=== PATIENT | male | born 1950 | race Caucasian/White ===

== ENCOUNTER → 2019-08-06 13:40 | Outpatient (BNVA) | payer MEDICARE, MEDICAID, SELFPAY | PROVIDERS: Family Provider Physician Assistant Medical; PCP Physician Assistant Medical; Visit Provider Psychiatry & Neurology Psychiatry | DX: F06.4 Anxiety disorder due to known physiological condition (principal); F06.31 Mood disorder due to known physiological condition with depressive features | CPT/HCPCS: 99204 ==

== ENCOUNTER 2020-01-31 09:46 | Emergency (ER) | payer MEDICARE, MEDICAID, SELFPAY ==
[2020-01-31] VITALS (16 sets, daily range): BP systolic 98–168; BP diastolic 54–105; PULSE 80–103; RESP 15–22; TEMP 36.6; O2SAT 92–98; BMI 24.3
--- NOTE | 2020-01-31 09:56 | ED_ITS ---
HPI - Psych General: Stated Complaint: THREATENING TO KILL HIMSELF Time Seen by Provider: 01/31/20 09:49 PFSH ED PFSH: Social History (Updated 08/06/19 @ 14:03 by Marshal Perez LPN) Smoking and tobacco status: current every day smoker cigarettes Packs smoked per day: 1 Years cigarettes smoked: 61 Quit status (tobacco): has tried quititng Number of times tried to quit tobacco: 1 Second hand smoke exposure: Yes Smoking risk assessment/counseling performed?: Yes Tobacco counseling given: counseling >3 minutes Discharge Plan Discharge Prescriptions: No Action omeprazole 20 mg capsule,delayed release(DR/EC) 20 mg PO DAILY RF: 0 venlafaxine 75 mg capsule,extended release 24hr See Rx Instructions PO DAILY RF: 0 quetiapine [Seroquel] 50 mg tablet See Rx Instructions PO .HS RF: 0 tizanidine 2 mg capsule 2 mg PO TID PRNRF: 0 hydrocodone-acetaminophen 10-325 mg tablet 1 tab PO Q8H PRNRF: 0 fluticasone propionate [Allergy Relief (fluticasone)] 50 mcg/actuation spray,suspension 1 spray INTRANASAL DAILY RF: 0 albuterol sulfate 90 mcg/actuation HFA aerosol inhaler 1 inh INHALATION Q4H PRN (Reason: shortness of breath or wheezing) RF: 0 olanzapine 2.5 mg tablet 2.5 mg PO BID PRN (Reason: anxiety) Qty: 60 RF: 2 Coding Level of Care Code ED [employer] 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
[2020-01-31] MEDS: LORazepam 2 mg/mL INJ 1 mL 1 MG IM ×2 (10:00→10:02)
[2020-01-31] MEDS: ziprasidone 20 mg/mL SDV 10 MG IM ×2 (10:01→13:11)
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
[2020-01-31 10:22] LABS: Basophils # 0.1 10^3/uL (0.0-0.1); Basophils % 0.6 %; Eosinophils # 0.3 10^3/uL (0.0-0.8); Eosinophils % 2.9 %; Hematocrit 38.8 % (42.0-52.0); Hemoglobin 13.1 g/dL (11.7-16.6); Lymphocytes # 3.5 10^3/uL (0.8-4.8); Mean Corpuscular HGB Conc 33.8 g/dL (30.0-36.0); Mean Corpuscular Hemoglobin 33.4 pg (28.0-34.0); Mean Platelet Volume 8.8 fL (7.4-10.4); Monocytes # 0.6 10^3/uL (0.2-0.9); Neutrophils # 5.04 10^3/uL (1.8-7.7); Nucleated Red Blood Cells % 0 %; Platelet Count 296 10^3/cmm (130-400); Red Blood Count 3.92 10^6/uL (4.1-5.3); Red Cell Distribution Width 13.9 % (12.1-15.1); White Blood Count 9.5 10^3/uL (4.0-10.0)
[2020-01-31 10:44] LABS: Alanine Aminotransferase 16 U/L (0-41); Albumin Level 4.3 g/dL (3.5-5.2); Alcohol Level 239 mg/dL (0-10); Alkaline Phosphatase 114 IU/L (40-130); Anion Gap 16.4 (5-19); Aspartate Amino Transferase 13 U/L (0-40); Blood Urea Nitrogen 10 mg/dL (8-23); Calcium 9.3 mg/dL (8.5-10.5); Carbon Dioxide 22 mmol/L (22-29); Chloride 107 mmol/L (98-107); Globulin 2.7 g/dL (1.3-4.6); Glomerular Filtration Rate 84.2 mL/min (90-130); Glucose 101 mg/dL (65-115); Osmolality Calculated 290 mOsm/kg (285-295); Potassium 3.4 mmol/L (3.5-5.1); Salicylate 0.5 mg/dL (3-10); Sodium 142 mmol/L (136-145); Total Bilirubin 0.2 mg/dL (0.15-1.2)
[2020-01-31 10:45] LABS: Acetaminophen < 5.0 ug/mL (10-30)
--- NOTE | 2020-01-31 10:48 | XRR_ITS ---
PROCEDURE INFORMATION: Exam: XR Chest, 1 View Exam date and time: 01/31/2020 11:04 AM Age: 69 years old Clinical indication: Cough and dyspnea; Patient HX: PT states no chest complaints, threatening to hill himself; Additional info: Dyspnea/cough TECHNIQUE: Imaging protocol: XR of the chest Views: 1 view. COMPARISON: CT chest con [id number] 03/06/2017 3:06 PM FINDINGS: Lungs: Emphysema Pleural space: Unremarkable. No pleural effusion. No pneumothorax. Heart/Mediastinum: Unremarkable. No cardiomegaly. Bones/joints: Unremarkable. Soft tissues: Subtle soft tissue fullness in the right infrahilar region suggested. Review of the CT scan dated 03-06-17 demonstrated a soft tissue density versus focal airspace disease within the right lower lobe posteriorly and medially. Consider two-view chest versus CT given this finding. XR/XR chest 1V portable [id number] IMPRESSION: Subtle soft tissue fullness in the right infrahilar region suggested. Review of the CT scan dated 03-06-17 demonstrated a soft tissue density versus focal airspace disease within the right lower lobe posteriorly and medially. Consider two-view chest versus CT given this finding.
--- NOTE | 2020-01-31 10:48 | ECG_ITS ---
[facility] Test Date: 2020-01-31 Pat Name: Mik Vargas Department: Room: Gender: Male Jaw Skinner: : 1950 Requested By: Rob Nathan Order Number: [id number] Haider MD: Edouard Tuttle M.D. Measurements Intervals [place] Rate: 90 P: 23 MA: 140 QRS: 32 QRSD: 81 T: 59 QT: 345 QTc: 423 Interpretive Statements SINUS RHYTHM WITH SINUS ARRHYTHMIA No previous ECG available for comparison Electronically Signed On 01-31-2020 18:08:34 CDT by Edouard Tuttle M.D. [id number]
--- NOTE | 2020-01-31 11:19 | PC.NURSE ---
Zoey sitting with patient stated patient awoke in a confused state asking where he was and how he got here. Also asked where his was, zoey informed patient that his was waiting out of the room, patient stated, oh good she's not trying to commit me or anything.
[2020-01-31 11:27] LABS: Thyroid Stimulating Hormone 0.55 uIU/mL (0.27-4.20)
[2020-01-31 11:35] LABS: Add Urine Microscopic? NO
[2020-01-31 11:39] LABS: Urine Appearance Clear (CLEAR); Urine Color Yellow (Yellow); pH Urine 6 (5-7)
[2020-01-31 11:40] LABS: Bilirubin Urine Neg (NEGATIVE); Blood Urine Neg (Negative); Glucose Urine UA Norm (Normal); Ketones Urine Negative (Negative); Leukocyte Esterase Urine Negative (Negative); Nitrate Urine Negative (Negative); Protein Urine Neg (Negative); Specific Gravity, Urine 1.005 (1.005-1.030); Urobilinogen Urine Neg (Negative)
[2020-01-31 11:48] LABS: Amphetamines Screen Urine Negative (Negative); Barbiturates Screen Urine Negative (Negative); Benzodiazepines Screen Urine Negative (Negative); Cocaine Screen Urine Negative (Negative); Opiate Screen Urine Positive (Negative); PCP Screen Urine Negative (Negative); THC Screen Urine Negative (Negative)
[2020-01-31 12:06] LABS: Vitamin B12 564 pg/mL (232-1245)
[2020-01-31] MEDS: LORazepam 1 mg Tablet PO (12:07)
[2020-01-31] MEDS: LORazepam 2 mg/mL INJ 1 mL (12:31)
[2020-01-31] MEDS: haloperidol inj 5 mg/mL INJ 1 mL (12:31)
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
--- NOTE | 2020-01-31 13:26 | PC.NURSE ---
Removed restraints at this time, patient is calm, cooperative, and is sleeping.
--- NOTE | 2020-01-31 14:51 | PC.NURSE ---
Patient rapid swabbed for COVID at this time per request from receiving facility.
[2020-01-31 15:15] LABS: SARS Covid-2 Antigen Negative (Negative)
[2020-01-31 21:19] LABS: Alcohol Level < 10 mg/dL (0-10)
== END 2020-01-31 22:30 ==
PROVIDERS: Family Medicine; Emergency Provider Emergency Medicine; PCP Physician Assistant Medical
DX: R45.851 Suicidal ideations (principal); F23 Brief psychotic disorder; F10.129 Alcohol abuse with intoxication, unspecified; J44.9 Chronic obstructive pulmonary disease, unspecified; F17.210 Nicotine dependence, cigarettes, uncomplicated
CPT/HCPCS: 12345; 36415; 71045; 80053; 80306; 80307; 81003; 82607; 84443; 85025; 87426; 93005; 93010; 96372; 99285; J1630; J2060; J3486

== ENCOUNTER → 2020-02-24 09:09 | Outpatient (BNVA) | payer MEDICARE, MEDICAID, SELFPAY | PROVIDERS: PCP Physician Assistant Medical; Visit Provider Psychiatry & Neurology Psychiatry | DX: F06.31 Mood disorder due to known physiological condition with depressive features (principal); F06.4 Anxiety disorder due to known physiological condition; S06.9X9S Unspecified intracranial injury with loss of consciousness of unspecified duration, sequela; F02.81 Dementia in other diseases classified elsewhere, unspecified severity, with behavioral disturbance | CPT/HCPCS: 99214 ==

== ENCOUNTER → 2020-03-19 08:22 | Outpatient (BNVA) | payer MEDICARE, MEDICAID, SELFPAY | PROVIDERS: PCP Physician Assistant Medical; Visit Provider Psychiatry & Neurology Psychiatry | DX: F06.31 Mood disorder due to known physiological condition with depressive features (principal); F06.4 Anxiety disorder due to known physiological condition; S06.9X9S Unspecified intracranial injury with loss of consciousness of unspecified duration, sequela; F02.81 Dementia in other diseases classified elsewhere, unspecified severity, with behavioral disturbance | CPT/HCPCS: 99213 ==

== ENCOUNTER 2020-04-11 12:09 | Emergency (ER) | payer MEDICARE, MEDICAID, SELFPAY ==
[2020-04-11 12:13] VITALS: BP 182/121; PULSE 107; RESP 18; TEMP 36.6; O2SAT 96; BMI 26.6
--- NOTE | 2020-04-11 12:20 | XRR_ITS ---
PROCEDURE INFORMATION: Exam: XR Chest, 1 View Exam date and time: 04/11/2020 12:22 PM Age: 69 years old Clinical indication: Other: AMS; Additional info: Altered mental status TECHNIQUE: Imaging protocol: XR of the chest Views: 1 view. COMPARISON: 1. CR XR chest 1V portable [id number] 01/31/2020 11:[address] chest con [id number] 03/06/2017 3:06:34 PM FINDINGS: Lungs: Lungs are hyperexpanded. There are fibrotic changes in lung bases. There is more focal opacity with peribronchial thickening in the right infrahilar region along the inferior heart border. This appears stable, but this is only to CT 01/31/2020. Review of chest CT from 2017 reveals a nodular density in right lung base the which appears smaller in size. Therefore, recommend follow-up to the chest x-ray or CT evaluation. Pleural space: No significant visible pleural effusion. No pneumothorax. Heart/Mediastinum: No significant cardiomegaly. Bones/joints: No acute finding. XR/XR chest 1V portable [id number] IMPRESSION: Chronic lung changes. Right medial lung base opacity appears stable to recent chest x-ray, however, this is only a few months of stability. Consider follow-up serial chest x-ray for stability or comparison to chest CT.
--- NOTE | 2020-04-11 12:20 | CTR_ITS ---
PROCEDURE INFORMATION: Exam: CT Head Without Contrast Exam date and time: 04/11/2020 12:38 PM Age: 69 years old Clinical indication: Altered mental status/memory loss; Prior surgery; Surgery type: Brain TECHNIQUE: Imaging protocol: Computed tomography of the head without contrast. Radiation optimization: All CT scans at this facility use at least one of these dose optimization techniques: automated exposure control; mA and/or kV adjustment per patient size (includes targeted exams where dose is matched to clinical indication); or iterative reconstruction. COMPARISON: CTA Head [id number] 11/06/2014 7:11 PM RADIATION DOSE METRICS: Total DLP (mGy-cm): 742.47 FINDINGS: Brain: There is no acute intracranial hemorrhage. There is lucency in the cerebral white matter, likely microvascular disease although non-specific. Rae white differentiation is intact. There are no extra-axial fluid collections. No evidence of mass. There is no mass effect or midline shift. There is right greater than left inferior frontal encephalomalacia. Cerebral ventricles: The ventricles and sulci are enlarged, consistent with volume loss / atrophy. No hydrocephalus. Bones/joints: There is left craniotomy. Paranasal sinuses: Visualized sinuses are unremarkable. No fluid levels. Mastoid air cells: No significant mastoid effusion. Vasculature: Aneurysm coil material in anterior suprasellar region likely at level of anterior communicating arteries. There is also an aneurysm clip present. There is vascular calcification. Soft tissues: Unremarkable as visualized. CT/CT head wo con* [id number] IMPRESSION: 1. No evidence of acute intracranial abnormality. No evidence of acute infarction, hemorrhage, or mass. 2. Atrophy and microvascular disease. Frontal encephalomalacia. 3. Status post anterior cervical Thurston aneurysm clipping. Radiation Dose CTDIVOL = (mGy): DLP = 742.47 (mGy-cm)
--- NOTE | 2020-04-11 12:21 | ECG_ITS ---
[facility] Test Date: 2020-04-11 Pat Name: Mik Vargas Department: Room: Gender: Male [employer]: : 1950 Requested By: Sangeeta Winkler Order Number: [id number] Haider MD: Ruddy Mirza M.D. Measurements Intervals [place] Rate: 91 P: ID: [id number] QRS: 58 QRSD: 78 T: 61 QT: 330 QTc: 407 Interpretive Statements Possible multifocal atrial rhythm ABNORMAL RHYTHM ECG Compared to ECG 01/31/2020 11:09:12 Sinus rhythm no longer present Sinus arrhythmia no longer present Electronically Signed On 04-11-2020 16:08:35 CDT by Ruddy Mirza M.D. [email or web address]
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
[2020-04-11] MEDS: folic acid 1 MG, multivitamin inj 10 ML, thiamine 100 MG in sodium chloride 0.9% 1,000 ML 252.8 MG IV (13:15)
[2020-04-11] MEDS: ondansetron 2 mg/ML SDV 2 mL 4 MG IVP (13:15)
[2020-04-11] MEDS: LORazepam 2 mg/mL INJ 1 mL 1 MG IVP ×2 (13:15→14:44)
[2020-04-11 13:18] VITALS: BP 198/99; PULSE 77; RESP 22; O2SAT 94
[2020-04-11 13:42] LABS: Basophils # 0.1 10^3/uL (0.0-0.1); Basophils % 0.5 %; Eosinophils # 0.1 10^3/uL (0.0-0.8); Eosinophils % 1.2 %; Hematocrit 41.9 % (42.0-52.0); Hemoglobin 13.7 g/dL (11.7-16.6); Lymphocytes # 1.9 10^3/uL (0.8-4.8); Lymphocytes % 16.8 %; Mean Corpuscular HGB Conc 32.7 g/dL (30.0-36.0); Mean Corpuscular Hemoglobin 32.4 pg (28.0-34.0); Mean Corpuscular Volume 99.1 fL (80-94); Mean Platelet Volume 9.5 fL (7.4-10.4); Monocytes # 0.5 10^3/uL (0.2-0.9); Monocytes % 4.7 %; Neutrophils # 8.52 10^3/uL (1.8-7.7); Neutrophils % 76.4 %; Nucleated Red Blood Cells % 0 %; Platelet Count 292 10^3/cmm (130-400); Red Blood Count 4.23 10^6/uL (4.1-5.3); Red Cell Distribution Width 14.7 % (12.1-15.1); White Blood Count 11.2 10^3/uL (4.0-10.0)
[2020-04-11 13:48] LABS: Ketone (Acetest) Serum Negative (Negative)
[2020-04-11 13:50] LABS: INR 0.95 (0.8-1.2)
[2020-04-11 14:03] LABS: Troponin(5th) Baseline 10 ng/L (0-15)
[2020-04-11 14:05] LABS: SARS Covid-2 Antigen Negative (Negative)
[2020-04-11 14:14] LABS: Alanine Aminotransferase 12 U/L (0-41); Albumin Level 4.6 g/dL (3.5-5.2); Alkaline Phosphatase 126 IU/L (40-130); Anion Gap 15.3 (5-19); Aspartate Amino Transferase 18 U/L (0-40); Blood Urea Nitrogen 19 mg/dL (8-23); Calcium 9.8 mg/dL (8.5-10.5); Carbon Dioxide 26 mmol/L (22-29); Chloride 99 mmol/L (98-107); Creatine Phosphokinase 129 U/L (39-308); Creatinine Clr Calc Pharmacy 82.0029; Free T4 Free Thyroxine 1.01 ng/dL (0.82-1.77); Globulin 2.5 g/dL (1.3-4.6); Glomerular Filtration Rate 84.2 mL/min (90-130); Glucose 147 mg/dL (65-115); Magnesium 1.6 mg/dL (1.7-2.3); Osmolality Calculated 287 mOsm/kg (285-295); Potassium 4.3 mmol/L (3.5-5.1); Sodium 136 mmol/L (136-145); Thyroid Stimulating Hormone 1.52 uIU/mL (0.27-4.20); Total Bilirubin 0.2 mg/dL (0.15-1.2); Total Protein 7.1 g/dL (6.6-8.7)
[2020-04-11 14:35] LABS: Alcohol Level < 10 mg/dL (0-10)
[2020-04-11 15:07] LABS: Amphetamines Screen Urine Negative (Negative); Barbiturates Screen Urine Negative (Negative); Benzodiazepines Screen Urine Negative (Negative); Cocaine Screen Urine Negative (Negative); Opiate Screen Urine Negative (Negative); PCP Screen Urine Negative (Negative); THC Screen Urine Negative (Negative)
[2020-04-11 15:09] LABS: Specific Gravity, Urine 1.025 (1.005-1.030); Urine Appearance Clear (CLEAR); Urine Color Dark Yellow (Yellow); pH Urine 5 (5-7)
[2020-04-11 15:10] LABS: Add Urine Microscopic? YES; Bilirubin Urine Neg (Negative); Blood Urine 2+ (Negative); Glucose Urine UA Norm (Normal); Ketones Urine Negative (Negative); Leukocyte Esterase Urine Negative (Negative); Nitrate Urine Negative (Negative); Protein Urine Trace (Negative); Urobilinogen Urine 4 mg/dL (Negative)
[2020-04-11 15:11] LABS: RBC Urine 15-25 /hpf (0-2); WBC Urine RARE /hpf (0-5)
[2020-04-11 15:12] LABS: Bacteria Urine TRACE /hpf
[2020-04-11 15:13] LABS: Add Urine Culture? Yes; Mucus Urine 1+ /hpf
[2020-04-11 16:05] LABS: Troponin 5 2HR 10.64 ng/L (0-15); Troponin 5 2HR Delta 0.64 ABS# (0-10)
[2020-04-11 17:18] VITALS: BP 158/100; PULSE 94; RESP 18; O2SAT 94
== END 2020-04-11 18:53 ==
PROVIDERS: Emergency Provider Emergency Medicine; PCP Physician Assistant Medical
DX: F03.91 Unspecified dementia, unspecified severity, with behavioral disturbance (principal); F10.10 Alcohol abuse, uncomplicated; F41.9 Anxiety disorder, unspecified; J44.9 Chronic obstructive pulmonary disease, unspecified; F17.210 Nicotine dependence, cigarettes, uncomplicated
CPT/HCPCS: 12345; 36415; 70450; 71045; 80053; 80306; 80307; 81001; 82009; 82550; 83735; 84439; 84443; 84484; 85025; 85610; 87086; 87426; 93005; 96361; 96374; 96375; 96376; 99285; J2060; J2405; J3411; J3490; J7030

== ENCOUNTER 2020-05-20 18:39 | Emergency (ER) | payer MEDICARE, MEDICAID, SELFPAY ==
[2020-05-20 18:42] VITALS: BMI 28.4
[2020-05-20 19:05] VITALS: BP 126/97; PULSE 75; O2SAT 94
[2020-05-20 20:00] VITALS: BP 93/71; PULSE 73; RESP 21; O2SAT 94
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
--- NOTE | 2020-05-20 22:23 | W.ED.COVID ---
HPI - COVID General: Chief Complaint: COVID symptoms Stated Complaint: COVID+ Time Seen by Provider: 05/20/20 19:20 Source: patient Mode of arrival: EMS Limitations: no limitations Triage information: No fever, cough or shortness of breath. Exposure to COVID + person last 14 days History of Present Illness: HPI Narrative: Patient is a 69-year-old male with a history of COPD, rheumatoid arthritis, anxiety who apparently was in the rehab facility but left AGAINST MEDICAL ADVICE today because he did not like how he was being treated. When I evaluated the patient, he denied any complaints, said he was not short of breath, and asked to be discharged home. He denied suicidal or homicidal ideation. He however had told the nurse that he was short of breath although he was not very cooperative with questioning. He denies any fever, any chest pain, difficulty breathing, dizziness, nausea or vomiting. MD complaint: known COVID positive Prior covid testing: yes, results known COVID 19 common symptoms: negative fever(s), chills, non-productive cough, productive cough, dyspnea, body aches, headache(s), throat pain, nausea or vomiting Pertinent comorbid conditions: COPD/respiratory disease COVID Results: SARS-CoV-2 Antigen (Rapid) Negative (Negative) 04/11/20 13:13 04/11/20 Review of Systems General: Reports: 10 or more systems reviewed and unremarkable except in HPI and below Const: Denies: fever(s), chills or body aches Eyes: Denies: change in vision or blurry vision ENMT: Denies: throat pain, enlarged tonsils, odynophagia, hoarseness, mouth pain or swelling of lips/tongue Card: Denies: palpitations, irregular heart rhythm, edema or swelling of feet/ankles Resp: Denies: dyspnea, productive cough or non-productive cough GI: Denies: abdominal pain, nausea or vomiting : Denies: flank pain, dysuria, urinary frequency, urinary urgency or urinary hesitancy Musc: Denies: neck pain, back pain or extremity swelling Skin/Breast: Denies: rash, pruritus or erythema Neuro: Denies: headache(s), numbness in extremities or weakness in extremities Endo: Denies: polyuria, polydipsia or tired all the time [facility] ED PFSH: Medical History Cerebral aneurysm Surgical intervention x2 COPD (chronic obstructive pulmonary disease) 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 Rheumatoid arthritis Social History Smoking and tobacco status: current every day smoker cigarettes Packs smoked per day: 1 Years cigarettes smoked: 61 Quit status (tobacco): has tried quititng Number of times tried to quit tobacco: 1 Second hand smoke exposure: Yes Smoking risk assessment/counseling performed?: Yes Tobacco counseling given: counseling >3 minutes Physical Exam Const: COMMON NORMALS: no acute distress, average body habitus, patient oriented x3, no limitations, healthy appearing, alert and well nourished HENMT: COMMON NORMALS: normocephalic, atraumatic and moist oral mucous membranes HEAD & SCALP: normocephalic and atraumatic Neck/C-Spine: COMMON NORMALS: no meningeal signs and no JVD Resp: COMMON NORMALS: normal respiratory effort, No retractions, No use of accessory muscles, clear to auscultation bilaterally and percussion normal AUSCULTATION: clear to auscultation bilaterally PERCUSSION: percussion normal Cardio: COMMON NORMALS: no JVD, regular rate, regular rhythm, S1 normal heart sound present, S2 normal heart sound present, No gallops present (Cardio), No clicks present (Cardio), No murmurs present (Cardio), No rub (Cardio) and Peripheral pulses 2+ throughout RATE: regular rate RHYTHM: regular rhythm HEART SOUNDS: S1 normal heart sound present and S2 normal heart sound present PERIPHERAL PULSES: Peripheral pulses 2+ throughout GI: COMMON NORMALS: Normal to inspection, nondistended, normoactive bowel sounds present, Soft to palpation, non-tender, No hepatosplenomegaly present, no masses and no bruits PALPATION: Yes Soft to palpation and Yes No hepatosplenomegaly present Extremity: COMMON NORMALS: normal to inspection, full ROM, capillary refill normal, no calf tenderness and no pedal edema Neuro: COMMON NORMALS: patient oriented x3 SENSORIUM/ORIENTATION: Yes alert MENINGEAL SIGNS: Yes no meningeal signs Course ED course: Patient who presents because he was apparently short of breath. However when I evaluated him he said he has no complaints, is not having any trouble breathing, and would like to be discharged home. Patient is not hypoxic and his oxygen saturation has been in the high 90s on room air. He is known Covid positive I will therefore discharge him home. Vital Signs: Vital signs: Vital Signs Pulse Rate 63 05/20/20 23:15 Respiratory Rate 17 05/20/20 23:15 Blood Pressure 97/70 05/20/20 23:15 Pulse Oximetry 94 05/20/20 23:15 MDM - COVID MDM Narrative: Medical decision making narrative: He does not meet the [facility] criteria for Bamlanivimab. He is greater than 65 years old, his greater than 40 kg, he has a positive Covid test, however his BMI is 28, he does not have chronic kidney disease, he is not diabetic, he is not on any immunosuppressants and does not have any immunosuppression disease, no history of cardiovascular disease, he is not hypertensive, but he has COPD. He is therefore discharged home with no new orders. Medical Records: Attestation: I reviewed the patient's medical records. COVID Results: SARS-CoV-2 Antigen (Rapid) Negative (Negative) 04/11/20 13:13 04/11/20 Discharge Plan Discharge Patient Disposition: Home Clinical Impression: COVID-19 Condition: Stable Prescriptions: Continued omeprazole 20 mg capsule,delayed release(DR/EC) 20 mg PO DAILY RF: 0 venlafaxine 75 mg capsule,extended release 24hr See Rx Instructions PO DAILY RF: 0 quetiapine [Seroquel] 50 mg tablet 100 mg PO BEDTIME RF: 0 tizanidine 2 mg capsule 2 mg PO TID PRN (Reason: Muscle Pain) RF: 0 fluticasone propionate [Allergy Relief (fluticasone)] 50 mcg/actuation spray,suspension 1 spray INTRANASAL DAILY RF: 0 albuterol sulfate 90 mcg/actuation HFA aerosol inhaler 1 inh INHALATION Q4H PRN (Reason: shortness of breath or wheezing) RF: 0 fluticasone propion-salmeterol [Advair Diskus] 250-50 mcg/dose blister with device 1 inh INHALATION BID RF: 0 buspirone 5 mg tablet 5 mg PO TID Qty: 90 RF: 2 Discharge Orders: Discharge Order (Routine); Ordered 05/20/20 Ordered By: Johnathon Fuller Referrals: Cristi Nascimento [Primary Care Provider] - 1-3 days Discharge Diet: Usual diet Discharge Activity: Increase activity as tolerated Patient Instructions: Viral Syndrome (ED) Activity Restrictions/Additional Instructions: Return for any new or worsening symptoms. You need to self isolate for at least 10 days from the day of diagnosis and you have been fever free without taking any medication for fever for at least 48 hours. Follow-up with your primary care provider within 3 days. Coding Level of Care Code ED Mold Closer for Mary Marinelli
[2020-05-20 23:15] VITALS: BP 97/70; PULSE 63; RESP 17; O2SAT 94
[2020-05-21 00:55] VITALS: BP 95/54; PULSE 61; RESP 17; O2SAT 93
[2020-05-21 01:59] VITALS: BP 123/76; PULSE 60; RESP 17; O2SAT 92
--- NOTE | 2020-05-21 03:28 | PC.SOCIAL ---
Montrell lora called, trip #[id number]
[2020-05-21 03:42] VITALS: BP 128/60; PULSE 66; RESP 16; TEMP 36.9; O2SAT 93
== END 2020-05-21 03:42 | disposition home or self-care (01) ==
PROVIDERS: Emergency Provider Family Medicine; PCP Physician Assistant Medical
DX: U07.1 COVID-19 (principal); J44.9 Chronic obstructive pulmonary disease, unspecified; F17.210 Nicotine dependence, cigarettes, uncomplicated
CPT/HCPCS: 12345; 99282

== ENCOUNTER 2020-07-03 18:50 | Inpatient (IN) | payer MEDICARE, MEDICAID, SELFPAY ==
--- NOTE | 2020-07-03 18:52 | ECG_ITS ---
[facility] Test Date: 2020-07-03 Pat Name: Mik Vargas Department: Room: Gender: Male Crumb Packer: : 1950 Requested By: Ryder Fuller Order Number: [id number] Haider MD: Edouard Tuttle M.D. 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 [id number]
[2020-07-03 19:01] VITALS: BP 184/120; PULSE 72; RESP 20; TEMP 36.7; O2SAT 93; BMI 26.6
[2020-07-03 20:08] LABS: Basophils # 0.1 10^3/uL (0.0-0.1); Basophils % 0.8 %; Eosinophils # 0.1 10^3/uL (0.0-0.8); Eosinophils % 0.9 %; Hematocrit 35.6 % (42.0-52.0); Hemoglobin 11.9 g/dL (11.7-16.6); Lymphocytes % 29.8 %; Mean Corpuscular HGB Conc 33.4 g/dL (30.0-36.0); Mean Corpuscular Hemoglobin 31.6 pg (28.0-34.0); Mean Corpuscular Volume 94.7 fL (80-94); Mean Platelet Volume 9.1 fL (7.4-10.4); Monocytes % 7.8 %; Neutrophils # 7.37 10^3/uL (1.8-7.7); Neutrophils % 55.6 %; Nucleated Red Blood Cells % 0 %; Platelet Count 412 10^3/cmm (130-400); Red Blood Count 3.76 10^6/uL (4.1-5.3); Red Cell Distribution Width 14.7 % (12.1-15.1); White Blood Count 13.3 10^3/uL (4.0-10.0)
[2020-07-03 20:30] LABS: Amphetamines Screen Urine Negative (Negative); Barbiturates Screen Urine Negative (Negative); Benzodiazepines Screen Urine Negative (Negative); Cocaine Screen Urine Negative (Negative); Opiate Screen Urine Negative (Negative); PCP Screen Urine Negative (Negative); THC Screen Urine Negative (Negative)
[2020-07-03 20:35] LABS: Alanine Aminotransferase 26 U/L (0-41); Albumin Level 3.5 g/dL (3.5-5.2); Alcohol Level 58 mg/dL (0-10); Alkaline Phosphatase 139 IU/L (40-130); Anion Gap 16.3 (5-19); Aspartate Amino Transferase 26 U/L (0-40); Blood Urea Nitrogen 21 mg/dL (8-23); Calcium 9.3 mg/dL (8.5-10.5); Carbon Dioxide 26 mmol/L (22-29); Chloride 101 mmol/L (98-107); Globulin 3.3 g/dL (1.3-4.6); Glomerular Filtration Rate 84.2 mL/min (90-130); Glucose 137 mg/dL (65-115); Osmolality Calculated 295 mOsm/kg (285-295); Potassium 3.3 mmol/L (3.5-5.1); Salicylate 1.5 mg/dL (3-10); Sodium 140 mmol/L (136-145); Thyroid Stimulating Hormone 0.98 uIU/mL (0.27-4.20); Total Bilirubin 0.2 mg/dL (0.15-1.2); Total Protein 6.8 g/dL (6.6-8.7)
[2020-07-03 20:54] LABS: Acetaminophen < 5.0 ug/mL (10-30)
[2020-07-03 20:55] LABS: Urine Appearance Clear (CLEAR); Urine Color Yellow (Yellow); pH Urine 5 (5-7)
[2020-07-03 20:56] LABS: Add Urine Microscopic? YES; Bilirubin Urine Neg (Negative); Blood Urine 2+ (Negative); Glucose Urine UA Norm (Normal); Ketones Urine Negative (Negative); Leukocyte Esterase Urine Negative (Negative); Nitrate Urine Negative (Negative); Protein Urine Neg (Negative); Specific Gravity, Urine 1.015 (1.005-1.030); Urobilinogen Urine Norm (Negative)
[2020-07-03 20:59] LABS: RBC Urine 0-4 /hpf (0-2); Squamous Epithelial Cell Urine 0-4 /hpf (0-5); WBC Urine 0-4 /hpf (0-5)
[2020-07-03 21:00] LABS: Add Urine Culture? No; Bacteria Urine TRACE /hpf; Mucus Urine 2+ /hpf
--- NOTE | 2020-07-03 21:01 | W.ED.PSYCH ---
HPI - Psych General: Chief Complaint: Psychiatric Symptoms Stated Complaint: 96 hr hold Time Seen by Provider: 07/03/20 18:52 History of Present Illness: HPI Narrative: 69-year-old gentleman here under court order 96-hour hold. There are multiple affidavit signed that he drinks daily, and threatens harm to his , even chokes her, if he does not get alcohol. He has a history of vascular dementia as well. He has been drinking today. He does state that he has had a bit of a cough, but no fever, vomiting or diarrhea. He had COVID-19 back in April, but no contact currently with any Covid patients. MD complaint: other Associated symptoms: Deny auditory hallucinations, visual hallucinations or delusions Review of Systems Const: Denies: fever(s) or chills Eyes: Denies: change in vision ENMT: Denies: odynophagia, swelling of lips/tongue or sinus pain Card: Denies: chest pain, palpitations or irregular heart rhythm Resp: Reports: non-productive cough; Denies: dyspnea, productive cough or wheezing GI: Denies: abdominal pain, nausea, vomiting, rectal pain, hematochezia or melena : Denies: difficulty urinating, dysuria, urinary frequency, urinary urgency or hematuria Musc: Denies: neck pain, back pain, joint redness or joint warmth Skin/Breast: Denies: rash, pruritus or erythema Neuro: Denies: headache(s), dizziness, vertigo, confusion or seizure-like activity Psych: Denies: anxiety, visual hallucinations or auditory hallucinations PFS ED PFSH: Medical History Cerebral aneurysm Surgical intervention x2 COPD (chronic obstructive pulmonary disease) 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 Rheumatoid arthritis Social History Smoking and tobacco status: current every day smoker cigarettes Packs smoked per day: 1 Years cigarettes smoked: 61 Quit status (tobacco): has tried quititng Number of times tried to quit tobacco: 1 Second hand smoke exposure: Yes Smoking risk assessment/counseling performed?: Yes Tobacco counseling given: counseling >3 minutes Physical Exam Const: GENERAL APPEARANCE: cooperative and comfortable ORIENTATION/CONSCIOUSNESS: Yes oriented to person and Yes oriented to place; not oriented to time HENMT: COMMON NORMALS: normocephalic, external ears normal and Normal external nose present HEAD & SCALP: normocephalic FACE & SINUS: normal facial exam NOSE: Normal external nose present and No nasal discharge present EXTERNAL EAR: Yes external ears normal Eye: COMMON NORMALS: Equal, round and reactive pupils present, EOMs intact bilaterally and conjunctivae normal EYELID: eyelids normal CONJUNCTIVA: Yes conjunctivae normal PUPIL: Yes Equal, round and reactive pupils present Neck/C-Spine: GENERAL: No tracheal deviation Chest: COMMONS NORMALS: normal inspection of the chest CHEST: No tenderness Resp: COMMON NORMALS: clear to auscultation bilaterally EFFORT & INSPECTION: No tachypneic, No respiratory distress, No retractions, No uses accessory muscles and No tracheal deviation AUSCULTATION: clear to auscultation bilaterally, no rhonchi, no wheezes and lung sounds not diminished Cardio: COMMON NORMALS: regular rate and regular rhythm RATE: regular rate RHYTHM: regular rhythm HEART SOUNDS: no murmurs PERIPHERAL PULSES: radial pulses present GI: INSPECTION: No abdominal distension AUSCULTATION: No Hyperactive bowel sounds present and No Hypoactive bowel sounds present PALPATION: No Guarding due to palpation present (GI) and No Rigid due to palpation PERCUSSION: no dullness to percussion and no tympanic to percussion Neuro: SENSORIUM/ORIENTATION: Yes oriented to person, Yes oriented to place and No oriented to time Psych: COMMON NORMALS: Normal thought process present, cooperative and speech normal ATTITUDE: Yes calm ACTIVITY/MOTOR BEHAVIOR: Yes appropriate eye contact SPEECH: Yes normal speech MOOD & AFFECT: Yes euthymic mood THOUGHT PROCESS: Normal thought process present THOUGHT CONTENT: No delusions and No Hallucination(s) present ATTENTION/CONCENTRATION: Yes attention grossly intact and Yes concentration grossly intact MEMORY/COGNITION: Yes memory grossly impaired and Yes cognition grossly impaired (mildly) INSIGHT: Limited insight present (Psych) JUDGEMENT: Limited judgement present (Psych) Skin: COMMON NORMALS: no rashes or lesions noted GENERAL SKIN EXAM: no rashes or lesions noted MDM - Psych MDM Narrative: Medical decision making narrative: 69-year-old mildly intoxicated male with a history of vascular dementia. He has been calm cooperative throughout his ER stay. He has a mild elevation in his white blood cell count but with no shift. Potassium is mildly low and is repleted. He is Covid negative by rapid testing. He is otherwise been medically stable. Our NPU age limit is 64, and the patient does have a history of vascular dementia. He would likely be better suited in a geriatric psychiatry facility. We are searching for such. 0426: We called multiple geriatric neuropsychiatry facilities in the state. None are willing to accept this patient, or rather are full or closed. The unwillingness to accept test to do with the history of daily drinking and the propensity for delirium tremens following admission which requires medical treatment. I have spoke with our hospitalist. We are trying to work out a sitter for this patient to possibly be admitted to the floor here observation and CIWA protocol until such time as he can become medically stable for geriatric psychiatry transfer. 0527 no sitters have been found on the floor will be available on today's hi. We are holding the patient in the ER for now until such time staff becomes available to care for this patient. The patient will be turned over to Dr. Thakur at shift change Lab Data: Labs: Lab Results 07/03/20 07/03/20 07/03/20 Range/Units 19:55 19:55 20:03 WBC 13.3 H (4.0-10.0) 10^3/ uL RBC 3.76 L (4.1-5.3) 10^6/u L Hgb 11.9 (11.7-16.6) g/dL Hct 35.6 L (42.0-52.0) % MCV 94.7 H (80-94) fL MCH 31.6 (28.0-34.0) pg MCHC 33.4 (30.0-36.0) g/dL RDW 14.7 (12.1-15.1) % Plt Count 412 H (130-400) 10^3/c mm MPV 9.1 (7.4-10.4) fL Neut % (Auto) 55.6 % Lymph % (Auto) 29.8 % [place] % (Auto) 7.8 % Eos % (Auto) 0.9 % Baso % (Auto) 0.8 % Neut # (Auto) 7.37 (1.8-7.7) 10^3/u L Lymph # (Auto) 4.0 (0.8-4.8) 10^3/u L [place] # (Auto) 1.0 H (0.2-0.9) 10^3/u L Eos # (Auto) 0.1 (0.0-0.8) 10^3/u L Baso # (Auto) 0.1 (0.0-0.1) 10^3/u L Nucleated RBC % (a uto) 0 % Nucleated RBCs # 0.0 /100WBC Sodium 140 (136-145) mmol/L Potassium 3.3 L (3.5-5.1) mmol/L Chloride 101 (98-107) mmol/L Carbon Dioxide 26 (22-29) mmol/L Anion Gap 16.3 (5-19) BUN 21 (8-23) mg/dL Creatinine 0.9 (0.7-1.2) mg/dL GFR Calculation 84.2 L (90-130) mL/min Glucose 137 H (65-115) mg/dL Calculated Osmolal ity 295 (285-295) mOsm/k g Calcium 9.3 (8.5-10.5) mg/dL Total Bilirubin 0.2 (0.15-1.2) mg/dL AST 26 (0-40) U/L ALT 26 (0-41) U/L Alkaline Phosphata se 139 H (40-130) IU/L Total Protein 6.8 (6.6-8.7) g/dL Albumin 3.5 (3.5-5.2) g/dL Globulin 3.3 (1.3-4.6) g/dL TSH 0.98 (0.27-4.20) uIU/ mL Urine Color Yellow (Yellow) Urine Appearance Clear (CLEAR) Urine pH 5 (5-7) Ur Specific Gravit y 1.015 (1.005-1.030) Urine Protein Neg (Negative) Urine Glucose (UA) Norm (Normal) Urine Ketones Negative (Negative) Urine Blood 2+ H (Negative) Urine Nitrate Negative (Negative) Urine Bilirubin Neg (Negative) Urine Urobilinogen Norm (Negative) mg/dL Ur Leukocyte Evie ase Negative (Negative) Urine RBC 0-4 H (0-2) /hpf Urine WBC 0-4 H (0-5) /hpf Ur Squamous Epith Cells 0-4 H (0-5) /hpf Amorphous Sediment Not Reportable Urine Bacteria Trace (NONE) /hpf Urine Mucus 2+ /hpf Salicylates 1.5 L (3-10) mg/dL Urine Opiates Scre en (Negative) ng/mL Acetaminophen < 5.0 L (10-30) ug/mL Ur Barbiturates Sc reen (Negative) ng/mL Ur Phencyclidine S crn (Negative) ng/mL Ur Amphetamines Sc reen (Negative) ng/mL U Benzodiazepines Scrn (Negative) ng/mL [place] (0.6-1.2) mmol/L Urine Cocaine Scre en (Negative) ng/mL U Marijuana (THC) Screen (Negative) ng/mL Ethyl Alcohol 58 H (0-10) mg/dL SARS-CoV-2 Ag (Rap id) (Negative) 07/03/20 07/03/20 07/03/20 Range/Units 20:03 20:10 21:54 WBC (4.0-10.0) 10^3/ uL RBC (4.1-5.3) 10^6/u L Hgb (11.7-16.6) g/dL Hct (42.0-52.0) % MCV (80-94) fL MCH (28.0-34.0) pg MCHC (30.0-36.0) g/dL RDW (12.1-15.1) % Plt Count (130-400) 10^3/c mm MPV (7.4-10.4) fL Neut % (Auto) % Lymph % (Auto) % [place] % (Auto) % Eos % (Auto) % Baso % (Auto) % Neut # (Auto) (1.8-7.7) 10^3/u L Lymph # (Auto) (0.8-4.8) 10^3/u L [place] # (Auto) (0.2-0.9) 10^3/u L Eos # (Auto) (0.0-0.8) 10^3/u L Baso # (Auto) (0.0-0.1) 10^3/u L Nucleated RBC % (a uto) % Nucleated RBCs # /100WBC Sodium (136-145) mmol/L Potassium (3.5-5.1) mmol/L Chloride (98-107) mmol/L Carbon Dioxide (22-29) mmol/L Anion Gap (5-19) BUN (8-23) mg/dL Creatinine (0.7-1.2) mg/dL GFR Calculation (90-130) mL/min Glucose (65-115) mg/dL Calculated Osmolal ity (285-295) mOsm/k g Calcium (8.5-10.5) mg/dL Total Bilirubin (0.15-1.2) mg/dL AST (0-40) U/L ALT (0-41) U/L Alkaline Phosphata se (40-130) IU/L Total Protein (6.6-8.7) g/dL Albumin (3.5-5.2) g/dL Globulin (1.3-4.6) g/dL TSH (0.27-4.20) uIU/ mL Urine Color (Yellow) Urine Appearance (CLEAR) Urine pH (5-7) Ur Specific Gravit y (1.005-1.030) Urine Protein (Negative) Urine Glucose (UA) (Normal) Urine Ketones (Negative) Urine Blood (Negative) Urine Nitrate (Negative) Urine Bilirubin (Negative) Urine Urobilinogen (Negative) mg/dL Ur Leukocyte Evie ase (Negative) Urine RBC (0-2) /hpf Urine WBC (0-5) /hpf Ur Squamous Epith Cells (0-5) /hpf Amorphous Sediment Urine Bacteria (NONE) /hpf Urine Mucus /hpf Salicylates (3-10) mg/dL Urine Opiates Scre en Negative (Negative) ng/mL Acetaminophen (10-30) ug/mL Ur Barbiturates Sc reen Negative (Negative) ng/mL Ur Phencyclidine S crn Negative (Negative) ng/mL Ur Amphetamines Sc reen Negative (Negative) ng/mL U Benzodiazepines Scrn Negative (Negative) ng/mL [place] 0.1 L (0.6-1.2) mmol/L Urine Cocaine Scre en Negative (Negative) ng/mL U Marijuana (THC) Screen Negative (Negative) ng/mL Ethyl Alcohol (0-10) mg/dL SARS-CoV-2 Ag (Rap id) Negative (Negative) Discharge Plan Discharge Prescriptions: No Action omeprazole 20 mg capsule,delayed release(DR/EC) 20 mg PO DAILY@0600 RF: 0 venlafaxine 75 mg capsule,extended release 24hr 75 mg PO DAILY@0600 RF: 0 quetiapine [Seroquel] 50 mg tablet 100 mg PO BEDTIME@2000 RF: 0 tizanidine 2 mg capsule 2 mg PO TID PRN (Reason: Muscle Pain) RF: 0 fluticasone propionate [Allergy Relief (fluticasone)] 50 mcg/actuation spray,suspension 1 spray INTRANASAL DAILY@0600 RF: 0 albuterol sulfate 90 mcg/actuation HFA aerosol inhaler 1 inh INHALATION Q4H PRN (Reason: shortness of breath or wheezing) RF: 0 fluticasone propion-salmeterol [Advair Diskus] 250-50 mcg/dose blister with device 1 inh INHALATION BID@0600,1800 RF: 0 prednisone 20 mg tablet See Rx Instructions .ROUTE .COMPLEX RF: 0 albuterol sulfate 90 mcg/actuation HFA aerosol inhaler 2 puff INHALATION Q4H PRN (Reason: shortness of breath.) RF: 0 doxycycline hyclate 100 mg tablet 100 mg PO BID@0600,1800 RF: 0 buspirone 5 mg tablet 5 mg PO TID@0600,1300,1800 RF: 0 venlafaxine 150 mg capsule,extended release 24hr 150 mg PO DAILY@0600 RF: 0 Coding Level of Care Code ED Engraving Plate Maker for Chg Fwd Exam Comprehensive
[2020-07-03 21:14] LABS: Slide Review Slide Review Perform
[2020-07-03 21:37] LABS: SARS Covid-2 Antigen Negative (Negative)
[2020-07-03 21:45] VITALS: BP 146/99; PULSE 88; RESP 18; O2SAT 91
--- NOTE | 2020-07-03 21:46 | PC.NURSE ---
Patient states that he delgado oxygen over night at bedtime.
--- NOTE | 2020-07-03 21:56 | PC.NURSE ---
Placed patient on 2L O2, charge nurse and presiding mold design engineer is aware.
[2020-07-03 22:00] VITALS: BP 150/111; PULSE 83; RESP 16; O2SAT 94
--- NOTE | 2020-07-03 22:03 | PC.NURSE ---
pt is normally on oxygen at night and 0xygen sats were 90-91%. Put on 2lpm nasal cannula
[2020-07-03 22:42] LABS: Lithium 0.1 mmol/L (0.6-1.2)
[2020-07-04] VITALS (9 sets, daily range): BP systolic 160–176; BP diastolic 76–102; PULSE 70–89; RESP 16–18; TEMP 36.5–36.8; O2SAT 93–98
[2020-07-04] MEDS: potassium chloride ER 20 mEq Tablet PO (00:36)
--- NOTE | 2020-07-04 01:14 | PC.NURSE ---
patient denied to daily alcohol use
--- NOTE | 2020-07-04 02:01 | PC.NURSE ---
called [facility] in [place], [place] for possible placement, bed available
--- NOTE | 2020-07-04 02:54 | PC.NURSE ---
[facility] denied due to alcohol. Patient needs to be ETOH free for 24 hours and then they will reconsider.
[2020-07-04] MEDS: ibuprofen 200 mg Tablet 400 MG PO (09:31)
--- NOTE | 2020-07-04 11:23 | PC.NURSE ---
optical engineering manager remains at bedside
--- NOTE | 2020-07-04 13:51 | XRR_ITS ---
PROCEDURE INFORMATION: Exam: XR Chest, 1 View Exam date and time: 07/04/2020 1:52 PM Age: 69 years old Clinical indication: Shortness of breath TECHNIQUE: Imaging protocol: XR of the chest Views: 1 view. Total images: 1 COMPARISON: CR (CHEST, ) 04/11/2020 12:26 PM FINDINGS: Lungs: COPD/chronic bronchitis. Stable senile fibrosis primarily in the lung bases. No visible consolidated alveolar airspace disease or findings of active interstitial lung disease. Pleural space: Unremarkable. No pleural effusion. No pneumothorax. Heart/Mediastinum: Cardiac structures and configuration with arteriosclerosis. Bones/joints: No visible acute osseous abnormality. XR/XR chest 1V portable [id number] IMPRESSION: Nonacute.
[2020-07-04] MEDS: nicotine 21 mg Patch 1 PATCH TRANSDERMA (13:52)
[2020-07-04] MEDS: multivitamin therapeutic Tablet 1 TAB PO (13:52)
[2020-07-04] MEDS: folic acid 1 mg Tablet PO (13:52)
--- NOTE | 2020-07-04 13:56 | P.HP_ITS ---
Providers/Chief Complaint Admitting Physician: Brad Herrmann MD Primary Care Provider: Cristi Nascimento Chief Complaint: 96 hr hold History of Present Illness Mik Raya is a 69 year old male with a past medical history of depression, anxiety, chronic alcoholism, COPD, current smoker, who presents to [facility] on a 96-hour hold due to suicidal ideation. 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 Currently he does report that he feels down and depressed, has loss of interest, has guilty feelings, no lack of energy, no LOC constipation, denies suicidal ideation, denies homicidal ideation. Patient has no complaints, no chest pain, no cardiovascular issues, no history of strokes, no strokelike symptoms, does complain of some wheezing, no fevers, no chills, known exposure to COVID-19. Patient states that his last drink was 48 hours a go. Review of Systems Const: Denies: fever(s), chills, fatigue or malaise Eyes: Denies: change in vision or blurry vision ENMT: Denies: nasal congestion Card: Denies: chest pain or palpitations Resp: Denies: dyspnea, productive cough, non-productive cough or wheezing GI: Denies: abdominal pain, nausea, vomiting, hematemesis, diarrhea, constipation, hematochezia or melena : Denies: flank pain, difficulty urinating, dysuria or urinary frequency Musc: Denies: neck pain or back pain Skin/Breast: Denies: rash Neuro: Denies: headache(s), dizziness or vertigo Psych: Denies: anxiety or depression Endo: Denies: polyuria or polydipsia Medications/Allergies Home Medications Medication Instructions Recorded Confirmed Last Taken Type albuterol sulfate 90 mcg/actuation 1 inh INHALATION Q4H PRN gm 08/06/19 07/03/20 07/03/20 History aerosol inhaler fluticasone propionate 50 1 spray INTRANASAL DAILY@0600 08/06/19 07/03/20 07/02/20 History mcg/actuation nasal spray,suspension omeprazole 20 mg capsule,delayed 20 mg PO DAILY@0600 08/06/19 07/03/20 07/03/20 History release quetiapine 50 mg tablet 100 mg PO BEDTIME@2000 tab 08/06/19 07/03/20 07/02/20 History tizanidine 2 mg capsule 2 mg PO TID PRN 08/06/19 07/03/20 05/20/20 History venlafaxine 75 mg capsule,extended 75 mg PO DAILY@0600 08/06/19 07/03/20 07/03/20 History release 24 hr fluticasone 250 mcg-salmeterol 50 1 inh INHALATION BID@0600,1800 03/18/20 07/03/20 07/03/20 History mcg/dose blistr powdr for inhalation albuterol sulfate 2 puff INHALATION Q4H PRN 07/03/20 07/03/20 07/02/20 History buspirone 5 mg PO TID@0600,1300,1800 07/03/20 07/03/20 07/03/20 History doxycycline hyclate 100 mg PO BID@0600,1800 07/03/20 07/03/20 Unknown History prednisone See Rx Instructions .ROUTE .COMPLEX 07/03/20 07/03/20 07/03/20 History venlafaxine 150 mg PO DAILY@0600 07/03/20 07/03/20 07/03/20 History Allergies Allergy/AdvReac Type Severity Reaction Status Date / Time Silk sutures AdvReac Intermediate Bad abd Uncoded 05/20/20 18:55 pains PFSH Acute PFSH: Medical History (Updated 07/04/20 @ 14:07 by Brad Herrmann MD) Cerebral aneurysm Surgical intervention x2 COPD (chronic obstructive pulmonary disease) 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 Rheumatoid arthritis Surgical History (Updated 07/04/20 @ 14:03 by Brad Herrmann MD) History of exploratory laparotomy Family History (Updated 07/04/20 @ 14:04 by Brad Herrmann MD) Mother Diabetes Social History Smoking and tobacco status: current every day smoker cigarettes Packs smoked per day: 1 Years cigarettes smoked: 61 Quit status (tobacco): has tried quititng Number of times tried to quit tobacco: 1 Second hand smoke exposure: Yes Smoking risk assessment/counseling performed?: Yes Tobacco counseling given: counseling >3 minutes Vitals/I&O/Wt Last Vital Signs Temp 98.1 F 07/03/20 19:01 Pulse 89 07/04/20 13:10 Resp 16 07/04/20 13:10 BP 161/84 07/04/20 13:10 Pulse Ox 98 07/04/20 13:10 Weight last 48 hrs Weight 81.647 kg Data : 07/03/20 19:55 07/03/20 19:55 A&P Assessment and plan (1) COPD (chronic obstructive pulmonary disease): -COPD exacerbation, give prednisone doxycycline, inhaler therapy, requiring 1 to 2 L nasal cannula Status: Acute (2) 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: Continue home medications We will discuss with psychiatrist Status: Acute (3) Alcohol intoxication: [facility] protocol Status: Acute (4) Suicidal ideation: -Currently denies any suicidal homicidal ideation -Denies threatening to hurt his -Currently on a 96-hour hold, for suicide ideation, threatening to hurt his -We will discuss with psychiatrist Status: Acute (5) Anxiety: Status: Acute Attestations Medical Necessity Statement*: Patient requires hospitalization, outpatient with observation, for COPD, suicidal ideation, 96-hour hold Coding Level of Care Code Acute Conche Operator for Mary Marinelli Diagnoses COPD (chronic obstructive pulmonary disease) J44.9 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
[2020-07-04] MEDS: enoxaparin 40 mg/0.4 mL Syringe SUBCUT (14:21)
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
[2020-07-04 15:27] LABS: Magnesium 1.7 mg/dL (1.7-2.3); Phosphorus 3.6 mg/dL (2.5-4.5)
[2020-07-04 15:37] LABS: Thyroid Stimulating Hormone 0.67 uIU/mL (0.27-4.20)
[2020-07-04 16:50] LABS: Estmated Average Glucose 128; Hemoglobin A1C 6.1 % (4.0-6.0)
[2020-07-04] MEDS: BuSPIRONE 5 mg Tablet PO (17:22)
[2020-07-04] MEDS: doxycycline 100 mg Tablet PO (17:22)
[2020-07-04] MEDS: famotidine 20 mg Tablet PO (17:22)
[2020-07-04] MEDS: quetiapine 100 mg Tablet PO (20:30)
[2020-07-05] VITALS (10 sets, daily range): BP systolic 111–157; BP diastolic 71–83; PULSE 75–99; RESP 17–18; TEMP 36.4–37.2; O2SAT 93–97
[2020-07-05 04:38] LABS: Basophils # 0.1 10^3/uL (0.0-0.1); Basophils % 0.7 %; Eosinophils # 0.3 10^3/uL (0.0-0.8); Eosinophils % 3.2 %; Hematocrit 38.3 % (42.0-52.0); Hemoglobin 12.6 g/dL (11.7-16.6); Lymphocytes # 2.6 10^3/uL (0.8-4.8); Lymphocytes % 24.5 %; Mean Corpuscular HGB Conc 32.9 g/dL (30.0-36.0); Mean Corpuscular Hemoglobin 31.9 pg (28.0-34.0); Mean Platelet Volume 9.3 fL (7.4-10.4); Monocytes # 0.7 10^3/uL (0.2-0.9); Monocytes % 6.2 %; Neutrophils # 6.63 10^3/uL (1.8-7.7); Neutrophils % 61.6 %; Nucleated Red Blood Cells % 0 %; Platelet Count 384 10^3/cmm (130-400); Red Blood Count 3.95 10^6/uL (4.1-5.3); Red Cell Distribution Width 14.6 % (12.1-15.1); White Blood Count 10.8 10^3/uL (4.0-10.0)
[2020-07-05 05:08] LABS: Alanine Aminotransferase 23 U/L (0-41); Albumin Level 3.2 g/dL (3.5-5.2); Alkaline Phosphatase 135 IU/L (40-130); Anion Gap 12.1 (5-19); Aspartate Amino Transferase 18 U/L (0-40); Blood Urea Nitrogen 20 mg/dL (8-23); Calcium 9.4 mg/dL (8.5-10.5); Carbon Dioxide 31 mmol/L (22-29); Chloride 101 mmol/L (98-107); Globulin 3.3 g/dL (1.3-4.6); Glomerular Filtration Rate 96.4 mL/min (90-130); Glucose 137 mg/dL (65-115); Magnesium 1.9 mg/dL (1.7-2.3); Osmolality Calculated 295 mOsm/kg (285-295); Phosphorus 2.9 mg/dL (2.5-4.5); Potassium 4.1 mmol/L (3.5-5.1); Sodium 140 mmol/L (136-145); Total Bilirubin 0.3 mg/dL (0.15-1.2); Total Protein 6.5 g/dL (6.6-8.7)
[2020-07-05] MEDS: doxycycline 100 mg Tablet PO ×2 (06:08→17:16)
[2020-07-05] MEDS: venlafaxine ER (24HR) 150 mg Capsule PO (06:08)
[2020-07-05] MEDS: pantoprazole DR 40 mg Tablet PO (06:08)
[2020-07-05] MEDS: venlafaxine ER (24HR) 75 mg Capsule PO (06:08)
[2020-07-05] MEDS: BuSPIRONE 5 mg Tablet PO ×3 (06:09→17:16)
[2020-07-05] MEDS: acetaminophen 325 mg Tablet 650 MG PO (07:31)
[2020-07-05 07:38] LABS: Glucose Point of Care 151 mg/dL (70-110)
[2020-07-05] MEDS: nicotine 21 mg Patch 1 PATCH TRANSDERMA (07:57)
[2020-07-05] MEDS: famotidine 20 mg Tablet PO ×2 (07:57→17:16)
[2020-07-05] MEDS: thiamine 100 mg Tablet PO (07:58)
[2020-07-05] MEDS: predniSONE 20 mg Tablet 40 MG PO (07:58)
[2020-07-05] MEDS: multivitamin therapeutic Tablet 1 TAB PO (07:58)
[2020-07-05] MEDS: folic acid 1 mg Tablet PO (07:58)
[2020-07-05] MEDS: LORazepam 2 mg Tablet PO ×3 (07:58→20:17)
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
[2020-07-05] MEDS: enoxaparin 40 mg/0.4 mL Syringe SUBCUT (13:28)
--- NOTE | 2020-07-05 16:50 | PM.NPN ---
Subjective NPU Subjective: Interval history: Mik presents today continuing to report that he is doing fine and denying any withdrawal issues. We continue to have discussion about the circumstances surrounding his admission, concerns about violence and safety for the community, himself and his and the treatment team's pursuit of a geriatric facility for him to get his care. He understood and agreed to proceed as is documented in this note. Mental Status Exam MSE Comments: This is an overweight white male in a hospital gown with adequate grooming and eye contact. No abnormal movements except for mild psychomotor retardation. Cooperative with exam in mild distress. Speech was normal rate and volume. Mood described as okay affect congruent. Thought process organized. Thought content: Patient denied suicidal or homicidal ideation, there were no delusions reported or noted, he denied any auditory or visual hallucinations. Attention and concentration appeared intact and memory was mostly reliable but none were formally tested. He is alert and oriented x3. Insight and judgment are impaired, impulse control is impaired. Vitals/I&O/Wt Last Vital Signs Temp 98.0 F 07/05/20 15:25 Pulse 88 07/05/20 15:25 Resp 17 07/05/20 15:25 BP 131/76 07/05/20 15:25 Pulse Ox 97 07/05/20 15:25 07/05/20 07/05/20 07/05/20 06:59 14:59 22:59 Intake Total 300 / 980 480 / 480 Output Total 200 / 200 Balance 300 / 580 280 / 280 Weight last 48 hrs Weight 81.647 kg Data NPU : 07/05/20 04:28 07/05/20 04:28 A&P Additional A&P Information (1) Anxiety: (2) Suicidal ideation: (3) Alcohol intoxication: (4) Major neurocognitive disorder as late effect of traumatic brain injury with behavioral disturbance: (5) Cerebral aneurysm: (6) Rheumatoid arthritis: (7) COPD (chronic obstructive pulmonary disease): (8) 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 He recently has introduced alcohol into the challenges and has been unable to manage his drinking and behaviors to obtain the alcohol and presents with diminished insight into the severity of his behavior. 1. Continue current medication. 2. Encourage placement in a [facility] psych facility as soon as his withdrawal is complete or at least he would be medically cleared for discharge to home from a withdrawal standpoint. 3. I would continue the 96-hour hold as he currently without question poses a risk/danger to himself/others/community with his current behaviors. 4. We will continue to follow. Attestations NPU Medical Necessity Statement*: N/A. Please see primary team note for details on medical necessity, however would recommend continued 96-hour hold and transfer to [facility] facility. Coding Level of Care Code Acute Roll Or Tape Edge Machine Operator for Mary Marinelli
[2020-07-05] MEDS: quetiapine 100 mg Tablet PO (20:17)
[2020-07-06 04:00] VITALS: BP 124/66; PULSE 74; RESP 17; TEMP 36.8; O2SAT 94
[2020-07-06 05:50] LABS: Magnesium 1.8 mg/dL (1.7-2.3); Phosphorus 2.6 mg/dL (2.5-4.5)
[2020-07-06] MEDS: BuSPIRONE 5 mg Tablet PO ×2 (06:09→12:52)
[2020-07-06] MEDS: pantoprazole DR 40 mg Tablet PO (06:09)
[2020-07-06] MEDS: doxycycline 100 mg Tablet PO (06:09)
[2020-07-06] MEDS: venlafaxine ER (24HR) 75 mg Capsule PO (06:10)
[2020-07-06] MEDS: venlafaxine ER (24HR) 150 mg Capsule PO (06:10)
[2020-07-06 08:00] VITALS: BP 154/83; PULSE 68; RESP 18; TEMP 36.4; O2SAT 90
[2020-07-06 08:38] VITALS: PULSE 88; RESP 18; O2SAT 94
[2020-07-06] MEDS: famotidine 20 mg Tablet PO (08:38)
[2020-07-06] MEDS: folic acid 1 mg Tablet PO (08:38)
[2020-07-06] MEDS: predniSONE 20 mg Tablet 40 MG PO (08:38)
[2020-07-06] MEDS: thiamine 100 mg Tablet PO (08:38)
[2020-07-06] MEDS: multivitamin therapeutic Tablet 1 TAB PO (08:38)
[2020-07-06 08:39] VITALS: PULSE 91
[2020-07-06] MEDS: nicotine 21 mg Patch 1 PATCH TRANSDERMA (08:39)
--- NOTE | 2020-07-06 09:35 | PC.CHAP ---
Pastoral Care Encounter/Spiritual Assessment Type of Contact [] Declined postal inspector visit [] Patient/Family/Request visit [] Outpatient visit [] Follow-up visit [] Physician referral [] Code/Alert [x] Routine visit [] Staff referral [] Actively dying [] Patient sleeping [] Family support [] [] Out of room [] Palliative care [] [] Receiving care in room [] Pre-surgical visit [] Trauma [] Long length of stay [] ICU visit [] Other: Relational/Emotional Strength [] Patient feels connected with others/family/visitors/staff [] Distress [] Loneliness/isolation [] Abandonment Spirituality of Patient [x] Person of Sharonda [] Attends Adventism of their Sharonda [] Believes in Prayer [] Reads Bible or Pentecostal materials [] There are Spiritual issues to be addressed Veneer Sawyer Interventions [x] Prayer [] Active listening [] Non-anxious presence [] Spiritual/emotional support [] Crisis/trauma care [] Spiritual counseling [] Bereavement support [] Provided bereavement packet [] Provided Bible/devotional materials [] Provided toy/stuffed animal, coloring book to patient or family member [] Provided Communion [] Anointing/Hayes [] Salvation [x] Completed spiritual assessment [] Other: Impact on Illness or Injury [] Angry [] Fearful [] Anxious [] Often cries [] Exhaustion [] Unable to work [] Unable to attend anabaptist [] Unable to walk/stand [] Unable to read [] Unable to drive [] Unable to eat/drink [] Unable to sleep [] Unable to be with family [] Patient intubated [] Other: Summary feeling much better Time spent with patient 15 min
[2020-07-06 11:59] VITALS: BP 157/80; PULSE 70; RESP 18; TEMP 36.6; O2SAT 91
--- NOTE | 2020-07-06 12:20 | PM.TDS ---
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: Status: Acute (3) Alcohol intoxication: Status: Acute (4) Suicidal ideation: Status: Acute (5) Anxiety: Status: Acute Reason for Visit Reason for Visit: 96 hr hold Hospital Course Hospital Course Mik Raya is a 69 year old male with a past medical history of depression, anxiety, chronic alcoholism, COPD, current smoker, who presents to [facility] on a 96-hour hold due to suicidal ideation, agitation, concerns for alcohol withdrawal, and choking his Patient was admitted to [facility] on a 96-hour hold: In terms of his alcohol withdrawal, patient clinically did well, received folic acid, thiamine, multivitamin, clinically monitor for CIWA protocol, minimal Ativan was required, he is out of 72-hour window for withdrawal. Currently doing well, alert oriented x3, no tremors, no tachycardia, denies seeing or hearing things that are not there, denies anxiety, denies palpitations, denies diarrhea, denies abdominal pain. Discharge to geriatric psych facility on multivitamin, folic acid, thiamine, b12. In terms of his COPD, had a minimal COPD exacerbation, required up to 1 to 2 L, weaned down to room air, receiving inhaler therapy, steroids, doxycycline. Moved to psych facility on prednisone taper 40 for 5 days, 30 for 5 days, 20 for 5 days, 10 for 5 days then stop. Doxycycline for 5 remaining days. Also receiving albuterol, and Spiriva and Symbicort. In terms of his suicidal ideation, agitation, history of dementia, threats against his , choking his . Admitted on a 96-hour hold as he was a danger to himself and others. Psychiatry was consulted, he was kept on Effexor and BuSpar, recommended transfer to geriatric psych. Patient was transferred to geriatric psych facility, , this is a septic physician, I spoke to him about the case, accepted transfer. Physical Exam Const: COMMON NORMALS: no acute distress and patient oriented x3 HENMT: COMMON NORMALS: normocephalic HEAD & SCALP: normocephalic Neck/C-Spine: COMMON NORMALS: no JVD Resp: COMMON NORMALS: normal respiratory effort, No retractions, No use of accessory muscles and clear to auscultation bilaterally AUSCULTATION: clear to auscultation bilaterally Cardio: COMMON NORMALS: no JVD, regular rate, regular rhythm, S1 normal heart sound present and S2 normal heart sound present RATE: regular rate RHYTHM: regular rhythm HEART SOUNDS: S1 normal heart sound present and S2 normal heart sound present GI: COMMON NORMALS: Normal to inspection, nondistended, normoactive bowel sounds present, Soft to palpation, non-tender, No hepatosplenomegaly present, no masses and no bruits PALPATION: Yes Soft to palpation and Yes No hepatosplenomegaly present Extremity: COMMON NORMALS: capillary refill normal, no clubbing, cyanosis or edema, no calf tenderness and no pedal edema Neuro: COMMON NORMALS: patient oriented x3 Psych: COMMON NORMALS: mental status grossly normal TS Data Data Completed and Pending: Completed Studies During Hospitalization Category Date Time Status XR chest 1V joan ble [id number] Routine Exams 07/04/20 13:51 Completed Pending at discharge Category Date Time Status Magnesium AM LABS Lab 07/07/20 04:00 Ordered Phosphorus AM LAB S Lab 07/07/20 04:00 Ordered Labs from last 24 hours 07/06/20 07/06/20 05:18 03:40 Phosphorus 2.6 Cancelled Magnesium 1.8 Cancelled Vitals: Last Vital Signs Temp 97.9 F 07/06/20 11:59 Pulse 70 07/06/20 11:59 Resp 18 07/06/20 11:59 BP 157/80 07/06/20 11:59 Pulse Ox 91 07/06/20 11:59 TS Medications Medications Home Medications albuterol sulfate 90 mcg/actuation aerosol inhaler 1 inh INHALATION Q4H PRN gm 08/06/19 [History Confirmed 07/03/20] fluticasone propionate 50 mcg/actuation nasal spray,suspension 1 spray INTRANASAL DAILY@0600 08/06/19 [History Confirmed 07/03/20] omeprazole 20 mg capsule,delayed release 20 mg PO DAILY@0600 08/06/19 [History Confirmed 07/03/20] quetiapine 50 mg tablet 100 mg PO BEDTIME@2000 tab 08/06/19 [History Confirmed 07/03/20] tizanidine 2 mg capsule 2 mg PO TID PRN 08/06/19 [History Confirmed 07/03/20] venlafaxine 75 mg capsule,extended release 24 hr 75 mg PO DAILY@0600 08/06/19 [History Confirmed 07/03/20] fluticasone 250 mcg-salmeterol 50 mcg/dose blistr powdr for inhalation 1 inh INHALATION BID@0600,1800 03/18/20 [History Confirmed 07/03/20] albuterol sulfate 2 puff INHALATION Q4H PRN 07/03/20 [History Confirmed 07/03/20] buspirone 5 mg PO TID@0600,1300,1800 07/03/20 [History Confirmed 07/03/20] doxycycline hyclate 100 mg PO BID@0600,1800 07/03/20 [History Confirmed 07/03/20] prednisone See Rx Instructions .ROUTE .COMPLEX 07/03/20 [History Confirmed 07/03/20] venlafaxine 150 mg PO DAILY@0600 07/03/20 [History Confirmed 07/03/20] Active Medications Acetaminophen (Acetaminophen 325 Mg Tablet) 650 mg PO Q6H PRN PRN Reason: MILD PAIN Last Admin: 07/05/20 07:31 Dose: 650 mg Documented by: Buspirone HCl (Buspirone 5 Mg Tablet) 5 mg PO TID@0600,1300,1800 [facility] Last Admin: 07/06/20 06:09 Dose: 5 mg Documented by: Doxycycline Monohydrate (Doxycycline 100 Mg Tablet) 100 mg PO Q12H [facility]; Protocol Last Admin: 07/06/20 06:09 Dose: 100 mg Documented by: Enoxaparin Sodium (Enoxaparin 40 Mg/0.4 Ml Syringe) 40 mg SUBCUT Q24H [facility] Last Admin: 07/05/20 13:28 Dose: 40 mg Documented by: Famotidine (Famotidine 20 Mg Tablet) 20 mg PO BID [facility] Last Admin: 07/06/20 08:38 Dose: 20 mg Documented by: Folic Acid (Folic Acid 1 Mg Tablet) 1 mg PO DAILY [facility] Last Admin: 07/06/20 08:38 Dose: 1 mg Documented by: Folic Acid (Folic Acid 1 Mg Tablet) 1 mg PO DAILY [facility] Last Admin: 07/06/20 08:38 Dose: Not Given Documented by: Lorazepam (Lorazepam 2 Mg/Ml Inj 1 Ml) 2 mg IM PROTOCOL PRN; Protocol PRN Reason: ALCOWD Lorazepam (Lorazepam 2 Mg Tablet) 2 mg PO PROTOCOL PRN; Protocol PRN Reason: WITHDRAWAL Last Admin: 07/05/20 20:17 Dose: 2 mg Documented by: Multivitamins Therapeutic (Multivitamin Therapeutic Tablet) 1 tab PO DAILY [facility] Last Admin: 07/06/20 08:38 Dose: 1 tab Documented by: Naloxone HCl (Naloxone 0.4 Mg/Ml Sdv) 0.1 mg IVP Q2M PRN PRN Reason: OPIATERV Nicotine (Nicotine 21 Mg Patch) 1 patch TRANSDERMA DAILY [facility] Last Admin: 07/06/20 08:39 Dose: 1 patch Documented by: Ondansetron HCl (Ondansetron 2 Mg/Ml Sdv 2 Ml) 4 mg IVP Q6H PRN PRN Reason: NAUSEA AND VOMITING Pantoprazole Sodium (Pantoprazole Dr 40 Mg Tablet) 40 mg PO DAILY@0600 [facility] Last Admin: 07/06/20 06:09 Dose: 40 mg Documented by: Prednisone (Prednisone 20 Mg Tablet) 40 mg PO DAILY [facility] Last Admin: 07/06/20 08:38 Dose: 40 mg Documented by: Quetiapine Fumarate (Quetiapine 100 Mg Tablet) 100 mg PO BEDTIME@2000 [facility] Last Admin: 07/05/20 20:17 Dose: 100 mg Documented by: Fluticasone/Salmeterol (Fluticasone-Salmeterol 250-50 Diskus) 1 puff INHALATION BID.RESPIRATORY [facility] Last Admin: 07/06/20 08:34 Dose: 1 puff Documented by: Thiamine Mononitrate (Thiamine 100 Mg Tablet) 100 mg PO DAILY [facility] Last Admin: 07/06/20 08:38 Dose: 100 mg Documented by: Thiamine Mononitrate (Thiamine 100 Mg Tablet) 100 mg PO DAILY [facility] Last Admin: 07/06/20 08:38 Dose: Not Given Documented by: Tiotropium [place] (Tiotropium 18 Mcg Mdi) 18 mcg INHALATION DAILY.RESPIRATORY [facility] Last Admin: 07/06/20 08:34 Dose: 1 puff Documented by: Venlafaxine HCl (Venlafaxine Er (24hr) 75 Mg Capsule) 75 mg PO DAILY@0600 [facility] Last Admin: 07/06/20 06:10 Dose: 75 mg Documented by: Venlafaxine HCl (Venlafaxine Er (24hr) 150 Mg Capsule) 150 mg PO DAILY@0600 [facility] Last Admin: 07/06/20 06:10 Dose: 150 mg Documented by: Discharge Plan Discharge Patient Disposition: Home Condition: Stable Prescriptions: No Action omeprazole 20 mg capsule,delayed release(DR/EC) 20 mg PO DAILY@0600 RF: 0 venlafaxine 75 mg capsule,extended release 24hr 75 mg PO DAILY@0600 RF: 0 quetiapine [Seroquel] 50 mg tablet 100 mg PO BEDTIME@1999 RF: 0 tizanidine 2 mg capsule 2 mg PO TID PRN (Reason: Muscle Pain) RF: 0 fluticasone propionate [Allergy Relief (fluticasone)] 50 mcg/actuation spray,suspension 1 spray INTRANASAL DAILY@0600 RF: 0 albuterol sulfate 90 mcg/actuation HFA aerosol inhaler 1 inh INHALATION Q4H PRN (Reason: shortness of breath or wheezing) RF: 0 fluticasone propion-salmeterol [Advair Diskus] 250-50 mcg/dose blister with device 1 inh INHALATION BID@0600,1800 RF: 0 prednisone 20 mg tablet See Rx Instructions .ROUTE .COMPLEX RF: 0 albuterol sulfate 90 mcg/actuation HFA aerosol inhaler 2 puff INHALATION Q4H PRN (Reason: shortness of breath.) RF: 0 doxycycline hyclate 100 mg tablet 100 mg PO BID@0600,1800 RF: 0 buspirone 5 mg tablet 5 mg PO TID@0600,1300,1800 RF: 0 venlafaxine 150 mg capsule,extended release 24hr 150 mg PO DAILY@0600 RF: 0 Transfer Attestations Time Spent in Transfer Care*: greater than 30 min Quality Metrics Clinical Quality Measures: During this hospital stay, did patient experience: None Coding Level of Care Code Acute Manager Emergency Department for Mary Fwramsey Diagnoses COPD (chronic obstructive pulmonary disease) J44.9 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
[2020-07-06] MEDS: enoxaparin 40 mg/0.4 mL Syringe SUBCUT (12:52)
[2020-07-06] MEDS: cyanocobalamin 1,000 mcg Tablet 1000 MCG PO (12:52)
--- NOTE | 2020-07-06 13:20 | PC.RESP ---
Smoking Cessation and Pulmonary Rehab packet sent to patient.
[2020-07-06 14:02] VITALS: BP 157/80; PULSE 70; RESP 18; TEMP 36.6; O2SAT 91
--- NOTE | 2020-07-06 14:05 | PC.NURSE ---
This RN called and spoke with Corky on behalf of [facility] and informed him that the [id number] report was complete at 1230. He verbalizes understanding. The PCR is completed and the COBRA form has been signed by night warehouse selector. [facility] was called for transport. They arrived to Med/Surg at 1400 and reviewed all documentation and received report. Patient left the floor at 1408.
== END 2020-07-06 14:02 | DRG 884 ==
LOC: ER 19:02 → MEDSURG 07-06 12:26 → CSU 07-13 15:55
PROVIDERS: Family Medicine; Admitting Provider Family Medicine; Emergency Provider Emergency Medicine; PCP Physician Assistant Medical; Visit Provider Family Medicine
DX: F06.31 Mood disorder due to known physiological condition with depressive features (principal); F02.81 Dementia in other diseases classified elsewhere, unspecified severity, with behavioral disturbance; J44.1 Chronic obstructive pulmonary disease with (acute) exacerbation; R45.851 Suicidal ideations; F06.4 Anxiety disorder due to known physiological condition; Z87.820 Personal history of traumatic brain injury; F10.229 Alcohol dependence with intoxication, unspecified; F10.239 Alcohol dependence with withdrawal, unspecified; F17.210 Nicotine dependence, cigarettes, uncomplicated; M06.9 Rheumatoid arthritis, unspecified; R45.850 Homicidal ideations
CPT/HCPCS: 12345; 36415; 36416; 71045; 80053; 80178; 80306; 80307; 81001; 82962; 83036; 83735; 84100; 84443; 85025; 87426; 93005; 94640; 96372; 99284; G0378; J1650; J3411; J7512

== ENCOUNTER 2020-07-16 14:09 | Emergency (ER) | payer MEDICARE, MEDICAID, SELFPAY ==
[2020-07-16 14:13] VITALS: BP 162/92; PULSE 93; RESP 20; TEMP 36.8; O2SAT 98; BMI 27.6
[2020-07-16 14:17] VITALS: BP 162/92; PULSE 93; RESP 18; O2SAT 97
--- NOTE | 2020-07-16 14:43 | PC.NURSE ---
ER physician in room. Pt states he does not have suicidal thoughts at this time.
--- NOTE | 2020-07-16 14:45 | ED_ITS ---
HPI - General Adult General: Chief complaint: General Medical Stated complaint: fall, r knee pain Time Seen by Provider: 07/16/20 14:36 Source: patient, family, RN notes reviewed and old records reviewed Mode of arrival: ambulatory Limitations: no limitations History of Present Illness: HPI narrative: This patient has a long history of chronic alcoholism. He states he takes 2 pints of peppermint schnapps daily. To get drunk. Patient has an ongoing issue with this and when he gets real drunk he takes it out on his spouse. Patient reportedly will state that he wishes he would just when he is drunk and intoxicated and fighting with . When patient is sober he did complete does not complain of suicidal ideation. Patient has had 2 recent visits to the emergency department for the same. Patient placed on medications and discharged from local facility. Patient has nonspecific complaints other than making comments about the patient having memory loss issues. And his alcoholism. These conditions appear to be chronic and nonemergent at this time however they are requesting a medical screening exam and next psych consult. Onset (ago): year(s) Severity: similar to prior episodes Associated symptoms: Deny chest pain, dyspnea, headache(s), malaise, nausea, palpitations or vomiting Review of Systems General: Reports: 10 or more systems reviewed and unremarkable except in HPI and below Const: Denies: fever(s), chills, body aches, change in appetite, change in weight, fatigue or malaise Eyes: Denies: change in vision, eye discharge or eye redness ENMT: Denies: throat pain, odynophagia or mouth pain Card: Denies: chest pain, palpitations, irregular heart rhythm, edema or lightheadedness Resp: Denies: dyspnea, productive cough or non-productive cough GI: Denies: abdominal pain, nausea, vomiting, hematemesis, coffee ground emesis, dysphagia or early satiety : Denies: flank pain, difficulty urinating or dysuria Musc: Denies: neck pain or back pain Neuro: Denies: headache(s) Psych: Reports: mood swings and memory loss; Denies: paranoia, visual hallucinations or auditory hallucinations PFS ED PFSH: Medical History Cerebral aneurysm Surgical intervention x2 COPD (chronic obstructive pulmonary disease) 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 Rheumatoid arthritis Surgical History History of exploratory laparotomy Family History Mother Diabetes Social History Smoking and tobacco status: current every day smoker cigarettes Packs smoked per day: 1 Years cigarettes smoked: 61 Quit status (tobacco): has tried quititng Number of times tried to quit tobacco: 1 Second hand smoke exposure: Yes Smoking risk assessment/counseling performed?: Yes Tobacco counseling given: counseling >3 minutes Physical Exam Const: COMMON NORMALS: no acute distress, average body habitus, patient oriented x3, no limitations, healthy appearing, alert and well nourished HENMT: COMMON NORMALS: normocephalic, atraumatic, hearing grossly normal bilaterally, external ears normal, EAC's normal, TM's normal bilaterally, Normal external nose present, Normal nasal mucous membranes and turbinates present, moist oral mucous membranes, oropharynx normal, dentition normal and gingiva normal HEAD & SCALP: normocephalic and atraumatic NOSE: Normal external nose present and Normal nasal mucous membranes and turbinates present EXTERNAL EAR: Yes external ears normal EXTERNAL AUDITORY CANAL: EAC's normal TYMPANIC MEMBRANE: TM's normal bilaterally Eye: COMMON NORMALS: Equal, round and reactive pupils present, EOMs intact bilaterally, conjunctivae normal, no scleral icterus, no papilledema, normal visual boothe by confrontation and fundi normal bilaterally CONJUNCTIVA: Yes conjunctivae normal PUPIL: Yes Equal, round and reactive pupils present DIRECT OPHTHALMOSCOPY: Yes no papilledema and Yes fundi normal bilaterally Neck/C-Spine: COMMON NORMALS: no JVD Chest: COMMONS NORMALS: normal inspection of the chest, normal palpation of entire chest wall, normal inspection of the breasts and normal palpation of the breasts Breast/axilla inspection: Yes normal inspection of the breasts BREAST/AXILLA PALPATION: Yes normal palpation of the breasts Resp: COMMON NORMALS: normal respiratory effort, No retractions, No use of accessory muscles, clear to auscultation bilaterally and percussion normal AUSCULTATION: clear to auscultation bilaterally PERCUSSION: percussion normal Cardio: COMMON NORMALS: no JVD, regular rate, regular rhythm, S1 normal heart sound present, S2 normal heart sound present, No gallops present (Cardio), No clicks present (Cardio), No murmurs present (Cardio), No rub (Cardio) and Peripheral pulses 2+ throughout RATE: regular rate RHYTHM: regular rhythm HEART SOUNDS: S1 normal heart sound present and S2 normal heart sound present PERIPHERAL PULSES: Peripheral pulses 2+ throughout GI: COMMON NORMALS: Normal to inspection, nondistended, normoactive bowel sounds present, Soft to palpation, non-tender, No hepatosplenomegaly present, no masses and no bruits PALPATION: Yes Soft to palpation and Yes No hepatosplenomegaly present : COMMON NORMALS: Yes no CVA tenderness BLADDER/KIDNEY EXAM: Yes no CVA tenderness Back/Pelvis: COMMON NORMALS: no CVA tenderness, thoracic and lumbar spine normal to inspection, no thoracic nor lumbar tenderness, thoraco-lumbar ROM normal and straight leg raise negative bilaterally Extremity: COMMON NORMALS: normal to inspection, full ROM, capillary refill normal, no joint enlargement, no clubbing, cyanosis or edema, no calf tenderness and no pedal edema Neuro: COMMON NORMALS: patient oriented x3 SENSORIUM/ORIENTATION: Yes alert Psych: COMMON NORMALS: mental status grossly normal, Normal thought process present, cooperative, normal affect, speech normal, activity/motor behavior normal, denies hallucinations and denies homicidal ideation SPEECH: Yes normal speech THOUGHT PROCESS: Normal thought process present THOUGHT CONTENT: Yes Suicidality present (Patient states sometimes he will state he wishes he was when he is chacorta) OTHER: Patient states sometimes that he wishes he was when he is intoxicated. But when he is sober he does has no thoughts of suicidal ideation. Patient has been seen and evaluated multiple times for the same. Family is again requesting psych consult. Course Reevaluation(s): Reevaluation #1: This patient presents with a long history of acute alcoholism and chronic. Advised Dr. Rivera requested a consult and he stated will be a couple hours before you come and see the patient I advised the patient and his spouse that it will be my baby to hours before for a child to be able to come and see him for an evaluation just informing them of the situation. becomes upset. After leaving the room I was requested to come back to the room because they wished to sign out AGAINST MEDICAL ADVICE. Again stated the patient was getting a medical screening exam and that psychiatry has been consulted again and they stated wish to leave AGAINST MEDICAL ADVICE had signed AMA forms and have left the emergency department Time: 15:16 Vital Signs: Vital signs: Vital Signs Temperature 98.2 F 07/16/20 14:13 Pulse Rate 93 07/16/20 14:17 Respiratory Rate 18 07/16/20 14:17 Blood Pressure 162/92 07/16/20 14:17 Pulse Oximetry 97 07/16/20 14:17 MDM - General Adult Differential Diagnosis: Differential Diagnosis: Chronic alcoholism. Situational depression. Medical Records: Attestation: I reviewed the patient's medical records. Lab Data: Attestation: I reviewed the patient's lab results. 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, Left against medical advice Condition: Stable Prescriptions: No Action omeprazole 20 mg capsule,delayed release(DR/EC) 20 mg PO DAILY@0600 RF: 0 venlafaxine 75 mg capsule,extended release 24hr 75 mg PO DAILY@0600 RF: 0 quetiapine [Seroquel] 50 mg tablet 100 mg PO BEDTIME@1999 RF: 0 tizanidine 2 mg capsule 2 mg PO TID PRN (Reason: Muscle Pain) RF: 0 fluticasone propionate [Allergy Relief (fluticasone)] 50 mcg/actuation spray,suspension 1 spray INTRANASAL DAILY@0600 RF: 0 albuterol sulfate 90 mcg/actuation HFA aerosol inhaler 1 inh INHALATION Q4H PRN (Reason: shortness of breath or wheezing) RF: 0 fluticasone propion-salmeterol [Advair Diskus] 250-50 mcg/dose blister with device 1 inh INHALATION BID@0600,1800 RF: 0 prednisone 20 mg tablet See Rx Instructions .ROUTE .COMPLEX RF: 0 albuterol sulfate 90 mcg/actuation HFA aerosol inhaler 2 puff INHALATION Q4H PRN (Reason: shortness of breath.) RF: 0 doxycycline hyclate 100 mg tablet 100 mg PO BID@0600,1800 RF: 0 buspirone 5 mg tablet 5 mg PO TID@0600,1300,1800 RF: 0 venlafaxine 150 mg capsule,extended release 24hr 150 mg PO DAILY@0600 RF: 0 Referrals: Cristi Nascimento [Primary Care Provider] - Discharge Diet: Advance as tolerated Discharge Activity: Resume usual activity Activity Restrictions/Additional Instructions: Stop drinking. Be aware that you are leaving AGAINST MEDICAL ADVICE with laboratory pending and will psych consult pending. Coding Level of Care Code ED Consumer Experience Consultant for Chg Fwd Exam Comprehensive
[2020-07-16 15:14] LABS: Basophils # 0.1 10^3/uL (0.0-0.1); Basophils % 0.7 %; Eosinophils # 0.3 10^3/uL (0.0-0.8); Eosinophils % 2.2 %; Hematocrit 38.6 % (42.0-52.0); Hemoglobin 12.7 g/dL (11.7-16.6); Lymphocytes # 3.1 10^3/uL (0.8-4.8); Lymphocytes % 25.8 %; Mean Corpuscular HGB Conc 32.9 g/dL (30.0-36.0); Mean Corpuscular Hemoglobin 32.3 pg (28.0-34.0); Mean Corpuscular Volume 98.2 fL (80-94); Monocytes # 0.8 10^3/uL (0.2-0.9); Monocytes % 6.6 %; Neutrophils # 7.64 10^3/uL (1.8-7.7); Neutrophils % 63.7 %; Nucleated Red Blood Cells % 0 %; Platelet Count 616 10^3/cmm (130-400); Red Blood Count 3.93 10^6/uL (4.1-5.3); Red Cell Distribution Width 14.9 % (12.1-15.1)
[2020-07-16 15:14] LABS: Add Urine Microscopic? NO
--- NOTE | 2020-07-16 15:16 | PC.NURSE ---
Pt's and Pt did not want to wait for Psych Doc consult in ER. Comments made that they want Pt to be 96'd. ER physician speaking to pt and his stating that ER physician does not see reason to seek 96 order. Comments made that they want to leave. AMA form signed .
[2020-07-16 15:20] LABS: Urine Appearance Clear (CLEAR); Urine Color Yellow (Yellow)
[2020-07-16 15:21] LABS: Bilirubin Urine Neg (Negative); Blood Urine Neg (Negative); Glucose Urine UA Norm (Normal); Ketones Urine Negative (Negative); Leukocyte Esterase Urine Negative (Negative); Nitrate Urine Negative (Negative); Protein Urine Neg (Negative); Specific Gravity, Urine 1.015 (1.005-1.030); Urobilinogen Urine Norm (Negative); pH Urine 6.5 (5-7)
[2020-07-16 15:25] LABS: Amphetamines Screen Urine Negative (Negative); Barbiturates Screen Urine Negative (Negative); Benzodiazepines Screen Urine Positive (Negative); Cocaine Screen Urine Negative (Negative); Opiate Screen Urine Negative (Negative); PCP Screen Urine Negative (Negative); THC Screen Urine Negative (Negative)
[2020-07-16 16:28] LABS: Alanine Aminotransferase 21 U/L (0-41); Albumin Level 3.8 g/dL (3.5-5.2); Alkaline Phosphatase 114 IU/L (40-130); Anion Gap 13.4 (5-19); Aspartate Amino Transferase 19 U/L (0-40); Blood Urea Nitrogen 17 mg/dL (8-23); Calcium 10.1 mg/dL (8.5-10.5); Carbon Dioxide 32 mmol/L (22-29); Chloride 98 mmol/L (98-107); Glomerular Filtration Rate 60.2 mL/min (90-130); Glucose 160 mg/dL (65-115); Osmolality Calculated 293 mOsm/kg (285-295); Potassium 4.4 mmol/L (3.5-5.1); Sodium 139 mmol/L (136-145); Thyroid Stimulating Hormone 0.97 uIU/mL (0.27-4.20); Total Bilirubin 0.2 mg/dL (0.15-1.2); Total Protein 6.8 g/dL (6.6-8.7)
[2020-07-16 16:32] LABS: Acetaminophen < 5.0 ug/mL (10-30); Alcohol Level < 10 mg/dL (0-10)
== END 2020-07-16 15:12 | disposition left against medical advice (07) ==
PROVIDERS: Emergency Provider Emergency Medicine; PCP Physician Assistant Medical
DX: F10.20 Alcohol dependence, uncomplicated (principal); F06.31 Mood disorder due to known physiological condition with depressive features; Z53.21 Procedure and treatment not carried out due to patient leaving prior to being seen by health care provider; J44.9 Chronic obstructive pulmonary disease, unspecified; F17.210 Nicotine dependence, cigarettes, uncomplicated; Z79.899 Other long term (current) drug therapy
CPT/HCPCS: 12345; 36415; 80053; 80306; 80307; 81003; 84443; 85025; 99282; 99283

== ENCOUNTER 2020-09-19 17:43 | Emergency (ER) | payer MEDICARE, MEDICAID, SELFPAY ==
[2020-09-19 17:50] VITALS: BP 110/76; PULSE 70; RESP 18; TEMP 36.3; O2SAT 94; BMI 24.8
--- NOTE | 2020-09-19 17:53 | CTR_ITS ---
PROCEDURE INFORMATION: Exam: CT Head Without Contrast Exam date and time: 09/19/2020 6:01 PM Age: 70 years old Clinical indication: Altered mental status/memory loss; Confusion or disorientation; Prior surgery; Surgery date: 6+ months; Surgery type: Aneurysm; Patient HX: AMS TECHNIQUE: Imaging protocol: Computed tomography of the head without contrast. Radiation optimization: All CT scans at this facility use at least one of these dose optimization techniques: automated exposure control; mA and/or kV adjustment per patient size (includes targeted exams where dose is matched to clinical indication); or iterative reconstruction. Other technique: STROKE PROTOCOL was implemented. COMPARISON: CT head wo con* [id number] 04/11/2020 12:34 PM RADIATION DOSE METRICS: Total DLP (mGy-cm): 860.28 FINDINGS: Brain: There is moderate cerebral atrophy. There is moderate diffuse heterogeneity of the white matter attenuation, consistent with chronic white matter ischemic changes. Negative for intracranial hemorrhage. No mass effect on the brain. No midline shift of structures. No cerebral sulcal effacement. No acute brain ischemia identified. Focal right anterior frontal lobe encephalomalacia stable from prior. Cerebral ventricles: No ventriculomegaly. Bones/joints: Left temporal craniotomy. No calvarial fracture. No lytic bone lesion. Paranasal sinuses: Visualized sinuses are unremarkable. No fluid levels. Mastoid air cells: Visualized mastoid air cells are well aerated. Vasculature: Prior coil embolization and clipping of aneurysm within the anterior [id number]. Soft tissues: Unremarkable. CT/CT head wo con* [id number] IMPRESSION: 1. Negative for acute intracranial abnormality. 2. No change from prior on 04/11/2020. ASSESSMENT: ASPECTS ([facility] Stroke Program Early CT Score) is 10. Radiation Dose CTDIVOL = (mGy): DLP = 860.28 (mGy-cm)
--- NOTE | 2020-09-19 17:57 | XRR_ITS ---
PROCEDURE INFORMATION: Exam: XR Chest Exam date and time: 09/19/2020 5:58 PM Age: 70 years old Clinical indication: Shortness of breath; Additional info: Dyspnea/cough TECHNIQUE: Imaging protocol: XR of the chest Views: 1 view. COMPARISON: CR XR chest 1V portable [id number] 07/04/2020 2:27 PM FINDINGS: Lungs: Severe emphysema. No focal consolidation. Diffuse reticular interstitial lung change. Pleural spaces: Unremarkable. No pleural effusion. No pneumothorax. Heart/Mediastinum: Unremarkable. No cardiomegaly. Bones/joints: Bones diffusely demineralized. No acute thoracic fractures. XR/XR chest 1V portable [id number] IMPRESSION: 1. No focal pneumonia. 2. Advanced emphysema. 3. No significant change from prior.
--- NOTE | 2020-09-19 18:03 | W.ED.NEUROSD ---
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 Nitrate (Negative) Urine Bilirubin (Negative) Urine Urobilinogen (Negative) mg/dL Ur Leukocyte Evie ase (Negative) Urine Opiates Scre en (Negative) ng/mL Ur Barbiturates Sc reen (Negative) ng/mL Ur Phencyclidine S crn (Negative) ng/mL Ur Amphetamines Sc reen (Negative) ng/mL U Benzodiazepines Scrn (Negative) ng/mL Urine Cocaine Scre en (Negative) ng/mL U Marijuana (THC) Screen (Negative) ng/mL Ethyl Alcohol (0-10) mg/dL Influenza Type A A g Negative (Negative) Influenza Type B A g Negative (Negative) SARS-CoV-2 Ag (Rap id) (Negative) Discharge Plan Discharge Patient Disposition: Xfer Psychiatric Hosp Clinical Impression: Homicidal ideations Dementia, vascular Qualifiers: Dementia behavioral disturbance: with behavioral disturbance Qualified Code(s): F01.51 - Vascular dementia with behavioral disturbance Alcohol intoxication Qualifiers: Complication of substance-induced condition: uncomplicated Qualified Code(s): F10.920 - Alcohol use, unspecified with intoxication, uncomplicated Condition: Stable Referrals: Cristi Nascimento [Primary Care Provider] - Coding Level of Care Code ED Repair Service Clerk for Chg Fwd Exam Detailed Documented by User: Geronimo Burns MD 09/20/20 14:17 HPI - Neuro Symptoms/Deficit General: Chief Complaint: Neuro Symptoms/Deficit Stated Complaint: AMS Time Seen by Provider: 09/19/20 17:46 PFSH ED PFSH: Medical History Cerebral aneurysm Surgical intervention x2 COPD (chronic obstructive pulmonary disease) 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 Rheumatoid arthritis Surgical History History of exploratory laparotomy Family History Mother Diabetes Social History Smoking and tobacco status: current every day smoker cigarettes Packs smoked per day: 1 Years cigarettes smoked: 61 Quit status (tobacco): has tried quititng Number of times tried to quit tobacco: 1 Second hand smoke exposure: Yes Smoking risk assessment/counseling performed?: Yes Tobacco counseling given: counseling >3 minutes Course Vital Signs: Vital signs: Vital Signs Temperature 97.4 F L 09/19/20 17:50 Pulse Rate 82 09/20/20 15:53 Respiratory Rate 16 09/20/20 15:53 Blood Pressure 158/102 03/28/21 15:53 Pulse Oximetry 98 09/20/20 15:53 MDM - Neuro Symptoms/Deficit MDM Narrative: Medical decision making narrative: Patient presents here with suicidal ideations. Patient excepted to [facility] and is medically cleared. He has been stable here. Will transfer there. Lab Data: Labs: Lab Results 09/19/20 09/19/20 09/19/20 Range/Units 18:03 18:06 18:38 WBC 6.4 (4.0-10.0) 10^3/ uL RBC 3.75 L (4.1-5.3) 10^6/u L Hgb 12.4 (11.7-16.6) g/dL Hct 36.8 L (42.0-52.0) % MCV 98.1 H (80-94) fL MCH 33.1 (28.0-34.0) pg MCHC 33.7 (30.0-36.0) g/dL RDW 14.0 (12.1-15.1) % Plt Count 338 (130-400) 10^3/c mm MPV 8.9 (7.4-10.4) fL Neut % (Auto) 36.8 % Lymph % (Auto) 49.2 % [place] % (Auto) 5.5 % Eos % (Auto) 6.9 % Baso % (Auto) 1.1 % Neut # (Auto) 2.36 (1.8-7.7) 10^3/u L Lymph # (Auto) 3.2 (0.8-4.8) 10^3/u L [place] # (Auto) 0.4 (0.2-0.9) 10^3/u L Eos # (Auto) 0.4 (0.0-0.8) 10^3/u L Baso # (Auto) 0.1 (0.0-0.1) 10^3/u L Nucleated RBC % (a uto) 0 % Nucleated RBCs # 0.0 /100WBC Specimen Type Arterial Sample Site Radial, left ABG pH 7.43 (7.35-7.45) ABG pCO2 39.9 (35-45) mmHg ABG pO2 70.7 L (80.0-100.0) mmH g ABG HCO3 26.2 H (22-26) mmol/L ABG O2 Saturation 93.8 ABG Base Excess 1.7 (-2.0-2.0) mmol/ L Rayray Test Pos A-a O2 Gradient 3.7 L (5-10) mmHg Hematocrit 39.6 L (42-52) % Hgb O2 Saturation 90.9 L (95-100) % Carboxyhemoglobin 2.2 (0.4-20.1) %THgb Methemoglobin 0.9 (0.4-1.5) % Total Hemoglobin 12.9 L (14-18) g/dL Sodium 143.0 (131-143) mmol/L Potassium 3.8 (3.5-5.0) mmol/L Glucose 105.0 (70-115) mg/dL Ionized Calcium 1.2 (1.1-1.4) mmol/L O2 Delivery Device Room air FiO2 21.0 % Transportation Job Titles ID [place] Chloride (98-107) mmol/L Carbon Dioxide (22-29) mmol/L Anion Gap (5-19) BUN (8-23) mg/dL Creatinine (0.7-1.2) mg/dL GFR Calculation (90-130) mL/min POC Glucose 107 (70-110) mg/dL Calculated Osmolal ity (285-295) mOsm/k g Calcium (8.5-10.5) mg/dL Magnesium (1.7-2.3) mg/dL Total Bilirubin (0.15-1.2) mg/dL AST (0-40) U/L ALT (0-41) U/L Alkaline Phosphata se (40-130) IU/L Creatine Kinase (39-308) U/L Total Protein (6.6-8.7) g/dL Albumin (3.5-5.2) g/dL Globulin (1.3-4.6) g/dL TSH (0.27-4.20) uIU/ mL Urine Color (Yellow) Urine Appearance (CLEAR) Urine pH (5-7) Ur Specific Gravit y (1.005-1.030) Urine Protein (Negative) Urine Glucose (UA) (Normal) Urine Ketones (Negative) Urine Blood (Negative) Urine Nitrate (Negative) Urine Bilirubin (Negative) Urine Urobilinogen (Negative) mg/dL Ur Leukocyte Evie ase (Negative) Urine Opiates Scre en (Negative) ng/mL Ur Barbiturates Sc reen (Negative) ng/mL Ur Phencyclidine S crn (Negative) ng/mL Ur Amphetamines Sc reen (Negative) ng/mL U Benzodiazepines Scrn (Negative) ng/mL Urine Cocaine Scre en (Negative) ng/mL U Marijuana (THC) Screen (Negative) ng/mL Ethyl Alcohol (0-10) mg/dL Influenza Type A A g (Negative) Influenza Type B A g (Negative) SARS-CoV-2 Ag (Rap id) (Negative) 09/19/20 09/19/20 09/19/20 Range/Units 18:38 18:38 19:23 WBC (4.0-10.0) 10^3/ uL RBC (4.1-5.3) 10^6/u L Hgb (11.7-16.6) g/dL Hct (42.0-52.0) % MCV (80-94) fL MCH (28.0-34.0) pg MCHC (30.0-36.0) g/dL RDW (12.1-15.1) % Plt Count (130-400) 10^3/c mm MPV (7.4-10.4) fL Neut % (Auto) % Lymph % (Auto) % [place] % (Auto) % Eos % (Auto) % Baso % (Auto) % Neut # (Auto) (1.8-7.7) 10^3/u L Lymph # (Auto) (0.8-4.8) 10^3/u L [place] # (Auto) (0.2-0.9) 10^3/u L Eos # (Auto) (0.0-0.8) 10^3/u L Baso # (Auto) (0.0-0.1) 10^3/u L Nucleated RBC % (a uto) % Nucleated RBCs # /100WBC Specimen Type Sample Site ABG pH (7.35-7.45) ABG pCO2 (35-45) mmHg ABG pO2 (80.0-100.0) mmH g ABG HCO3 (22-26) mmol/L ABG O2 Saturation ABG Base Excess (-2.0-2.0) mmol/ L Rayray Test A-a O2 Gradient (5-10) mmHg Hematocrit (42-52) % Hgb O2 Saturation (95-100) % Carboxyhemoglobin (0.4-20.1) %THgb Methemoglobin (0.4-1.5) % Total Hemoglobin (14-18) g/dL Sodium 141 (131-143) mmol/L Potassium 3.8 (3.5-5.0) mmol/L Glucose 107 (70-115) mg/dL Ionized Calcium (1.1-1.4) mmol/L O2 Delivery Device FiO2 % Transportation Job Titles ID Chloride 104 (98-107) mmol/L Carbon Dioxide 25 (22-29) mmol/L Anion Gap 15.8 (5-19) BUN 14 (8-23) mg/dL Creatinine 1.1 (0.7-1.2) mg/dL GFR Calculation 66.6 L (90-130) mL/min POC Glucose (70-110) mg/dL Calculated Osmolal ity 293 (285-295) mOsm/k g Calcium 8.6 (8.5-10.5) mg/dL Magnesium 2.1 (1.7-2.3) mg/dL Total Bilirubin 0.2 (0.15-1.2) mg/dL AST 72 H (0-40) U/L ALT 60 H (0-41) U/L Alkaline Phosphata se 106 (40-130) IU/L Creatine Kinase 183 (39-308) U/L Total Protein 6.9 (6.6-8.7) g/dL Albumin 4.1 (3.5-5.2) g/dL Globulin 2.8 (1.3-4.6) g/dL TSH 0.68 (0.27-4.20) uIU/ mL Urine Color Yellow (Yellow) Urine Appearance Clear (CLEAR) Urine pH 6.5 (5-7) Ur Specific Gravit y 1.005 (1.005-1.030) Urine Protein Neg (Negative) Urine Glucose (UA) Norm (Normal) Urine Ketones Negative (Negative) Urine Blood Neg (Negative) Urine Nitrate Negative (Negative) Urine Bilirubin Neg (Negative) Urine Urobilinogen Norm (Negative) mg/dL Ur Leukocyte Evie ase Negative (Negative) Urine Opiates Scre en (Negative) ng/mL Ur Barbiturates Sc reen (Negative) ng/mL Ur Phencyclidine S crn (Negative) ng/mL Ur Amphetamines Sc reen (Negative) ng/mL U Benzodiazepines Scrn (Negative) ng/mL Urine Cocaine Scre en (Negative) ng/mL U Marijuana (THC) Screen (Negative) ng/mL Ethyl Alcohol 321 H* (0-10) mg/dL Influenza Type A A g (Negative) Influenza Type B A g (Negative) SARS-CoV-2 Ag (Rap id) (Negative) 09/19/20 09/20/20 09/20/20 Range/Units 19:23 02:26 02:26 WBC (4.0-10.0) 10^3/ uL RBC (4.1-5.3) 10^6/u L Hgb (11.7-16.6) g/dL Hct (42.0-52.0) % MCV (80-94) fL MCH (28.0-34.0) pg MCHC (30.0-36.0) g/dL RDW (12.1-15.1) % Plt Count (130-400) 10^3/c mm MPV (7.4-10.4) fL Neut % (Auto) % Lymph % (Auto) % [place] % (Auto) % Eos % (Auto) % Baso % (Auto) % Neut # (Auto) (1.8-7.7) 10^3/u L Lymph # (Auto) (0.8-4.8) 10^3/u L [place] # (Auto) (0.2-0.9) 10^3/u L Eos # (Auto) (0.0-0.8) 10^3/u L Baso # (Auto) (0.0-0.1) 10^3/u L Nucleated RBC % (a uto) % Nucleated RBCs # /100WBC Specimen Type Sample Site ABG pH (7.35-7.45) ABG pCO2 (35-45) mmHg ABG pO2 (80.0-100.0) mmH g ABG HCO3 (22-26) mmol/L ABG O2 Saturation ABG Base Excess (-2.0-2.0) mmol/ L Rayray Test A-a O2 Gradient (5-10) mmHg Hematocrit (42-52) % Hgb O2 Saturation (95-100) % Carboxyhemoglobin (0.4-20.1) %THgb Methemoglobin (0.4-1.5) % Total Hemoglobin (14-18) g/dL Sodium (131-143) mmol/L Potassium (3.5-5.0) mmol/L Glucose (70-115) mg/dL Ionized Calcium (1.1-1.4) mmol/L O2 Delivery Device FiO2 % Transportation Job Titles ID Chloride (98-107) mmol/L Carbon Dioxide (22-29) mmol/L Anion Gap (5-19) BUN (8-23) mg/dL Creatinine (0.7-1.2) mg/dL GFR Calculation (90-130) mL/min POC Glucose (70-110) mg/dL Calculated Osmolal ity (285-295) mOsm/k g Calcium (8.5-10.5) mg/dL Magnesium (1.7-2.3) mg/dL Total Bilirubin (0.15-1.2) mg/dL AST (0-40) U/L ALT (0-41) U/L Alkaline Phosphata se (40-130) IU/L Creatine Kinase (39-308) U/L Total Protein (6.6-8.7) g/dL Albumin (3.5-5.2) g/dL Globulin (1.3-4.6) g/dL TSH (0.27-4.20) uIU/ mL Urine Color (Yellow) Urine Appearance (CLEAR) Urine pH (5-7) Ur Specific Gravit y (1.005-1.030) Urine Protein (Negative) Urine Glucose (UA) (Normal) Urine Ketones (Negative) Urine Blood (Negative) Urine Nitrate (Negative) Urine Bilirubin (Negative) Urine Urobilinogen (Negative) mg/dL Ur Leukocyte Evie ase (Negative) Urine Opiates Scre en Negative (Negative) ng/mL Ur Barbiturates Sc reen Negative (Negative) ng/mL Ur Phencyclidine S crn Negative (Negative) ng/mL Ur Amphetamines Sc reen Negative (Negative) ng/mL U Benzodiazepines Scrn Negative (Negative) ng/mL Urine Cocaine Scre en Negative (Negative) ng/mL U Marijuana (THC) Screen Negative (Negative) ng/mL Ethyl Alcohol 196 H (0-10) mg/dL Influenza Type A A g (Negative) Influenza Type B A g (Negative) SARS-CoV-2 Ag (Rap id) Negative (Negative) 09/20/20 Range/Units 04:11 WBC (4.0-10.0) 10^3/ uL RBC (4.1-5.3) 10^6/u L Hgb (11.7-16.6) g/dL Hct (42.0-52.0) % MCV (80-94) fL MCH (28.0-34.0) pg MCHC (30.0-36.0) g/dL RDW (12.1-15.1) % Plt Count (130-400) 10^3/c mm MPV (7.4-10.4) fL Neut % (Auto) % Lymph % (Auto) % [place] % (Auto) % Eos % (Auto) % Baso % (Auto) % Neut # (Auto) (1.8-7.7) 10^3/u L Lymph # (Auto) (0.8-4.8) 10^3/u L [place] # (Auto) (0.2-0.9) 10^3/u L Eos # (Auto) (0.0-0.8) 10^3/u L Baso # (Auto) (0.0-0.1) 10^3/u L Nucleated RBC % (a uto) % Nucleated RBCs # /100WBC Specimen Type Sample Site ABG pH (7.35-7.45) ABG pCO2 (35-45) mmHg ABG pO2 (80.0-100.0) mmH g ABG HCO3 (22-26) mmol/L ABG O2 Saturation ABG Base Excess (-2.0-2.0) mmol/ L Rayray Test A-a O2 Gradient (5-10) mmHg Hematocrit (42-52) % Hgb O2 Saturation (95-100) % Carboxyhemoglobin (0.4-20.1) %THgb Methemoglobin (0.4-1.5) % Total Hemoglobin (14-18) g/dL Sodium (131-143) mmol/L Potassium (3.5-5.0) mmol/L Glucose (70-115) mg/dL Ionized Calcium (1.1-1.4) mmol/L O2 Delivery Device FiO2 % Transportation Job Titles ID Chloride (98-107) mmol/L Carbon Dioxide (22-29) mmol/L Anion Gap (5-19) BUN (8-23) mg/dL Creatinine (0.7-1.2) mg/dL GFR Calculation (90-130) mL/min POC Glucose (70-110) mg/dL Calculated Osmolal ity (285-295) mOsm/k g Calcium (8.5-10.5) mg/dL Magnesium (1.7-2.3) mg/dL Total Bilirubin (0.15-1.2) mg/dL AST (0-40) U/L ALT (0-41) U/L Alkaline Phosphata se (40-130) IU/L Creatine Kinase (39-308) U/L Total Protein (6.6-8.7) g/dL Albumin (3.5-5.2) g/dL Globulin (1.3-4.6) g/dL TSH (0.27-4.20) uIU/ mL Urine Color (Yellow) Urine Appearance (CLEAR) Urine pH (5-7) Ur Specific Gravit y (1.005-1.030) Urine Protein (Negative) Urine Glucose (UA) (Normal) Urine Ketones (Negative) Urine Blood (Negative) Urine Nitrate (Negative) Urine Bilirubin (Negative) Urine Urobilinogen (Negative) mg/dL Ur Leukocyte Evie ase (Negative) Urine Opiates Scre en (Negative) ng/mL Ur Barbiturates Sc reen (Negative) ng/mL Ur Phencyclidine S crn (Negative) ng/mL Ur Amphetamines Sc reen (Negative) ng/mL U Benzodiazepines Scrn (Negative) ng/mL Urine Cocaine Scre en (Negative) ng/mL U Marijuana (THC) Screen (Negative) ng/mL Ethyl Alcohol (0-10) mg/dL Influenza Type A A g Negative (Negative) Influenza Type B A g Negative (Negative) SARS-CoV-2 Ag (Rap id) (Negative) Discharge Plan Discharge Patient Disposition: Xfer Psychiatric Hosp Clinical Impression: Homicidal ideations Dementia, vascular Qualifiers: Dementia behavioral disturbance: with behavioral disturbance Qualified Code(s): F01.51 - Vascular dementia with behavioral disturbance Alcohol intoxication Qualifiers: Complication of substance-induced condition: uncomplicated Qualified Code(s): F10.920 - Alcohol use, unspecified with intoxication, uncomplicated Condition: Stable Referrals: Cristi Nascimento [Primary Care Provider] - Coding Level of Care Code ED Repair Service Clerk for Chg Fwd Exam Detailed
--- NOTE | 2020-09-19 18:12 | PC.NURSE ---
Patient blood glucose is 107, ER physician notified.
[2020-09-19 18:13] LABS: Glucose Point of Care 107 mg/dL (70-110)
[2020-09-19 18:19] LABS: ABG PCO2 39.9 mmHg (35-45); ABG PH Result 7.43 (7.35-7.45); Alveolar-Arterial Oxygen Gradi 3.7 mmHg (5-10); Arterial Blood Gas Hematocrit 39.6 % (42-52); Base Excess ABG 1.7 mmol/L (-2.0-2.0); Blood Gas Allen Test Pos; Blood Gas Operator Identificat MONRO; Blood Gas Sample Site Radial, left; Blood Gas Sample Type Arterial; Carboxyhemoglobin 2.2 %THgb (0.4-20.1); HCO3 ABG 26.2 mmol/L (22-26); HGB O2 Sat 90.9 % (95-100); Ionized Calcium Level - ABG 1.2 mmol/L (1.1-1.4); Methemoglobin 0.9 % (0.4-1.5); Oxygen Device ROOM AIR; Oxygen Saturation ABG 93.8; PO2 ABG 70.7 mmHg (80.0-100.0); Potassium Level - ABG 3.8 mmol/L (3.5-5.0); Total Hemoglobin 12.9 g/dL (14-18)
--- NOTE | 2020-09-19 18:26 | PC.PHAR ---
PT UNABLE TO VERIFY MEDICATIONS-PTS SHIV VERIFIED MEDICATIONS-PTS STATES THE PT HASNT BEEN TAKING THE BUSPAR (EXT MED HISTORY SHOWS LAST FILLED ON 03/19/20 30D/S PTS STATE THE PT HAS THIS MEDICATION BUT NOT TAKING)OR [facility] FOR A WHILE-STATES THE PT ONLY GOT A 30D/S OF THE [facility] WITH NO REFILLS-EXT MED HISTORY SHOWS LAST FILLED ON 07/10/20 30D/S-
[2020-09-19 18:49] LABS: Basophils # 0.1 10^3/uL (0.0-0.1); Basophils % 1.1 %; Eosinophils # 0.4 10^3/uL (0.0-0.8); Eosinophils % 6.9 %; Hematocrit 36.8 % (42.0-52.0); Hemoglobin 12.4 g/dL (11.7-16.6); Lymphocytes # 3.2 10^3/uL (0.8-4.8); Lymphocytes % 49.2 %; Mean Corpuscular HGB Conc 33.7 g/dL (30.0-36.0); Mean Corpuscular Hemoglobin 33.1 pg (28.0-34.0); Mean Corpuscular Volume 98.1 fL (80-94); Mean Platelet Volume 8.9 fL (7.4-10.4); Monocytes # 0.4 10^3/uL (0.2-0.9); Monocytes % 5.5 %; Neutrophils # 2.36 10^3/uL (1.8-7.7); Neutrophils % 36.8 %; Nucleated Red Blood Cells % 0 %; Platelet Count 338 10^3/cmm (130-400); Red Blood Count 3.75 10^6/uL (4.1-5.3); White Blood Count 6.4 10^3/uL (4.0-10.0)
[2020-09-19 19:14] VITALS: PULSE 77; RESP 22; O2SAT 97
[2020-09-19 19:17] LABS: Alanine Aminotransferase 60 U/L (0-41); Albumin Level 4.1 g/dL (3.5-5.2); Alkaline Phosphatase 106 IU/L (40-130); Anion Gap 15.8 (5-19); Aspartate Amino Transferase 72 U/L (0-40); Blood Urea Nitrogen 14 mg/dL (8-23); Calcium 8.6 mg/dL (8.5-10.5); Carbon Dioxide 25 mmol/L (22-29); Chloride 104 mmol/L (98-107); Creatine Phosphokinase 183 U/L (39-308); Globulin 2.8 g/dL (1.3-4.6); Glomerular Filtration Rate 66.6 mL/min (90-130); Glucose 107 mg/dL (65-115); Magnesium 2.1 mg/dL (1.7-2.3); Osmolality Calculated 293 mOsm/kg (285-295); Potassium 3.8 mmol/L (3.5-5.1); Sodium 141 mmol/L (136-145); Total Bilirubin 0.2 mg/dL (0.15-1.2); Total Protein 6.9 g/dL (6.6-8.7)
--- NOTE | 2020-09-19 19:30 | PC.NURSE ---
Since my arrival patient has been yelling and cussing. Patient kept trying to get out of bed.
[2020-09-19 19:37] LABS: Alcohol Level 321 mg/dL (0-10)
[2020-09-19] MEDS: LORazepam 2 mg/mL INJ 1 mL IVP (19:59)
[2020-09-19] MEDS: diphenhydrAMINE 50 mg/mL SDV 1mL 25 MG IVP (19:59)
[2020-09-19 20:00] VITALS: BP 101/70; PULSE 72; RESP 17; O2SAT 94
[2020-09-19] MEDS: haloperidol inj 5 mg/mL INJ 1 mL IVP (20:00)
[2020-09-19 20:41] LABS: Add Urine Microscopic? NO
[2020-09-19 20:43] LABS: Bilirubin Urine Neg (Negative); Blood Urine Neg (Negative); Glucose Urine UA Norm (Normal); Ketones Urine Negative (Negative); Leukocyte Esterase Urine Negative (Negative); Nitrate Urine Negative (Negative); Protein Urine Neg (Negative); Specific Gravity, Urine 1.005 (1.005-1.030); Urine Appearance Clear (CLEAR); Urine Color Yellow (Yellow); Urobilinogen Urine Norm (Negative); pH Urine 6.5 (5-7)
[2020-09-19 22:15] VITALS: PULSE 77; RESP 16; O2SAT 95
[2020-09-19 23:00] VITALS: BP 92/68; PULSE 64; RESP 16; O2SAT 93
[2020-09-20] VITALS (14 sets, daily range): BP systolic 115–180; BP diastolic 61–108; PULSE 68–103; RESP 14–18; O2SAT 93–98
[2020-09-20 00:08] LABS: Thyroid Stimulating Hormone 0.68 uIU/mL (0.27-4.20)
[2020-09-20 02:54] LABS: SARS Covid-2 Antigen Negative (Negative)
[2020-09-20 03:03] LABS: Alcohol Level 196 mg/dL (0-10)
[2020-09-20 04:37] LABS: Influenza A by IFA Negative (Negative); Influenza B by IFA Negative (Negative)
[2020-09-20 04:37] LABS: Amphetamines Screen Urine Negative (Negative); Barbiturates Screen Urine Negative (Negative); Benzodiazepines Screen Urine Negative (Negative); Cocaine Screen Urine Negative (Negative); Opiate Screen Urine Negative (Negative); PCP Screen Urine Negative (Negative); THC Screen Urine Negative (Negative)
--- NOTE | 2020-09-20 05:47 | PC.NURSE ---
Patient calm and cooperative at this time.
--- NOTE | 2020-09-20 05:53 | PC.NURSE ---
[facility] cannot take patient due to alcohol level and they do not detox there.
--- NOTE | 2020-09-20 07:04 | PC.NURSE ---
patient denied any thoughts of harm self or others at this time. denied any pain, no acute distress noted.
--- NOTE | 2020-09-20 08:34 | PC.NURSE ---
Placed calls to [facility] , no answer. Then a call to [facility], left voice mail.
[2020-09-20] MEDS: LORazepam 2 mg/mL INJ 1 mL IVP (09:29)
--- NOTE | 2020-09-20 10:51 | PC.NURSE ---
[facility] returned called. Asked does pt want to be admitted for alcohol abuse? Informed her pt is a 89, he needs to be treated Response I'll let our physician know , its only for alcohol use
--- NOTE | 2020-09-20 12:11 | PC.NURSE ---
called [facility] to check on pt review file for admission. [facility] stated they are still trying to contant physican for review of pt file and will return our call when physicmichael has reviewed
[2020-09-20] MEDS: LORazepam 1 mg Tablet PO (13:33)
--- NOTE | 2020-09-20 13:41 | PC.NURSE ---
Spoke to Nurse from [facility] in [place]. Faxed pt information for review
[2020-09-20] MEDS: labetalol 5 mg/mL SDV 20mL 10 MG IVP ×2 (14:19→15:37)
== END 2020-09-20 15:56 ==
PROVIDERS: Emergency Medicine; Family Medicine; Emergency Provider Emergency Medicine; PCP Physician Assistant Medical
DX: F01.51 Vascular dementia, unspecified severity, with behavioral disturbance (principal); R45.850 Homicidal ideations; F10.920 Alcohol use, unspecified with intoxication, uncomplicated; Y90.6 Blood alcohol level of 120-199 mg/100 ml; J44.9 Chronic obstructive pulmonary disease, unspecified; F17.210 Nicotine dependence, cigarettes, uncomplicated
CPT/HCPCS: 36416; 36600; 70450; 71045; 80051; 80053; 80306; 80307; 81003; 82330; 82550; 82805; 82962; 83735; 84443; 85025; 87426; 87804; 96374; 96375; 96376; 99285; J1200; J1630; J2060; J3411; J3490

== ENCOUNTER 2021-05-01 12:29 | Inpatient (IN) | payer MEDICARE, MEDICAID, SELFPAY ==
[2021-05-01] VITALS (8 sets, daily range): BP systolic 125–168; BP diastolic 62–87; PULSE 68–103; RESP 15–20; TEMP 36.7; O2SAT 93–98
[2021-05-01 13:06] LABS: Basophils % 0.4 %; Eosinophils # 0.2 10^3/uL (0.0-0.8); Hematocrit 35.2 % (42.0-52.0); Hemoglobin 11.8 g/dL (11.7-16.6); Lymphocytes # 2.1 10^3/uL (0.8-4.8); Lymphocytes % 22.8 %; Mean Corpuscular HGB Conc 33.5 g/dL (30.0-36.0); Mean Corpuscular Hemoglobin 34.3 pg (28.0-34.0); Mean Corpuscular Volume 102.3 fl (80-94); Mean Platelet Volume 8.6 fL (7.4-10.4); Monocytes # 0.6 10^3/uL (0.2-0.9); Monocytes % 6.8 %; Neutrophils # 6.05 10^3/uL (1.8-7.7); Neutrophils % 67.4 %; Nucleated Red Blood Cells % 0 %; Platelet Count 261 10^3/cmm (130-400); Red Blood Count 3.44 10^6/uL (4.1-5.3); Red Cell Distribution Width 14.6 % (12.1-15.1)
--- NOTE | 2021-05-01 13:06 | ECG_ITS ---
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 Measurements Intervals [place] Rate: 94 P: CT: QRS: 37 QRSD: 83 T: 45 QT: 331 QTc: 414 Interpretive Statements ATRIAL FIBRILLATION Compared to ECG 07/03/2020 19:20:17 Sinus rhythm no longer present Electronically Signed On 05-02-2021 22:00:09 MEDICAL AND SCIENTIFIC ILLUSTRATOR by Edouard Tuttle M.D. [id number]
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
[2021-05-01] MEDS: chlordiazePOXIDE 25 mg Capsule 50 MG PO (13:22)
[2021-05-01 13:28] LABS: Blood Urea Nitrogen 9 mg/dL (8-23); Calcium 9.2 mg/dL (8.5-10.5); Carbon Dioxide 24 mmol/L (22-29); Chloride 87 mmol/L (98-107); Glomerular Filtration Rate 74.3 mL/min (90-130); Glucose 82 mg/dL (65-115); Osmolality Calculated 262 mOsm/kg (285-295); Salicylate 8.2 mg/dL (3-10); Sodium 127 mmol/L (136-145)
[2021-05-01 13:30] LABS: Acetaminophen < 5.0 ug/mL (10-30)
[2021-05-01 14:27] LABS: Amphetamines Screen Urine Negative (Negative); Barbiturates Screen Urine Negative (Negative); Benzodiazepines Screen Urine Negative (Negative); Cocaine Screen Urine Negative (Negative); Opiate Screen Urine Negative (Negative); PCP Screen Urine Negative (Negative); THC Screen Urine Negative (Negative)
[2021-05-01 14:33] LABS: SARS Covid-2 Antigen Negative (Negative)
[2021-05-01] MEDS: morphine 4 mg/mL SDV 1 mL IM (15:12)
[2021-05-01] MEDS: LORazepam 1 mg Tablet PO (15:12)
[2021-05-01] MEDS: nicotine 21 mg Patch 1 PATCH TRANSDERMA (15:20)
[2021-05-01 16:04] LABS: Alcohol Level 17 mg/dL (0-10)
--- NOTE | 2021-05-01 17:27 | PC.NURSE ---
pt information faxed to [facility] @ 0833 and [facility] @ 6328 both facilities had male beds available
--- NOTE | 2021-05-01 17:28 | ECG_ITS ---
[facility] Test Date: 2021-05-01 Pat Name: Mik Vargas Department: Room: Gender: Male Design Draftsman: : 1950 Requested By: Eleuterio Meek Order Number: [id number] Haider MD: Edouard Tuttle M.D. Measurements Intervals [place] Rate: 99 P: MD: QRS: 35 QRSD: 84 T: 62 QT: 324 QTc: 417 Interpretive Statements ATRIAL FIBRILLATION Compared to ECG 07/03/2020 19:20:17 Sinus rhythm no longer present Electronically Signed On 05-02-2021 21:56:25 CORN CUTTER by Edouard Tuttle M.D. [id number]
--- NOTE | 2021-05-01 20:50 | PC.NURSE ---
received call from [facility] stating they declined pt due to ETOH level
[2021-05-01] MEDS: haloperidol inj 5 mg/mL INJ 1 mL 2 MG IM (21:22)
[2021-05-01] MEDS: diphenhydrAMINE 50 mg/mL SDV 1mL IM (21:22)
[2021-05-01] MEDS: LORazepam 2 mg/mL INJ 1 mL IM (21:22)
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
[2021-05-01] MEDS: ipratropium-albuterol 3 mL Neb INHALATION ×3 (21:53→22:13)
[2021-05-02 00:02] VITALS: BP 124/69; PULSE 111; RESP 14; O2SAT 95
[2021-05-02 00:30] VITALS: BP 126/82; PULSE 104; RESP 16; O2SAT 94
[2021-05-02 00:31] LABS: Troponin(5th) Baseline 15 ng/L (0-15)
[2021-05-02 03:59] VITALS: BP 124/79; PULSE 98; RESP 16; TEMP 36.7; O2SAT 95
[2021-05-02] MEDS: ibuprofen 600 mg Tablet PO (05:02)
[2021-05-02] MEDS: nicotine 21 mg Patch 1 PATCH TRANSDERMA ×3 (05:52→18:57)
[2021-05-02 06:21] VITALS: BP 131/74; PULSE 98; RESP 16; TEMP 36.7; O2SAT 96
[2021-05-02] MEDS: ziprasidone 20 mg/mL SDV IM (06:47)
[2021-05-02] MEDS: LORazepam 2 mg/mL INJ 1 mL IVP (06:47)
--- NOTE | 2021-05-02 08:29 | PC.NURSE ---
Call to [facility] to request a room, this RN advised they do have a bed available. Initial intake questions answered and staff advised this RN they will be calling back after review.
--- NOTE | 2021-05-02 09:01 | PC.NURSE ---
Called to [facility] to see if they wanted records faxed, advised by staff they received the fax of pts medical records yesterday and denied pt at that time. Staff advised this RN they are unable to take the pt with his hx of alcohol use as well as his current blood alcohol level of 17. Staff checked with doctor and advised they will not be able to take him until his blood alcohol level is at 0 for a minimum of 72 hours.
[2021-05-02] MEDS: LORazepam 1 mg Tablet PO (09:43)
--- NOTE | 2021-05-02 09:45 | PC.NURSE ---
This RN spoke with Dr. Gu to update, pt is repeatedly coming out of his room looking for his car and his . Pt repeatedly told he does not have a car here, he came by ambulance and his is at home sleeping. Pt offered breakfast and refused, pt accepted coffee, applesauce and some juice. This RN requested something to help with pts agitation, new verbal orders given and entered.
--- NOTE | 2021-05-02 09:48 | PC.NURSE ---
call placd to [facility] to request admission for pt, records faxed and waiting for reaponse. This RN advised there is 1 male bed available.
[2021-05-02 10:07] LABS: Alcohol Level < 10 mg/dL (0-10)
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
[2021-05-02 14:10] VITALS: BP 154/123; PULSE 115; RESP 20; O2SAT 92
[2021-05-02] MEDS: haloperidol inj 5 mg/mL INJ 1 mL IM (15:49)
[2021-05-02] MEDS: diphenhydrAMINE 50 mg/mL SDV 1mL IM (15:49)
[2021-05-02] MEDS: LORazepam 2 mg/mL INJ 1 mL IM (15:50)
--- NOTE | 2021-05-02 17:25 | PC.NURSE ---
Pt appears to be wheezing more, Dr. Gu advised and new orders entered for a portable chest xray. Pt on continuous monitoring
--- NOTE | 2021-05-02 18:07 | PC.NURSE ---
Pt attempting to smoke his pulse ox probe on his index finger thinking it is a cigarette, Dr. Gu advised, new orders entered.
[2021-05-03] MEDS: LORazepam 2 mg Tablet PO (08:38)
--- NOTE | 2021-05-03 08:48 | PC.NURSE ---
AT 0830, the sitter informed me that the patient was getting aggitated. I went and spook with the patient to diffuse the situation. Pt was aggitated and wanting to leave. Informed the provider with a note and Claudia HERNANDEZ put in an order for 2 mg oral ativan per verbal provider order.
[2021-05-03] MEDS: ziprasidone 20 mg/mL SDV 10 MG IM (12:06)
[2021-05-03 12:17] LABS: Alanine Aminotransferase 22 U/L (0-41); Albumin Level 4.2 g/dL (3.5-5.2); Alkaline Phosphatase 95 IU/L (40-130); Anion Gap 19.2 (5-19); Aspartate Amino Transferase 60 U/L (0-40); Blood Urea Nitrogen 12 mg/dL (8-23); Calcium 10.3 mg/dL (8.5-10.5); Carbon Dioxide 25 mmol/L (22-29); Chloride 98 mmol/L (98-107); Glomerular Filtration Rate 96.1 mL/min (90-130); Glucose 159 mg/dL (65-115); Osmolality Calculated 289 mOsm/kg (285-295); Potassium 4.2 mmol/L (3.5-5.1); Sodium 138 mmol/L (136-145); Thyroid Stimulating Hormone 1.56 uIU/mL (0.27-4.20); Total Bilirubin 0.3 mg/dL (0.15-1.2); Total Protein 7.2 g/dL (6.6-8.7)
[2021-05-03] MEDS: LORazepam 2 mg/mL INJ 1 mL IM ×2 (13:23→20:10)
--- NOTE | 2021-05-03 14:09 | DCPLANNER ---
marketing account manager was asked to help find placement for patient. marketing account manager faxed patients information to [facility] for review.
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
[2021-05-03] MEDS: haloperidol inj 5 mg/mL INJ 1 mL IM (20:10)
[2021-05-04] VITALS (8 sets, daily range): BP systolic 126–170; BP diastolic 74–129; PULSE 92–114; RESP 18–26; TEMP 36.5–36.7; O2SAT 91–96
[2021-05-04] MEDS: LORazepam 2 mg/mL INJ 1 mL IM ×2 (01:10→11:28)
[2021-05-04] MEDS: sodium chloride 0.9% 1,000 ML 999 ML IV (05:25)
[2021-05-04 05:34] LABS: Basophils # 0.1 10^3/uL (0.0-0.1); Basophils % 0.6 %; Eosinophils # 0.4 10^3/uL (0.0-0.8); Eosinophils % 4.4 %; Hematocrit 36.5 % (42.0-52.0); Lymphocytes # 2.1 10^3/uL (0.8-4.8); Mean Corpuscular HGB Conc 32.9 g/dL (30.0-36.0); Mean Corpuscular Volume 103.4 fl (80-94); Mean Platelet Volume 8.8 fL (7.4-10.4); Monocytes # 0.8 10^3/uL (0.2-0.9); Monocytes % 9.5 %; Neutrophils # 4.68 10^3/uL (1.8-7.7); Nucleated Red Blood Cells % 0 %; Platelet Count 275 10^3/cmm (130-400); Red Blood Count 3.53 10^6/uL (4.1-5.3); White Blood Count 7.9 10^3/uL (4.0-10.0)
--- NOTE | 2021-05-04 05:42 | ECG_ITS ---
[facility] Test Date: 2021-05-04 Pat Name: Mik Vargas Department: Room: Gender: Male [place]: : 1950 Requested By: Geronimo Burns Order Number: [id number] Haider MD: Malorie Barajas M.D. Measurements Intervals [place] Rate: 114 P: [place]: QRS: 71 QRSD: 69 T: 73 QT: 286 QTc: 395 Interpretive Statements ATRIAL FIBRILLATION WITH RAPID VENTRICULAR RESPONSE LOW QRS VOLTAGE IN PRECORDIAL LEADS [QRS DEFLECTION < 1.0 mV IN CHEST LEADS] POSSIBLE RIGHT VENTRICULAR CONDUCTION DELAY [RSR (QR) IN V1/V2] SEPTAL MYOCARDIAL INFARCTION , OF INDETERMINATE AGE [40+ ms Q WAVE IN V1/V2] Compared to ECG 05/01/2021 13:49:03 Low QRS voltage now present Myocardial infarct finding now present Electronically Signed On 05-05-2021 7:35:04 PUBLIC POLICY COORDINATOR by Malorie Barajas M.D. [id number]
[2021-05-04 05:53] LABS: Alanine Aminotransferase 22 U/L (0-41); Albumin Level 4.1 g/dL (3.5-5.2); Alkaline Phosphatase 93 IU/L (40-130); Anion Gap 17.5 (5-19); Aspartate Amino Transferase 48 U/L (0-40); Blood Urea Nitrogen 13 mg/dL (8-23); Calcium 10.2 mg/dL (8.5-10.5); Carbon Dioxide 26 mmol/L (22-29); Chloride 100 mmol/L (98-107); Globulin 3.1 g/dL (1.3-4.6); Glomerular Filtration Rate 112.1 mL/min (90-130); Glucose 134 mg/dL (65-115); Osmolality Calculated 290 mOsm/kg (285-295); Potassium 4.5 mmol/L (3.5-5.1); Sodium 139 mmol/L (136-145); Total Bilirubin 0.3 mg/dL (0.15-1.2); Total Protein 7.2 g/dL (6.6-8.7)
--- NOTE | 2021-05-04 05:58 | PC.NURSE ---
during pt rounding, pt appearance changed from pink warm dry to pale, cool and diaphoretic. Vitals obtained, 12 JEREMY reading a fib with RVR rate of >120. Dr notified, orders obtained for IV with blood draw and cardizem push with NS bolus. 18g IV x3 attempts in R AC. Pt placed on cardiac exercise physiologist. IVP cardizem adm. Pt rate in 90's. Pt continues to be monitored with 1:1 sitter. Rate and BP remaining unchanged
[2021-05-04 06:07] LABS: Alcohol Level < 10 mg/dL (0-10)
--- NOTE | 2021-05-04 06:17 | USCV_ITS ---
Sam Mik Age: 70 Gender: M : 1950 Exam Date: 05/04/2021 08:45 Ordering Phys: Rob Thakur DO Technologist: Yenny Velez Exam Location: [facility] Indication: NEW ONSET OF A-FIB BP: 146 / 122 HR: 103 Rhythm: Sinus Technical Quality: Technically difficult study MEASUREMENTS (Male / Female) Normal Values 2D ECHO LV Diastolic Diameter PLAX 3.3 cm 4.2 - 5.9 / 3.9 - 5.3 cm LV Systolic Diameter PLAX 2.5 cm LV Chamber Size 3.5 cm IVS Diastolic Thickness 1.3 cm 0.6 - 1.0 / 0.6 - 0.9 cm IVS Systolic Thickness 1.7 cm LVPW Diastolic Thickness 1.2 cm 0.6 - 1.0 / 0.6 - 0.9 cm LVPW Systolic Thickness 1.7 cm RV Chamber Size 3.0 cm LVOT Diameter 2.0 cm LV Ejection Fraction 2D Teich 47.4 % LV Ejection Fraction MOD 2C 68.7 % LV Ejection Fraction 2C AL 68.5 % LA Diameter 3.9 cm LA Width 2.3 cm LA Height 3.9 cm RA Width 3.2 cm RA Height 3.1 cm Aorta at Sinotubular Diameter 2.9 cm M-MODE LV Diastolic Diameter MM 4.5 cm 4.2 - 5.9 / 3.9 - 5.3 cm LV Systolic Diameter MM 3.2 cm LV Ejection Fraction MM Teich 55.9 % IVS Diastolic Thickness MM 1.3 cm 0.6 - 1.0 / 0.6 - 0.9 cm IVS Systolic Thickness MM 1.5 cm LVPW Diastolic Thickness MM 1.4 cm 0.6 - 1.0 / 0.6 - 0.9 cm LVPW Systolic Thickness MM 1.7 cm Aortic Annulus Diameter 3.5 cm LA Ao Ratio MM 1.3 MV E Point Septal Separation 0.4 cm DOPPLER AV Peak Velocity 110.0 cm/s LVOT Peak Velocity 109.0 cm/s AV Area Cont Eq vti 2.9 cm squared AV Area Cont Eq pk 3.3 cm squared MV Area PHT 7.6 cm squared Mitral E to A Ratio 0.9 MV E' Velocity 39.0 cm/s Mitral E to MV E' Ratio 7.1 Mitral E to LV E' Lateral Ratio 6.0 Mitral E to LV E' Septal Ratio 8.6 TR Peak Velocity 117.3 cm/s TR Peak Gradient 5.5 mmHg TR Mean Velocity 73.4 cm/s TR Mean Gradient 2.7 mmHg TR Velocity Time Integral 25.4 cm TV Peak E Velocity 84.0 cm/s Right Atrial Pressure 3.0 mmHg Pulmonary Artery Systolic Pressu 8.5 mmHg PV Peak Velocity 74.0 cm/s RV Acceleration Time 0.2 s RV Ejection Time 0.3 s RV AcT/ET 0.5 FINDINGS Left Ventricle Normal left ventricular size and systolic function, EF 62 %. No regional wall motion abnormalities. Right Ventricle The right ventricle is normal in size and function. Right Atrium The right atrium is normal in size. Left Atrium The left atrium is normal in size. Mitral Valve No gross abnormalities noted Aortic Valve No gross abnormalities noted Tricuspid Valve No gross abnormalities noted Pulmonic Valve Pulmonic valve not well visualized. Pericardium Trivial pericardial effusion. Aorta Normal ascending aorta dimension. CONCLUSIONS Normal left ventricular size and systolic function, EF 62 %. No regional wall motion abnormalities. No significant stenotic or regurgitant lesions. Possibly normal chamber sizes. There is no pericardial effusion. Technically difficult study because of the poor ultrasonic window. (PT VERY UNCOOPERATIVE AND RESTLESS DURING EXAM. TDS) Dr Ruddy Mirza MD FACC (Electronically Signed) Final Date: 04 May 2021 15:04 S
[2021-05-04] MEDS: dilTIAZem ER (24HR) 180 mg Capsule PO (06:31)
--- NOTE | 2021-05-04 06:31 | W.ED.PSYCHS ---
HPI - Psych General: Chief Complaint: Psychiatric Symptoms Stated Complaint: MHE Time Seen by Provider: 05/01/21 12:45 History of Present Illness: HPI Narrative: Patient has been at facility for couple of days now. Previous note reviewed. We have been trying to get placement for him. However not been able to get any facility to accept him. He continues to intermittently be very anxious and agitated. Interacted with the patient several times on May 03. He was medicated for agitation. Psychiatry was consulted as well. Discussed the patient with Dr Stacy. In my interactions with the patient was unable to get any significant history he is very confused and disoriented. Noted had not made any dictation regarding that day when I returned on 05/04 note initiated this morning on 05/04. complaint: suicidal ideation Onset (ago): day(s) Duration: constant History of same: Yes Relieving factors: medication Exacerbating factors: alcohol Context: recent alcohol abuse Associated psychiatric symptoms: suicidal ideation, homicidal ideation and visual hallucinations Associated symptoms: Reports auditory hallucinations, visual hallucinations, homicidal ideation and suicidal ideation Treatments prior to arrival: placed on mental health hold and chemical restraints (Chemical restraints have been used during this hospitalization see previous notes) Review of Systems General: Reports: ROS unobtainable due to mental status Psych: Reports: visual hallucinations, auditory hallucinations, suicidal ideation and homicidal ideation [facility] ED PFSH: Medical History (Updated 05/04/21 @ 09:18 by Moisés Lopez MD) Cerebral aneurysm Surgical intervention x2 COPD (chronic obstructive pulmonary disease) Dementia 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 Rheumatoid arthritis Surgical History History of exploratory laparotomy Family History Mother Diabetes Social History Smoking and tobacco status: current every day smoker cigarettes Packs smoked per day: 1 Years cigarettes smoked: 61 Quit status (tobacco): has tried quititng Number of times tried to quit tobacco: 1 Second hand smoke exposure: Yes Smoking risk assessment/counseling performed?: Yes Tobacco counseling given: counseling >3 minutes Physical Exam Const: COMMON NORMALS: no acute distress GENERAL APPEARANCE: comfortable HENMT: COMMON NORMALS: normocephalic, atraumatic and hearing grossly normal bilaterally HEAD & SCALP: normocephalic and atraumatic Resp: COMMON NORMALS: normal respiratory effort, No retractions, No use of accessory muscles and clear to auscultation bilaterally AUSCULTATION: clear to auscultation bilaterally Cardio: RATE: tachycardic RHYTHM: abnormal rhythm irregularly irregular GI: COMMON NORMALS: Soft to palpation and No hepatosplenomegaly present AUSCULTATION: Yes normoactive bowel sounds PALPATION: Yes Soft to palpation, No Tenderness to palpation present (GI), No Guarding due to palpation present (GI) and Yes No hepatosplenomegaly present Extremity: COMMON NORMALS: normal to inspection, capillary refill normal, no clubbing, cyanosis or edema, no calf tenderness and no pedal edema Course Vital Signs: Vital signs: Vital Signs Temperature 98.7 F 05/05/21 04:00 Pulse Rate 72 05/05/21 04:00 Respiratory Rate 18 05/05/21 04:00 Blood Pressure 128/73 05/05/21 04:00 Pulse Oximetry 88 L 05/05/21 04:00 MDM - Psych MDM Narrative: Medical decision making narrative: Patient seen yesterday was very agitated was trying to leave he was given Ativan and later given Geodon and Haldol this did effectively relieve his agitation. I did consult Dr. Stacy who agrees that he needs to be placed for psych. We spent the last 2 days with staff attempting to find placement we have been refused by all facilities we have contacted several we have contacted twice with the hopes that they would have beds become available. In the interim patient has now developed A. fib with RVR. Dr. Burns was monitoring the patient overnight and gave him Cardizem 10 mg IV push. Reviewed the patient's morning a atrial fibrillation present on EKG with a rate of 114. Will start Cardizem p.o. At this point patient will need to be admitted for medical stabilization after which we can pursue further psychiatric care. He will also need monitoring for withdrawal. Lab Data: Labs: Lab Results 05/01/21 05/01/21 05/01/21 12:58 12:58 12:58 WBC 9.0 10^3/uL 10^3/ uL (4.0-10.0) RBC 3.44 10^6/uL L 10 ^6/uL (4.1-5.3) Hgb 11.8 g/dL g/dL (11.7-16.6) Hct 35.2 % L % (42.0-52.0) MCV 102.3 fl H fl (80-94) MCH 34.3 pg H pg (28.0-34.0) MCHC 33.5 g/dL g/dL (30.0-36.0) RDW 14.6 % % (12.1-15.1) Plt Count 261 10^3/cmm 10^3 /cmm (130-400) MPV 8.6 fL fL (7.4-10.4) Neut % (Auto) 67.4 % % Lymph % (Auto) 22.8 % % [place] % (Auto) 6.8 % % Eos % (Auto) 2.0 % % Baso % (Auto) 0.4 % % Neut # (Auto) 6.05 10^3/uL 10^3 /uL (1.8-7.7) Lymph # (Auto) 2.1 10^3/uL 10^3/ uL (0.8-4.8) [place] # (Auto) 0.6 10^3/uL 10^3/ uL (0.2-0.9) Eos # (Auto) 0.2 10^3/uL 10^3/ uL (0.0-0.8) Baso # (Auto) 0.0 10^3/uL 10^3/ uL (0.0-0.1) Nucleated RBC % (a uto) 0 % % Nucleated RBCs # 0.0 /100WBC /100W BC Sodium 127 mmol/L L mmol /L (136-145) Potassium 4.0 mmol/L mmol/L (3.5-5.1) Chloride 87 mmol/L L mmol/ L (98-107) Carbon Dioxide 24 mmol/L mmol/L (22-29) Anion Gap 20.0 H (5-19) BUN 9 mg/dL mg/dL (8-23) Creatinine 1.0 mg/dL mg/dL (0.7-1.2) GFR Calculation 74.3 mL/min L mL/ min (90-130) Glucose 82 mg/dL mg/dL (65-115) Calculated Osmolal ity 262 mOsm/kg L mOs m/kg (285-295) Calcium 9.2 mg/dL mg/dL (8.5-10.5) Magnesium Total Bilirubin AST ALT Alkaline Phosphata se Troponin T Baselin e Total Protein Albumin Globulin Vitamin B12 TSH Urine Color Urine Appearance Urine pH Ur Specific Gravit y Urine Protein Urine Glucose (UA) Urine Ketones Urine Blood Urine Nitrate Urine Bilirubin Urine Urobilinogen Ur Leukocyte Evie ase Urine RBC Urine WBC Ur Squamous Epith Cells Amorphous Sediment Urine Bacteria Urine Mucus Salicylates 8.2 mg/dL mg/dL (3-10) Urine Opiates Scre en Acetaminophen < 5.0 ug/mL L ug/ mL (10-30) Ur Barbiturates Sc reen Ur Phencyclidine S crn Ur Amphetamines Sc reen U Benzodiazepines Scrn Urine Cocaine Scre en U Marijuana (THC) Screen Ethyl Alcohol 17 mg/dL H mg/dL (0-10) SARS-CoV-2 Ag (Rap id) 05/01/21 05/01/21 05/01/21 13:45 14:10 21:56 WBC RBC Hgb Hct MCV MCH MCHC RDW Plt Count MPV Neut % (Auto) Lymph % (Auto) [place] % (Auto) Eos % (Auto) Baso % (Auto) Neut # (Auto) Lymph # (Auto) [place] # (Auto) Eos # (Auto) Baso # (Auto) Nucleated RBC % (a uto) Nucleated RBCs # Sodium Potassium Chloride Carbon Dioxide Anion Gap BUN Creatinine GFR Calculation Glucose Calculated Osmolal ity Calcium Magnesium Total Bilirubin AST ALT Alkaline Phosphata se Troponin T Baselin e 15 ng/L ng/L (0-15) Total Protein Albumin Globulin Vitamin B12 TSH Urine Color Urine Appearance Urine pH Ur Specific Gravit y Urine Protein Urine Glucose (UA) Urine Ketones Urine Blood Urine Nitrate Urine Bilirubin Urine Urobilinogen Ur Leukocyte Evie ase Urine RBC Urine WBC Ur Squamous Epith Cells Amorphous Sediment Urine Bacteria Urine Mucus Salicylates Urine Opiates Scre en Negative ng/mL ng /mL (Negative) Acetaminophen Ur Barbiturates Sc reen Negative ng/mL ng /mL (Negative) Ur Phencyclidine S crn Negative ng/mL ng /mL (Negative) Ur Amphetamines Sc reen Negative ng/mL ng /mL (Negative) U Benzodiazepines Scrn Negative ng/mL ng /mL (Negative) Urine Cocaine Scre en Negative ng/mL ng /mL (Negative) U Marijuana (THC) Screen Negative ng/mL ng /mL (Negative) Ethyl Alcohol SARS-CoV-2 Ag (Rap id) Negative (Negative) 05/02/21 05/03/21 05/04/21 09:21 11:32 05:25 WBC 7.9 10^3/uL 10^3/ uL (4.0-10.0) RBC 3.53 10^6/uL L 10 ^6/uL (4.1-5.3) Hgb 12.0 g/dL g/dL (11.7-16.6) Hct 36.5 % L % (42.0-52.0) MCV 103.4 fl H fl (80-94) MCH 34.0 pg pg (28.0-34.0) MCHC 32.9 g/dL g/dL (30.0-36.0) RDW 15.0 % % (12.1-15.1) Plt Count 275 10^3/cmm 10^3 /cmm (130-400) MPV 8.8 fL fL (7.4-10.4) Neut % (Auto) 59.0 % % Lymph % (Auto) 26.0 % % [place] % (Auto) 9.5 % % Eos % (Auto) 4.4 % % Baso % (Auto) 0.6 % % Neut # (Auto) 4.68 10^3/uL 10^3 /uL (1.8-7.7) Lymph # (Auto) 2.1 10^3/uL 10^3/ uL (0.8-4.8) [place] # (Auto) 0.8 10^3/uL 10^3/ uL (0.2-0.9) Eos # (Auto) 0.4 10^3/uL 10^3/ uL (0.0-0.8) Baso # (Auto) 0.1 10^3/uL 10^3/ uL (0.0-0.1) Nucleated RBC % (a uto) 0 % % Nucleated RBCs # 0.0 /100WBC /100W BC Sodium 138 mmol/L mmol/L (136-145) Potassium 4.2 mmol/L mmol/L (3.5-5.1) Chloride 98 mmol/L mmol/L (98-107) Carbon Dioxide 25 mmol/L mmol/L (22-29) Anion Gap 19.2 H (5-19) BUN 12 mg/dL mg/dL (8-23) Creatinine 0.8 mg/dL mg/dL (0.7-1.2) GFR Calculation 96.1 mL/min mL/mi n (90-130) Glucose 159 mg/dL H mg/dL (65-115) Calculated Osmolal ity 289 mOsm/kg mOsm/ kg (285-295) Calcium 10.3 mg/dL mg/dL (8.5-10.5) Magnesium Total Bilirubin 0.3 mg/dL mg/dL (0.15-1.2) AST 60 U/L H U/L (0-40) ALT 22 U/L U/L (0-41) Alkaline Phosphata se 95 IU/L IU/L (40-130) Troponin T Baselin e Total Protein 7.2 g/dL g/dL (6.6-8.7) Albumin 4.2 g/dL g/dL (3.5-5.2) Globulin 3.0 g/dL g/dL (1.3-4.6) Vitamin B12 TSH 1.56 uIU/mL uIU/m L (0.27-4.20) Urine Color Urine Appearance Urine pH Ur Specific Gravit y Urine Protein Urine Glucose (UA) Urine Ketones Urine Blood Urine Nitrate Urine Bilirubin Urine Urobilinogen Ur Leukocyte Evie ase Urine RBC Urine WBC Ur Squamous Epith Cells Amorphous Sediment Urine Bacteria Urine Mucus Salicylates Urine Opiates Scre en Acetaminophen Ur Barbiturates Sc reen Ur Phencyclidine S crn Ur Amphetamines Sc reen U Benzodiazepines Scrn Urine Cocaine Scre en U Marijuana (THC) Screen Ethyl Alcohol < 10 mg/dL mg/dL (0-10) SARS-CoV-2 Ag (Rap id) 05/04/21 05/04/21 05/04/21 05:25 05:25 09:30 WBC RBC Hgb Hct MCV MCH MCHC RDW Plt Count MPV Neut % (Auto) Lymph % (Auto) [place] % (Auto) Eos % (Auto) Baso % (Auto) Neut # (Auto) Lymph # (Auto) [place] # (Auto) Eos # (Auto) Baso # (Auto) Nucleated RBC % (a uto) Nucleated RBCs # Sodium 139 mmol/L mmol/L (136-145) Potassium 4.5 mmol/L mmol/L (3.5-5.1) Chloride 100 mmol/L mmol/L (98-107) Carbon Dioxide 26 mmol/L mmol/L (22-29) Anion Gap 17.5 (5-19) BUN 13 mg/dL mg/dL (8-23) Creatinine 0.7 mg/dL mg/dL (0.7-1.2) GFR Calculation 112.1 mL/min mL/m in (90-130) Glucose 134 mg/dL H mg/dL (65-115) Calculated Osmolal ity 290 mOsm/kg mOsm/ kg (285-295) Calcium 10.2 mg/dL mg/dL (8.5-10.5) Magnesium 1.9 mg/dL mg/dL (1.7-2.3) Total Bilirubin 0.3 mg/dL mg/dL (0.15-1.2) AST 48 U/L H U/L (0-40) ALT 22 U/L U/L (0-41) Alkaline Phosphata se 93 IU/L IU/L (40-130) Troponin T Baselin e Total Protein 7.2 g/dL g/dL (6.6-8.7) Albumin 4.1 g/dL g/dL (3.5-5.2) Globulin 3.1 g/dL g/dL (1.3-4.6) Vitamin B12 541 pg/mL pg/mL (232-1245) TSH Urine Color Yellow (Yellow) Urine Appearance Clear (CLEAR) Urine pH 6.5 (5-7) Ur Specific Gravit y 1.015 (1.005-1.030) Urine Protein Neg (Negative) Urine Glucose (UA) Trace H (Normal) Urine Ketones Negative (Negative) Urine Blood 2+ H (Negative) Urine Nitrate Negative (Negative) Urine Bilirubin Neg (Negative) Urine Urobilinogen Norm mg/dL mg/dL (Negative) Ur Leukocyte Evie ase Negative (Negative) Urine RBC 0-4 /hpf H /hpf (0-2) Urine WBC Rare /hpf /hpf (0-5) Ur Squamous Epith Cells 0-4 /hpf H /hpf (0-5) Amorphous Sediment Not Reportable Urine Bacteria Trace /hpf /hpf (NONE) Urine Mucus Trace /hpf /hpf Salicylates Urine Opiates Scre en Acetaminophen Ur Barbiturates Sc reen Ur Phencyclidine S crn Ur Amphetamines Sc reen U Benzodiazepines Scrn Urine Cocaine Scre en U Marijuana (THC) Screen Ethyl Alcohol < 10 mg/dL mg/dL (0-10) SARS-CoV-2 Ag (Rap id) Discharge Plan Discharge Patient Disposition: Transfer to ED Admit Provider: Moisés Lopez Clinical Impression: Alcohol dependence, Suicidal ideation Condition: Stable Discharge Diet: Advance as tolerated Discharge Activity: Resume usual activity Coding Level of Care Code ED 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
--- NOTE | 2021-05-04 08:59 | P.HP_ITS ---
Providers/Chief Complaint Primary Care Provider: Cristi Nascimento Chief Complaint: MHE History of Present Illness Mik Raya is a 70 year old male with history of dementia who presented to the emergency department on May 01. There was concern of homicidal ideation, and certainly he was threatening to medical staff upon arrival. He had also made suicidal statements according to records that I reviewed. He was being held in the emergency department, for hopeful transfer to a geriatric psychiatry facility. I was called by the emergency department physician, concerned that he was in atrial fibrillation with rapid ventricular rate. Patient himself had no complaints, obviously had some confusion but was fairly pleasant during my interview. He denied any chest pain or shortness of breath. Reviewing EKGs in the past it appears patient has history of multifocal rhythm, wandering pacemaker. Even on his EKG with concerns for atrial fibrillation P waves can be seen fairly frequently of different morphologies. It is likely he is undergoing some withdrawal, and has evidence of multifocal atrial tachycardia with a heart rate of around 110 currently. CIWA protocol had been started on the patient by the emergency department. Long-acting diltiazem was given this morning as well. Review of Systems General: Reports: ROS unobtainable due to mental status (Patient with underlying dementia. As a whole he denies any medical problems) Medications/Allergies Home Medications Medication Instructions Recorded Confirmed Last Taken Type omeprazole 20 mg capsule,delayed 20 mg PO QAM 08/06/19 05/01/21 05/01/21 History release tizanidine 2 mg capsule 2 mg PO Q8H PRN 08/06/19 05/01/21 05/20/20 History albuterol sulfate 2 puff INHALATION Q4H PRN 07/03/20 05/01/21 07/02/20 History acetaminophen [Tylenol Extra 1,000 mg PO DAILY PRN 09/19/20 05/01/21 Unknown History Strength] aspirin-caffeine [BC Pain Relief] 1 ea PO PRN 09/19/20 05/01/21 Unknown History fluticasone propionate 2 spray INTRANASAL DAILY PRN 09/19/20 05/01/21 05/01/21 History multivitamin 1 tab PO QAM 09/19/20 05/01/21 05/01/21 History quetiapine 200 mg PO BEDTIME 09/19/20 05/01/21 04/30/21 History dextromethorphan-quinidine 1 cap PO DAILY 05/01/21 05/01/21 05/01/21 History [Nuedexta] divalproex [Depakote] 250 mg PO BID@05/01/21 05/01/21 05/01/21 History divalproex [Depakote] 500 mg PO BEDTIME 05/01/21 05/01/21 04/30/21 History fluticasone furoate-vilanterol 1 ea INHALATION BID 05/01/21 05/01/21 05/01/21 History [Breo Ellipta] gabapentin 300 mg PO TID 05/01/21 05/01/21 05/01/21 History quetiapine [Seroquel] 50 mg PO BID@05/01/21 05/01/21 05/01/21 History Allergies Allergy/AdvReac Type Severity Reaction Status Date / Time Silk sutures AdvReac Intermediate Bad abd Uncoded 05/20/20 18:55 pains PFSH Acute PFSH: Medical History (Updated 05/04/21 @ 09:18 by Moisés Lopez MD) Cerebral aneurysm Surgical intervention x2 COPD (chronic obstructive pulmonary disease) Dementia 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 Rheumatoid arthritis Surgical History History of exploratory laparotomy Family History Mother Diabetes Social History Smoking and tobacco status: current every day smoker cigarettes Packs smoked per day: 1 Years cigarettes smoked: 61 Quit status (tobacco): has tried quititng Number of times tried to quit tob acco: 1 Second hand smoke exposure: Yes Smoking risk assessment/counseling performed?: Yes Tobacco counseling given: counseling >3 minutes Vitals/I&O/Wt Last Vital Signs Temp 98.0 F 05/02/21 06:21 Pulse 114 H 05/04/21 05:15 Resp 26 H 05/04/21 05:15 BP 148/74 05/04/21 05:15 Pulse Ox 96 05/04/21 05:15 05/03/21 05/04/21 05/04/21 22:59 06:59 14:59 Intake Total 1000 / 1000 Balance 1000 / 1000 Physical Exam Narrative: EXAM NARRATIVE: General exam is a conversant male with fine tremor in no distress HEENT: Pupils equally round. Oropharynx clear. Neck is supple no lymphadenopathy or thyromegaly Cardiovascular irregularly irregular with no murmur Lungs a few faint expiratory wheezes Abdomen is soft, positive bowel sounds, obese. No obvious organomegaly exam is deferred Extremities no cyanosis clubbing or edema, cap refill brisk. Neuro: No obvious focal deficits Skin no rash Data : 05/04/21 05:25 05/04/21 05:25 Other data: LFTs normal with exception of AST of 48 TSH done on admission normal Drug screen was negative for salicylates, and acetaminophen. Alcohol level was 17. Rapid Covid negative. Previous head CT in August 2020 no acute changes, with previous left craniotomy EKG demonstrates multifocal atrial tachycardia, normal axis, no acute ST or T wave changes. A&P Assessment and plan (1) Suicidal ideation: Original presentation was for suicidal and homicidal ideation he was placed on a 96-hour hold Psychiatry was consulted It appears he has not had many of his regular psychiatric medications for a few days. He has been getting intermittent doses of Geodon, Ativan, Haldol. Restart his Neurontin, Depakote, Seroquel. This can certainly be amended by psychiatry if needed. Status: Acute (2) Alcohol dependence: May have some minor withdrawal currently. Certainly tachycardia could suggest so as well as fine tremor Continue [facility] protocol Thiamine, folate Status: Acute (3) Dementia: Has history of underlying dementia Check B12 Check CT head secondary to new neurologic change and history of aneurysm Check urinalysis Status: Acute (4) COPD (chronic obstructive pulmonary disease): Resume patient's home pulmonary toilet No current evidence for significant exacerbation Check chest x-ray secondary to wheezing Add doxycycline secondary to equivocal chest x-ray concerning for early infiltrate right middle lobe Status: Acute (5) Multifocal atrial tachycardia: Condition multifocal pacemaker preceded prior to this hospitalization. Not good candidate for full anticoagulation Agree with initiating diltiazem. If heart rate remains high consider adding low-dose beta-sinai Check echocardiogram Status: Acute Additional A&P Information Multiple other medical problems as outlined in past medical history Full code Lovenox for DVT prophylaxis Attestations Medical Necessity Statement*: Will need greater than 2 midnight stay for evaluation and treatment of alcohol dependency, suicidal and homicidal ideation, possible alcohol withdrawal, multifocal atrial tachycardia Time Spent in Patient Care: Greater than 35 minutes Coding Level of Care Code Acute Rn Resource Nurse for g Fwd Diagnoses Suicidal ideation R45.851 Alcohol dependence F10.20 Dementia F03.90 COPD (chronic obstructive pulmonary disease) J44.9 Multifocal atrial tachycardia I47.1
--- NOTE | 2021-05-04 09:09 | CT_ITS ---
WS: [id number] CT HEAD NONCONTRAST HISTORY: confusion TECHNIQUE: Contiguous axial imaging performed through the brain in 2.5 mm imaging. Bone and soft tiss ue windows. Sagittal and coronal reformats reviewed. All CT scans at [facility] use at least one of these dose optimization techniques: automated exposure control; mA and/or kV adjustment per pa tient size (includes targeted exams where dose is matched to clinical indication); or iterative recon struction. DLP: 799.61 mGy.cm COMPARISON: 09/19/2020 Status post aneurysm clipping of the anterior circulation. There is significant artifact from the coi ls through the anterior brain. No acute blood products or midline shift. Low-attenuation within the m edial frontal lobes bilaterally may be from a prior infarct. There is extensive chronic white matter ischemic change. As compared to the prior study no significant change. Ventricles: Normal size with no hydrocephalus. Paranasal sinuses: As visualized are clear. Mastoid air cells: Well pneumatized. Calvarium and scalp: LEFT temporal craniotomy. CT/CT head wo con* [id number] IMPRESSION: 1. No acute intracranial hemorrhage or edema. 2. There is significant artifact from prior anterior circulation aneurysm coil s. No acute abnormality identified. 3. Stable since 09/19/2020.
--- NOTE | 2021-05-04 09:09 | XR_ITS ---
WS: [id number] PORTABLE CHEST HISTORY: wheezing COMPARISON: 09/19/2020 Mild pulmonary hyperinflation. New increasing opacification with partially obscuration of the pulmona ry artery in the medial RIGHT lower lung field. Suspect developing pneumonia. No pleural effusion or pneumothorax. Cardiac size: Normal. Mediastinum/Aorta: Normal mediastinum. Prior RIGHT rotator cuff repair. Resection distal RIGHT clavicle. XR/XR chest 1V portable [id number] IMPRESSION: Opacification consistent with developing pneumonia medial RIGHT lower lobe.
[2021-05-04] MEDS: multivitamin therapeutic Tablet 1 TAB PO (09:25)
[2021-05-04] MEDS: thiamine 100 mg Tablet PO (09:25)
[2021-05-04] MEDS: albuterol 8 gm MDI 2 PUFF INHALATION ×2 (09:30→14:13)
[2021-05-04 09:46] LABS: Add Urine Microscopic? YES; Bilirubin Urine Neg (Negative); Blood Urine 2+ (Negative); Glucose Urine UA Trace (Normal); Ketones Urine Negative (Negative); Leukocyte Esterase Urine Negative (Negative); Nitrate Urine Negative (Negative); Protein Urine Neg (Negative); Specific Gravity, Urine 1.015 (1.005-1.030); Urine Appearance Clear (CLEAR); Urine Color Yellow (Yellow); Urobilinogen Urine Norm (Negative); pH Urine 6.5 (5-7)
[2021-05-04 09:50] LABS: Add Urine Culture? No; Bacteria Urine TRACE /hpf; Mucus Urine TRACE /hpf; RBC Urine 0-4 /hpf (0-2); Squamous Epithelial Cell Urine 0-4 /hpf (0-5); WBC Urine RARE /hpf (0-5)
[2021-05-04 09:51] LABS: Magnesium 1.9 mg/dL (1.7-2.3)
[2021-05-04 10:07] LABS: Vitamin B12 541 pg/mL (232-1245)
--- NOTE | 2021-05-04 10:14 | XR_ITS ---
WS: [id number] PORTABLE CHEST HISTORY: SOB COMPARISON: 05/04/2021 Hyperexpanded lungs. Mildly thickened interstitium but no dense areas of consolidation. Improved aera tion at the medial RIGHT lung base since the prior study. Normal vasculature. No pleural effusion or pneumothorax. Cardiac size: Normal. Mediastinum/Aorta: Mild atherosclerosis aorta. Resection of the distal RIGHT clavicle. Prior RIGHT rotator cuff repair. XR/XR chest 1V portable [id number] IMPRESSION: Improved aeration at the medial RIGHT lung base since the prior examination. Chronic emphysema.
[2021-05-04] MEDS: enoxaparin 40 mg/0.4 mL Syringe SUBCUT (11:31)
[2021-05-04] MEDS: nicotine 21 mg Patch 1 PATCH TRANSDERMA (11:33)
[2021-05-04] MEDS: OLANZapine 5 mg TABLET PO (11:36)
[2021-05-04] MEDS: divalproex DR 250 mg Tablet PO (15:12)
[2021-05-04] MEDS: gabapentin 300 mg Capsule PO ×2 (15:12→21:26)
--- NOTE | 2021-05-04 16:08 | P.NPUPN_ITS ---
Subjective NPU Subjective: Interval history: Patient presents today continuing to have clear memory deficits and seeming to have resolution of alcohol withdrawal symptoms. 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 He answers a lot of questions today with either no. He reported that the year was 1999. He seemed shocked to know that he was 70 years old and he was able to identify that his children were found not young like he reported to me yesterday but could not tell how old they were and even with me giving him the year 2020 he could render guess as to how old he was. He denied any problems denied recollection of his presentation to the hospital but did acknowledge drinking. Mental Status Exam MSE Comments: This is an overweight white male with adequate grooming and eye contact. No abnormal movements except for mild psychomotor retardation. Cooperative with exam in no acute distress. Speech was normal rate and volume. Mood described as good affect congruent. Thought process organized. Thought content: Patient denied suicidal or homicidal ideation, there were no delusions reported, but he did have some odd thinking that exposed the lack of awareness of what time he was in which could represent his dementia but could also represent a Warnicke's syndrome with confabulation, he denied any auditory or visual hallucinations. Attention and concentration appeared intact and memory was mostly unreliable but none were formally tested. He is alert and oriented x3. Insight and judgment are impaired, impulse control is impaired. Vitals/I&O/Wt Last Vital Signs Temp 98.1 F 05/04/21 20:00 Pulse 110 H 05/04/21 20:00 Resp 18 05/04/21 20:00 BP 170/129 05/04/21 20:00 Pulse Ox 91 05/04/21 20:00 05/04/21 05/04/21 05/05/21 14:59 22:59 06:59 Intake Total 240 / 240 240 / 480 Output Total 900 / 900 Balance 240 / 240 -660 / -420 Data NPU : 05/04/21 05:25 05/04/21 05:25 A&P Additional A&P Information (1) Alcohol dependence: (2) Suicidal ideation: (3) Anxiety: (4) Suicidal ideation: (5) Major neurocognitive disorder as late effect of traumatic brain injury with behavioral disturbance: (6) Cerebral aneurysm: (7) Rheumatoid arthritis: (8) COPD (chronic obstructive pulmonary disease): (9) 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 He has also been using alcohol heavily and has been unable to manage his drinking and presented to the ED with a nonzero blood alcohol (17), dementia and possible cognitive sequela from the alcohol. 1. Continue current medication. 2. Agree with placement in a [facility] facility as soon as he meets their admission criteria/is medically cleared. 3. Continue a 96-hour hold as he currently poses a risk/danger to himself/others/community with his current behaviors and lacks capacity for informed consent. 4. We will continue to follow. Attestations NPU Medical Necessity Statement*: N/A. Please see primary team note for details on medical necessity, however would recommend continued 96-hour hold and transfer to [facility] facility. Coding Level of Care Code Acute Restorer Lace And Textiles for Mary Marinelli
[2021-05-04] MEDS: LORazepam 2 mg Tablet PO ×2 (18:25→23:22)
[2021-05-04] MEDS: doxycycline 100 mg Tablet PO (18:25)
[2021-05-04] MEDS: quetiapine 25 mg Tablet 50 MG PO (21:26)
[2021-05-04] MEDS: quetiapine 100 mg Tablet 200 MG PO (21:26)
[2021-05-04] MEDS: divalproex DR 500 mg Tablet PO (21:26)
[2021-05-04] MEDS: metoprolol tartrate 25 mg Tablet PO (21:26)
[2021-05-04] MEDS: acetaminophen 325 mg Tablet 650 MG PO (23:16)
[2021-05-05] VITALS (9 sets, daily range): BP systolic 106–141; BP diastolic 58–89; PULSE 72–89; RESP 18–92; TEMP 35.9–37.1; O2SAT 88–92
--- NOTE | 2021-05-05 01:41 | PC.NURSE ---
Patient refused midnight vitals. Resting with eyes closed when undisturbed
--- NOTE | 2021-05-05 05:54 | PC.NURSE ---
Patient intermittently confused throughout shift, 1:1 sitter present. CIWA scored, ativan given x1.
--- NOTE | 2021-05-05 10:03 | PM.PN ---
Subjective Subjective: Interval history: Mik is quite sleepy this morning, but arousable. His home medicine regimen was initiated yesterday. He also got a dose of Ativan last night. Medications: Reviewed: Yes Vitals/I&O/Wt Last Vital Signs Temp 97.8 F 05/05/21 08:00 Pulse 89 05/05/21 09:04 Resp 18 05/05/21 09:04 BP 137/89 05/05/21 08:00 Pulse Ox 92 05/05/21 09:04 05/04/21 05/05/21 05/05/21 22:59 06:59 14:59 Intake Total 240 / 480 Output Total 900 / 900 0 / 900 450 / 450 Balance -660 / -420 0 / -420 -450 / -450 Physical Exam Narrative: EXAM NARRATIVE: General exam no distress, sleepy, heart rate controlled Neck is supple no lymphadenopathy or thyromegaly Cardiovascular irregularly irregular with no murmur. Heart rate controlled Lungs a few faint expiratory wheezes Abdomen is soft, positive bowel sounds, obese. No obvious organomegaly exam is deferred Extremities no cyanosis clubbing or edema, cap refill brisk. Data : 05/04/21 05:25 05/04/21 05:25 A&P Assessment and plan (1) Suicidal ideation: Original presentation was for suicidal and homicidal ideation he was placed on a 96-hour hold Psychiatry was consulted It appears he has not had many of his regular psychiatric medications for a few days. He has been getting intermittent doses of Geodon, Ativan, Haldol. I restarted his Neurontin, Depakote, Seroquel on May 04 Appreciate psychiatric consultation He is fairly sleepy this morning. We will reduce his Depakote. Continue to follow clinically. Consider reduction of Seroquel. Status: Acute (2) Alcohol dependence: Concern of withdrawal yesterday. None apparent today. Heart rate under control. Continue CIWA protocol Thiamine, folate Status: Acute (3) Dementia: Has history of underlying dementia B12 is normal CT head checked, no acute changes Urinalysis no evidence of infection Status: Acute (4) COPD (chronic obstructive pulmonary disease): Resume patient's home pulmonary toilet No current evidence for significant exacerbation Chest x-ray very likely right atelectasis. I did place him on some doxycycline for possible bronchitis. Status: Acute (5) Multifocal atrial tachycardia: Condition multifocal pacemaker preceded prior to this hospitalization. Not good candidate for full anticoagulation Continue diltiazem and metoprolol. Heart rate is under good control Echocardiogram demonstrates EF of 62%, otherwise normal Status: Acute Additional A&P Information Multiple other medical problems as outlined in past medical history Full code Lovenox for DVT prophylaxis Attestations Medical Necessity Statement*: Needs continued hospitalization secondary to suicidal ideation, adjusting medicines and trying to arrange transfer to geriatric psychiatric facility. 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
[2021-05-05] MEDS: multivitamin therapeutic Tablet 1 TAB PO (10:28)
[2021-05-05] MEDS: thiamine 100 mg Tablet PO (10:28)
[2021-05-05] MEDS: metoprolol tartrate 25 mg Tablet PO ×2 (10:28→20:35)
[2021-05-05] MEDS: dilTIAZem ER (24HR) 180 mg Capsule PO (10:29)
[2021-05-05] MEDS: doxycycline 100 mg Tablet PO ×2 (10:29→17:49)
[2021-05-05] MEDS: pantoprazole DR 40 mg Tablet PO (10:29)
[2021-05-05] MEDS: albuterol 8 gm MDI 2 PUFF INHALATION (10:30)
[2021-05-05] MEDS: quetiapine 25 mg Tablet 50 MG PO (10:30)
[2021-05-05] MEDS: folic acid 1 mg Tablet PO (10:30)
[2021-05-05] MEDS: gabapentin 300 mg Capsule PO ×3 (10:30→20:35)
--- NOTE | 2021-05-05 10:30 | PC.CHAP ---
Pastoral Care Encounter/Spiritual Assessment Type of Contact [] Declined lawn caretaker visit [] Patient/Family/Request visit [] Outpatient visit [] Follow-up visit [] Physician referral [] Code/Alert [x] Routine visit [] Staff referral [] Actively dying [x] Patient sleeping [] Family support [] [] Out of room [] Palliative care [] [] Receiving care in room [] Pre-surgical visit [] Trauma [] Long length of stay [x] ICU visit [] Other: sitter Relational/Emotional Strength [] Patient feels connected with others/family/visitors/staff [] Distress [] Loneliness/isolation [] Abandonment Spirituality of Patient [] Person of Sharonda [] Attends Yazdanism of their Sharonda [] Believes in Prayer [] Reads Bible or Orthodox materials [] There are Spiritual issues to be addressed Window Glazier Interventions [x] Prayer [] Active listening [] Non-anxious presence [] Spiritual/emotional support [] Crisis/trauma care [] Spiritual counseling [] Bereavement support [] Provided bereavement packet [] Provided Bible/devotional materials [] Provided toy/stuffed animal, coloring book to patient or family member [] Provided Communion [] Anointing/[place] [] Salvation [x] Completed spiritual assessment [] Other: Impact on Illness or Injury [] Angry [] Fearful [] Anxious [] Often cries [] Exhaustion [] Unable to work [] Unable to attend religion [] Unable to walk/stand [] Unable to read [] Unable to drive [] Unable to eat/drink [] Unable to sleep [] Unable to be with family [] Patient intubated [] Other: Summary Time spent with patient
[2021-05-05] MEDS: divalproex DR 250 mg Tablet PO ×2 (10:31→20:50)
[2021-05-05] MEDS: enoxaparin 40 mg/0.4 mL Syringe SUBCUT (10:34)
[2021-05-05] MEDS: acetaminophen 325 mg Tablet 650 MG PO (13:32)
--- NOTE | 2021-05-05 15:41 | PC.NURSE ---
Report given to Bonnie HERNANDEZ
--- NOTE | 2021-05-05 17:05 | W.PM.NPUPNS ---
Subjective NPU Subjective: Interval history: Patient presents today reporting that things are improving. He was still not oriented stating that it was 2000. But today he was able to say that he was 70 after some serious thought. He was able to express that he wants to go home but we continue to talk about the fact that he was slated to go to a geriatric psychiatric unit for evaluation of his overall functioning. Mental Status Exam MSE Comments: This is an overweight white male with adequate grooming and eye contact. No abnormal movements except for mild psychomotor retardation. Cooperative with exam in no acute distress. Speech was normal rate and volume. Mood described as good affect congruent. Thought process organized. Thought content: Patient denied suicidal or homicidal ideation, there were no delusions reported, or noted, he denied any auditory or visual hallucinations. Attention and concentration appeared intact and memory was mostly unreliable but none were formally tested. He is alert and oriented x person and place. Insight and judgment are impaired, impulse control is impaired. Vitals/I&O/Wt Last Vital Signs Temp 97.7 F 05/05/21 10:59 Pulse 86 05/05/21 15:11 Resp 20 H 05/05/21 15:11 BP 106/58 05/05/21 15:11 Pulse Ox 90 05/05/21 15:11 05/05/21 14:59 Intake Total 360 / 360 Output Total 450 / 450 Balance -90 / -90 Data NPU : 05/04/21 05:25 05/04/21 05:25 A&P Additional A&P Information (1) Alcohol dependence: (2) Suicidal ideation: (3) Anxiety: (4) Suicidal ideation: (5) Major neurocognitive disorder as late effect of traumatic brain injury with behavioral disturbance: (6) Cerebral aneurysm: (7) Rheumatoid arthritis: (8) COPD (chronic obstructive pulmonary disease): (9) 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 He has also been using alcohol heavily and has been unable to manage his drinking and presented to the ED with a nonzero blood alcohol (17), dementia and possible cognitive sequela from the alcohol. 1. Continue current medication. 2. Agree with placement in a [facility] facility as soon as he meets their admission criteria/is medically cleared. 3. Continue a 96-hour hold as he currently poses a risk/danger to himself/others/community with his current behaviors and lacks capacity for informed consent. 4. We will continue to follow. Attestations NPU Medical Necessity Statement*: N/A. Please see primary team note for details on medical necessity, however would recommend continued 96-hour hold and transfer to [facility]. Coding Level of Care Code Acute Consulting Sales Executive for Mary Marinelli
--- NOTE | 2021-05-05 19:14 | PC.NURSE ---
Shift Note Frequent safety and comfort rounds continue. Orders and/or nursing care completed as indicated. Patient monitored for response to intervention and treatment(s). Patient oriented to self. Patient resting upon rounding.
[2021-05-05] MEDS: quetiapine 100 mg Tablet PO (20:35)
[2021-05-06] VITALS: BP 116/76; PULSE 72; RESP 18; TEMP 37.1; O2SAT 88
[2021-05-06 04:00] VITALS: BP 126/76; PULSE 72; RESP 20; TEMP 36.7; O2SAT 95
[2021-05-06 05:57] LABS: Basophils # 0.1 10^3/uL (0.0-0.1); Basophils % 0.7 %; Eosinophils # 0.5 10^3/uL (0.0-0.8); Hematocrit 38.3 % (42.0-52.0); Hemoglobin 12.6 g/dL (11.7-16.6); Lymphocytes # 2.1 10^3/uL (0.8-4.8); Lymphocytes % 31.4 %; Mean Corpuscular HGB Conc 32.9 g/dL (30.0-36.0); Mean Corpuscular Volume 106.4 fl (80-94); Mean Platelet Volume 9.3 fL (7.4-10.4); Monocytes # 0.6 10^3/uL (0.2-0.9); Monocytes % 9.4 %; Neutrophils # 3.44 10^3/uL (1.8-7.7); Neutrophils % 51.1 %; Nucleated Red Blood Cells % 0 %; Platelet Count 269 10^3/cmm (130-400); Red Cell Distribution Width 14.8 % (12.1-15.1); White Blood Count 6.7 10^3/uL (4.0-10.0)
[2021-05-06] MEDS: pantoprazole DR 40 mg Tablet PO (06:03)
[2021-05-06 06:09] LABS: Blood Urea Nitrogen 16 mg/dL (8-23); Carbon Dioxide 27 mmol/L (22-29); Chloride 104 mmol/L (98-107); Glomerular Filtration Rate 112.1 mL/min (90-130); Glucose 111 mg/dL (65-115); Osmolality Calculated 290 mOsm/kg (285-295); Sodium 139 mmol/L (136-145)
[2021-05-06 06:49] LABS: Anion Gap 12.4 (5-19); Potassium 4.4 mmol/L (3.5-5.1)
--- NOTE | 2021-05-06 07:29 | P.PN_ITS ---
Subjective Subjective: Interval history: Mik reports he is doing okay this morning. He is forgetful. He denies any pain. He has been up ambulating, and able to urinate on his own. Medications: Reviewed: Yes Vitals/I&O/Wt Last Vital Signs Temp 98.1 F 05/06/21 04:00 Pulse 72 05/06/21 04:00 Resp 20 H 05/06/21 04:00 BP 126/76 05/06/21 04:00 Pulse Ox 95 05/06/21 04:00 05/05/21 05/06/21 05/06/21 22:59 06:59 14:59 Intake Total 120 / 480 Output Total 175 / 625 350 / 975 Balance -55 / -145 -350 / -495 Physical Exam Narrative: EXAM NARRATIVE: General exam no distress, alert and conversive Neck is supple no lymphadenopathy or thyromegaly Cardiovascular irregularly irregular with no murmur. Heart rate controlled Lungs a few faint expiratory wheezes Abdomen is soft, positive bowel sounds, obese. No obvious organomegaly Extremities no cyanosis clubbing or edema, cap refill brisk. Data : 05/06/21 05:40 05/06/21 05:40 A&P Assessment and plan (1) Suicidal ideation: Original presentation was for suicidal and homicidal ideation he was placed on a 96-hour hold Psychiatry was consulted It appears he has not had many of his regular psychiatric medications for a few days. He has been getting intermittent doses of Geodon, Ativan, Haldol. I restarted his Neurontin, Depakote, Seroquel on May 04, and doses were adjusted yesterday. Appreciate psychiatric consultation He appears to be alert, medically stable, and appropriate to transfer for geriatric neuropsychiatric care Status: Acute (2) Alcohol dependence: No evidence of withdrawal today Discontinue CIWA protocol Thiamine, folate Status: Acute (3) Dementia: Has history of underlying dementia B12 is normal [address] head checked, no acute changes Urinalysis no evidence of infection Status: Acute (4) COPD (chronic obstructive pulmonary disease): Resume patient's home pulmonary toilet No current evidence for significant exacerbation Chest x-ray very likely right atelectasis. I did place him on some doxycycline for possible bronchitis. Status: Acute (5) Multifocal atrial tachycardia: Condition multifocal pacemaker preceded prior to this hospitalization. Not good candidate for full anticoagulation Continue diltiazem and metoprolol. Heart rate is under good control Echocardiogram demonstrates EF of 62%, otherwise normal Status: Acute Additional A&P Information Multiple other medical problems as outlined in past medical history Full code Lovenox for DVT prophylaxis Attestations Medical Necessity Statement*: Appropriate for transfer for geriatric psychiatry facility. 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
--- NOTE | 2021-05-06 07:45 | PC.NURSE ---
Morning Shift Note: Report from casino shift manager taken, physical assessment completed and vitals taken. Patient reports no pain this morning and appears to be resting comfortably.
[2021-05-06 08:39] VITALS: BP 131/70; PULSE 83; RESP 14; TEMP 37.1; O2SAT 94
[2021-05-06] MEDS: thiamine 100 mg Tablet PO (08:54)
[2021-05-06] MEDS: multivitamin therapeutic Tablet 1 TAB PO (08:54)
[2021-05-06] MEDS: folic acid 1 mg Tablet PO (08:54)
[2021-05-06] MEDS: doxycycline 100 mg Tablet PO ×2 (08:54→17:15)
[2021-05-06] MEDS: gabapentin 300 mg Capsule PO ×3 (08:54→19:46)
[2021-05-06] MEDS: dilTIAZem ER (24HR) 180 mg Capsule PO (08:54)
[2021-05-06] MEDS: quetiapine 25 mg Tablet 50 MG PO (08:55)
[2021-05-06] MEDS: metoprolol tartrate 25 mg Tablet PO ×2 (08:58→19:46)
[2021-05-06] MEDS: divalproex DR 250 mg Tablet PO ×2 (09:05→20:16)
[2021-05-06] MEDS: enoxaparin 40 mg/0.4 mL Syringe SUBCUT (09:42)
--- NOTE | 2021-05-06 10:09 | PC.CHAP ---
Pastoral Care Encounter/Spiritual Assessment Type of Contact [] Declined claims associate visit [] Patient/Family/Request visit [] Outpatient visit [] Follow-up visit [] Physician referral [] Code/Alert [x] Routine visit [] Staff referral [] Actively dying [] Patient sleeping [] Family support [] [] Out of room [] Palliative care [] [] Receiving care in room [] Pre-surgical visit [] Trauma [] Long length of stay [x] ICU visit [x] Other: sitter Relational/Emotional Strength [] Patient feels connected with others/family/visitors/staff [] Distress [] Loneliness/isolation [] Abandonment Spirituality of Patient [] Person of Sharonda [] Attends Judaism of their Sharonda [] Believes in Prayer [] Reads Bible or Sabianist materials [] There are Spiritual issues to be addressed Outreach Manager Interventions [x] Prayer [x] Active listening [x] Non-anxious presence [x] Spiritual/emotional support [] Crisis/trauma care [] Spiritual counseling [] Bereavement support [] Provided bereavement packet [] Provided Bible/devotional materials [] Provided toy/stuffed animal, coloring book to patient or family member [] Provided Communion [] Anointing/[place] [] Salvation [x] Completed spiritual assessment [] Other: Impact on Illness or Injury [] Angry [] Fearful [] Anxious [] Often cries [] Exhaustion [] Unable to work [] Unable to attend scientology [] Unable to walk/stand [] Unable to read [] Unable to drive [] Unable to eat/drink [] Unable to sleep [] Unable to be with family [] Patient intubated [] Other: Summary patient feeling better... Time spent with patient 10 min
[2021-05-06 12:54] VITALS: BP 113/50; PULSE 73; RESP 13; O2SAT 93
[2021-05-06 16:00] VITALS: BP 147/73; PULSE 71; RESP 14; TEMP 37.1; O2SAT 99
[2021-05-06] MEDS: nicotine 21 mg Patch 1 PATCH TRANSDERMA (17:15)
--- NOTE | 2021-05-06 17:18 | W.PM.NPUPNS ---
Subjective NPU Subjective: Interval history: Patient presents today continuing to be clear as he gets away from his alcohol intoxication. He continues to struggle with his memory but reports that he has not spoken to his and expressed no interest in going to any treatment for his alcohol use. We discussed the fact that he has been looking for a bed at a geriatric psychiatric facility and he seemed ambivalent to that fact. Mental Status Exam MSE Comments: This is an overweight white male with adequate grooming and eye contact. No abnormal movements except for mild psychomotor retardation. Cooperative with exam in no acute distress. Speech was normal rate and volume. Mood described as good affect congruent. Thought process organized. Thought content: Patient denied suicidal or homicidal ideation, there were no delusions reported, or noted, he denied any auditory or visual hallucinations. Attention and concentration appeared intact and memory was mostly unreliable but none were formally tested. He is alert and oriented x person and place. Insight and judgment are impaired, impulse control is impaired. 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 He has also been using alcohol heavily and has been unable to manage his drinking and presented to the ED with a nonzero blood alcohol (17), dementia and possible cognitive sequela from the alcohol. 1. Continue current medication. 2. Agree with placement in a [facility] facility as soon as he meets their admission criteria/is medically cleared. 3. Continue a 96-hour hold as he currently poses a risk/danger to himself/others/community with his current behaviors and lacks capacity for informed consent. 4. We will continue to follow. Attestations NPU Medical Necessity Statement*: N/A. Please see primary team note for details on medical necessity, however would recommend continued 96-hour hold and transfer to [facility]. Coding Level of Care Code Acute Behavioral Health Rn for Mary Marinelli
--- NOTE | 2021-05-06 18:05 | PC.NURSE ---
Shift Note Frequent safety and comfort rounds continue. Orders and/or nursing care completed as indicated. Patient monitored for response to intervention and treatment(s). Education provided includes medication education at the time of administration, plan of care, transfer plans. Patient verbalizes understanding, but frequently appears confused. has been updated. Patient frequently appears to be confused and disoriented, looking for his pack of cigarettes in the chair. Patient is easily redirected with conversation. Patient currently appears to be resting comfortably in bed watching TV.
[2021-05-06] MEDS: quetiapine 100 mg Tablet PO (19:47)
[2021-05-06 20:00] VITALS: BP 146/72; PULSE 72; RESP 20; TEMP 36.2; O2SAT 92
[2021-05-06] MEDS: acetaminophen 325 mg Tablet 650 MG PO (20:00)
[2021-05-07] VITALS: BP 146/72; PULSE 75; RESP 20; TEMP 36.5; O2SAT 95
[2021-05-07 04:00] VITALS: BP 145/110; PULSE 75; RESP 20; TEMP 36.8; O2SAT 95
[2021-05-07] MEDS: pantoprazole DR 40 mg Tablet PO (05:38)
--- NOTE | 2021-05-07 08:00 | PC.NURSE ---
Patient uncooperative, refusing vital signs.
[2021-05-07] MEDS: acetaminophen 325 mg Tablet 650 MG PO ×3 (08:12→20:35)
[2021-05-07 08:49] VITALS: PULSE 103; RESP 16; O2SAT 98
[2021-05-07] MEDS: nicotine 21 mg Patch 1 PATCH TRANSDERMA (09:22)
[2021-05-07] MEDS: quetiapine 25 mg Tablet 50 MG PO (09:23)
[2021-05-07] MEDS: divalproex DR 250 mg Tablet PO (09:23)
[2021-05-07] MEDS: enoxaparin 40 mg/0.4 mL Syringe SUBCUT (09:23)
[2021-05-07] MEDS: thiamine 100 mg Tablet PO (09:24)
[2021-05-07] MEDS: metoprolol tartrate 25 mg Tablet PO ×2 (09:24→20:35)
[2021-05-07] MEDS: doxycycline 100 mg Tablet PO ×2 (09:24→20:35)
[2021-05-07] MEDS: gabapentin 300 mg Capsule PO ×3 (09:24→20:35)
[2021-05-07] MEDS: dilTIAZem ER (24HR) 180 mg Capsule PO (09:24)
[2021-05-07] MEDS: folic acid 1 mg Tablet PO (09:24)
[2021-05-07] MEDS: multivitamin therapeutic Tablet 1 TAB PO (09:24)
[2021-05-07] MEDS: haloperidol inj 5 mg/mL INJ 1 mL IM (10:47)
--- NOTE | 2021-05-07 10:53 | PC.NURSE ---
pt agitated and restless wanting to go out and smoke ..out in [place] demanding to leave Dr Lopez called with orders
--- NOTE | 2021-05-07 14:10 | PC.SOCIAL ---
Pg 2 IMM. Explained to pt & to pt's via phone, Pg 2 IMM. No questions voiced. Provided pt a copy. Initialed, dated, & timed copy in chart.
[2021-05-07 14:55] LABS: SARS Covid-2 Antigen Negative (Negative)
--- NOTE | 2021-05-07 15:52 | PM.PN ---
Subjective Subjective: Interval history: No concerns from nursing overnight. He was agitated this afternoon that necessitated an IM Haldol dose. Medications: Reviewed: Yes Vitals/I&O/Wt Last Vital Signs Temp 98.3 F 05/07/21 04:00 Pulse 103 H 05/07/21 08:49 Resp 16 05/07/21 08:49 BP 145/110 05/07/21 04:00 Pulse Ox 98 05/07/21 08:49 05/07/21 05/07/21 05/07/21 06:59 14:59 22:59 Intake Total 1040 / 1040 Output Total 2049 / 3049 600 / 600 Balance -0 / -3050 440 / 440 Physical Exam Narrative: EXAM NARRATIVE: General exam no distress Neck is supple Cardiovascular irregular, no murmur, rate controlled Lungs clear Abdomen is soft Extremities no cyanosis clubbing or edema Data : 05/06/21 05:40 05/06/21 05:40 A&P Assessment and plan (1) Suicidal ideation: Original presentation was for suicidal and homicidal ideation he was placed on a 96-hour hold Psychiatry was consulted It appears he has not had many of his regular psychiatric medications for a few days. He has been getting intermittent doses of Geodon, Ativan, Haldol. I restarted his Neurontin, Depakote, Seroquel on May 04, and this is improved his behavior Appreciate psychiatric consultation He appears to be alert, medically stable, and appropriate to transfer for geriatric neuropsychiatric care Status: Acute (2) Alcohol dependence: No evidence of withdrawal currently CIWI protocol has been discontinued Thiamine, folate Status: Acute (3) Dementia: Has history of underlying dementia B12 is [address] head checked, no acute changes Urinalysis no evidence of infection Status: Acute (4) COPD (chronic obstructive pulmonary disease): Resume patient's home pulmonary toilet No current evidence for significant exacerbation Chest x-ray very likely right atelectasis. I did place him on some doxycycline for possible bronchitis. Status: Acute (5) Multifocal atrial tachycardia: Condition multifocal pacemaker preceded prior to this hospitalization. Not good candidate for full anticoagulation Continue diltiazem and metoprolol. Heart rate is under good control Echocardiogram demonstrates EF of 62%, otherwise normal Status: Acute Additional A&P Information Multiple other medical problems as outlined in past medical history Full code Lovenox for DVT prophylaxis Awaiting geriatric psychiatry placement Attestations Medical Necessity Statement*: Needs continued hospitalization until placement in geriatric psychiatry safe environment. Coding Level of Care Code Acute Medicare Insurance Specialist for g Fwd Diagnoses Suicidal ideation R45.851 Alcohol dependence F10.20 Dementia F03.90 COPD (chronic obstructive pulmonary disease) J44.9 Multifocal atrial tachycardia I47.1
--- NOTE | 2021-05-07 17:40 | W.PM.NPUPNS ---
Subjective NPU Subjective: Interval history: Patient presents today continuing to have significant memory issues and confusion about his circumstances overall has not made any attempts to contact family. Still confused about related to his children. Still unable to identify any plans in the future to prevent his frequent hospitalizations just endorsing a desire to go home. Mental Status Exam MSE Comments: This is an overweight white male with adequate grooming and eye contact. No abnormal movements except for mild psychomotor retardation. Cooperative with exam in no acute distress. Speech was normal rate and volume. Mood described as good affect slightly irritable. Thought process organized. Thought content: Patient denied suicidal or homicidal ideation, there were no delusions reported, or noted, he denied any auditory or visual hallucinations. Attention and concentration appeared intact and memory was mostly unreliable but none were formally tested. He is alert and oriented x person and place. Insight and judgment are impaired, impulse control is impaired. Vitals/I&O/Wt Last Vital Signs Temp 98.7 F 05/07/21 19:29 Pulse 77 05/07/21 19:29 Resp 20 H 05/07/21 19:29 BP 136/101 05/07/21 19:29 Pulse Ox 95 05/07/21 19:29 05/07/21 14:59 Intake Total 1040 / 1040 Output Total 600 / 600 Balance 440 / 440 Data NPU : 05/06/21 05:40 05/06/21 05:40 A&P Additional A&P Information (1) Alcohol dependence: (2) Suicidal ideation: (3) Anxiety: (4) Suicidal ideation: (5) Major neurocognitive disorder as late effect of traumatic brain injury with behavioral disturbance: (6) Cerebral aneurysm: (7) Rheumatoid arthritis: (8) COPD (chronic obstructive pulmonary disease): (9) 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 He has also been using alcohol heavily and has been unable to manage his drinking and presented to the ED with a nonzero blood alcohol (17), dementia and possible cognitive sequela from the alcohol. 1. Continue current medication. 2. Agree with placement in a [facility] facility as soon as he meets their admission criteria/is medically cleared. 3. Continue a 96-hour hold as he currently poses a risk/danger to himself/others/community with his current behaviors and lacks capacity for informed consent. 4. We will continue to follow. Attestations NPU Medical Necessity Statement*: N/A. Please see primary team note for details on medical necessity, however would recommend continued 96-hour hold and transfer to [facility] facility. Coding Level of Care Code Acute Head Of [employer] Merchandising for Mary Marinelli
[2021-05-07 19:29] VITALS: BP 136/101; PULSE 77; RESP 20; TEMP 37.1; O2SAT 95
[2021-05-07] MEDS: quetiapine 100 mg Tablet PO (20:35)
--- NOTE | 2021-05-08 00:23 | PC.NURSE ---
Report given to Lukasz HERNANDEZ, paramedics for transport. Patient educated upon transfer, all paperwork signed and transported. IV removed. VSS
[2021-05-08 06:55] VITALS: BP 136/101; PULSE 77; RESP 20; TEMP 37.1; O2SAT 95
--- NOTE | 2021-05-08 07:55 | PM.DCS ---
Discharge Providers Date of Admission: 05/04/21 11:02 Date of Discharge: May 08, 2021 Attending Provider at Admission: Moisés Lopez MD Attending Provider at Discharge: Moisés Lopez MD Primary Care Provider: Cristi Nascimento Diagnoses at Discharge Discharge Diagnosis (1) Suicidal ideation: Status: Acute (2) Alcohol dependence: Status: Acute (3) Dementia: Status: Acute (4) COPD (chronic obstructive pulmonary disease): Status: Acute (5) Multifocal atrial tachycardia: Status: Acute Reason for Visit Reason for Visit: [facility] Discharge Data Data Completed and Pending: Completed Studies During Hospitalization Category Date Time Status CT head wo con* 7 0450 Routine Cat Scan 05/04/21 09:09 Completed XR chest 1V joan ble [id number] Routine Exams 05/04/21 09:09 Completed XR chest 1V joan ble [id number] Stat Exams 05/04/21 10:14 Completed CV. echo complete * [id number] Routine Ultrasound 05/04/21 06:17 Completed Labs from last 24 hours 05/07/21 13:30 SARS-CoV-2 Ag (Rap id) Negative Vitals: Last Vital Signs Temp 98.7 F 05/08/21 06:55 Pulse 77 05/08/21 06:55 Resp 20 H 05/08/21 06:55 BP 136/101 05/08/21 06:55 Pulse Ox 95 05/08/21 06:55 Discharge Plan Discharge Patient Disposition: Xfer Psychiatric Hosp Condition: Stable Prescriptions: New pantoprazole 40 mg Tablet,Delayed Release (Dr/Ec) 40 mg PO QAM Qty: 1 RF: 0 gabapentin 300 mg Capsule 300 mg PO TID Qty: 1 RF: 0 acetaminophen 325 mg Tablet 650 mg PO Q6H PRN (Reason: Mild/Mod Pain Or Temp >/= 101) Qty: 1 RF: 0 metoprolol tartrate 25 mg Tablet 25 mg PO BID@0900,2100 Qty: 1 RF: 0 diltiazem HCl [DILT-XR] 180 mg Capsule,Ext.Rel 24h Degradable 180 mg PO DAILY Qty: 1 RF: 0 quetiapine 100 mg Tablet 100 mg PO BEDTIME Qty: 1 RF: 0 quetiapine 25 mg Tablet 50 mg PO DAILY Qty: 1 RF: 0 nicotine 21 mg/24 hr Patch 24 Hour 1 patch transdermal DAILY Qty: 1 RF: 0 folic acid 1 mg Tablet 1 mg PO DAILY Qty: 1 RF: 0 multivitamin with folic acid [Thera] 400 mcg Tablet 1 tab PO DAILY Qty: 1 RF: 0 thiamine mononitrate (vit B1) [Vitamin B-1 (mononitrate)] 100 mg Tablet 100 mg PO DAILY Qty: 1 RF: 0 albuterol sulfate [Ventolin HFA] 90 mcg/actuation Hfa Aerosol Inhaler 2 puff inhalation Q4H PRN (Reason: shortness of breath.) Qty: 6.7 RF: 0 Fluticasone Furoate-Vilanterol [Breo Ellipta] 1 ea inhalation BID Qty: 1 RF: 0 enoxaparin 40 mg/0.4 mL Syringe 40 mg SUBCUT Q24H Qty: 0.4 RF: 0 doxycycline monohydrate 100 mg Tablet 100 mg PO BID Qty: 1 RF: 0 divalproex 250 mg Tablet,Delayed Release (Dr/Ec) 250 mg PO BID@ Qty: 1 RF: 0 Continued omeprazole 20 mg capsule,delayed release(DR/EC) 20 mg PO QAM RF: 0 quetiapine 100 mg tablet 200 mg PO BEDTIME RF: 0 Depakote 250 mg Tablet,Delayed Release (Dr/Ec) 250 mg PO BID@ RF: 0 gabapentin 300 mg capsule 300 mg PO TID RF: 0 Seroquel 50 mg Tablet 50 mg PO BID@, RF: 0 Breo Ellipta 200-25 mcg/dose blister with device 1 ea INHALATION BID RF: 0 Held Nuedexta 20-10 mg Capsule 1 cap PO DAILY RF: 0 Hold Instructions: Resume on 05/08/21. Deferring to psychiatrist decision Discontinued tizanidine 2 mg capsule 2 mg PO Q8H PRN (Reason: Muscle Spasm) RF: 0 multivitamin Tablet 1 tab PO QAM RF: 0 acetaminophen [Tylenol Extra Strength] 500 mg Tablet 1,000 mg PO DAILY PRN (Reason: Pain) RF: 0 fluticasone propionate 50 mcg/actuation spray,suspension 2 spray INTRANASAL DAILY PRN (Reason: Allergy Symptoms) RF: 0 BC Pain Relief 845-65 mg Powder In Packet 1 ea PO PRN RF: 0 Depakote 500 mg Tablet,Delayed Release (Dr/Ec) 500 mg PO BEDTIME RF: 0 albuterol sulfate 90 mcg/actuation HFA aerosol inhaler 2 puff INHALATION Q4H PRN (Reason: shortness of breath.) RF: 0 Discharge Orders: Discharge Order (Routine); Ordered 05/07/21 Ordered By: Melchor Chinchilla Referrals: Cristi Nascimento [Primary Care Provider] - Discharge Diet: Advance as tolerated Discharge Activity: Resume usual activity Coding Level of Care Code Acute [facility] note Diagnoses Suicidal ideation R45.851 Alcohol dependence F10.20 Dementia F03.90 COPD (chronic obstructive pulmonary disease) J44.9 Multifocal atrial tachycardia I47.1
--- NOTE | 2021-05-09 18:09 | P.DS_ITS ---
Discharge Providers Date of Admission: 05/04/21 11:02 Date of Discharge: May 07, 2021 Attending Provider at Admission: Moisés Lopez MD Attending Provider at Discharge: Moisés Lopez MD Primary Care Provider: Cristi Nascimento Diagnoses at Discharge Discharge Diagnosis (1) Suicidal ideation: Status: Acute (2) Alcohol dependence: Status: Acute (3) Dementia: Status: Acute (4) COPD (chronic obstructive pulmonary disease): Status: Acute (5) Multifocal atrial tachycardia: Status: Acute Reason for Visit Reason for Visit: [facility] Hospital Course Hospital Course Mik presented to the hospital with suicidal ideation. He has a long history of alcohol use. He was placed on a 96 hour hold and transfer directly to geriatric psychiatry was attempted throught the ED. After several days it was noted that the patient's heart rate was elevated and irregular. He appeared to be in some withdrawal from alcohol. Heart rhythm appeared to be multifocal atrial tachycardia. He had a past history of wandering pacemaker on previous EKG's. He was admitted to the ICU secondary to aggressive behavior he had demonstrated in the ED and plcaed on Cardizem and Metoprolol to control his heart rate. His regular psychiatric medication was restarted and adjusted. After heart rate stabilized, withdrawal subsided, he was transferred for further psychiatric care at an appropriate facility for his age. Multiple other studies such as CT head and echo were also done and largely normal. Physical Exam Narrative: EXAM NARRATIVE: General exam no distress Neck supple CV RRR without murmur Lungs CTAB Abd soft , positive BS Ext no c/c/e Neuro no focal deficits. Discharge Data Data Completed and Pending: Completed Studies During Hospitalization Category Date Time Status CT head wo con* 7 0450 Routine Cat Scan 05/04/21 09:09 Completed XR chest 1V joan ble [id number] Routine Exams 05/04/21 09:09 Completed XR chest 1V joan ble [id number] Stat Exams 05/04/21 10:14 Completed CV. echo complete * [id number] Routine Ultrasound 05/04/21 06:17 Completed Vitals: Last Vital Signs Temp 98.7 F 05/08/21 06:55 Pulse 77 05/08/21 06:55 Resp 20 H 05/08/21 06:55 BP 136/101 05/08/21 06:55 Pulse Ox 95 05/08/21 06:55 Discharge Plan Discharge Patient Disposition: Xfer Psychiatric Hosp Condition: Stable Prescriptions: New pantoprazole 40 mg Tablet,Delayed Release (Dr/Ec) 40 mg PO QAM Qty: 1 RF: 0 gabapentin 300 mg Capsule 300 mg PO TID Qty: 1 RF: 0 acetaminophen 325 mg Tablet 650 mg PO Q6H PRN (Reason: Mild/Mod Pain Or Temp >/= 101) Qty: 1 RF: 0 metoprolol tartrate 25 mg Tablet 25 mg PO BID@899,2099 Qty: 1 RF: 0 diltiazem HCl [DILT-XR] 180 mg Capsule,Ext.Rel 24h Degradable 180 mg PO DAILY Qty: 1 RF: 0 quetiapine 100 mg Tablet 100 mg PO BEDTIME Qty: 1 RF: 0 quetiapine 25 mg Tablet 50 mg PO DAILY Qty: 1 RF: 0 nicotine 21 mg/24 hr Patch 24 Hour 1 patch transdermal DAILY Qty: 1 RF: 0 folic acid 1 mg Tablet 1 mg PO DAILY Qty: 1 RF: 0 multivitamin with folic acid [Thera] 400 mcg Tablet 1 tab PO DAILY Qty: 1 RF: 0 thiamine mononitrate (vit B1) [Vitamin B-1 (mononitrate)] 100 mg Tablet 100 mg PO DAILY Qty: 1 RF: 0 albuterol sulfate [Ventolin HFA] 90 mcg/actuation Hfa Aerosol Inhaler 2 puff inhalation Q4H PRN (Reason: shortness of breath.) Qty: 6.7 RF: 0 Fluticasone Furoate-Vilanterol [Breo Ellipta] 1 ea inhalation BID Qty: 1 RF: 0 enoxaparin 40 mg/0.4 mL Syringe 40 mg SUBCUT Q24H Qty: 0.4 RF: 0 doxycycline monohydrate 100 mg Tablet 100 mg PO BID Qty: 1 RF: 0 divalproex 250 mg Tablet,Delayed Release (Dr/Ec) 250 mg PO BID@ Qty: 1 RF: 0 Continued omeprazole 20 mg capsule,delayed release(DR/EC) 20 mg PO QAM RF: 0 quetiapine 100 mg tablet 200 mg PO BEDTIME RF: 0 Depakote 250 mg Tablet,Delayed Release (Dr/Ec) 250 mg PO BID@,15 RF: 0 gabapentin 300 mg capsule 300 mg PO TID RF: 0 Seroquel 50 mg Tablet 50 mg PO BID@09,21 RF: 0 Breo Ellipta 200-25 mcg/dose blister with device 1 ea INHALATION BID RF: 0 Held Nuedexta 20-10 mg Capsule 1 cap PO DAILY RF: 0 Hold Instructions: Resume on 05/08/21. Deferring to psychiatrist decision Discontinued tizanidine 2 mg capsule 2 mg PO Q8H PRN (Reason: Muscle Spasm) RF: 0 multivitamin Tablet 1 tab PO QAM RF: 0 acetaminophen [Tylenol Extra Strength] 500 mg Tablet 1,000 mg PO DAILY PRN (Reason: Pain) RF: 0 fluticasone propionate 50 mcg/actuation spray,suspension 2 spray INTRANASAL DAILY PRN (Reason: Allergy Symptoms) RF: 0 BC Pain Relief 845-65 mg Powder In Packet 1 ea PO PRN RF: 0 Depakote 500 mg Tablet,Delayed Release (Dr/Ec) 500 mg PO BEDTIME RF: 0 albuterol sulfate 90 mcg/actuation HFA aerosol inhaler 2 puff INHALATION Q4H PRN (Reason: shortness of breath.) RF: 0 Discharge Orders: Discharge Order (Routine); Ordered 05/07/21 Ordered By: Melchor Chinchilla Referrals: Cristi Nascimento [Primary Care Provider] - Discharge Diet: Advance as tolerated Discharge Activity: Resume usual activity Discharge Attestations Time Spent in Discharge Care*: greater than 30 min Quality Metrics Clinical Quality Measures During this hospital stay, did patient experience: None Coding Level of Care Code Acute g DC note Diagnoses Suicidal ideation R45.851 Alcohol dependence F10.20 Dementia F03.90 COPD (chronic obstructive pulmonary disease) J44.9 Multifocal atrial tachycardia I47.1
== END 2021-05-07 11:45 | DRG 897 ==
LOC: ER 05-04 06:16 → ICU 05-04 11:46
PROVIDERS: Emergency Medicine; Admitting Provider Internal Medicine; Emergency Provider Family Medicine; PCP Physician Assistant Medical; Visit Provider Internal Medicine
DX: F10.239 Alcohol dependence with withdrawal, unspecified (principal); R45.851 Suicidal ideations; I47.1 Supraventricular tachycardia; I48.91 Unspecified atrial fibrillation; F10.280 Alcohol dependence with alcohol-induced anxiety disorder; J44.9 Chronic obstructive pulmonary disease, unspecified; M06.9 Rheumatoid arthritis, unspecified; F17.210 Nicotine dependence, cigarettes, uncomplicated; F03.90 Unspecified dementia, unspecified severity, without behavioral disturbance, psychotic disturbance, mood disturbance, and anxiety; Z87.820 Personal history of traumatic brain injury; R45.850 Homicidal ideations
CPT/HCPCS: 36415; 70450; 71045; 80048; 80053; 80306; 80307; 81001; 82607; 83735; 84443; 84484; 85025; 87426; 93005; 93306; 94640; 96372; 99285; J1200; J1630; J1650; J2060; J2270; J3411; J3486; J3490; J3535; J7030

== ENCOUNTER 2021-07-09 22:22 | Inpatient (IN) | payer MEDICARE, MEDICAID, SELFPAY ==
[2021-07-09 22:26] VITALS: BP 107/63; PULSE 76; RESP 18; TEMP 37.1; O2SAT 96; BMI 34.8
--- NOTE | 2021-07-09 22:30 | XRR_ITS ---
PROCEDURE INFORMATION: Exam: XR Pelvis Exam date and time: 07/09/2021 10:30 PM Age: 70 years old Clinical indication: Injury or trauma; Fall; Blunt trauma (contusions or hematomas); Bilateral; Pelvic region TECHNIQUE: Imaging protocol: XR pelvis. Views: 1 or 2 view. COMPARISON: No relevant prior studies available. FINDINGS: Bones/joints: Mild left hip osteoarthritis. Soft tissues: Unremarkable. XR/XR pelvis 1-2V* [id number] IMPRESSION: 1. Negative for fracture or dislocation. 2. Mild left hip osteoarthritis.
--- NOTE | 2021-07-09 22:30 | CTR_ITS ---
PROCEDURE INFORMATION: Exam: CT Head Without Contrast Exam date and time: 07/09/2021 10:30 PM Age: 70 years old Clinical indication: Injury or trauma; Fall; Blunt trauma (contusions or hematomas); Prior surgery; Surgery type: Aneurysm coil; Patient HX: PT fell out of bed this evening. ETOH on board. History of dementia. Unable to obtain history. TECHNIQUE: Imaging protocol: Computed tomography of the head without contrast. Radiation optimization: All CT scans at this facility use at least one of these dose optimization techniques: automated exposure control; mA and/or kV adjustment per patient size (includes targeted exams where dose is matched to clinical indication); or iterative reconstruction. COMPARISON: CT head wo con* [id number] 05/04/2021 12:44 PM RADIATION DOSE METRICS: Total DLP (mGy-cm): 997.19 FINDINGS: Brain: Moderate diffuse white matter disease likely reflecting chronic microvascular ischemic changes. Cerebral ventricles: No ventriculomegaly. Paranasal sinuses: Visualized sinuses are unremarkable. No fluid levels. Mastoid air cells: Visualized mastoid air cells are well aerated. Vasculature: Suprasellar apparent aneurysm coil again seen. Bones/joints: Unremarkable. No acute fracture. Soft tissues: Unremarkable. CT/CT head wo con* [id number] IMPRESSION: Negative for intracranial hemorrhage or mass effect
--- NOTE | 2021-07-09 22:44 | CTR_ITS ---
PROCEDURE INFORMATION: Exam: CT Cervical Spine Without Contrast Exam date and time: 07/09/2021 10:44 PM Age: 70 years old Clinical indication: Injury or trauma; Fall; Blunt trauma; Patient HX: PT fell out of bed this evening. ETOH on board. History of dementia. Unable to obtain history. TECHNIQUE: Imaging protocol: Computed tomography images of the cervical spine without contrast. Radiation optimization: All CT scans at this facility use at least one of these dose optimization techniques: automated exposure control; mA and/or kV adjustment per patient size (includes targeted exams where dose is matched to clinical indication); or iterative reconstruction. COMPARISON: CT Cervical Spine wo* [id number] 11/06/2014 7:07 PM RADIATION DOSE METRICS: Total DLP (mGy-cm): 913.13 FINDINGS: Vertebrae: No acute fracture. Normal alignment. C2-C3: No significant disc protrusion. No severe spinal canal stenosis. No significant neural foraminal narrowing. C3-C4: No significant disc protrusion. No severe spinal canal stenosis. No significant neural foraminal narrowing. C4-C5: No significant disc protrusion. No severe spinal canal stenosis. No significant neural foraminal narrowing. C5-C6: No significant disc protrusion. No severe spinal canal stenosis. No significant neural foraminal narrowing. C6-C7: No significant disc protrusion. No severe spinal canal stenosis. No significant neural foraminal narrowing. C7-T1: No significant disc protrusion. No severe spinal canal stenosis. No significant neural foraminal narrowing. Soft tissues: Unremarkable. Lungs: Emphysematous changes. CT/CT cervical spin wo con* [id number] IMPRESSION: 1. Negative for fracture or dislocation 2. Emphysematous changes.
--- NOTE | 2021-07-09 22:44 | XRR_ITS ---
PROCEDURE INFORMATION: Exam: XR Chest Exam date and time: 07/09/2021 10:44 PM Age: 70 years old Clinical indication: Injury or trauma; Fall; Blunt trauma (contusions or hematomas) TECHNIQUE: Imaging protocol: XR of the chest. Views: 1 view. COMPARISON: CR (CHEST, ) 09/19/2020 6:03 PM FINDINGS: Lungs: Bibasilar largely, right lower lobe pneumonic infiltrates. Emphysematous changes. Pleural spaces: Unremarkable. No pleural effusion. No pneumothorax. Heart/Mediastinum: Unremarkable. No cardiomegaly. Bones/joints: Unremarkable. XR/XR chest 1V portable [id number] IMPRESSION: 1. Bibasilar largely, right lower lobe pneumonic infiltrates. 2. Emphysematous changes.
--- NOTE | 2021-07-09 22:52 | W.ED.FALL ---
HPI - Fall General: Chief Complaint: Fall Stated Complaint: ETOH FEVER COMBATIVE Time Seen by Provider: 07/09/21 22:24 Source: patient Mode of arrival: ambulatory Limitations: no limitations History of Present Illness: HPI Narrative: 70-year-old male is here with EMS after falls tonight at home. He has a history of alcoholism along with dementia per EMS states that he has had increasing confusion tonight and found him on the floor outside the bed. States that he is also had a cough and congestion has been much worse over the last 2 days. Patient is requiring oxygen at this time he is confused he is able to tell me his name but does not know the date and is not able to give much history at this time. Associated symptoms-after fall: Reports confusion; Denies abdominal pain, chest pain, headache(s) or neck pain Review of Systems Const: Denies: fever(s), chills, body aches or change in appetite Eyes: Denies: blurry vision or eye discomfort ENMT: Denies: throat pain or dental pain Card: Denies: chest pain Resp: Denies: dyspnea GI: Denies: abdominal pain, nausea, vomiting or diarrhea : Denies: dysuria Musc: Denies: neck pain or back pain Skin/Breast: Denies: rash Neuro: Reports: frequent falls and confusion; Denies: headache(s) Psych: Denies: depression Boris/Lymph: Denies: easy bruising All/Imm: Denies: urticaria PFS ED PFSH: Medical History Cerebral aneurysm Surgical intervention x2 COPD (chronic obstructive pulmonary disease) Dementia 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 Rheumatoid arthritis Surgical History History of exploratory laparotomy Family History Mother Diabetes Social History Smoking and tobacco status: current every day smoker cigarettes Packs smoked per day: 1 Years cigarettes smoked: 61 Quit status (tobacco): has tried quititng Number of times tried to quit tobacco: 1 Second hand smoke exposure: Yes Smoking risk assessment/counseling performed?: Yes Tobacco counseling given: counseling >3 minutes Physical Exam Const: COMMON NORMALS: alert; negative for patient oriented x3 GENERAL APPEARANCE: in distress, disheveled and ill appearing ORIENTATION/CONSCIOUSNESS: Yes oriented to person; not oriented to place and not oriented to time HENMT: COMMON NORMALS: normocephalic and atraumatic HEAD & SCALP: normocephalic and atraumatic Eye: COMMON NORMALS: Equal, round and reactive pupils present and EOMs intact bilaterally PUPIL: Yes Equal, round and reactive pupils present Neck/C-Spine: COMMON NORMALS: full ROM and supple Chest: COMMONS NORMALS: normal inspection of the chest and normal palpation of entire chest wall Resp: COMMON NORMALS: normal respiratory effort, No retractions and No use of accessory muscles AUSCULTATION: rales Cardio: COMMON NORMALS: regular rate, regular rhythm and No murmurs present (Cardio) RATE: regular rate RHYTHM: regular rhythm GI: COMMON NORMALS: Normal to inspection, nondistended, normoactive bowel sounds present, Soft to palpation, non-tender and no masses PALPATION: Yes Soft to palpation Extremity: COMMON NORMALS: normal to inspection and full ROM Neuro: COMMON NORMALS: moves all extremities and no focal motor deficits; negative for patient oriented x3 SENSORIUM/ORIENTATION: Yes alert, Yes oriented to person, No oriented to place and No oriented to time Psych: COMMON NORMALS: Normal thought process present and cooperative; negative for mental status grossly normal THOUGHT PROCESS: Normal thought process present Skin: COMMON NORMALS: no rashes or lesions noted and no wounds GENERAL SKIN EXAM: no rashes or lesions noted Course Vital Signs: Vital signs: Vital Signs Temperature 98.7 F 07/09/21 22:26 Pulse Rate 76 07/09/21 22:26 Respiratory Rate 18 07/09/21 22:26 Blood Pressure 107/63 07/09/21 22:26 Pulse Oximetry 96 07/09/21 22:26 MDM - Fall MDM Narrative: Medical decision making narrative: Patient presents here with cough fever along with a fall. He does have dementia along with chronic alcoholism he is not intoxicated here but he is quite confused could be due to his dementia or from his pneumonia. Patient is requiring 2 L here and has right lower lobe pneumonia on his x-ray his COVID here was negative spoke to hospitalist will admit for IV antibiotics head CT and CT spine CT are normal from his fall. Lab Data: Labs: Lab Results 07/09/21 07/09/21 07/10/21 23:25 23:25 00:05 WBC 10.7 10^3/uL H 10 ^3/uL (4.0-10.0) RBC 3.11 10^6/uL L 10 ^6/uL (4.1-5.3) Hgb 10.4 g/dL L g/dL (11.7-16.6) Hct 31.6 % L % (42.0-52.0) MCV 101.6 fl H fl (80-94) MCH 33.4 pg pg (28.0-34.0) MCHC 32.9 g/dL g/dL (30.0-36.0) RDW 14.1 % % (12.1-15.1) Plt Count 194 10^3/cmm 10^3 /cmm (130-400) MPV 9.8 fL fL (7.4-10.4) Neut % (Auto) 82.6 % % Lymph % (Auto) 7.5 % % [place] % (Auto) 8.5 % % Eos % (Auto) 0.3 % % Baso % (Auto) 0.3 % % Neut # (Auto) 8.85 10^3/uL H 10 ^3/uL (1.8-7.7) Lymph # (Auto) 0.8 10^3/uL 10^3/ uL (0.8-4.8) [place] # (Auto) 0.9 10^3/uL 10^3/ uL (0.2-0.9) Eos # (Auto) 0.0 10^3/uL 10^3/ uL (0.0-0.8) Baso # (Auto) 0.0 10^3/uL 10^3/ uL (0.0-0.1) Nucleated RBC % (a uto) 0 % % Nucleated RBCs # 0.0 /100WBC /100W BC Sodium 129 mmol/L L mmol /L (136-145) Potassium 4.3 mmol/L mmol/L (3.5-5.1) Chloride 90 mmol/L L mmol/ L (98-107) Carbon Dioxide 26 mmol/L mmol/L (22-29) Anion Gap 17.3 (5-19) BUN 16 mg/dL mg/dL (8-23) Creatinine 1.2 mg/dL mg/dL (0.7-1.2) GFR Calculation 60.2 mL/min L mL/ min (90-130) Glucose 123 mg/dL H mg/dL (65-115) Calculated Osmolal ity 271 mOsm/kg L mOs m/kg (285-295) Calcium 9.3 mg/dL mg/dL (8.5-10.5) Total Bilirubin 0.3 mg/dL mg/dL (0.15-1.2) AST 19 U/L U/L (0-40) ALT 10 U/L U/L (0-41) Alkaline Phosphata se 90 IU/L IU/L (40-130) Total Protein 6.5 g/dL L g/dL (6.6-8.7) Albumin 3.8 g/dL g/dL (3.5-5.2) Globulin 2.7 g/dL g/dL (1.3-4.6) Ethyl Alcohol < 10 mg/dL mg/dL (0-10) SARS-CoV-2 Ag (Rap id) Negative (Negative) Critical Care Time Critical Care Time: Critical Care Time: Yes Total Critical Care Time: 35 Attestation: The high probability of a clinically significant, sudden or life threatening deterioration of the patient's [pulmonary] system(s) required my full and direct attention, intervention and personal management. The critical care time is as shown. This time is in addition to time spent performing any reported procedures but includes the following: [x] Data and vital sign review and interpretation [x] Patient assessment, examination and intervention [x] Documentation [x] Medication orders and management Discharge Plan Discharge Patient Disposition: Admitted As Inpatient Clinical Impression: Acute confusion, Fall Pneumonia Qualifiers: Pneumonia type: due to unspecified organism Laterality: right Lung location: lower lobe of lung Qualified Code(s): J18.9 - Pneumonia, unspecified organism Condition: Stable Coding Level of Care Code ED Protective Services Case Worker for Mary Fwd Exam Comprehensive
[2021-07-09 23:30] LABS: Basophils % 0.3 %; Eosinophils % 0.3 %; Hematocrit 31.6 % (42.0-52.0); Hemoglobin 10.4 g/dL (11.7-16.6); Lymphocytes # 0.8 10^3/uL (0.8-4.8); Lymphocytes % 7.5 %; Mean Corpuscular HGB Conc 32.9 g/dL (30.0-36.0); Mean Corpuscular Hemoglobin 33.4 pg (28.0-34.0); Mean Corpuscular Volume 101.6 fl (80-94); Mean Platelet Volume 9.8 fL (7.4-10.4); Monocytes # 0.9 10^3/uL (0.2-0.9); Monocytes % 8.5 %; Neutrophils # 8.85 10^3/uL (1.8-7.7); Neutrophils % 82.6 %; Nucleated Red Blood Cells % 0 %; Platelet Count 194 10^3/cmm (130-400); Red Blood Count 3.11 10^6/uL (4.1-5.3); Red Cell Distribution Width 14.1 % (12.1-15.1); White Blood Count 10.7 10^3/uL (4.0-10.0)
[2021-07-09 23:53] LABS: Alanine Aminotransferase 10 U/L (0-41); Albumin Level 3.8 g/dL (3.5-5.2); Alkaline Phosphatase 90 IU/L (40-130); Anion Gap 17.3 (5-19); Aspartate Amino Transferase 19 U/L (0-40); Blood Urea Nitrogen 16 mg/dL (8-23); Calcium 9.3 mg/dL (8.5-10.5); Carbon Dioxide 26 mmol/L (22-29); Chloride 90 mmol/L (98-107); Globulin 2.7 g/dL (1.3-4.6); Glomerular Filtration Rate 60.2 mL/min (90-130); Glucose 123 mg/dL (65-115); Osmolality Calculated 271 mOsm/kg (285-295); Potassium 4.3 mmol/L (3.5-5.1); Sodium 129 mmol/L (136-145); Total Bilirubin 0.3 mg/dL (0.15-1.2); Total Protein 6.5 g/dL (6.6-8.7)
[2021-07-09 23:57] LABS: Alcohol Level < 10 mg/dL (0-10)
[2021-07-10] VITALS (10 sets, daily range): BP systolic 107–142; BP diastolic 58–89; PULSE 61–100; RESP 13–21; TEMP 36.6–37.6; O2SAT 92–95; BMI 30.2
[2021-07-10 00:37] LABS: SARS Covid-2 Antigen Negative (Negative)
[2021-07-10] MEDS: cefTRIAXone 1,000 MG in sodium chloride 0.9% (plus) 50 ML 100 MG IV (01:05)
[2021-07-10] MEDS: azithromycin 500 MG in sodium chloride 0.9% 250 ML 250 MG IV (01:15)
--- NOTE | 2021-07-10 01:16 | P.HP_ITS ---
Providers/Chief Complaint Admitting Physician: Sophia Patel Chief Complaint: ETOH FEVER COMBATIVE History of Present Illness 70-year-old male with past medical history of chronic obstructive pulmonary disease, hypertension, multifocal atrial tachycardia, reported dementia and alcoholism who was brought to ER with altered mental status. Patient had received sedative prior to my eval ad was not able to provide history as he was drowsy. Baseline mental status unknown. Per ER note patient was noted to have a fall prior to arrival, increasing mental status change with behavior issues and reported fever. No family at the bedside.Laboratory workup arrival showed a WBC of 10.7, hemoglobin of 10.4, hematocrit 31.6, platelet count of 194. Sodium 129, potassium 4.3, chloride 90, bicarb 26, BUN 16 and creatinine 1.2. ETOH level was negative. COVID-19 PCR was negative Imaging studies included head/cervical spinal CT, and pelvic xray which did not show any evidence of acute abnormality.Chest x-ray showed right lower lobe pneumonic infiltrates. ER meds: Rocpehin 1g IV x1 Azithromycin 500 mg IV x1 Review of Systems General: Reports: ROS unobtainable due to mental status Medications/Allergies Home Medications Medication Instructions Recorded Confirmed Last Taken Type omeprazole 20 mg capsule,delayed 20 mg PO QAM 08/06/19 05/01/21 05/01/21 History release tizanidine 2 mg capsule 2 mg PO Q8H PRN 08/06/19 05/01/21 05/20/20 History albuterol sulfate 2 puff INHALATION Q4H PRN 07/03/20 05/01/21 07/02/20 History acetaminophen [Tylenol Extra 1,000 mg PO DAILY PRN 09/19/20 05/01/21 Unknown History Strength] aspirin-caffeine [BC Pain Relief] 1 ea PO PRN 09/19/20 05/01/21 Unknown History fluticasone propionate 2 spray INTRANASAL DAILY PRN 09/19/20 05/01/21 05/01/21 History multivitamin 1 tab PO QAM 09/19/20 05/01/21 05/01/21 History quetiapine 200 mg PO BEDTIME 09/19/20 05/01/21 04/30/21 History dextromethorphan-quinidine 1 cap PO DAILY 05/01/21 05/01/21 05/01/21 History [Nuedexta] divalproex [Depakote] 250 mg PO BID@05/01/21 05/01/21 05/01/21 History divalproex [Depakote] 500 mg PO BEDTIME 05/01/21 05/01/21 04/30/21 History fluticasone furoate-vilanterol 1 ea INHALATION BID 05/01/21 05/01/21 05/01/21 History [Breo Ellipta] gabapentin 300 mg PO TID 05/01/21 05/01/21 05/01/21 History quetiapine [Seroquel] 50 mg PO BID@05/01/21 05/01/21 05/01/21 History Allergies Allergy/AdvReac Type Severity Reaction Status Date / Time Silk sutures AdvReac Intermediate Bad abd Uncoded 07/09/21 22:44 pains PFSH Acute PFSH: Medical History Cerebral aneurysm Surgical intervention x2 COPD (chronic obstructive pulmonary disease) Dementia 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 Rheumatoid arthritis Surgical History History of exploratory laparotomy Family History Mother Diabetes Social History Smoking and tobacco status: current every day smoker cigarettes Packs smoked per day: 1 Years cigarettes smoked: 61 Quit status (tobacco): has tried quititng Number of times tried to quit tobacco: 1 Second hand smoke exposure: Yes Smoking risk assessment/counseling performed?: Yes Tobacco counseling given: counseling >3 minutes Vitals/I&O/Wt Last Vital Signs Temp 97.9 F 07/10/21 04:22 Pulse 68 07/10/21 04:41 Resp 17 07/10/21 04:23 BP 118/71 07/10/21 04:23 Pulse Ox 94 07/10/21 04:23 07/09/21 07/09/21 07/10/21 14:59 22:59 06:59 Intake Total 300 / 300 Output Total 0 / 0 Balance 300 / 300 Weight last 48 hrs Weight 90.083 kg Weight 113.398 kg Physical Exam Narrative: EXAM NARRATIVE: General: Drowsy HEENT ; Grossly Unremarkable CVS; NSR Chest ; Non-labored respiration Abd : Soft NT,ND Ext; No edema Data : 07/09/21 23:25 07/09/21 23:25 Micro: Microbiology 07/10/21 00:05 Blood Culture - Preliminary Blood SPECIMEN COLLECTED 07/10/21 00:05 Blood Culture - Preliminary Blood SPECIMEN COLLECTED A&P Assessment and plan (1) Pneumonia: Status: Acute Qualifiers: Laterality: right Lung location: lower lobe of lung Pneumonia type: due to unspecified organism Qualified Code(s): J18.9 - Pneumonia, unspecified organism (2) Fall: Status: Acute (3) Dementia: Status: Acute (4) Alcohol dependence: Status: Acute Additional A&P Information Right LLL Pneumonia Possible component of aspiration vs CAP Will change abx to Zosyn 3.375g IV q8hr Follow upon culture Supplemental o2 as needed Duoneb Hyponatremia Repeat BMP in am Check UA na/osm Cautious Fluids Alcoholism with possible withdrawal CIWA with Ativan PRN Thiamine 100 mg IM x1 - > 100 mg PO daily Folic acid 1 mg PO daily MV 1 tab po daily Chronic Obstructive Pulmonary disease Supplemental o2 as needed Duoneb q6hr PRN Wean 02 as tolerated. DVT ppx Heparin 5000 units q12hr Attestations Medical Necessity Statement*: Anticipate over2 midnights stay in hospital for evaluation and treatment Time Spent in Patient Care: Greater than 35 minutes (>than 50% of time spent in counselling and/or direct pt care on unit) . 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
[2021-07-10 04:48] LABS: Adenovirus Not Detected (NOT DETECT); Chlamydia Pneumoniae Not Detected (NOT DETECT); Coronavirus 229E,HKU1,NL63,OC4 Not Detected (NOT DETECT); Human Metapneumovirus Not Detected (NOT DETECT); Human Rhinovirus/Enterovirus Not Detected (NOT DETECT); Influenza A Not Detected (NOT DETECT); Influenza A H1 Not Detected (NOT DETECT); Influenza A H1-2009 Not Detected (NOT DETECT); Influenza A H3 Not Detected (NOT DETECT); Influenza B Not Detected (NOT DETECT); Mycoplasma Pneumoniae Not Detected (NOT DETECT); Parainfluenza Virus Type 1 Not Detected (NOT DETECT); Parainfluenza Virus Type 2 Not Detected (NOT DETECT); Parainfluenza Virus Type 3 Not Detected (NOT DETECT); Parainfluenza Virus Type 4 Not Detected (NOT DETECT); Respiratory Syncytial Virus A Not Detected (NOT DETECT); Respiratory Syncytial Virus B Not Detected (NOT DETECT); SARS-COV-2 Not Detected (NOT DETECT)
[2021-07-10] MEDS: sodium chloride 0.9% 1,000 ML 75 ML IV (06:17)
[2021-07-10] MEDS: pantoprazole DR 40 mg Tablet PO (08:26)
[2021-07-10] MEDS: folic acid 1 mg Tablet PO (08:26)
[2021-07-10] MEDS: thiamine 100 mg Tablet PO (08:27)
[2021-07-10] MEDS: multivitamin therapeutic Tablet 1 TAB PO (08:27)
[2021-07-10] MEDS: LORazepam 2 mg Tablet PO (08:40)
--- NOTE | 2021-07-10 09:34 | PM.PN ---
Subjective Subjective: Interval history: he states he has had little bit of an increased cough for the past few days. Normally is on 2 L of oxygen at home. Overall he thinks he is feeling little better today. He does continue to drink alcohol fairly heavily. Does not feel like he is going through withdrawals right now. Vitals/I&O/Wt Last Vital Signs Temp 97.9 F 07/10/21 04:22 Pulse 75 07/10/21 08:00 Resp 20 H 07/10/21 08:00 BP 113/61 07/10/21 08:00 Pulse Ox 94 07/10/21 08:00 07/09/21 07/10/21 07/10/21 22:59 06:59 14:59 Intake Total 300 / 300 360 / 360 Output Total 0 / 0 Balance 300 / 300 360 / 360 Weight last 48 hrs Weight 198 lb 9.6 oz Weight 250 lb Physical Exam Narrative: EXAM NARRATIVE: General: No acute distress, Alert. Well nourished. Heart: Regular rate and rhythm. No murmurs, rubs or gallops. Normal capillary refill. Lungs: Distant and decreased breath sounds throughout. Some occasional rhonchi and wheezes.. Abdomen: Positive bowel sounds. Non-tender, non-distended. No hepatosplenomegaly. No gaurding. Extremities: No clubbing, cyanosis, or edema. Negative Emily's Data : 07/09/21 23:25 07/09/21 23:25 Micro: Microbiology 07/10/21 00:05 Blood Culture - Preliminary Blood SPECIMEN COLLECTED 07/10/21 00:05 Blood Culture - Preliminary Blood SPECIMEN COLLECTED A&P Assessment and plan (1) Pneumonia: 70-year-old gentleman with acute pneumonia and a history of COPD. His oxygen level is fairly stable at this time. Is a little unclear at which direction he is going to go at this point. We will continue with the IV antibiotics and oxygen therapy. Add incentive spirometry. He is a bit hyponatremic most likely secondary to this pneumonia and COPD. We will monitor this as well. If all goes well possible discharge tomorrow. Status: Acute Qualifiers: Laterality: right Lung location: lower lobe of lung Pneumonia type: due to unspecified organism Qualified Code(s): J18.9 - Pneumonia, unspecified organism (2) Alcohol dependence: Still continues to have problems with alcohol use. Does not appear that he is withdrawing at this time. We will continue the CIWA protocol and monitor closely. Status: Acute (3) COPD (chronic obstructive pulmonary disease): Status: Acute Attestations Medical Necessity Statement*: Patient is a 70-year-old gentleman with COPD and acute pneumonia requiring inpatient IV treatments in the hospital setting. 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
[2021-07-10] MEDS: piperacillin-tazobactam 3.375 GM in sodium chloride 0.9% (plus) 50 ML IV ×2 (11:57→20:17)
--- NOTE | 2021-07-10 11:57 | PC.CHAP ---
Pastoral Care Encounter/Spiritual Assessment Type of Contact [] Declined household personal assistant visit [] Patient/Family/Request visit [] Outpatient visit [] Follow-up visit [] Physician referral [] Code/Alert [XX] Routine visit [] Staff referral [] Actively dying [] Patient sleeping [] Family support [] [] Out of room [] Palliative care [] [] Receiving care in room [] Pre-surgical visit [] Trauma [] Long length of stay [] ICU visit [] Other: Relational/Emotional Strength [XX] Patient feels connected with others/family/visitors/staff [] Distress [] Loneliness/isolation [] Abandonment Spirituality of Patient [XX] Person of Shar[place] [] Attends [employer] of their [place] [] Believes in Prayer [] Reads Bible or Hinduism materials [XX] There are Spiritual issues to be addressed Accounting Software Specialist Interventions [] Prayer [XX] Active listening [XX] Non-anxious presence [] Spiritual/emotional support [] Crisis/trauma care [] Spiritual counseling [] Bereavement support [] Provided bereavement packet [] Provided Bible/devotional materials [] Provided toy/stuffed animal, coloring book to patient or family member [] Provided Communion [] Anointing/[place] [] Salvation [XX] Completed spiritual assessment [] Other: Impact on Illness or Injury [] Angry [] Fearful [] Anxious [] Often cries [] Exhaustion [] Unable to work [] Unable to attend hinduism [] Unable to walk/stand [] Unable to read [] Unable to drive [] Unable to eat/drink [] Unable to sleep [] Unable to be with family [] Patient intubated [] Other: Summary: Pt was difficult to understand, at times, as conversation seemed to veer in a different direction; plus, articulation was poor without dentures. Inasmuch as household personal assistant could obtain, pt feels that God has a purpose for him otherwise he would be already. Prayer was offered; pt declined. Time spent with patient: 10 mins
[2021-07-10] MEDS: LORazepam 2 mg/mL INJ 1 mL IVP ×3 (13:21→20:17)
--- NOTE | 2021-07-10 14:41 | PC.NURSE ---
pt had been fairly calm and cooperative until 1300.in the morning,pt sat in chair,laid in bed watching tv..asked for a cigarette a few times,but was easily redirected.at noon,he began getting out of bed and entering hallway without pants on..determined that he was going to outside and smoke,or go home.i called spouse to ask if she was coming to visit and if she could bring some clean pants for pt...and she said that she probably couldnt come and then proceeded to tell me about the problems with her at home... that he drinks alcohol excessively,is mean and violent at times...and wants him placed,as she can no longer take care of him.wants to become his dpoa..but cant because its the weekend and then there's the holiday on monday.case management notified and they are aware of issues and have became involved for past several admissions.dr boogie notified of increased agitation and 's concerns.order for 1:1 staffing received at 1300.ativan 2 mg given at 1320 after pt pulled all ekg leads and iv's out.at 1440 dr boogie notified that ativan has had no effect.pt continues to be restless and beginning to become combative.security was called to room by staff.received order for 5 mg haldol iv q4 hrs.
[2021-07-10] MEDS: haloperidol inj 5 mg/mL INJ 1 mL IVP ×2 (14:57→20:17)
[2021-07-10] MEDS: heparin 5,000 unit/mL INJ 1 mL 5000 UNIT SUBCUT (17:11)
[2021-07-11] VITALS (14 sets, daily range): BP systolic 145–170; BP diastolic 84–103; PULSE 71–115; RESP 16–24; TEMP 36.6–37.3; O2SAT 90–95
[2021-07-11] MEDS: haloperidol inj 5 mg/mL INJ 1 mL IVP ×2 (00:26→08:55)
[2021-07-11] MEDS: LORazepam 2 mg/mL INJ 1 mL IVP ×3 (00:27→11:47)
--- NOTE | 2021-07-11 01:09 | PC.NURSE ---
report given to med/surg nurse at this time. opportunity given for questions and answers. Pt to transfer to room 276-2.
[2021-07-11] MEDS: sodium chloride 0.9% 1,000 ML 75 ML IV (03:40)
[2021-07-11] MEDS: piperacillin-tazobactam 3.375 GM in sodium chloride 0.9% (plus) 50 ML IV ×3 (03:41→20:56)
[2021-07-11 05:44] LABS: Basophils % 0.2 %; Eosinophils # 0.1 10^3/uL (0.0-0.8); Eosinophils % 1.4 %; Hematocrit 31.7 % (42.0-52.0); Hemoglobin 10.2 g/dL (11.7-16.6); Lymphocytes % 12.1 %; Mean Corpuscular HGB Conc 32.2 g/dL (30.0-36.0); Mean Corpuscular Hemoglobin 32.9 pg (28.0-34.0); Mean Corpuscular Volume 102.3 fl (80-94); Mean Platelet Volume 10.5 fL (7.4-10.4); Monocytes % 11.4 %; Neutrophils # 6.33 10^3/uL (1.8-7.7); Neutrophils % 74.1 %; Nucleated Red Blood Cells % 0 %; Platelet Count 195 10^3/cmm (130-400); White Blood Count 8.6 10^3/uL (4.0-10.0)
--- NOTE | 2021-07-11 06:00 | XRR_ITS ---
PROCEDURE INFORMATION: Exam: XR Chest Exam date and time: 07/11/2021 6:00 AM Age: 70 years old Clinical indication: Shortness of breath; Additional info: Pneumonia TECHNIQUE: Imaging protocol: XR of the chest. Views: 1 view. COMPARISON: CR (CHEST, ) 07/09/2021 10:57 PM FINDINGS: Lungs: Bibasilar pulmonary infiltrates are present. They are increasing in the left base when compared to previous study. Pleural spaces: Unremarkable. No pleural effusion. No pneumothorax. Heart/Mediastinum: Unremarkable. No cardiomegaly. Bones/joints: Unremarkable. XR/XR chest 1V portable [id number] IMPRESSION: Bibasilar pulmonary infiltrates. The left basilar infiltrates are increasing.
[2021-07-11] MEDS: heparin 5,000 unit/mL INJ 1 mL 5000 UNIT SUBCUT ×2 (06:04→16:49)
[2021-07-11 06:08] LABS: Alanine Aminotransferase 28 U/L (0-41); Albumin Level 3.5 g/dL (3.5-5.2); Alkaline Phosphatase 90 IU/L (40-130); Anion Gap 17.1 (5-19); Aspartate Amino Transferase 76 U/L (0-40); Blood Urea Nitrogen 13 mg/dL (8-23); Calcium 9.1 mg/dL (8.5-10.5); Carbon Dioxide 25 mmol/L (22-29); Chloride 96 mmol/L (98-107); Glomerular Filtration Rate 83.9 mL/min (90-130); Glucose 84 mg/dL (65-115); Osmolality Calculated 277 mOsm/kg (285-295); Potassium 4.1 mmol/L (3.5-5.1); Sodium 134 mmol/L (136-145); Total Bilirubin 0.3 mg/dL (0.15-1.2); Total Protein 6.5 g/dL (6.6-8.7)
[2021-07-11 06:13] LABS: Procalcitonin 0.33 ng/mL (0-0.5)
--- NOTE | 2021-07-11 07:22 | P.PN_ITS ---
Subjective Subjective: Interval history: He is definitely gotten worse through the day yesterday and overnight. He is much more agitated and confused. This seems to be his normal routine though. He does appear to be more short of breath today. He is not answering questions appropriately. He is wheezing more as well. Seems to be a lot more tachycardic. He is requiring a one-on-one sitter because of his behavior. Medications: Reviewed: Yes Vitals/I&O/Wt Last Vital Signs Temp 98.3 F 07/11/21 03:55 Pulse 104 H 07/11/21 03:55 Resp 24 H 07/11/21 03:55 BP 147/84 07/11/21 03:55 Pulse Ox 91 07/11/21 03:55 07/10/21 07/11/21 07/11/21 22:59 06:59 14:59 Intake Total 410 / 2073.75 1063.75 / 2073.75 Output Total 350 / 750 Balance 60 / 1323.75 1063.75 / 1323.75 Weight last 48 hrs Weight 198 lb 9.6 oz Weight 250 lb Physical Exam 2 Narrative: EXAM NARRATIVE: General: No acute distress, Alert but very confused. Well nourished. Heart: Regular rate and rhythm. No murmurs, rubs or gallops. Normal capillary refill. Lungs: Distant and decreased breath sounds throughout. Much more expiratory. Abdomen: Positive bowel sounds. Non-tender, non-distended. No hepatosplenomegaly. No gaurding. Extremities: No clubbing, cyanosis, or edema. Negative Emily's Data : 07/11/21 04:32 07/11/21 04:32 Micro: Microbiology 07/10/21 00:05 Blood Culture - Preliminary Blood NEGATIVE TO DATE 07/10/21 00:05 Blood Culture - Preliminary Blood NEGATIVE TO DATE A&P Assessment and plan (1) Pneumonia: 70-year-old gentleman with acute pneumonia and a history of COPD. His oxygen level is fairly stable at this time but decreased some from yesterday.. We will continue with the IV antibiotics and oxygen therapy. Chest x-ray this morning is pending. We will also add IV Solu-Medrol to his course. -His white blood cell count has improved. His sodium is also improved some.. Status: Acute Qualifiers: Laterality: right Lung location: lower lobe of lung Pneumonia type: due to unspecified organism Qualified Code(s): J18.9 - Pneumonia, unspecified organism (2) Alcohol dependence: Still continues to have problems with alcohol use. Continue with CIWA protocol. We will restart several of his psych medications and hope that helps him today as well. Status: Acute (3) COPD (chronic obstructive pulmonary disease): Status: Acute Attestations Medical Necessity Statement*: Patient is a 70-year-old gentleman with acute pneumonia on top of his COPD and also with acute encephalopathy requiring a one-on-one sitter and inpatient IV treatments and monitoring. 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
[2021-07-11] MEDS: multivitamin therapeutic Tablet 1 TAB PO (08:03)
[2021-07-11] MEDS: folic acid 1 mg Tablet PO (08:03)
[2021-07-11] MEDS: divalproex DR 250 mg Tablet PO ×2 (08:03→14:42)
[2021-07-11] MEDS: gabapentin 300 mg Capsule PO ×3 (08:03→20:56)
[2021-07-11] MEDS: quetiapine 25 mg Tablet 50 MG PO ×2 (08:04→20:52)
[2021-07-11] MEDS: pantoprazole DR 40 mg Tablet PO (08:04)
[2021-07-11] MEDS: thiamine 100 mg Tablet PO (08:06)
[2021-07-11] MEDS: ipratropium-albuterol 3 mL Neb INHALATION ×3 (08:14→20:06)
[2021-07-11] MEDS: metoprolol succinate ER (24 HR) 25 mg Tablet PO (08:40)
--- NOTE | 2021-07-11 11:00 | PC.PT ---
Received orders for PT eval and treat. Attempted to evaluate patient who is requiring one on one sitter at this time due to severe confusion. Pt not able to participate in evaluation at this time. Will attempt PT eval again tomorrow.
[2021-07-11] MEDS: quetiapine 100 mg Tablet 200 MG PO (20:57)
[2021-07-11] MEDS: divalproex DR 500 mg Tablet PO (20:57)
[2021-07-12] VITALS (17 sets, daily range): BP systolic 107–132; BP diastolic 70–84; PULSE 73–113; RESP 15–20; TEMP 36.4–37; O2SAT 87–96
--- NOTE | 2021-07-12 02:23 | PC.NURSE ---
Patient cleared large mucas plug and was incontinent of urine total bed change completed resting now
[2021-07-12] MEDS: ipratropium-albuterol 3 mL Neb INHALATION ×5 (02:36→23:31)
[2021-07-12] MEDS: piperacillin-tazobactam 3.375 GM in sodium chloride 0.9% (plus) 50 ML IV ×3 (03:03→17:39)
[2021-07-12] MEDS: heparin 5,000 unit/mL INJ 1 mL 5000 UNIT SUBCUT ×2 (05:14→17:38)
[2021-07-12 06:14] LABS: Basophils % 0.2 %; Hematocrit 32.8 % (42.0-52.0); Hemoglobin 10.8 g/dL (11.7-16.6); Lymphocytes # 0.7 10^3/uL (0.8-4.8); Lymphocytes % 11.8 %; Mean Corpuscular HGB Conc 32.9 g/dL (30.0-36.0); Mean Corpuscular Hemoglobin 33.8 pg (28.0-34.0); Mean Corpuscular Volume 102.5 fl (80-94); Mean Platelet Volume 10.1 fL (7.4-10.4); Monocytes # 0.2 10^3/uL (0.2-0.9); Monocytes % 3.6 %; Neutrophils # 5.06 10^3/uL (1.8-7.7); Neutrophils % 83.7 %; Nucleated Red Blood Cells % 0 %; Platelet Count 168 10^3/cmm (130-400); Red Cell Distribution Width 14.1 % (12.1-15.1)
[2021-07-12 06:27] LABS: Alanine Aminotransferase 23 U/L (0-41); Albumin Level 3.5 g/dL (3.5-5.2); Alkaline Phosphatase 83 IU/L (40-130); Aspartate Amino Transferase 29 U/L (0-40); Blood Urea Nitrogen 17 mg/dL (8-23); Calcium 9.4 mg/dL (8.5-10.5); Carbon Dioxide 26 mmol/L (22-29); Chloride 98 mmol/L (98-107); Globulin 2.9 g/dL (1.3-4.6); Glomerular Filtration Rate 96.1 mL/min (90-130); Glucose 178 mg/dL (65-115); Osmolality Calculated 292 mOsm/kg (285-295); Sodium 138 mmol/L (136-145); Total Bilirubin 0.2 mg/dL (0.15-1.2); Total Protein 6.4 g/dL (6.6-8.7)
[2021-07-12 06:29] LABS: Anion Gap 18.6 (5-19); Potassium 4.6 mmol/L (3.5-5.1)
[2021-07-12] MEDS: folic acid 1 mg Tablet PO (08:59)
[2021-07-12] MEDS: thiamine 100 mg Tablet PO (08:59)
[2021-07-12] MEDS: multivitamin therapeutic Tablet 1 TAB PO (08:59)
[2021-07-12] MEDS: metoprolol succinate ER (24 HR) 25 mg Tablet PO (08:59)
[2021-07-12] MEDS: gabapentin 300 mg Capsule PO ×3 (08:59→21:33)
[2021-07-12] MEDS: divalproex DR 250 mg Tablet PO ×2 (08:59→15:22)
[2021-07-12] MEDS: pantoprazole DR 40 mg Tablet PO (08:59)
[2021-07-12] MEDS: quetiapine 25 mg Tablet 50 MG PO ×2 (08:59→21:33)
--- NOTE | 2021-07-12 09:29 | ECG_ITS ---
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: : 1950 Requested By: Moisés Neville Order Number: [id number] Reading MD: RICK GAMBINO Measurements Intervals [place] Rate: 109 P: GA: QRS: 28 QRSD: 82 T: 47 QT: 324 QTc: 436 Interpretive Statements ATRIAL FIBRILLATION WITH RAPID VENTRICULAR RESPONSE ABNORMAL RHYTHM ECG Compared to ECG 05/04/2021 05:05:54 Myocardial infarct finding no longer present Electronically Signed On 07-12-2021 20:56:57 FACILITIES OPERATIONS TECHNICIAN by RICK GAMBINO [email or web address] by [id number]
--- NOTE | 2021-07-12 10:53 | P.PN_ITS ---
Subjective Subjective: Interval history: History and physical was reviewed. Mik has no complaints today. He just got back from physical therapy and is obviously winded. Medications: Reviewed: Yes Vitals/I&O/Wt Last Vital Signs Temp 98.0 F 07/12/21 08:00 Pulse 101 H 07/12/21 08:00 Resp 15 07/12/21 08:00 BP 122/70 07/12/21 08:00 Pulse Ox 90 07/12/21 08:00 07/11/21 07/12/21 07/12/21 22:59 06:59 14:59 Intake Total 1075 / 1285 290 / 1575 170 / 170 Balance 1075 / 1285 290 / 1575 170 / 170 Physical Exam Narrative: EXAM NARRATIVE: General exam with some mild respiratory stress distress currently. He is on 4.5 L of oxygen. HEENT: Pupils equally round. Oropharynx clear. Neck is supple Cardiovascular tachycardic, regular Lungs bilateral expiratory wheezes. No crackles Abdomen is soft, positive bowel sounds Extremities no cyanosis clubbing or edema Data : 07/12/21 05:49 07/12/21 05:49 A&P Assessment and plan (1) Pneumonia: Currently on Zosyn. Continue. Await sputum culture Blood cultures are negative to date Wean oxygen as tolerated. Status: Acute Qualifiers: Laterality: right Lung location: lower lobe of lung Pneumonia type: due to unspecified organism Qualified Code(s): J18.9 - Pneumonia, unspecified organism (2) Fall: No evidence of fractures, on multiple x-rays Status: Acute (3) Dementia: Underlying significant dementia for which he was sent to geriatric psychiatry last hospital stay Status: Acute (4) Alcohol dependence: Monitoring for significant withdrawal Status: Acute Additional A&P Information COPD exacerbation. Reduce steroids to 60 mg IV every 12 hours. Continue pulmonary toilet with albuterol and Atrovent. This will be every 4 hours. Budesonide nebulized every 12 hours. Hyponatremia, resolved History of multifocal atrial tachycardia. Restart higher dose metoprolol, check EKG. Note that he was on diltiazem previously. Echo 05/16 showed preserved EF. Alcoholism with possible withdrawal. Continue folic acid and thiamine. [facility] protocol Heparin for DVT prophylaxis Attestations Medical Necessity Statement*: Continue hospital stay for IV antibiotics related to pneumonia. 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
[2021-07-12] MEDS: budesonide 0.5 mg/2 mL Neb INHALATION (20:40)
[2021-07-12] MEDS: divalproex DR 500 mg Tablet PO (21:31)
[2021-07-12] MEDS: metoprolol tartrate 25 mg Tablet PO (21:31)
[2021-07-12] MEDS: quetiapine 100 mg Tablet 200 MG PO (21:33)
[2021-07-12] MEDS: haloperidol inj 5 mg/mL INJ 1 mL IVP (23:55)
[2021-07-13] VITALS (14 sets, daily range): BP systolic 107–154; BP diastolic 68–86; PULSE 69–95; RESP 16–18; TEMP 36.7–36.9; O2SAT 90–97
[2021-07-13] MEDS: piperacillin-tazobactam 3.375 GM in sodium chloride 0.9% (plus) 50 ML IV ×3 (03:30→18:33)
[2021-07-13] MEDS: heparin 5,000 unit/mL INJ 1 mL 5000 UNIT SUBCUT ×2 (04:15→16:53)
[2021-07-13 06:02] LABS: Basophils % 0.2 %; Hematocrit 32.7 % (42.0-52.0); Hemoglobin 10.5 g/dL (11.7-16.6); Lymphocytes # 1.3 10^3/uL (0.8-4.8); Lymphocytes % 9.4 %; Mean Corpuscular HGB Conc 32.1 g/dL (30.0-36.0); Mean Corpuscular Hemoglobin 32.8 pg (28.0-34.0); Mean Corpuscular Volume 102.2 fl (80-94); Mean Platelet Volume 10.1 fL (7.4-10.4); Monocytes # 0.8 10^3/uL (0.2-0.9); Monocytes % 6.1 %; Neutrophils # 11.15 10^3/uL (1.8-7.7); Neutrophils % 83.6 %; Nucleated Red Blood Cells % 0 %; Platelet Count 263 10^3/cmm (130-400); Red Cell Distribution Width 14.2 % (12.1-15.1); White Blood Count 13.3 10^3/uL (4.0-10.0)
[2021-07-13 06:15] LABS: Anion Gap 15.4 (5-19); Blood Urea Nitrogen 22 mg/dL (8-23); Calcium 9.3 mg/dL (8.5-10.5); Carbon Dioxide 28 mmol/L (22-29); Chloride 101 mmol/L (98-107); Glomerular Filtration Rate 112.1 mL/min (90-130); Glucose 157 mg/dL (65-115); Osmolality Calculated 297 mOsm/kg (285-295); Potassium 4.4 mmol/L (3.5-5.1); Sodium 140 mmol/L (136-145)
[2021-07-13] MEDS: FUROsemide 10 mg/mL SDV 4mL 40 MG IVP (08:46)
[2021-07-13] MEDS: divalproex DR 250 mg Tablet PO ×2 (08:58→16:06)
[2021-07-13] MEDS: gabapentin 300 mg Capsule PO ×3 (08:58→21:32)
[2021-07-13] MEDS: folic acid 1 mg Tablet PO (08:58)
[2021-07-13] MEDS: multivitamin therapeutic Tablet 1 TAB PO (08:58)
[2021-07-13] MEDS: quetiapine 25 mg Tablet 50 MG PO (08:58)
[2021-07-13] MEDS: metoprolol tartrate 25 mg Tablet PO ×2 (08:58→21:32)
[2021-07-13] MEDS: pantoprazole DR 40 mg Tablet PO (08:59)
[2021-07-13] MEDS: thiamine 100 mg Tablet PO (08:59)
[2021-07-13] MEDS: ipratropium-albuterol 3 mL Neb INHALATION ×4 (10:35→20:50)
[2021-07-13] MEDS: budesonide 0.5 mg/2 mL Neb INHALATION ×2 (10:35→20:50)
--- NOTE | 2021-07-13 11:06 | P.PN_ITS ---
Subjective Subjective: Interval history: Mik denies any concerns today. He seems pleasant. He did receive some Haldol last night for agitation. Medications: Reviewed: Yes Vitals/I&O/Wt Last Vital Signs Temp 98.1 F 07/13/21 08:35 Pulse 81 07/13/21 08:35 Resp 18 07/13/21 08:35 BP 154/86 07/13/21 08:35 Pulse Ox 97 07/13/21 08:35 07/12/21 07/13/21 07/13/21 22:59 06:59 14:59 Intake Total 460 / 870 120 / 990 290 / 290 Output Total 100 / 100 425 / 525 Balance 360 / 770 -305 / 465 290 / 290 Physical Exam Narrative: EXAM NARRATIVE: General exam no distress Neck is supple Cardiovascular regular rate and rhythm Lungs improved aeration. A faint wheeze Abdomen is soft Extremities no cyanosis clubbing or edema Data : 07/13/21 05:48 07/13/21 05:48 A&P Assessment and plan (1) Pneumonia: Currently on Zosyn. Continue. Await sputum culture Blood cultures are negative to date Wean oxygen as tolerated. Down to 3 L today. Status: Acute Qualifiers: Laterality: right Lung location: lower lobe of lung Pneumonia type: due to unspecified organism Qualified Code(s): J18.9 - Pneumonia, unspecified organism (2) Fall: No evidence of fractures, on multiple x-rays Status: Acute (3) Dementia: Underlying significant dementia for which he was sent to geriatric psychiatry last hospital stay He has significant dementia with behaviors and agitation here. We will have psychiatry evaluate him to see if he is appropriate for geriatric psychiatric transfer. He has been significantly threatening to his in the past He has been placed back on his chronic Depakote, Seroquel. He is receiving some Haldol as needed Status: Acute (4) Alcohol dependence: Withdrawal symptoms have passed. Discontinue IV Ativan as needed Status: Acute Additional A&P Information COPD exacerbation. Discontinue Solu-Medrol and start prednisone 40 mg daily. Continue pulmonary toilet with albuterol and Atrovent. This will be every 4 hours. Budesonide nebulized every 12 hours. Hyponatremia, resolved History of multifocal atrial tachycardia. Metoprolol reinitiated, and heart rate is controlled echo 05/16 showed preserved EF. Alcoholism. Withdrawal has waned. Continue folic acid and thiamine. 

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
[2021-07-13] MEDS: ziprasidone hcl 20 mg Capsule PO (16:53)
[2021-07-13] MEDS: divalproex DR 500 mg Tablet PO (21:32)
[2021-07-13] MEDS: quetiapine 100 mg Tablet 200 MG PO (21:32)
[2021-07-14] VITALS (18 sets, daily range): BP systolic 130–180; BP diastolic 74–104; PULSE 69–92; RESP 16–20; TEMP 36.3–36.8; O2SAT 86–96
[2021-07-14] MEDS: ipratropium-albuterol 3 mL Neb INHALATION ×7 (00:02→23:25)
[2021-07-14] MEDS: haloperidol inj 5 mg/mL INJ 1 mL IVP (01:26)
[2021-07-14] MEDS: piperacillin-tazobactam 3.375 GM in sodium chloride 0.9% (plus) 50 ML IV ×2 (03:56→11:23)
[2021-07-14] MEDS: heparin 5,000 unit/mL INJ 1 mL 5000 UNIT SUBCUT ×2 (04:15→17:41)
[2021-07-14] MEDS: ziprasidone hcl 20 mg Capsule PO ×2 (06:31→17:41)
[2021-07-14] MEDS: budesonide 0.5 mg/2 mL Neb INHALATION ×2 (08:35→19:46)
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
[2021-07-14] MEDS: divalproex DR 250 mg Tablet PO ×2 (08:47→15:44)
[2021-07-14] MEDS: gabapentin 300 mg Capsule PO ×3 (08:47→20:48)
[2021-07-14] MEDS: multivitamin therapeutic Tablet 1 TAB PO (08:47)
[2021-07-14] MEDS: pantoprazole DR 40 mg Tablet PO (08:47)
[2021-07-14] MEDS: folic acid 1 mg Tablet PO (08:47)
[2021-07-14] MEDS: thiamine 100 mg Tablet PO (08:47)
[2021-07-14] MEDS: metoprolol tartrate 25 mg Tablet PO ×2 (08:47→20:54)
[2021-07-14] MEDS: predniSONE 20 mg Tablet 40 MG PO (08:47)
[2021-07-14] MEDS: FUROsemide 20 mg Tablet PO (15:44)
[2021-07-14] MEDS: divalproex DR 500 mg Tablet PO (20:49)
[2021-07-14] MEDS: quetiapine 100 mg Tablet 200 MG PO (20:49)
[2021-07-15] VITALS (13 sets, daily range): BP systolic 125–178; BP diastolic 64–96; PULSE 50–89; RESP 16–18; TEMP 36.4–36.6; O2SAT 90–95
[2021-07-15] MEDS: ipratropium-albuterol 3 mL Neb INHALATION ×4 (03:27→15:57)
[2021-07-15] MEDS: heparin 5,000 unit/mL INJ 1 mL 5000 UNIT SUBCUT ×2 (05:28→16:36)
[2021-07-15] MEDS: ziprasidone hcl 20 mg Capsule PO ×2 (06:03→16:36)
[2021-07-15] MEDS: acetaminophen 325 mg Tablet 650 MG PO (07:12)
[2021-07-15] MEDS: multivitamin therapeutic Tablet 1 TAB PO (07:46)
[2021-07-15] MEDS: budesonide 0.5 mg/2 mL Neb INHALATION (07:46)
[2021-07-15] MEDS: predniSONE 20 mg Tablet 40 MG PO (07:46)
[2021-07-15] MEDS: divalproex DR 250 mg Tablet PO ×2 (07:46→16:36)
[2021-07-15] MEDS: thiamine 100 mg Tablet PO (07:46)
[2021-07-15] MEDS: gabapentin 300 mg Capsule PO ×2 (07:47→16:36)
[2021-07-15] MEDS: folic acid 1 mg Tablet PO (07:47)
[2021-07-15] MEDS: FUROsemide 20 mg Tablet PO (07:47)
[2021-07-15] MEDS: pantoprazole DR 40 mg Tablet PO (07:47)
[2021-07-15] MEDS: metoprolol tartrate 25 mg Tablet PO (07:47)
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
[2021-07-15] MEDS: amoxicillin-clav 875-125 mg Tablet 1 TAB PO (11:56)
--- NOTE | 2021-07-15 15:57 | PC.SOCIAL ---
IMM updated Updated pt & on IMM. No questions voiced. Provided pt a copy. Initialed, dated, & timed copy in chart.
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
--- NOTE | 2021-07-15 18:20 | PC.NURSE ---
Report called to MARY Roblero, at [facility] [place].
[2021-07-16 04:38] VITALS: BP 133/74; PULSE 78; RESP 17; TEMP 36.6; O2SAT 94
== END 2021-07-15 19:00 | DRG 194 ==
LOC: ER 07-10 01:18 → CSU 07-10 02:15 → MEDSURG 07-11 01:17
PROVIDERS: Family Medicine; Admitting Provider Hospitalist; Emergency Provider Emergency Medicine; Visit Provider Internal Medicine
DX: J18.9 Pneumonia, unspecified organism (principal); J44.0 Chronic obstructive pulmonary disease with (acute) lower respiratory infection; F03.91 Unspecified dementia, unspecified severity, with behavioral disturbance; F10.239 Alcohol dependence with withdrawal, unspecified; G93.40 Encephalopathy, unspecified; I47.1 Supraventricular tachycardia; E87.1 Hypo-osmolality and hyponatremia; F05 Delirium due to known physiological condition; W19.XXXA Unspecified fall, initial encounter; Z86.79 Personal history of other diseases of the circulatory system; M06.9 Rheumatoid arthritis, unspecified; F17.210 Nicotine dependence, cigarettes, uncomplicated; I10 Essential (primary) hypertension
CPT/HCPCS: 12345; 36415; 70450; 71045; 72125; 72170; 80048; 80053; 80307; 84145; 85025; 87040; 87426; 87635; 93005; 94640; 94664; 96365; 96367; 96372; 97116; 97161; 97530; 99285; J0456; J0696; J1630; J1644; J1940; J2060; J2543; J2930; J3411; J7030; J7050; J7512; J7626

== ENCOUNTER 2022-01-31 00:27 | Inpatient (IN) | payer MEDICARE, MEDICAID, SELFPAY ==
[2022-01-31] VITALS (184 sets, daily range): BP systolic 67–154; BP diastolic 27–111; PULSE 57–116; RESP 13–30; TEMP 36.6–37.2; O2SAT 77–100; BMI 30.4
--- NOTE | 2022-01-31 00:53 | CTR_ITS ---
PROCEDURE INFORMATION: Exam: CT Head Without Contrast Exam date and time: 01/31/2022 2:15 AM Age: 71 years old Clinical indication: Altered mental status/memory loss; Prior surgery; Surgery date: 6+ months; Surgery type: 2 aneurysm repairs; Additional info: AMS TECHNIQUE: Imaging protocol: Computed tomography of the head without contrast. Radiation optimization: All CT scans at this facility use at least one of these dose optimization techniques: automated exposure control; mA and/or kV adjustment per patient size (includes targeted exams where dose is matched to clinical indication); or iterative reconstruction. COMPARISON: CT head wo con* [id number] 07/09/2021 11:41 PM RADIATION DOSE METRICS: Total DLP (mGy-cm): 1913.64 FINDINGS: Brain: There is mild diffuse cerebral atrophy. Patchy areas of hypoattenuation are seen in the deep white matter of the cerebral hemispheres bilaterally compatible with mild deep white matter microvascular disease. Cerebral ventricles: No ventriculomegaly. Paranasal sinuses: Mucosal thickening fluid is seen in the ethmoidal and left sphenoidal sinuses. Mastoid air cells: Visualized mastoid air cells are well aerated. Bones/joints: Status post left temporal craniotomy. Soft tissues: Unremarkable. Vasculature: Endovascular coils are seen within the anterior circulation. CT/CT head wo con* [id number] IMPRESSION: There are no acute intracranial findings. Stable head CT compared with 07/09/2021.
--- NOTE | 2022-01-31 00:53 | XRR_ITS ---
PROCEDURE INFORMATION: Exam: XR Chest Exam date and time: 01/31/2022 2:05 AM Age: 71 years old Clinical indication: Cough and wheezing; Smoker's cough TECHNIQUE: Imaging protocol: Radiologic exam of the chest. Views: 1 view. COMPARISON: CR XR chest 1V portable [id number] 07/11/2021 10:30 AM FINDINGS: Lungs: There is a background of emphysema, bronchiectasis and pulmonary fibrosis. Some strandy opacities are present the lung bases likely representing atelectasis. A superimposed interstitial pneumonitis cannot be entirely excluded. Pleural spaces: Unremarkable. No pleural effusion. No pneumothorax. Heart/Mediastinum: Unremarkable. No cardiomegaly. Bones/joints: Unremarkable. XR/XR chest 1V portable [id number] IMPRESSION: 1. Background of emphysema, bronchiectasis and pulmonary fibrosis. Superimposed interstitial pneumonitis cannot be entirely excluded. 2. Strandy opacities in the lower hemithoraces likely represents atelectasis.
--- NOTE | 2022-01-31 01:07 | ED_ITS ---
HPI - Altered Mental Status General: Chief Complaint: Altered Mental Status Stated Complaint: pain all over Time Seen by Provider: 01/31/22 00:38 History of Present Illness: Associated symptoms: Deny depression Review of Systems 2 Const: Denies: fever(s), chills, body aches or change in appetite Eyes: Denies: blurry vision or eye discomfort ENMT: Denies: throat pain or dental pain Card: Denies: chest pain Resp: Denies: dyspnea GI: Denies: abdominal pain, nausea, vomiting or diarrhea : Denies: dysuria Musc: Denies: neck pain or back pain Skin/Breast: Denies: rash Neuro: Reports: weakness in extremities and confusion; Denies: headache(s) Psych: Denies: depression Boris/Lymph: Denies: easy bruising All/Imm: Denies: urticaria PFSH ED PFSH: Medical History Cerebral aneurysm Surgical intervention x2 COPD (chronic obstructive pulmonary disease) Dementia 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 Rheumatoid arthritis Surgical History History of exploratory laparotomy Family History Mother Diabetes Social History Smoking and tobacco status: current every day smoker cigarettes Packs smoked per day: 1 Years cigarettes smoked: 61 Quit status (tobacco): has tried quititng Number of times tried to quit tobacco: 1 Second hand smoke exposure: Yes Smoking risk assessment/counseling performed?: Yes Tobacco counseling given: counseling >3 minutes Course Vital Signs: Vital signs: Vital Signs Temperature 98.0 F 01/31/22 00:38 Pulse Rate 69 01/31/22 00:38 Respiratory Rate 22 H 01/31/22 00:38 Blood Pressure 83/45 01/31/22 00:38 Pulse Oximetry 92 01/31/22 00:38 Oxygen Delivery Me thod 01/31/22 00:38 Discharge Plan Discharge Condition: Stable Prescriptions: No Action omeprazole 20 mg capsule,delayed release(DR/EC) 20 mg PO QAM tizanidine 2 mg capsule 2 mg PO Q8H PRN (Reason: Muscle Spasm) multivitamin Tablet 1 tab PO QAM quetiapine 100 mg tablet 200 mg PO BEDTIME Rx Instructions: TAKE WITH 50MG QUETIAPINE AT BEDTIME TO EQUAL 250 MG acetaminophen [Tylenol Extra Strength] 500 mg Tablet 1,000 mg PO DAILY PRN (Reason: Pain) fluticasone propionate 50 mcg/actuation spray,suspension 2 spray INTRANASAL DAILY PRN (Reason: Allergy Symptoms) BC Pain Relief 845-65 mg Powder In Packet 1 ea PO PRN divalproex [Depakote] 250 mg Tablet,Delayed Release (Dr/Ec) 250 mg PO BID@ divalproex [Depakote] 500 mg Tablet,Delayed Release (Dr/Ec) 500 mg PO BEDTIME gabapentin 300 mg capsule 300 mg PO TID quetiapine [Seroquel] 50 mg Tablet 50 mg PO BID@ Rx Instructions: TAKE 50 mg ORALLY IN THE MORNING AND 50MG SECOND DOSE WITH 200 MG QUETIAPINE TO EQUAL 250MG AT BEDTIME Nuedexta 20-10 mg Capsule 1 cap PO DAILY Breo Ellipta 200-25 mcg/dose blister with device 1 ea INHALATION BID albuterol sulfate 90 mcg/actuation HFA aerosol inhaler 2 puff INHALATION Q4H PRN (Reason: shortness of breath.) Protonix 40 mg Tablet,Delayed Release (Dr/Ec) 40 mg PO DAILY diclofenac sodium 75 mg Tablet,Delayed Release (Dr/Ec) 75 mg PO BID metoprolol succinate 25 mg Tablet Extended Release 24 Hr 25 mg PO DAILY Coding Level of Care Code ED Placement Assistant for Mary Marinelli
[2022-01-31 01:12] LABS: Basophils % 0.3 %; Eosinophils % 0.3 %; Hematocrit 24.1 % (42.0-52.0); Lymphocytes # 1.3 10^3/uL (0.8-4.8); Lymphocytes % 9.5 %; Mean Corpuscular HGB Conc 33.2 g/dL (30.0-36.0); Mean Corpuscular Volume 102.6 fl (80-94); Mean Platelet Volume 9.7 fL (7.4-10.4); Monocytes # 1.2 10^3/uL (0.2-0.9); Monocytes % 8.8 %; Neutrophils # 11.03 10^3/uL (1.8-7.7); Neutrophils % 79.4 %; Nucleated Red Blood Cells % 0 %; Platelet Count 298 10^3/cmm (130-400); Red Blood Count 2.35 10^6/uL (4.1-5.3); Red Cell Distribution Width 14.6 % (12.1-15.1); White Blood Count 13.9 10^3/uL (4.0-10.0)
[2022-01-31 01:17] LABS: INR 1.11 (0.8-1.2)
--- NOTE | 2022-01-31 01:19 | ED_ITS ---
HPI - General Adult General: Chief complaint: Altered Mental Status Stated complaint: pain all over Time Seen by Provider: 01/31/22 00:38 Source: patient Mode of arrival: ambulatory Limitations: no limitations History of Present Illness: 71-year-old male who is here with complaint of some altered male status along with generalized weakness. Patient is also had decreased oral intake he is hypotensive here. Patient is able answer all my questions correctly here he does know the year and where he lives and his name he has had no vomiting or diarrhea denies any pain anywhere. Associated symptoms: Reports confusion; Deny chest pain, dyspnea, headache(s), nausea, rash or vomiting Review of Systems Const: Denies: fever(s), chills, body aches or change in appetite Eyes: Denies: blurry vision or eye discomfort ENMT: Denies: throat pain or dental pain Card: Denies: chest pain Resp: Denies: dyspnea GI: Denies: abdominal pain, nausea, vomiting or diarrhea : Denies: dysuria Musc: Denies: neck pain or back pain Skin/Breast: Denies: rash Neuro: Reports: weakness in extremities and confusion; Denies: headache(s) Psych: Denies: depression Boris/Lymph: Denies: easy bruising All/Imm: Denies: urticaria PFSH ED PFSH: Medical History Cerebral aneurysm Surgical intervention x2 COPD (chronic obstructive pulmonary disease) Dementia 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 Rheumatoid arthritis Surgical History History of exploratory laparotomy Family History Mother Diabetes Social History Smoking and tobacco status: current every day smoker cigarettes Packs smoked per day: 1 Years cigarettes smoked: 61 Quit status (tobacco): has tried quititng Number of times tried to quit tobacco: 1 Second hand smoke exposure: Yes Smoking risk assessment/counseling performed?: Yes Tobacco counseling given: counseling >3 minutes Physical Exam Const: COMMON NORMALS: patient oriented x3 GENERAL APPEARANCE: ill appearing and frail appearing HENMT: COMMON NORMALS: normocephalic and atraumatic HEAD & SCALP: normocephalic and atraumatic Eye: COMMON NORMALS: Equal, round and reactive pupils present and EOMs intact bilaterally PUPIL: Yes Equal, round and reactive pupils present Neck/C-Spine: COMMON NORMALS: full ROM and supple Chest: COMMONS NORMALS: normal inspection of the chest and normal palpation of entire chest wall Resp: COMMON NORMALS: normal respiratory effort, No retractions, No use of accessory muscles and clear to auscultation bilaterally AUSCULTATION: clear t o auscultation bilaterally Cardio: COMMON NORMALS: regular rate, regular rhythm and No murmurs present (Cardio) RATE: regular rate RHYTHM: regular rhythm GI: COMMON NORMALS: Normal to inspection, nondistended, normoactive bowel sounds present, Soft to palpation, non-tender and no masses PALPATION: Yes Soft to palpation Extremity: COMMON NORMALS: normal to inspection and full ROM Neuro: COMMON NORMALS: patient oriented x3, moves all extremities and no focal motor deficits Psych: COMMON NORMALS: mental status grossly normal, Normal thought process present and cooperative THOUGHT PROCESS: Normal thought process present Skin: NARRATIVE SKIN EXAM: pale Course Vital Signs: Vital signs: Vital Signs Temperature 98.0 F 01/31/22 00:38 Pulse Rate 68 01/31/22 00:56 Respiratory Rate 16 01/31/22 00:56 Blood Pressure 78/58 01/31/22 00:56 Pulse Oximetry 91 01/31/22 00:56 Oxygen Delivery Me thod 01/31/22 00:56 MDM - General Adult Medical Decision Making Patient presents with hypotension he appears dehydrated with acute kidney injury also possible pneumonia patient started on IV antibiotics we will follow blood cultures patient's blood pressure here is improved after IV fluids spoke to hospitalist will admit to ICU. Lab Data : 01/31/22 00:50 01/31/22 00:50 Radiology Impressions Chest X-Ray 01/31/22 00:53 IMPRESSION: 1. Background of emphysema, bronchiectasis and pulmonary fibrosis. Superimposed interstitial pneumonitis cannot be entirely excluded. 2. Strandy opacities in the lower hemithoraces likely represents atelectasis. Head CT 01/31/22 00:53 IMPRESSION: There are no acute intracranial findings. Stable head CT compared with 07/09/2021. Laboratory Results WBC 13.9 10^3/uL (4.0-10.0) H 01/31/22 00:50 RBC 2.35 10^6/uL (4.1-5.3) L 01/31/22 00:50 Hgb 8.0 g/dL (11.7-16.6) L 01/31/22 00:50 Hct 24.1 % (42.0-52.0) L 01/31/22 00:50 MCV 102.6 fl (80-94) H 01/31/22 00:50 MCH 34.0 pg (28.0-34.0) 01/31/22 00:50 MCHC 33.2 g/dL (30.0-36.0) 01/31/22 00:50 RDW 14.6 % (12.1-15.1) 01/31/22 00:50 Plt Count 298 10^3/cmm (130-400) 01/31/22 00:50 MPV 9.7 fL (7.4-10.4) 01/31/22 00:50 Neut % (Auto) 79.4 % 01/31/22 00:50 Lymph % (Auto) 9.5 % 01/31/22 00:50 [place] % (Auto) 8.8 % 01/31/22 00:50 Eos % (Auto) 0.3 % 01/31/22 00:50 Baso % (Auto) 0.3 % 01/31/22 00:50 Neut # (Auto) 11.03 10^3/uL (1.8-7.7) H 01/31/22 00:50 Lymph # (Auto) 1.3 10^3/uL (0.8-4.8) 01/31/22 00:50 [place] # (Auto) 1.2 10^3/uL (0.2-0.9) H 01/31/22 00:50 Eos # (Auto) 0.0 10^3/uL (0.0-0.8) 01/31/22 00:50 Baso # (Auto) 0.0 10^3/uL (0.0-0.1) 01/31/22 00:50 Nucleated RBC % (auto) 0 % 01/31/22 00:50 Nucleated RBCs # 0.0 /100WBC 01/31/22 00:50 PT 14.70 SECONDS (12.1-14.9) 01/31/22 00:50 INR 1.11 (0.8-1.2) 01/31/22 00:50 Sodium 127 mmol/L (136-145) L 01/31/22 00:50 Potassium 4.4 mmol/L (3.5-5.1) 01/31/22 00:50 Chloride 85 mmol/L (98-107) L 01/31/22 00:50 Carbon Dioxide 25 mmol/L (22-29) 01/31/22 00:50 Anion Gap 21.4 (5-19) H 01/31/22 00:50 BUN 21 mg/dL (8-23) 01/31/22 00:50 Creatinine 2.3 mg/dL (0.7-1.2) H 01/31/22 00:50 GFR Calculation 28.3 mL/min (90-130) L 01/31/22 00:50 Glucose 135 mg/dL (65-115) H 01/31/22 00:50 Calculated Osmolality 269 mOsm/kg (285-295) L 01/31/22 00:50 Lactate 4.5 mmol/L (0.5-2.2) H* 01/31/22 00:50 Calcium 9.9 mg/dL (8.5-10.5) 01/31/22 00:50 Magnesium 1.6 mg/dL (1.7-2.3) L 01/31/22 00:50 Total Bilirubin 0.2 mg/dL (0.15-1.2) 01/31/22 00:50 AST 17 U/L (0-40) 01/31/22 00:50 ALT 8 U/L (0-41) 01/31/22 00:50 Alkaline Phosphatase 89 IU/L (40-130) 01/31/22 00:50 Ammonia 20 umol/L (16-60) 01/31/22 01:10 Troponin T Baseline 13 ng/L (0-15) 01/31/22 00:50 NT-Pro-B Natriuret Pep 4663 pg/mL (0-125) H 01/31/22 00:50 Total Protein 6.4 g/dL (6.6-8.7) L 01/31/22 00:50 Albumin 3.1 g/dL (3.5-5.2) L 01/31/22 00:50 Globulin 3.3 g/dL (1.3-4.6) 01/31/22 00:50 Lipase 9 U/L (13-60) L 01/31/22 00:50 Urine Color Yellow (Yellow) 01/31/22 03:23 Urine Appearance Sl hazy (CLEAR) 01/31/22 03:23 Urine pH 5 (5-7) 01/31/22 03:23 Ur Specific [place] 1.020 (1.005-1.030) 01/31/22 03:23 Urine Protein Neg (Negative) 01/31/22 03:23 Urine Glucose (UA) Norm (Normal) 01/31/22 03:23 Urine Ketones Negative (Negative) 01/31/22 03:23 Urine Blood 3+ (Negative) H 01/31/22 03:23 Urine Nitrate Negative (Negative) 01/31/22 03:23 Urine Bilirubin Neg (Negative) 01/31/22 03:23 Urine Urobilinogen Neg mg/dL (Negative) 01/31/22 03:23 Ur Leukocyte Esterase Negative (Negative) 01/31/22 03:23 Urine RBC 5-10 /hpf (0-2) H 01/31/22 03:23 Urine WBC 5-10 /hpf (0-5) H 01/31/22 03:23 Ur Squamous Epith Cells 5-10 /hpf (0-5) H 01/31/22 03:23 Amorphous Sediment 1+ /hpf 01/31/22 03:23 Urine Bacteria Trace /hpf (NONE) 01/31/22 03:23 Urine Mucus 1+ /hpf 01/31/22 03:23 Blood Type O Positive 01/31/22 01:40 Rho(D) Type Positive 01/31/22 01:40 Antibody Screen Negative 01/31/22 01:40 EKG Data EKG 1: I personally reviewed and interpreted this EKG as follows: EKG interpretation date: 01/31/22 EKG interpretation time: 01:30 Interpretation: nsr hr [address] or t wave abnormalites qrs 96 qtc 429 Computer generated interpretation: Chest X-Ray 01/31/22 00:53 IMPRESSION: 1. Background of emphysema, bronchiectasis and pulmonary fibrosis. Superimposed interstitial pneumonitis cannot be entirely excluded. 2. Strandy opacities in the lower hemithoraces likely represents atelectasis. Head CT 01/31/22 00:53 IMPRESSION: There are no acute intracranial findings. Stable head CT compared with 07/09/2021. Critical Care Time Critical Care Time: Critical Care Time: Yes Total Critical Care Time: 40 Attestation: The high probability of a clinically significant, sudden or life threatening deterioration of the patient's cv system(s) required my full and direct attention, intervention and personal management. The critical care time is as shown. This time is in addition to time spent performing any reported procedures but includes the following: [x] Data and vital sign review and interpretation [x] Patient assessment, examination and intervention [x] Documentation [x] Medication orders and management Discharge Plan Discharge Patient Disposition: Admitted As Inpatient Clinical Impression: Acute hypotension, Dehydration, Elevated lactic acid level Condition: Stable Coding Level of Care Code ED Personal Service Workers for Mary Marinelli Exam Comprehensive
--- NOTE | 2022-01-31 01:23 | PC.NURSE ---
Hemacult was performed and it was negative. PT tolerated well.
[2022-01-31 01:30] LABS: Troponin(5th) Baseline 13 ng/L (0-15)
--- NOTE | 2022-01-31 01:30 | ECG_ITS ---
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 Measurements Intervals [place] Rate: 71 P: 60 VA: 116 QRS: 56 QRSD: 96 T: 51 QT: 407 QTc: 443 Interpretive Statements SINUS RHYTHM WITH MARKED SINUS ARRHYTHMIA WITH SHORT VA INTERVAL NONSPECIFIC ST & T-WAVE ABNORMALITY Compared to ECG 07/12/2021 10:59:44 Short VA interval now present T-wave abnormality now present Atrial fibrillation no longer present Electronically Signed On 02-01-2022 0:39:34 CDT by Ruddy Mirza M.D. [id number]
[2022-01-31 01:33] LABS: Ammonia 20 umol/L (16-60)
[2022-01-31 01:35] LABS: Alanine Aminotransferase 8 U/L (0-41); Albumin Level 3.1 g/dL (3.5-5.2); Alkaline Phosphatase 89 IU/L (40-130); Anion Gap 21.4 (5-19); Aspartate Amino Transferase 17 U/L (0-40); Blood Urea Nitrogen 21 mg/dL (8-23); Calcium 9.9 mg/dL (8.5-10.5); Carbon Dioxide 25 mmol/L (22-29); Chloride 85 mmol/L (98-107); Globulin 3.3 g/dL (1.3-4.6); Glomerular Filtration Rate 28.3 mL/min (90-130); Glucose 135 mg/dL (65-115); Lipase 9 U/L (13-60); Magnesium 1.6 mg/dL (1.7-2.3); NT Pro B Type Natriuretic Pept 4663 pg/mL (0-125); Osmolality Calculated 269 mOsm/kg (285-295); Potassium 4.4 mmol/L (3.5-5.1); Sodium 127 mmol/L (136-145); Total Bilirubin 0.2 mg/dL (0.15-1.2); Total Protein 6.4 g/dL (6.6-8.7)
[2022-01-31 01:41] LABS: Lactate (Lactic Acid level) 4.5 mmol/L (0.5-2.2)
[2022-01-31] MEDS: sodium chloride 0.9% 1,000 ML 999 ML IV ×2 (01:50→01:57)
[2022-01-31] MEDS: sodium chloride 0.9% 500 ML 999 ML IV (03:20)
[2022-01-31] MEDS: piperacillin-tazobactam 3.375 GM in sodium chloride 0.9% (plus) 50 ML IV ×3 (03:25→20:16)
[2022-01-31 03:46] LABS: Add Urine Microscopic? YES; Bilirubin Urine Neg (Negative); Blood Urine 3+ (Negative); Glucose Urine UA Norm (Normal); Ketones Urine Negative (Negative); Leukocyte Esterase Urine Negative (Negative); Nitrate Urine Negative (Negative); Protein Urine Neg (Negative); Urine Appearance SL Hazy (CLEAR); Urine Color Yellow (Yellow); Urobilinogen Urine Neg (Negative); pH Urine 5 (5-7)
[2022-01-31 03:47] LABS: Amorphous Sediment Urine 1+ /hpf; Bacteria Urine TRACE /hpf; Mucus Urine 1+ /hpf
[2022-01-31] MEDS: vancomycin 1,000 MG in sodium chloride 0.9% 250 ML 250 MG IV (03:47)
[2022-01-31 03:48] LABS: Add Urine Culture? No
--- NOTE | 2022-01-31 04:28 | P.HP_ITS ---
Providers/Chief Complaint Admitting Physician: Isabelle Cr MD Chief Complaint: pain all over History of Present Illness Mik Raya is a 71 year old male with past medical history of chronic obstructive pulmonary disease, hypertension, multifocal atrial tachycardia, reported dementia and alcoholism, cerebral aneurysm who was brought to ER with altered mental status. Patient took his night time home meds prior to arrival to hospital and was not able to provide history as he was drowsy. Baseline mental status is confusion/dementia at baseline, not oriented to time but able to make needs known. at bedside provided history. has guardianship over him. She reports diarrhea x1 month duration and worsening cough and congestion. Otherwise she states he is at his baseline. Wears 2L NC at night time and is an everyday smoker. She denies a fever at home. She says last time he was sent to [facility] and was on a 96-hour hold due to his alcohol use. Since then he has quit drinking alcohol. ED course: On arrival blood pressure 78/58, respiratory 16, pulse 68, temperature 98. Saturating 91% on room air. EKG did not show any ST or T wave abnormalities. Heart rate 130s. Labs showed white count 13.9, hemoglobin 8.0, MCV 102.6, sodium 127, chloride 85, anion gap 21.4, creatinine 2.3, lactic acid 4.5, BNP 4663, urinalysis pending. head CT shows no acute intracranial abnormality. Vancomycin and Zosyn given in ER, 3 L normal saline bolus given. Troponins pending blood cultures obtained urinalysis ordered. Chest xray shows Background of emphysema, bronchiectasis and pulmonary fibrosis.Superimposed interstitial pneumonitis cannot be entirely excluded. Strandy opacities in the lower hemithoraces likely represents atelectasis. Medications/Allergies Home Medications Medication Instructions Recorded Confirmed Last Taken Type omeprazole 20 mg capsule,delayed 20 mg PO QAM 08/06/19 07/10/21 05/01/21 History release tizanidine 2 mg capsule 2 mg PO Q8H PRN Muscle Spasm 08/06/19 07/10/21 05/20/20 History albuterol sulfate 90 mcg/actuation 2 puff inhalation Q4H PRN 07/03/20 07/10/21 07/02/20 History aerosol inhaler shortness of breath. acetaminophen 500 mg tablet 1,000 mg PO DAILY PRN Pain 09/19/20 07/10/21 Unknown History (Tylenol Extra Strength) aspirin-caffeine 845 mg-65 mg oral 1 ea PO PRN 09/19/20 07/10/21 Unknown History powder packet (BC Pain Relief) fluticasone propionate 50 2 spray intranasal DAILY PRN 09/19/20 07/10/21 05/01/21 History mcg/actuation nasal Allergy Symptoms spray,suspension multivitamin 1 tab PO QAM 09/19/20 07/10/21 05/01/21 History quetiapine 100 mg tablet 200 mg PO BEDTIME 09/19/20 07/10/21 04/30/21 History dextromethorphan 20 mg-quinidine 1 cap PO DAILY 05/01/21 07/10/21 05/01/21 History 10 mg capsule (Nuedexta) divalproex 250 mg tablet,delayed 250 mg PO BID@,05/01/21 07/10/21 05/01/21 History release (Depakote) divalproex 500 mg tablet,delayed 500 mg PO BEDTIME 05/01/21 07/10/21 04/30/21 History release (Depakote) fluticasone furoate 200 1 ea inhalation BID 05/01/21 07/10/21 05/01/21 History mcg-vilanterol 25 mcg/dose inhalation powder (Breo Ellipta) gabapentin 300 mg capsule 300 mg PO TID 05/01/21 07/10/21 05/01/21 History quetiapine 50 mg tablet (Seroquel) 50 mg PO BID@05/01/21 07/10/21 05/01/21 History diclofenac sodium 75 mg 75 mg PO BID 07/10/21 07/10/21 Unknown History tablet,delayed release metoprolol succinate 25 mg 25 mg PO DAILY 07/10/21 07/10/21 Unknown History tablet,extended release 24 hr pantoprazole 40 mg tablet,delayed 40 mg PO DAILY 07/10/21 07/10/21 Unknown History release (Protonix) Allergies Allergy/AdvReac Type Severity Reaction Status Date / Time Silk sutures AdvReac Intermediate Bad abd Uncoded 07/09/21 22:44 pains PFSH Acute PFSH: Medical History Cerebral aneurysm Surgical intervention x2 COPD (chronic obstructive pulmonary disease) Dementia 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 Rheumatoid arthritis Surgical History History of exploratory laparotomy Family History Mother Diabetes Social History Smoking and tobacco status: current every day smoker cigarettes Packs smoked per day: 1 Years cigarettes smoked: 61 Quit status (tobacco): has tried quititng Number of times tried to quit tobacco: 1 Second hand smoke exposure: Yes Smoking risk assessment/counseling performed?: Yes Tobacco counseling given: counseling >3 minutes Vitals/I&O/Wt Last Vital Signs Temp 98.0 F 01/31/22 00:38 Pulse 65 01/31/22 04:34 Resp 16 01/31/22 04:34 BP 107/69 01/31/22 04:34 Pulse Ox 94 01/31/22 04:34 O2 Del Method 01/31/22 00:56 01/30/22 01/30/22 01/31/22 14:59 22:59 06:59 Intake Total 2550 / 2550 Balance 2550 / 2550 Weight last 48 hrs Weight 90.718 kg Physical Exam Narrative: General: Quite drowsy but does wake up to answer some questions briefly HEENT: Normocephalic, atraumatic, EOMI, breathing normally on 2L NC Cardio: RRR normal S1-S2 Respiratory: Diffuse ronchi throughout lung boothe GI: Abdomen soft, nontender, nondistended, bowel sounds + Extremities: Bilateral lower extremity edema 1+ Data : 01/31/22 00:50 01/31/22 00:50 Micro: Microbiology 01/31/22 01:35 Blood Culture - Preliminary Blood SPECIMEN COLLECTED 01/31/22 01:40 Blood Culture - Preliminary Blood SPECIMEN COLLECTED A&P Assessment and plan (1) Acute hypotension: Status: Acute (2) Dehydration: Status: Acute (3) Elevated lactic acid level: Status: Acute (4) Dementia: Status: Acute (5) Acute confusion: Status: Acute (6) Multifocal atrial tachycardia: Status: Acute (7) Anxiety: Status: Acute (8) Major neurocognitive disorder as late effect of traumatic brain injury with behavioral disturbance: Status: Acute (9) Cerebral aneurysm: Status: Acute (10) COPD (chronic obstructive pulmonary disease): Status: Acute (11) 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 WBC 13,000, BP 78/58, on 2L NC - Check blood culture, sputum gram stain, procalcitonin, urine culture, stool ova parasite, bacterial culture, c diff - Continue on vanc and zosyn - Pt took all meds today SKIN CARE THERAPIST. does not have list of current medications. She states the list in our system is not accurate and a lot of the meds have been changed. Day team to call [facility] to obtain accurate med list. - pt is s/p 3L NS bolus. Continue to monitor BP, start levophed if needed - Check FOBT, iron studies - Type and screen and hold 1 unit - Check labs in AM. - Check urine sodium, urine osm, serum osm, urine protein, urine creatinine - Continue on NS 125 cc/hr - Regular diet. DVT prophylaxis: SCDs Code status: DNR/DNI has guardianship. 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
[2022-01-31 04:32] LABS: Lactate (Lactic Acid level) 0.9 mmol/L (0.5-2.2)
--- NOTE | 2022-01-31 04:52 | PC.PHAR ---
Vancomycin is dosed at 1000mg IVPB every 24 hours to produce a predicted trough level of 15.86 (population based pharmacokinetic analysis). A trough level has been ordered from the lab to be obtained before the fourth dose to confirm and adjust if needed. The Zosyn is continued at 3.375gm IVPB every 8 hours on the basis of the creatinine clearance of 33.15.
--- NOTE | 2022-01-31 05:51 | PC.NURSE ---
Lab informed charge nurse of missed 2 hour troponin in ER. Lab will draw 6 hour troponin now that is due at 0654.
[2022-01-31] MEDS: sodium chloride 0.9% 1,000 ML 125 ML IV (05:58)
--- NOTE | 2022-01-31 06:54 | ECG_ITS ---
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 Measurements Intervals Thayne Rate: 64 P: DE: QRS: 45 QRSD: 94 T: 49 QT: 440 QTc: 457 Interpretive Statements ATRIAL FIBRILLATION ABNORMAL RHYTHM ECG Compared to ECG 01/31/2022 01:30:20 Sinus rhythm no longer present Sinus arrhythmia no longer present Short DE interval no longer present T-wave abnormality no longer present Electronically Signed On 02-01-2022 0:53:10 CDT by Ruddy Mirza M.D. [id number]
[2022-01-31 07:24] LABS: Troponin 5 6HR 10.63 ng/L (0-15)
[2022-01-31 07:33] LABS: Procalcitonin 0.53 ng/mL (0-0.5)
[2022-01-31 07:48] LABS: Urine Creatinine 140 mg/dL (39-259); Urine Random Sodium 29 mmol/L
[2022-01-31 07:49] LABS: Urine Protein Random 50 mg/dL
[2022-01-31] MEDS: ipratropium-albuterol 3 mL Neb INHALATION ×2 (07:49→11:53)
[2022-01-31 07:52] LABS: Iron 13 ug/dL (59-158); Percent Saturation 8.9 % (20-50); Total Iron Binding Capacity 145 mcg/dl; Unsaturated Iron Binding 132 ug/dL (112-347)
--- NOTE | 2022-01-31 07:58 | PC.PHAR ---
pts shaniqua [phone] verified pts medications
[2022-01-31] MEDS: pantoprazole 40 mg SDV IVP (08:22)
[2022-01-31] MEDS: acetaminophen 325 mg Tablet 650 MG PO (09:45)
--- NOTE | 2022-01-31 09:46 | CT_ITS ---
WS: [id number] CT ABDOMEN AND PELVIS NONCONTRAST HISTORY: ARPIT, urinary retention, evaluate for obstruction TECHNIQUE: Imaging performed through the abdomen and pelvis. Coronal and sagittal reformats are submi tted. All CT scans at [facility] use at least one of these dose optimization techniques: auto mated exposure control; mA and/or kV adjustment per patient size (includes targeted exams where dose is matched to clinical indication); or iterative reconstruction. DLP: 757.93 mGy.cm COMPARISON: Chest CT 03/06/2017 Lower thorax: Chronic emphysematous changes at the lung bases. Cavitary soft tissue mass in the media l RIGHT lower lobe with adjacent inflammatory changes and pleural thickening and a very small amount of pleural fluid. Mass measures at least 5.0 x 10.1 cm and extends to abut the paraesophageal fat. Th ere is mild bronchovascular thickening extending from the periphery of this mass. Pleural-based 6 mm nodule RIGHT middle lobe. Liver: Normal size liver. No mass or bile duct dilatation. Gallbladder: Normal gallbladder. Pancreas: Normal size and attenuation. Normal pancreatic duct. No pancreatitis or mass. Spleen: Normal. Adrenal glands: No adrenal mass. Right kidney: Mild diffuse perinephric stranding. No hydronephrosis. No ureteral dilatation. Left kidney: Moderate perinephric stranding with no hydronephrosis. No mass or ureteral obstruction. Aorta: Mild atherosclerosis abdominal aorta with no aneurysm. Mild atherosclerotic plaque within the mesenteric arteries and proximal renal arteries. No free fluid, intraperitoneal air or significant lymphadenopathy. GI tract: Well-distended stomach. No small bowel obstruction. Appendix is not definitely identified. No evidence for appendicitis. No colon obstruction. Abdominal wall: Postsurgical changes noted along the anterior abdominal wall from a prior exploratory laparotomy. Pelvis: Oconnell catheter in a nondistended bladder. There are a few scattered prostate gland calcificat ions. Inguinal canals containing fat only. Osseous structures: LEFT scoliosis due to degenerative disc disease. Asymmetric disc space narrowing of the lumbar spine. No destructive bone lesions. Mild narrowing of the hip joints. CT/CT kidney stone [id number] IMPRESSION: 1. Bilateral perinephric stranding with no hydronephrosis or obstruction ident ified. These changes can be seen with chronic or acute polynephritis. 2. Solid cavitary mass at the RIGHT lung base extending into the paraesophagea l fat. Mass measures 5.0 x 10.1 cm. Differential includes neoplasm with central cavitation, developing lung abscess which may be related to aspiration pneumon ia. Recommend bronchoscopy for further evaluation. Adjacent peribronchial thick ening may be lymphangitic spread of tumor.
[2022-01-31 11:17] LABS: Troponin 5 6HR Delta -2.37 ng/L (0-12)
--- NOTE | 2022-01-31 11:28 | PC.NURSE ---
Patient has become increasingly restless during the morning. He pulled his left IV fluid line apart without causing catheter problems. He has been reoriented several times to the situation. He has also pulled on his Oconnell catheter to the point of pulling the Y site through the statlock. Nicotine patch has been requested as he has asked to smoke more than 4 times this morning. Spouse has not been to visit yet today as she is dealing with a in the family. Leads have been disconnected several times to this point. Patient is close to the nurses station and increase monitoring as needed.
[2022-01-31] MEDS: tizanidine 4 mg Tablet PO (11:54)
[2022-01-31] MEDS: nicotine 21 mg Patch 1 PATCH TRANSDERMA (11:54)
--- NOTE | 2022-01-31 12:42 | PC.NURSE ---
Patient pulled left wrist IV, catheter was intact. Patient is progressively getting more restless and trying to get out of bed. States he needs to go pee . Patient is reminded of whiteside catheter along with iv lines. Call light is in reach. Notifying provider of increased confusion and attempts to get up.
[2022-01-31 13:56] LABS: Adenovirus Not Detected (NOT DETECT); Chlamydia Pneumoniae Not Detected (NOT DETECT); Coronavirus 229E,HKU1,NL63,OC4 Not Detected (NOT DETECT); Human Metapneumovirus Not Detected (NOT DETECT); Human Rhinovirus/Enterovirus Not Detected (NOT DETECT); Influenza A Not Detected (NOT DETECT); Influenza A H1 Not Detected (NOT DETECT); Influenza A H1-2009 Not Detected (NOT DETECT); Influenza A H3 Not Detected (NOT DETECT); Influenza B Not Detected (NOT DETECT); Mycoplasma Pneumoniae Not Detected (NOT DETECT); Parainfluenza Virus Type 1 Not Detected (NOT DETECT); Parainfluenza Virus Type 2 Not Detected (NOT DETECT); Parainfluenza Virus Type 3 Not Detected (NOT DETECT); Parainfluenza Virus Type 4 Not Detected (NOT DETECT); Respiratory Syncytial Virus A Not Detected (NOT DETECT); Respiratory Syncytial Virus B Not Detected (NOT DETECT); SARS-COV-2 Not Detected (NOT DETECT)
[2022-01-31] MEDS: quetiapine 25 mg Tablet 50 MG PO (14:32)
[2022-01-31] MEDS: gabapentin 300 mg Capsule PO (14:35)
[2022-01-31] MEDS: haloperidol inj 5 mg/mL INJ 1 mL 2 MG IM (15:17)
--- NOTE | 2022-01-31 15:20 | PC.NURSE ---
HCP notified of increasing combativeness and attempts to leave. Patient is on 1 on 1, lights dimmed, bed adjusted, drinks offered, and curtains have been pulled to help reduce stimuli. An order for 2mg Haldol IM stat was given and administrated. Patient is currently being reoriented approximately every min regards to why they cannot go outside to smoke. Nicotine patch was applied earlier in the shift.
[2022-01-31] MEDS: dexmedeTOMIDine 0.9 % NaCL 400 MCG/100 ML PREMIX IV (15:57)
[2022-01-31] MEDS: FUROsemide 10 mg/mL SDV 2mL 20 MG IVP (16:04)
--- NOTE | 2022-01-31 17:21 | PC.NURSE ---
Patient has been started on precedex. Currently titrating up dose and at 0.7mch/kg/hr as of 1720. Patient is still attempting to get up and yelling. Vitals remain stable. Lasix were started at 1600 with 450ml first hour output. Crackles had been noted and Fluids had been stopped prior to lasix order. SItter still with patient.
[2022-01-31] MEDS: dexmedeTOMIDine 0.9 % NaCL 400 MCG/100 ML PREMIX 18.02 MCG IV (21:42)
[2022-02-01] VITALS (74 sets, daily range): BP systolic 99–175; BP diastolic 51–111; PULSE 61–110; RESP 13–27; TEMP 36.6–37.1; O2SAT 88–100
[2022-02-01] MEDS: piperacillin-tazobactam 3.375 GM in sodium chloride 0.9% (plus) 50 ML IV ×3 (03:35→18:38)
[2022-02-01] MEDS: dexmedeTOMIDine 0.9 % NaCL 400 MCG/100 ML PREMIX 15.77 MCG IV (03:47)
[2022-02-01] MEDS: FUROsemide 10 mg/mL SDV 2mL 20 MG IVP ×2 (04:48→15:07)
[2022-02-01] MEDS: vancomycin 1,000 MG in sodium chloride 0.9% 250 ML 250 MG IV (04:49)
[2022-02-01] MEDS: pantoprazole DR 40 mg Tablet PO (06:17)
[2022-02-01] MEDS: naltrexone hcl 50 mg Tablet PO (08:10)
[2022-02-01] MEDS: gabapentin 300 mg Capsule PO ×3 (08:10→20:34)
[2022-02-01] MEDS: quetiapine 100 mg Tablet 50 MG PO ×2 (08:10→20:34)
[2022-02-01] MEDS: nicotine 21 mg Patch 1 PATCH TRANSDERMA (08:11)
[2022-02-01] MEDS: ipratropium-albuterol 3 mL Neb INHALATION ×4 (08:23→20:29)
[2022-02-01 09:07] LABS: Basophils % 0.3 %; Eosinophils # 0.1 10^3/uL (0.0-0.8); Eosinophils % 0.7 %; Hematocrit 26.4 % (42.0-52.0); Hemoglobin 8.8 g/dL (11.7-16.6); Lymphocytes # 0.9 10^3/uL (0.8-4.8); Lymphocytes % 8.1 %; Mean Corpuscular HGB Conc 33.3 g/dL (30.0-36.0); Mean Corpuscular Hemoglobin 33.5 pg (28.0-34.0); Mean Corpuscular Volume 100.4 fl (80-94); Mean Platelet Volume 10.3 fL (7.4-10.4); Monocytes # 0.8 10^3/uL (0.2-0.9); Neutrophils % 82.3 %; Nucleated Red Blood Cells % 0 %; Platelet Count 275 10^3/cmm (130-400); Red Blood Count 2.63 10^6/uL (4.1-5.3); Red Cell Distribution Width 14.1 % (12.1-15.1); White Blood Count 10.6 10^3/uL (4.0-10.0)
[2022-02-01 09:26] LABS: Alanine Aminotransferase 13 U/L (0-41); Albumin Level 3.2 g/dL (3.5-5.2); Alkaline Phosphatase 121 IU/L (40-130); Anion Gap 13.6 (5-19); Aspartate Amino Transferase 30 U/L (0-40); Blood Urea Nitrogen 16 mg/dL (8-23); Calcium 9.5 mg/dL (8.5-10.5); Carbon Dioxide 33 mmol/L (22-29); Chloride 91 mmol/L (98-107); Creatinine Clr Calc Pharmacy 84.6267; Globulin 3.3 g/dL (1.3-4.6); Glomerular Filtration Rate 83.7 mL/min (90-130); Glucose 130 mg/dL (65-115); Magnesium 1.3 mg/dL (1.7-2.3); Osmolality Calculated 281 mOsm/kg (285-295); Potassium 3.6 mmol/L (3.5-5.1); Sodium 134 mmol/L (136-145); Total Bilirubin 0.2 mg/dL (0.15-1.2); Total Protein 6.5 g/dL (6.6-8.7)
--- NOTE | 2022-02-01 09:36 | PC.CHAP ---
Pastoral Care Encounter/Spiritual Assessment Type of Contact [] Declined dielectric testing machine operator visit [] Patient/Family/Request visit [] Outpatient visit [] Follow-up visit [] Physician referral [] Code/Alert [x] Routine visit [] Staff referral [] Actively dying [] Patient sleeping [] Family support [] [] Out of room [] Palliative care [] [x] Receiving care in room [] Pre-surgical visit [] Trauma [] Long length of stay [x] ICU visit [] Other: Relational/Emotional Strength [] Patient feels connected with others/family/visitors/staff [] Distress [] Loneliness/isolation [] Abandonment Spirituality of Patient [] Person of Sharonda [] Attends Zoroastrianism of their Sharonda [] Believes in Prayer [] Reads Bible or Yarsani materials [] There are Spiritual issues to be addressed Sensitizer Interventions [x] Prayer [x] Active listening [x] Non-anxious presence [x] Spiritual/emotional support [] Crisis/trauma care [] Spiritual counseling [] Bereavement support [] Provided bereavement packet [] Provided Bible/devotional materials [] Provided toy/stuffed animal, coloring book to patient or family member [] Provided Communion [] Anointing/Pollock [] Salvation [x] Completed spiritual assessment [] Other: Impact on Illness or Injury [] Angry [] Fearful [] Anxious [] Often cries [] Exhaustion [] Unable to work [] Unable to attend moravian [] Unable to walk/stand [] Unable to read [] Unable to drive [] Unable to eat/drink [] Unable to sleep [] Unable to be with family [] Patient intubated [] Other: Summary Time spent with patient
--- NOTE | 2022-02-01 09:55 | PC.NURSE ---
Magnesium 1.3 Dr. Sharma notified. No new orders at this time.
[2022-02-01] MEDS: acetaminophen 325 mg Tablet 650 MG PO ×2 (10:01→19:19)
--- NOTE | 2022-02-01 13:00 | PM.PN ---
Subjective Subjective: Last evening patient became agitated, confused, attempted to get out of bed which necessiatted starting Precedex infusion. this has been weaned off this morning. He is much more calm. Additionally had also develped signs of fluid overload with bibasilar crepts and LE edema- iv fluids were discontinued and started on lasix 20mg iv q12h. He is diuresing well. Renal function improving. Ct abd/pelvis performed yesterday had shown RLL cavitary lesion Vitals/I&O/Wt Last Vital Signs Temp 98.1 F 02/01/22 15:16 Pulse 89 02/01/22 20:29 Resp 15 02/01/22 20:29 BP 115/70 02/01/22 20:00 Pulse Ox 97 02/01/22 20:29 O2 Del Method 02/01/22 20:29 O2 Flow Rate 3 02/01/22 20:29 02/01/22 02/01/22 02/01/22 06:59 14:59 22:59 Intake Total 399.792 / 2466.700 147.044 / 147.044 350 / 497.044 Output Total 5850 / 6800 1500 / 1500 2300 / 3800 Balance -5450.208 / -4333.300 -1352.956 / -1352.956 -1950 / -3302.956 Weight last 48 hrs Weight 90.492 kg Weight 90.083 kg Weight 90.083 kg Weight 90.718 kg Physical Exam Narrative: General: No acute distress, AO x2, sitting comfortably in chair HEENT: PERRLA, pupils bilaterally equal and reactive, pallors not present Chest: Normal vesicular breath sounds, no added sounds, equal good air entry bilaterally CVS: S1-S2 regular, no murmurs, no tachycardia, no gallops, no rubs Abdomen: Soft, nontender, no organomegaly, bowel sounds present Neuro: No focal deficits, no facial deformity, AO x2, power 5/5 in all limbs Extremities: b/l LE pitting edema Urinary Catheter Management: Oconnell Latex: Cath Placed During This Visit: yes Reason for Continuing Indwelling Catheter: Accurate Measurement of Urinary Output in Critically Ill Patients Urinary Catheter Date of Insertion: 01/31/22 Urinary Catheter Time of Insertion: 06:25 Data : 02/01/22 08:36 02/01/22 08:36 Other Labs: Radiology Impressions Chest X-Ray 01/31/22 00:53 IMPRESSION: 1. Background of emphysema, bronchiectasis and pulmonary fibrosis. Superimposed interstitial pneumonitis cannot be entirely excluded. 2. Strandy opacities in the lower hemithoraces likely represents atelectasis. Head CT 01/31/22 00:53 IMPRESSION: There are no acute intracranial findings. Stable head CT compared with 07/09/2021. Abdomen/Pelvis CT 01/31/22 09:46 IMPRESSION: 1. Bilateral perinephric stranding with no hydronephrosis or obstruction identified. These changes can be seen with chronic or acute polynephritis. 2. Solid cavitary mass at the RIGHT lung base extending into the paraesophageal fat. Mass measures 5.0 x 10.1 cm. Differential includes neoplasm with central cavitation, developing lung abscess which may be related to aspiration pneumonia. Recommend bronchoscopy for further evaluation. Adjacent peribronchial thickening may be lymphangitic spread of tumor. Laboratory Results WBC 10.6 10^3/uL (4.0-10.0) H 02/01/22 08:36 RBC 2.63 10^6/uL (4.1-5.3) L 02/01/22 08:36 Hgb 8.8 g/dL (11.7-16.6) L 02/01/22 08:36 Hct 26.4 % (42.0-52.0) L 02/01/22 08:36 MCV 100.4 fl (80-94) H 02/01/22 08:36 MCH 33.5 pg (28.0-34.0) 02/01/22 08:36 MCHC 33.3 g/dL (30.0-36.0) 02/01/22 08:36 RDW 14.1 % (12.1-15.1) 02/01/22 08:36 Plt Count 275 10^3/cmm (130-400) 02/01/22 08:36 MPV 10.3 fL (7.4-10.4) 02/01/22 08:36 Neut % (Auto) 82.3 % 02/01/22 08:36 Lymph % (Auto) 8.1 % 02/01/22 08:36 [place] % (Auto) 8.0 % 02/01/22 08:36 Eos % (Auto) 0.7 % 02/01/22 08:36 Baso % (Auto) 0.3 % 02/01/22 08:36 Neut # (Auto) 8.70 10^3/uL (1.8-7.7) H 02/01/22 08:36 Lymph # (Auto) 0.9 10^3/uL (0.8-4.8) 02/01/22 08:36 [place] # (Auto) 0.8 10^3/uL (0.2-0.9) 02/01/22 08:36 Eos # (Auto) 0.1 10^3/uL (0.0-0.8) 02/01/22 08:36 Baso # (Auto) 0.0 10^3/uL (0.0-0.1) 02/01/22 08:36 Nucleated RBC % (auto) 0 % 02/01/22 08:36 Nucleated RBCs # 0.0 /100WBC 02/01/22 08:36 PT 14.70 SECONDS (12.1-14.9) 01/31/22 00:50 INR 1.11 (0.8-1.2) 01/31/22 00:50 Sodium 134 mmol/L (136-145) L 02/01/22 08:36 Potassium 3.6 mmol/L (3.5-5.1) 02/01/22 08:36 Chloride 91 mmol/L (98-107) L 02/01/22 08:36 Carbon Dioxide 33 mmol/L (22-29) H 02/01/22 08:36 Anion Gap 13.6 (5-19) 02/01/22 08:36 BUN 16 mg/dL (8-23) 02/01/22 08:36 Creatinine 0.9 mg/dL (0.7-1.2) 02/01/22 08:36 GFR Calculation 83.7 mL/min (90-130) L 02/01/22 08:36 Glucose 130 mg/dL (65-115) H 02/01/22 08:36 Calculated Osmolality 281 mOsm/kg (285-295) L 02/01/22 08:36 Lactate 0.9 mmol/L (0.5-2.2) 01/31/22 04:09 Calcium 9.5 mg/dL (8.5-10.5) 02/01/22 08:36 Magnesium 1.3 mg/dL (1.7-2.3) L 02/01/22 08:36 Iron 13 ug/dL (59-158) L 01/31/22 05:55 TIBC 145 mcg/dl 01/31/22 05:55 % Saturation 8.9 % (20-50) L 01/31/22 05:55 Unsat Iron Binding 132 ug/dL (112-347) 01/31/22 05:55 Total Bilirubin 0.2 mg/dL (0.15-1.2) 02/01/22 08:36 AST 30 U/L (0-40) 02/01/22 08:36 ALT 13 U/L (0-41) 02/01/22 08:36 Alkaline Phosphatase 121 IU/L (40-130) 02/01/22 08:36 Ammonia 20 umol/L (16-60) 01/31/22 01:10 Troponin T Baseline 13 ng/L (0-15) 01/31/22 00:50 Troponin T Hi Sens 6Hr 10.63 ng/L (0-15) 01/31/22 05:55 Troponin T Hi Sens 6Hr Delta -2.37 ng/L (0-12) L 01/31/22 05:55 NT-Pro-B Natriuret Pep 4663 pg/mL (0-125) H 01/31/22 00:50 Total Protein 6.5 g/dL (6.6-8.7) L 02/01/22 08:36 Albumin 3.2 g/dL (3.5-5.2) L 02/01/22 08:36 Globulin 3.3 g/dL (1.3-4.6) 02/01/22 08:36 Lipase 9 U/L (13-60) L 01/31/22 00:50 Procalcitonin 0.53 ng/mL (0-0.5) H 01/31/22 05:55 Urine Color Yellow (Yellow) 01/31/22 03:23 Urine Appearance Sl hazy (CLEAR) 01/31/22 03:23 Urine pH 5 (5-7) 01/31/22 03:23 Ur Specific [place] 1.020 (1.005-1.030) 01/31/22 03:23 Urine Protein Neg (Negative) 01/31/22 03:23 Urine Glucose (UA) Norm (Normal) 01/31/22 03:23 Urine Ketones Negative (Negative) 01/31/22 03:23 Urine Blood 3+ (Negative) H 01/31/22 03:23 Urine Nitrate Negative (Negative) 01/31/22 03:23 Urine Bilirubin Neg (Negative) 01/31/22 03:23 Urine Urobilinogen Neg mg/dL (Negative) 01/31/22 03:23 Ur Leukocyte Esterase Negative (Negative) 01/31/22 03:23 Urine RBC 5-10 /hpf (0-2) H 01/31/22 03:23 Urine WBC 5-10 /hpf (0-5) H 01/31/22 03:23 Ur Squamous Epith Cells 5-10 /hpf (0-5) H 01/31/22 03:23 Amorphous Sediment 1+ /hpf 01/31/22 03:23 Urine Bacteria Trace /hpf (NONE) 01/31/22 03:23 Urine Mucus 1+ /hpf 01/31/22 03:23 U Random Total Protein 50 mg/dL 01/31/22 06:35 Ur Random Sodium 29 mmol/L 01/31/22 06:35 Urine Creatinine 140 mg/dL (39-259) 01/31/22 06:35 Coronavirus 229E (PCR) Not detected (NOT DETECT) 01/31/22 09:50 SARS-CoV-2 (PCR) Not detected (NOT DETECT) 01/31/22 09:50 Blood Type O Positive 01/31/22 01:40 Rho(D) Type Positive 01/31/22 01:40 Antibody Screen Negative 01/31/22 01:40 Micro: Microbiology 01/31/22 14:00 Gram Stain - Final Sputum - Endotracheal Tube Aspirate Sputum Culture - Preliminary 01/31/22 01:35 Blood Culture - Preliminary Blood NEGATIVE TO DATE 01/31/22 01:40 Blood Culture - Preliminary Blood NEGATIVE TO DATE A&P Assessment and plan (1) Acute confusion: improving Status: Acute (2) Multifocal atrial tachycardia: Status: Acute (3) Anxiety: Status: Acute (4) Major neurocognitive disorder as late effect of traumatic brain injury with behavioral disturbance: Status: Acute (5) COPD (chronic obstructive pulmonary disease): Status: Acute (6) Pneumonia: Status: Acute Qualifiers: Laterality: right Lung location: lower lobe of lung Pneumonia type: due to unspecified organism Qualified Code(s): J18.9 - Pneumonia, unspecified organism Plan #Altered mental status on underlying dementia #Septic shock, shock now improving , likely from lung abscess vs post obstrcutive pneumonia #Acute kidney injury, improving #COPD, not currently exacerbated #Hyponatremia, improving #Hx of Alcohol abuse but quit since last hospital stay #Anemia - CT abd/pelvis perfromed yesterday revealed RLL cavitary lesion which may represent abscess vs malignancy. Obtain dedicated chest imaging. - Continue on vanc and zosyn emprically - check sputum cx and gram stain, MRSA nasal screen - home medication list obtained and reconciled. - He is more calm today, titrated off precedex. continue seroquel - hyponatremia likely SIADH - Taken off fluids as had developed signs of fluid overload incl rales on exam and LE edema. Currently on lasix 20mg iv q12h, diuresing well, monitor closely, will attempt to titrate off lasix. DVT prophylaxis: SCDs Code status: DNR/DNI has guardianship. Attestations Medical Necessity Statement*: ongoing need for iv abx, lung abscess vs mass, may be moved out of ICU to med/surg if remains off precedex Coding Level of Care Code Acute Monomer Recovery Operator for [facility]g Fwd Diagnoses Acute confusion R41.0 Multifocal atrial tachycardia I47.1 Anxiety F41.9 Major neurocognitive disorder as late effect of traumatic brain injury with behavioral disturbance S06.9X9S; F02.81 COPD (chronic obstructive pulmonary disease) J44.9 Pneumonia J18.9 Laterality: right Lung location: lower lobe of lung Pneumonia type: due to unspecified organism
[2022-02-01] MEDS: tizanidine 4 mg Tablet PO (13:31)
[2022-02-01] MEDS: vancomycin 1,500 MG/300 ML PIGGYBACK 200 MG IV (13:53)
--- NOTE | 2022-02-01 15:29 | CTR_ITS ---
PROCEDURE INFORMATION: Exam: CT Chest Without Contrast; Diagnostic Exam date and time: 02/01/2022 4:24 PM Age: 71 years old Clinical indication: Abnormal findings; Abnormal radiologic exam of lung or chest; Additional info: Lung abscess noted on abdomen imaging TECHNIQUE: Imaging protocol: Diagnostic computed tomography of the chest without contrast. Radiation optimization: All CT scans at this facility use at least one of these dose optimization techniques: automated exposure control; mA and/or kV adjustment per patient size (includes targeted exams where dose is matched to clinical indication); or iterative reconstruction. COMPARISON: CT chest con [id number] 03/06/2017 3:06 PM RADIATION DOSE METRICS: Total DLP (mGy-cm): 610.17 FINDINGS: Lungs: Severe centrilobular emphysema with scattered interstitial scarring. 6.0 x 10.0 x 11.4 cm irregular thick-walled cavitary mass in the central and posteromedial right lower lobe with extension to the posterior hilum. There is encasement and narrowing of left lower lobe bronchi by the mass. Ground-glass halo in the right lower lobe surrounding the mass. Pleural spaces: Small right and trace left pleural effusions. Heart: Coronary artery calcifications. The heart size is normal. Lymph nodes: Prominent mediastinal and hilar lymph nodes are most likely reactive. Vasculature: Unremarkable. No aortic aneurysm. Bones/joints: Unremarkable. No acute fracture. Soft tissues: Unremarkable. CT/CT chest wo con [id number] IMPRESSION: 1. 11.4 cm irregular thick-walled cavitary lesion in the right lower lobe. This is highly suspicious for malignant neoplasm. Pneumonia with abscess formation is considered less likely. Highly suspicious nodule(s). Consider non-emergent PET/CT, or tissue sampling.(Reference: Carlos) 2. Ground-glass halo in the right lower lobe surrounding the mass. This could represent postobstructive pneumonitis. 3. Severe emphysema with scattered scarring. 4. Small right and trace left pleural effusions. References: Carlos Villaseñor et al. Guidelines for Management of Incidental Pulmonary Nodules Detected on CT Images: From the Fleischner Society 2017. Radiology. 2017;284(1):228-243.
--- NOTE | 2022-02-01 18:25 | PC.NURSE ---
Shift Summary Titrated precadex down and turned off this morning. Pt oriented to self and location, unable to correctly answer other orientation questions. Has 1:1 sitter at bedside. Pt tried to get up and did not follow safety instructions throughout shift but was easy to reorientate. Up to chair for meals. Pts strength is improving. Pt was worried about a metal intake rn that was his brothers. The intake rn is in his belongings bag with his pants and shirt.
[2022-02-01] MEDS: metoprolol succinate ER (24 HR) 25 mg Tablet PO (20:34)
[2022-02-01] MEDS: divalproex DR 500 mg Tablet PO (20:34)
[2022-02-01] MEDS: quetiapine 100 mg Tablet 200 MG PO (20:34)
[2022-02-02] VITALS (27 sets, daily range): BP systolic 105–157; BP diastolic 59–106; PULSE 78–126; RESP 13–27; TEMP 36.4–37.2; O2SAT 93–99
[2022-02-02] MEDS: piperacillin-tazobactam 3.375 GM in sodium chloride 0.9% (plus) 50 ML IV ×3 (03:54→20:23)
[2022-02-02] MEDS: FUROsemide 10 mg/mL SDV 2mL 20 MG IVP (03:54)
[2022-02-02] MEDS: vancomycin 1,500 MG/300 ML PIGGYBACK 200 MG IV (03:55)
[2022-02-02] MEDS: pantoprazole DR 40 mg Tablet PO (05:59)
[2022-02-02 07:07] LABS: Basophils % 0.4 %; Eosinophils # 0.1 10^3/uL (0.0-0.8); Eosinophils % 1.2 %; Hematocrit 26.2 % (42.0-52.0); Hemoglobin 8.7 g/dL (11.7-16.6); Lymphocytes # 0.7 10^3/uL (0.8-4.8); Lymphocytes % 6.9 %; Mean Corpuscular HGB Conc 33.2 g/dL (30.0-36.0); Mean Corpuscular Hemoglobin 33.5 pg (28.0-34.0); Mean Corpuscular Volume 100.8 fl (80-94); Mean Platelet Volume 9.2 fL (7.4-10.4); Monocytes # 1.1 10^3/uL (0.2-0.9); Monocytes % 10.4 %; Neutrophils # 8.25 10^3/uL (1.8-7.7); Neutrophils % 80.2 %; Nucleated Red Blood Cells % 0 %; Platelet Count 265 10^3/cmm (130-400); Red Cell Distribution Width 14.2 % (12.1-15.1); White Blood Count 10.3 10^3/uL (4.0-10.0)
[2022-02-02 07:32] LABS: Alanine Aminotransferase 15 U/L (0-41); Albumin Level 3.2 g/dL (3.5-5.2); Alkaline Phosphatase 106 IU/L (40-130); Aspartate Amino Transferase 22 U/L (0-40); Blood Urea Nitrogen 10 mg/dL (8-23); Calcium 9.6 mg/dL (8.5-10.5); Carbon Dioxide 38 mmol/L (22-29); Chloride 88 mmol/L (98-107); Globulin 3.3 g/dL (1.3-4.6); Glomerular Filtration Rate 95.8 mL/min (90-130); Glucose 107 mg/dL (65-115); Osmolality Calculated 278 mOsm/kg (285-295); Sodium 134 mmol/L (136-145); Total Bilirubin 0.2 mg/dL (0.15-1.2); Total Protein 6.5 g/dL (6.6-8.7)
[2022-02-02] MEDS: ipratropium-albuterol 3 mL Neb INHALATION ×4 (07:39→19:58)
[2022-02-02] MEDS: gabapentin 300 mg Capsule PO ×3 (08:57→20:23)
[2022-02-02] MEDS: quetiapine 100 mg Tablet 50 MG PO ×2 (08:58→20:23)
[2022-02-02] MEDS: naltrexone hcl 50 mg Tablet PO (08:58)
[2022-02-02] MEDS: nicotine 21 mg Patch 1 PATCH TRANSDERMA (08:59)
[2022-02-02] MEDS: acetaminophen 325 mg Tablet 650 MG PO ×3 (09:03→23:35)
--- NOTE | 2022-02-02 09:27 | P.PN_ITS ---
Subjective Subjective: Afebrile. Reports some back and neck pain but otherwise feels improved. Blood pressure ranging between 1 40-1 50 systolic. Tachycardia up to 140/min, multifocal atrial tachycardia on telemetry review. Patient has not had any bowel movement since arrival at the hospital. He remains off the Precedex since 12 PM yesterday. Currently he is alert awake and oriented, able to have a conversation. He is calm. ARPIT remains resolved, creatinine is at 0.8. Urine output at 8 L. Net -8.5 L since admission. Vitals/I&O/Wt Last Vital Signs Temp 97.6 F 02/02/22 04:00 Pulse 106 H 02/02/22 07:41 Resp 16 02/02/22 07:41 BP 157/82 02/02/22 07:00 Pulse Ox 98 02/02/22 07:41 O2 Del Method 02/02/22 07:41 O2 Flow Rate 3 02/02/22 07:41 02/01/22 02/02/22 02/02/22 22:59 06:59 14:59 Intake Total 400 / 547.044 300 / 847.044 Output Total 2600 / 4100 3800 / 7900 Balance -2200 / -3552.956 -3500 / -7052.956 Weight last 48 hrs Weight 93.485 kg Weight 90.492 kg Physical Exam Narrative: General: No acute distress, AO x3 HEENT: PERRLA, pupils bilaterally equal and reactive, pallors not present Chest: Normal vesicular breath sounds, no added sounds, equal good air entry bilaterally CVS: S1-S2 regular, no murmurs, no tachycardia, no gallops, no rubs Abdomen: Soft, nontender, no organomegaly, bowel sounds present Neuro: No focal deficits, no facial deformity, AO x3, power 5/5 in all limbs Urinary Catheter Management: Oconnell Latex: Cath Placed During This Visit: yes Reason for Continuing Indwelling Catheter: Accurate Measurement of Urinary Output in Critically Ill Patients Urinary Catheter Date of Insertion: 01/31/22 Urinary Catheter Time of Insertion: 06:25 Data : 02/02/22 06:56 02/02/22 06:56 Micro: Microbiology 01/31/22 14:00 Gram Stain - Final Sputum - Endotracheal Tube Aspirate Sputum Culture - Preliminary A&P Assessment and plan (1) Cavitary lesion of lung: Status: Acute (2) Anemia: Status: Acute (3) Dementia: Status: Acute (4) Pneumonia: Status: Acute Qualifiers: Laterality: right Lung location: lower lobe of lung Pneumonia type: due to unspecified organism Qualified Code(s): J18.9 - Pneumonia, unspecified organism (5) Multifocal atrial tachycardia: Status: Acute (6) Major neurocognitive disorder as late effect of traumatic brain injury with behavioral disturbance: Status: Acute (7) COPD (chronic obstructive pulmonary disease): Status: Acute Plan Patient admitted overnight on January 31, 2022 with chief complaints of hypotension, dehydration, lactic acidosis, found on further evaluation to have a cavitary lung lesion which may be inventory representative of a lung abscess versus malignancy. No prior imaging in the system to compare. Additional component of postobstructive pneumonia. Oxygen requirements are currently stable at 3 L/min. Patient is on empiric treatment with piperacillin tazobactam and vancomycin. Pending sputum gram stain and culture, initial gram stain shows many white blood cells, no organisms. MRSA screen negative, will discontinue vancomycin today noted tachycardia, change metorpolol succinate to tartarate at 25mg po BID Speech gifty to assess for potential aspiration Hypokalemia, replete with po KCL D/c lasix as euvolemic, ner negative 8L today, lungs clear on auscultation Transfer out of ICU, has been off precedex since yesterday Attestations Medical Necessity Statement*: ongoing need for iv abx for pneumonia, possible lung abscess Coding Level of Care Code Acute Maintenance Of Way Foreman for [facility] Fwd Diagnoses Cavitary lesion of lung J98.4 Anemia D64.9 Dementia F03.90 Pneumonia J18.9 Laterality: right Lung location: lower lobe of lung Pneumonia type: due to unspecified organism Multifocal atrial tachycardia I47.1 Major neurocognitive disorder as late effect of traumatic brain injury with behavioral disturbance S06.9X9S; F02.81 COPD (chronic obstructive pulmonary disease) J44.9
[2022-02-02] MEDS: metoprolol tartrate 25 mg Tablet PO ×2 (09:46→20:23)
[2022-02-02] MEDS: potassium chloride ER 20 mEq Tablet 40 MEQ PO (09:46)
--- NOTE | 2022-02-02 15:30 | PC.NURSE ---
Patient complexion is noticeable more pale than this morning, and patient reports feeling tired and weak. BG is 156. temperature is 97.8. NUrse alerted Dr malave and received orders to check HGB
[2022-02-02 15:36] LABS: Glucose Point of Care 156 mg/dL (70-110)
[2022-02-02 16:34] LABS: Hemoglobin 8.9 g/dL (11.7-16.6)
--- NOTE | 2022-02-02 19:32 | PC.NURSE ---
SHift SUmmary: uneventful shift. little change throughout the day. Patient is on 2-3 L NC (baseline at home is 2L), Heart rate has been variable and occaisoanlly tachy, but better controlled now that metoprolol was started. Patient does have expiratory wheezes and crackles, but sounds are cleared after coughing. Patient has a strong cough which sounds productive, but hasn't coughed anything out. Up to a chair for all 3 meals. Patient has been alert and oriented to person, place, time, and situation and has been cooperative all day, has a history of dementia, previous shift commander nurse reported agitation at night.
[2022-02-02] MEDS: divalproex DR 500 mg Tablet PO (20:23)
[2022-02-02] MEDS: quetiapine 100 mg Tablet 200 MG PO (20:23)
[2022-02-02] MEDS: tizanidine 4 mg Tablet PO (23:35)
[2022-02-03] VITALS (16 sets, daily range): BP systolic 86–152; BP diastolic 42–89; PULSE 70–121; RESP 16–24; TEMP 36.7–37.7; O2SAT 92–97
--- NOTE | 2022-02-03 03:55 | PC.NURSE ---
Called med surg and gave report to Rebeca HERNANDEZ to assume care.
--- NOTE | 2022-02-03 04:10 | PC.NURSE ---
Pt. transferred to room 259 bed 2 via wheel chair with belongings. Tolerated well. Rebeca HERNANDEZ at bedside.
[2022-02-03 04:26] LABS: Basophils # 0.1 10^3/uL (0.0-0.1); Basophils % 0.5 %; Eosinophils # 0.3 10^3/uL (0.0-0.8); Eosinophils % 3.1 %; Hemoglobin 8.2 g/dL (11.7-16.6); Lymphocytes # 1.3 10^3/uL (0.8-4.8); Lymphocytes % 13.6 %; Mean Corpuscular HGB Conc 32.8 g/dL (30.0-36.0); Mean Corpuscular Hemoglobin 32.8 pg (28.0-34.0); Mean Platelet Volume 10.2 fL (7.4-10.4); Monocytes # 1.2 10^3/uL (0.2-0.9); Monocytes % 12.7 %; Neutrophils # 6.56 10^3/uL (1.8-7.7); Neutrophils % 68.2 %; Nucleated Red Blood Cells % 0 %; Platelet Count 252 10^3/cmm (130-400); Red Cell Distribution Width 14.1 % (12.1-15.1); White Blood Count 9.6 10^3/uL (4.0-10.0)
[2022-02-03] MEDS: piperacillin-tazobactam 3.375 GM in sodium chloride 0.9% (plus) 50 ML IV (04:48)
[2022-02-03 04:56] LABS: Vancomycin Trough 7.8 ug/mL (10-15)
[2022-02-03 05:16] LABS: Alanine Aminotransferase 20 U/L (0-41); Albumin Level 2.6 g/dL (3.5-5.2); Alkaline Phosphatase 112 IU/L (40-130); Blood Urea Nitrogen 11 mg/dL (8-23); Calcium 9.4 mg/dL (8.5-10.5); Carbon Dioxide 33 mmol/L (22-29); Chloride 90 mmol/L (98-107); Globulin 3.3 g/dL (1.3-4.6); Glomerular Filtration Rate 95.8 mL/min (90-130); Glucose 104 mg/dL (65-115); Osmolality Calculated 276 mOsm/kg (285-295); Sodium 133 mmol/L (136-145); Total Bilirubin 0.2 mg/dL (0.15-1.2); Total Protein 5.9 g/dL (6.6-8.7)
[2022-02-03 05:19] LABS: Anion Gap 13.4 (5-19); Aspartate Amino Transferase 25 U/L (0-40); Potassium 3.4 mmol/L (3.5-5.1)
--- NOTE | 2022-02-03 06:11 | NUR.SHIFT ---
Pt in bed resting, sitter at bedside, no needs were met at transfer, bed is locked and low, call light in reach
[2022-02-03] MEDS: haloperidol inj 5 mg/mL INJ 1 mL 1 MG IM (06:54)
[2022-02-03] MEDS: haloperidol inj 5 mg/mL INJ 1 mL 2 MG IM (07:03)
--- NOTE | 2022-02-03 07:06 | NUR.SHIFT ---
Pt was aggravated when he woke up, wanted to go get ciggs, got up and ams, tried to leave, doctor said to give him Haldol and that was administered, code 10 was called, pt is in bed resting now with sitter, before the Haldol pt did hit and kick the sitter
[2022-02-03] MEDS: ipratropium-albuterol 3 mL Neb INHALATION ×4 (07:45→20:45)
[2022-02-03] MEDS: metoprolol tartrate 25 mg Tablet PO ×2 (09:09→21:33)
[2022-02-03] MEDS: pantoprazole DR 40 mg Tablet PO (09:10)
[2022-02-03] MEDS: quetiapine 100 mg Tablet 50 MG PO ×2 (09:10→21:40)
[2022-02-03] MEDS: gabapentin 300 mg Capsule PO ×3 (09:10→21:33)
[2022-02-03] MEDS: nicotine 21 mg Patch 1 PATCH TRANSDERMA (09:10)
[2022-02-03] MEDS: naltrexone hcl 50 mg Tablet PO (11:27)
--- NOTE | 2022-02-03 14:16 | PC.SOCIAL ---
Pg 2 IMM Explained to pt Pg 2 IMM. No questions voiced. Provided pt a copy. Initialed, dated, & timed a copy & placed in chart.
[2022-02-03] MEDS: amoxicillin-clav 875-125 mg Tablet 1 TAB PO (17:12)
--- NOTE | 2022-02-03 17:28 | PM.PN ---
Subjective Subjective: T-max 100 Fahrenheit last night at 2 AM. Patient had an episode of acute agitation this morning for which code 10 was called. Patient is mostly lucid throughout the day alert and awake. However he tends to sundown with worsening agitation towards the evening and waking hours. states that this is his pattern even at home and agitation is most pronounced when he wakes up from sleep. He pulled out his IV line this morning, this was unable to be replaced in spite of multiple attempts. Antibiotics have now been transitioned from IV to oral. Stable hemodynamics. Sputum culture shows growth of haemophilus influenza. Medications: Reviewed: Yes Vitals/I&O/Wt Last Vital Signs Temp 98.5 F 02/03/22 16:00 Pulse 95 02/03/22 16:28 Resp 18 02/03/22 16:28 BP 152/80 02/03/22 16:00 Pulse Ox 94 02/03/22 16:28 O2 Del Method 02/03/22 16:28 O2 Flow Rate 3 02/03/22 16:28 02/03/22 02/03/22 02/03/22 06:59 14:59 22:59 Intake Total 50 / 1550 770 / 770 Output Total 5 / 5 1300 / 1300 Balance -1975 / -1825 -530 / -530 Weight last 48 hrs Weight 85.275 kg Weight 93.485 kg Physical Exam Narrative: General: No acute distress, AO x2, calm at the time of my assessment HEENT: PERRLA, pupils bilaterally equal and reactive, pallors not present Chest: Normal vesicular breath sounds, no added sounds, equal good air entry bilaterally CVS: S1-S2 regular, no murmurs, no tachycardia, no gallops, no rubs Abdomen: Soft, nontender, no organomegaly, bowel sounds present Neuro: No focal deficits, no facial deformity, AO x2, moves all extremities, ambulating in the room Urinary Catheter Management: Oconnell Latex: Cath Placed During This Visit: yes, but has since been removed by the nurse Reason for Continuing Indwelling Catheter: Decision to DC Catheter Urinary Catheter Date of Insertion: 01/31/22 Urinary Catheter Time of Insertion: 06:25 Date Urinary Catheter Removed: 02/03/22 Time Urinary Catheter Discontinued: 13:02 Data : 02/03/22 03:38 02/03/22 03:38 Micro: Microbiology 01/31/22 14:00 Gram Stain - Final Sputum - Endotracheal Tube Aspirate Sputum Culture - Final Haemophilus Influenzae 02/01/22 16:00 MRSA Culture - Final Nose A&P Assessment and plan (1) Cavitary lesion of lung: Status: Acute (2) Anemia: Status: Acute (3) Dementia: Status: Acute (4) Pneumonia: Status: Acute Qualifiers: Laterality: right Lung location: lower lobe of lung Pneumonia type: due to unspecified organism Qualified Code(s): J18.9 - Pneumonia, unspecified organism (5) Multifocal atrial tachycardia: Status: Acute (6) Major neurocognitive disorder as late effect of traumatic brain injury with behavioral disturbance: Status: Acute (7) COPD (chronic obstructive pulmonary disease): Status: Acute Plan Patient admitted overnight on January 31, 2022 with chief complaints of hypotension, dehydration, lactic acidosis, found on further evaluation to have a cavitary lung lesion which may be pharmacy sales representative of a lung abscess versus malignancy. Additional component of postobstructive pneumonia. I was able to get in touch with patient's today. She states that patient has been known to have a cavitary lesion dating back several years for which she gets annual CAT scans with his business relationship manager Dr. Palma. However he has not followed with her since the last 3 to 4 years. does not know the size of the cavitary lesion. It was thought to be related to lupus. As far as she is aware the mass has not been biopsied in the past. However patient also has a component of postobstructive pneumonia, sputum culture now also showing Haemophilus influenzae compatible with community-acquired pneumonia. He was on treatment with IV antibiotics, however has now lost IV access. We will treat him with transition to oral antibiotics Augmentin and levofloxacin. T-max of 100 Fahrenheit overnight. We will monitor him additional 24 hours for any further febrile episodes after transition to p.o. If stable anticipate discharge over the next 24 hours. Oxygen requirements are currently stable at 3 L/min. Continue metoprolol tartarate at 25mg po BID Added Haldol prn Hypokalemia, replete with po KCL Attestations Medical Necessity Statement*: Community-acquired pneumonia, febrile episode last night for which he needs ongoing monitoring. Coding Level of Care Code Acute High Value Associate for Mary Marinelli Diagnoses Cavitary lesion of lung J98.4 Anemia D64.9 Dementia F03.90 Pneumonia J18.9 Laterality: right Lung location: lower lobe of lung Pneumonia type: due to unspecified organism Multifocal atrial tachycardia I47.1 Major neurocognitive disorder as late effect of traumatic brain injury with behavioral disturbance S06.9X9S; F02.81 COPD (chronic obstructive pulmonary disease) J44.9
[2022-02-03] MEDS: divalproex DR 500 mg Tablet PO (21:33)
[2022-02-03] MEDS: quetiapine 100 mg Tablet 200 MG PO (21:34)
[2022-02-03] MEDS: acetaminophen 325 mg Tablet 650 MG PO (21:39)
[2022-02-03] MEDS: tizanidine 4 mg Tablet PO (21:40)
--- NOTE | 2022-02-03 23:57 | XRR_ITS ---
PROCEDURE INFORMATION: Exam: XR Chest Exam date and time: 02/04/2022 12:08 AM Age: 71 years old Clinical indication: Shortness of breath; Patient HX: SOB TECHNIQUE: Imaging protocol: Radiologic exam of the chest. Views: 1 view. COMPARISON: CT chest [facility] [id number] 02/01/2022 4:24 PM FINDINGS: Lungs: Severe emphysematous lung disease changes. Medial right lower lobe airspace opacification is redemonstrated. Pleural spaces: Unremarkable. No pleural effusion. No pneumothorax. Heart/Mediastinum: Unremarkable. No cardiomegaly. Bones/joints: Right shoulder surgical changes. Truncated distal right clavicle with widening of acromioclavicular joint. Right proximal humerus surgical anchors. XR/XR chest 1V portable [id number] IMPRESSION: No significant changes from comparison imaging with medial right lower lobe airspace lesion redemonstrated.
[2022-02-04] VITALS (10 sets, daily range): BP systolic 101–136; BP diastolic 63–90; PULSE 54–130; RESP 16–20; TEMP 36.3–37.2; O2SAT 92–96
[2022-02-04] MEDS: sodium chloride 0.9% 250 ML IV (00:27)
[2022-02-04] MEDS: midodrine 5 mg TABLET 10 MG PO (00:27)
--- NOTE | 2022-02-04 06:39 | NUR.SHIFT ---
Pt in bed resting, BP was low, Doctor ordered bag of 500 ML Normal Saline, BP stablized Inserted IV into Right hand for fluids, bed low and locked, call light in reach, sitter at bedside
[2022-02-04] MEDS: ipratropium-albuterol 3 mL Neb INHALATION ×3 (08:09→15:36)
[2022-02-04] MEDS: gabapentin 300 mg Capsule PO (09:39)
[2022-02-04] MEDS: naltrexone hcl 50 mg Tablet PO (09:39)
[2022-02-04] MEDS: amoxicillin-clav 875-125 mg Tablet 1 TAB PO (09:39)
[2022-02-04] MEDS: nicotine 21 mg Patch 1 PATCH TRANSDERMA (09:41)
[2022-02-04] MEDS: levoFLOXacin 500 mg Tablet PO (11:25)
[2022-02-04] MEDS: metoprolol tartrate 25 mg Tablet PO (11:26)
[2022-02-04] MEDS: quetiapine 100 mg Tablet 50 MG PO (11:26)
[2022-02-04] MEDS: acetaminophen 325 mg Tablet 650 MG PO (14:33)
[2022-02-04] MEDS: tizanidine 4 mg Tablet PO (14:33)
--- NOTE | 2022-02-04 15:01 | PM.DCS ---
Discharge Providers Date of Admission: 01/31/22 04:07 Date of Discharge: February 04, 2022 Attending Provider at Admission: Isabelle Cr MD Attending Provider at Discharge: Yanet Sharma MD Diagnoses at Discharge Discharge Diagnosis (1) Cavitary lesion of lung: Status: Acute (2) Anemia: Status: Acute (3) Dementia: Status: Acute (4) Pneumonia: Status: Acute Qualifiers: Laterality: right Lung location: lower lobe of lung Pneumonia type: due to unspecified organism Qualified Code(s): J18.9 - Pneumonia, unspecified organism (5) Multifocal atrial tachycardia: Status: Acute (6) Major neurocognitive disorder as late effect of traumatic brain injury with behavioral disturbance: Status: Acute (7) COPD (chronic obstructive pulmonary disease): Status: Acute Reason for Visit Reason for Visit: pain all over Hospital Course Hospital Course Mik Raya is a 71 year old male with past medical history of chronic obstructive pulmonary disease, hypertension, multifocal atrial tachycardia, reported dementia and alcoholism, cerebral aneurysm who was brought to ER with altered mental status. At baseline patient has dementia and no neurocognitive disorder as result of past meningitis. However brought him when he was noted to be more confused than at baseline. He was hypotensive upon arrival with blood pressure of 78/58 along with noted tachycardia. He was eventually found to have a cavitary lesion in the lung which per discussion with the is been known to be persistent for at least the past 4 to 5 years. It was previously followed with his registered dietetic technician Dr. Palma, however has not been followed up in the last 3 years. We do not have prior imaging in the system to compare if this lesion is getting bigger or smaller. He did have a component of postobstructive pneumonia as well. In the hospital he was treated with Zosyn and vancomycin, transitioned to oral Augmentin and levofloxacin for 5 days at the time of discharge. His sputum culture revealed haemophilus influenza. His hospital course was notable for agitation for which he required Precedex infusion in the ICU for about 24 hours. Thereafter he was maintained on his home dose of Seroquel and divalproex. At the time of discharge patient is awake, oriented x2-3, indicates he is at his baseline mental status. He is afebrile, leukocytosis is improved. He was seen to be ambulating within the room without difficulty. His oxygen requirement is stable at 2 L/min. Physical Exam Narrative: General: No acute distress, AO x3 HEENT: PERRLA, pupils bilaterally equal and reactive, pallors not present Chest: Normal vesicular breath sounds, no added sounds, equal good air entry bilaterally CVS: S1-S2 regular, no murmurs, no tachycardia, no gallops, no rubs Abdomen: Soft, nontender, no organomegaly, bowel sounds present Neuro: No focal deficits, no facial deformity, AO x3, power 5/5 in all limbs Extremities: no edema, clubbing or cyanosis Urinary Catheter Management: Oconnell Latex: Cath Placed During This Visit: yes, but has since been removed by the nurse Reason for Continuing Indwelling Catheter: Decision to DC Catheter Urinary Catheter Date of Insertion: 01/31/22 Urinary Catheter Time of Insertion: 06:25 Date Urinary Catheter Removed: 02/03/22 Time Urinary Catheter Discontinued: 13:02 Discharge Data Studies Completed and Pending Completed Studies During Hospitalization Category Date Time Status CT abdomen renal stone [CT kidney stone [id number]] Routine Cat Scan 01/31/22 09:[address] chest wo con [id number] Routine Cat Scan 02/01/22 15:[address] head wo con* [id number] Urgent Cat Scan 01/31/22 00:53 Completed XR chest 1V portable [id number] Routine Exams 02/03/22 23:57 Completed XR chest 1V portable [id number] Urgent Exams 01/31/22 00:53 Completed Pending at discharge Category Date Time Status Blood Culture Stat Lab 01/31/22 01:35 Results Occult Blood Stool [Immunochemical Fecal OCB] Routine Lab 01/31/22 04:30 Uncollected Radiology Impressions Head CT 01/31/22 00:53 IMPRESSION: There are no acute intracranial findings. Stable head CT compared with 07/09/2021. Abdomen/Pelvis CT 01/31/22 09:46 IMPRESSION: 1. Bilateral perinephric stranding with no hydronephrosis or obstruction identified. These changes can be seen with chronic or acute polynephritis. 2. Solid cavitary mass at the RIGHT lung base extending into the paraesophageal fat. Mass measures 5.0 x 10.1 cm. Differential includes neoplasm with central cavitation, developing lung abscess which may be related to aspiration pneumonia. Recommend bronchoscopy for further evaluation. Adjacent peribronchial thickening may be lymphangitic spread of tumor. Chest CT 02/01/22 15:29 IMPRESSION: 1. 11.4 cm irregular thick-walled cavitary lesion in the right lower lobe. This is highly suspicious for malignant neoplasm. Pneumonia with abscess formation is considered less likely. Highly suspicious nodule(s). Consider non-emergent PET/CT, or tissue sampling.(Reference: Carlos) 2. Ground-glass halo in the right lower lobe surrounding the mass. This could represent postobstructive pneumonitis. 3. Severe emphysema with scattered scarring. 4. Small right and trace left pleural effusions. References: Carlos Villaseñor et al. Guidelines for Management of Incidental Pulmonary Nodules Detected on CT Images: From the Fleischner Society 2017. Radiology. 2017;284(1):228-243. Chest X-Ray 02/03/22 23:57 IMPRESSION: No significant changes from comparison imaging with medial right lower lobe airspace lesion redemonstrated. Laboratory Results WBC 9.6 10^3/uL (4.0-10.0) 02/03/22 03:38 RBC 2.50 10^6/uL (4.1-5.3) L 02/03/22 03:38 Hgb 8.2 g/dL (11.7-16.6) L 02/03/22 03:38 Hct 25.0 % (42.0-52.0) L 02/03/22 03:38 MCV 100.0 fl (80-94) H 02/03/22 03:38 MCH 32.8 pg (28.0-34.0) 02/03/22 03:38 MCHC 32.8 g/dL (30.0-36.0) 02/03/22 03:38 RDW 14.1 % (12.1-15.1) 02/03/22 03:38 Plt Count 252 10^3/cmm (130-400) 02/03/22 03:38 MPV 10.2 fL (7.4-10.4) 02/03/22 03:38 Neut % (Auto) 68.2 % 02/03/22 03:38 Lymph % (Auto) 13.6 % 02/03/22 03:38 [place] % (Auto) 12.7 % 02/03/22 03:38 Eos % (Auto) 3.1 % 02/03/22 03:38 Baso % (Auto) 0.5 % 02/03/22 03:38 Neut # (Auto) 6.56 10^3/uL (1.8-7.7) 02/03/22 03:38 Lymph # (Auto) 1.3 10^3/uL (0.8-4.8) 02/03/22 03:38 [place] # (Auto) 1.2 10^3/uL (0.2-0.9) H 02/03/22 03:38 Eos # (Auto) 0.3 10^3/uL (0.0-0.8) 02/03/22 03:38 Baso # (Auto) 0.1 10^3/uL (0.0-0.1) 02/03/22 03:38 Nucleated RBC % (auto) 0 % 02/03/22 03:38 Nucleated RBCs # 0.0 /100WBC 02/03/22 03:38 PT 14.70 SECONDS (12.1-14.9) 01/31/22 00:50 INR 1.11 (0.8-1.2) 01/31/22 00:50 Sodium 133 mmol/L (136-145) L 02/03/22 03:38 Potassium 3.4 mmol/L (3.5-5.1) L 02/03/22 03:38 Chloride 90 mmol/L (98-107) L 02/03/22 03:38 Carbon Dioxide 33 mmol/L (22-29) H 02/03/22 03:38 Anion Gap 13.4 (5-19) 02/03/22 03:38 BUN 11 mg/dL (8-23) 02/03/22 03:38 Creatinine 0.8 mg/dL (0.7-1.2) 02/03/22 03:38 GFR Calculation 95.8 mL/min (90-130) 02/03/22 03:38 Glucose 104 mg/dL (65-115) 02/03/22 03:38 POC Glucose 156 mg/dL (70-110) H 02/02/22 15:27 Calculated Osmolality 276 mOsm/kg (285-295) L 02/03/22 03:38 Lactate 0.9 mmol/L (0.5-2.2) 01/31/22 04:09 Calcium 9.4 mg/dL (8.5-10.5) 02/03/22 03:38 Magnesium 1.3 mg/dL (1.7-2.3) L 02/01/22 08:36 Iron 13 ug/dL (59-158) L 01/31/22 05:55 TIBC 145 mcg/dl 01/31/22 05:55 % Saturation 8.9 % (20-50) L 01/31/22 05:55 Unsat Iron Binding 132 ug/dL (112-347) 01/31/22 05:55 Total Bilirubin 0.2 mg/dL (0.15-1.2) 02/03/22 03:38 AST 25 U/L (0-40) 02/03/22 03:38 ALT 20 U/L (0-41) 02/03/22 03:38 Alkaline Phosphatase 112 IU/L (40-130) 02/03/22 03:38 Ammonia 20 umol/L (16-60) 01/31/22 01:10 Troponin T Baseline 13 ng/L (0-15) 01/31/22 00:50 Troponin T Hi Sens 6Hr 10.63 ng/L (0-15) 01/31/22 05:55 Troponin T Hi Sens 6Hr Delta -2.37 ng/L (0-12) L 01/31/22 05:55 NT-Pro-B Natriuret Pep 4663 pg/mL (0-125) H 01/31/22 00:50 Total Protein 5.9 g/dL (6.6-8.7) L 02/03/22 03:38 Albumin 2.6 g/dL (3.5-5.2) L 02/03/22 03:38 Globulin 3.3 g/dL (1.3-4.6) 02/03/22 03:38 Lipase 9 U/L (13-60) L 01/31/22 00:50 Procalcitonin 0.53 ng/mL (0-0.5) H 01/31/22 05:55 Urine Color Yellow (Yellow) 01/31/22 03:23 Urine Appearance Sl hazy (CLEAR) 01/31/22 03:23 Urine pH 5 (5-7) 01/31/22 03:23 Ur Specific [place] 1.020 (1.005-1.030) 01/31/22 03:23 Urine Protein Neg (Negative) 01/31/22 03:23 Urine Glucose (UA) Norm (Normal) 01/31/22 03:23 Urine Ketones Negative (Negative) 01/31/22 03:23 Urine Blood 3+ (Negative) H 01/31/22 03:23 Urine Nitrate Negative (Negative) 01/31/22 03:23 Urine Bilirubin Neg (Negative) 01/31/22 03:23 Urine Urobilinogen Neg mg/dL (Negative) 01/31/22 03:23 Ur Leukocyte Esterase Negative (Negative) 01/31/22 03:23 Urine RBC 5-10 /hpf (0-2) H 01/31/22 03:23 Urine WBC 5-10 /hpf (0-5) H 01/31/22 03:23 Ur Squamous Epith Cells 5-10 /hpf (0-5) H 01/31/22 03:23 Amorphous Sediment 1+ /hpf 01/31/22 03:23 Urine Bacteria Trace /hpf (NONE) 01/31/22 03:23 Urine Mucus 1+ /hpf 01/31/22 03:23 U Random Total Protein 50 mg/dL 01/31/22 06:35 Ur Random Sodium 29 mmol/L 01/31/22 06:35 Urine Creatinine 140 mg/dL (39-259) 01/31/22 06:35 Vancomycin Trough 7.8 ug/mL (10-15) L 02/03/22 03:38 Coronavirus 229E (PCR) Not detected (NOT DETECT) 01/31/22 09:50 SARS-CoV-2 (PCR) Not detected (NOT DETECT) 01/31/22 09:50 Blood Type O Positive 01/31/22 01:40 Rho(D) Type Positive 01/31/22 01:40 Antibody Screen Negative 01/31/22 01:40 Vitals Last Vital Signs Temp 98.9 F 02/04/22 12:00 Pulse 130 H 02/04/22 12:00 Resp 16 02/04/22 12:00 BP 136/90 02/04/22 12:00 Pulse Ox 94 02/04/22 12:00 O2 Del Method 02/04/22 12:00 O2 Flow Rate 3 02/04/22 11:30 Discharge Plan Discharge Patient Disposition: Home Condition: Stable Prescriptions: New levofloxacin 500 mg Tablet 500 mg PO DAILY@0600 5 Days Qty: 5 0RF amoxicillin-pot clavulanate 875-125 mg Tablet 1 tab PO BID 5 Days Qty: 10 0RF Continued quetiapine 100 mg tablet 200 mg PO BEDTIME Rx Instructions: TAKE WITH 50MG QUETIAPINE AT BEDTIME TO EQUAL 250 MG fluticasone propionate 50 mcg/actuation spray,suspension 2 spray INTRANASAL DAILY PRN (Reason: Allergy Symptoms) gabapentin 300 mg capsule 300 mg PO TID quetiapine [Seroquel] 50 mg Tablet 50 mg PO BID@,21 Rx Instructions: TAKE 50 mg ORALLY IN THE MORNING AND 50MG SECOND DOSE WITH 200 MG QUETIAPINE TO EQUAL 250MG AT BEDTIME fluticasone furoate-vilanterol [Breo Ellipta] 200-25 mcg/dose blister with device 1 inh INHALATION QAM albuterol sulfate 90 mcg/actuation HFA aerosol inhaler 2 puff INHALATION Q4H PRN (Reason: Shortness Of Breath) pantoprazole [Protonix] 40 mg Tablet,Delayed Release (Dr/Ec) 40 mg PO QAM naltrexone 50 mg tablet 50 mg PO DAILY@09 divalproex 500 mg tablet,delayed release (DR/EC) 500 mg PO BEDTIME divalproex 250 mg tablet extended release 24 hr 250 mg PO BID@,15 tizanidine 4 mg tablet 4 mg PO Q8H PRN (Reason: Muscle Spasm) Changed metoprolol succinate 25 mg Tablet Extended Release 24 Hr 50 mg PO BEDTIME 30 Days Qty: 30 0RF Discontinued multivitamin Tablet 1 tab PO QAM acetaminophen [Tylenol Extra Strength] 500 mg Tablet 1,000 mg PO Q6H PRN (Reason: Pain) Nuedexta 20-10 mg Capsule 1 cap PO DAILY@09 diclofenac sodium 75 mg Tablet,Delayed Release (Dr/Ec) 75 mg PO BID promethazine 12.5 mg tablet 12.5 mg PO Q6H PRN (Reason: Nausea) ibuprofen 200 mg Tablet 600 mg PO Q6H PRN (Reason: Pain) Discharge Orders: Discharge Order (Routine); Ordered 02/04/22 Ordered By: Yanet Sharma Referrals: primary care,provider [Other] - 7-10 days [facility], [Staff Physician] - 2 weeks (anxiety disorder, PTSD) Santo Victor MD [Physician] - 2 weeks (cavitary lung lesion ) Discharge Diet: Usual diet Discharge Activity: Resume usual activity Patient Instructions: Opioid Safety Discharge Attestations Time Spent in Discharge Care*: less than 30 min Quality Metrics Clinical Quality Measures [ No reported AMI, CVA or VTE this stay] Coding Level of Care Code Acute Chg FW DC note Diagnoses Cavitary lesion of lung J98.4 Anemia D64.9 Dementia F03.90 Pneumonia J18.9 Laterality: right Lung location: lower lobe of lung Pneumonia type: due to unspecified organism Multifocal atrial tachycardia I47.1 Major neurocognitive disorder as late effect of traumatic brain injury with behavioral disturbance S06.9X9S; F02.81 COPD (chronic obstructive pulmonary disease) J44.9
== END 2022-02-04 17:25 | disposition home or self-care (01) | DRG 871 ==
LOC: ER 04:07 → ICU 04:39 → MEDSURG 02-03 04:09
PROVIDERS: Admitting Provider Internal Medicine; Emergency Provider Emergency Medicine; Visit Provider Student in an Organized Health Care Education/Training Program
DX: A41.3 Sepsis due to Hemophilus influenzae (principal); J14 Pneumonia due to Hemophilus influenzae; R65.21 Severe sepsis with septic shock; N17.0 Acute kidney failure with tubular necrosis; F03.91 Unspecified dementia, unspecified severity, with behavioral disturbance; E87.1 Hypo-osmolality and hyponatremia; I95.9 Hypotension, unspecified; J43.9 Emphysema, unspecified; I10 Essential (primary) hypertension; F10.21 Alcohol dependence, in remission; J84.10 Pulmonary fibrosis, unspecified; M06.9 Rheumatoid arthritis, unspecified; F17.210 Nicotine dependence, cigarettes, uncomplicated; E86.0 Dehydration; Z87.820 Personal history of traumatic brain injury; F41.9 Anxiety disorder, unspecified; R19.7 Diarrhea, unspecified; Z79.51 Long term (current) use of inhaled steroids; J98.4 Other disorders of lung; D63.8 Anemia in other chronic diseases classified elsewhere
CPT/HCPCS: 36415; 36416; 51702; 70450; 71045; 71250; 74176; 80053; 80202; 81001; 82140; 82570; 82962; 83540; 83550; 83605; 83690; 83735; 83880; 84145; 84156; 84300; 84484; 85018; 85025; 85610; 86850; 86900; 87040; 87070; 87205; 87635; 87641; 92523; 92610; 93005; 94640; 94664; 96365; 96367; 96372; 99285; C9113; J1630; J1940; J2543; J3370; J7030; J7040; J7050

== ENCOUNTER 2022-02-07 09:35 | Inpatient (IN) | payer MEDICARE, MEDICAID, SELFPAY ==
[2022-02-07] VITALS (7 sets, daily range): BP systolic 107–133; BP diastolic 60–82; PULSE 98–105; RESP 14–25; TEMP 36.6–36.8; O2SAT 91–95; BMI 28.8
--- NOTE | 2022-02-07 11:10 | XRR_ITS ---
PROCEDURE INFORMATION: Exam: XR Chest Exam date and time: 02/07/2022 11:25 AM Age: 71 years old Clinical indication: Cough and dyspnea; Patient HX: PT states he just not feeling well. Was in er last week as well for the same thing. Not feeling well x 2wks. HX of copd SOB; Additional info: Dyspnea/cough TECHNIQUE: Imaging protocol: Radiologic exam of the chest. Views: 1 view. COMPARISON: CR (CHEST, ) 02/04/2022 12:08 AM FINDINGS: Right middle lobe parenchymal consolidation is seen consistent with pneumonia these findings were present on prior examination and shows decreased conspicuity. Pleural spaces: Unremarkable. No pleural effusion. No pneumothorax. Heart/Mediastinum: Unremarkable. No cardiomegaly. Bones/joints: Metallic orthopedic pin is seen in the right humerus. XR/XR chest 1V portable [id number] IMPRESSION: 1. Right middle lobe pneumonia 2. Metallic pins proximal right humeral head
--- NOTE | 2022-02-07 11:13 | W.ED.GENADLT ---
HPI - General Adult General: Chief complaint: General Medical Stated complaint: cough, SOB Time Seen by Provider: 02/07/22 11:09 Source: patient Mode of arrival: ambulatory Limitations: no limitations History of Present Illness: 71 yo male with a history of COPD who presents emergency complaining cough and shortness of breath he was discharged from the hospital 3 days ago where he was admitted for COPD exacerbation and pneumonia. He also has some mild dementia. He did not sleep well last night due to some increased confusion generalized body aches and shortness of breath. He is not currently on any oxygen but he does use it at night at 2 L/min. He was discharged home on amoxicillin clavulanic acid. He is also been using albuterol at home. They report no fever at home. He did report some chest discomfort last night. 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 Multifocal atrial tachycardia Rheumatoid arthritis Suicidal ideation (~04/2021) Surgical History (Updated 02/07/22 @ 14:29 by Remedios Sanchez MD) History of cerebral aneurysm repair x2 History of exploratory laparotomy Family History Mother Diabetes Social History Smoking and tobacco status: current every day smoker cigarettes Packs smoked per day: 1 Years cigarettes smoked: 61 Quit status (tobacco): has tried quititng Number of times tried to quit tobacco: 1 Second hand smoke exposure: Yes Smoking risk assessment/counseling performed?: Yes Tobacco counseling given: counseling >3 minutes Course Vital Signs: Vital signs: Vital Signs Temperature 97.9 F 02/07/22 09:57 Pulse Rate 102 H 02/07/22 15:34 Respiratory Rate 19 H 02/07/22 15:34 Blood Pressure 133/65 02/07/22 15:34 Pulse Oximetry 95 02/07/22 15:34 Oxygen Delivery Me thod 02/07/22 15:34 MDM - General Adult Medical Decision Making Patient has new right middle lobe pneumonia as well exacerbation of COPD he is also mildly anemic and has a cystitis. Discussed with hospitalist orders written will start on Zosyn. Medical Records I reviewed the patient's medical records. Lab Data I reviewed the patient's lab results. : 02/07/22 11:44 02/07/22 11:44 Radiology Impressions Chest X-Ray 02/07/22 11:10 IMPRESSION: 1. Right middle lobe pneumonia 2. Metallic pins proximal right humeral head Laboratory Results WBC 14.4 10^3/uL (4.0-10.0) H 02/07/22 11:44 RBC 2.34 10^6/uL (4.1-5.3) L 02/07/22 11:44 Hgb 7.6 g/dL (11.7-16.6) L 02/07/22 11:44 Hct 24.5 % (42.0-52.0) L 02/07/22 11:44 MCV 104.7 fl (80-94) H 02/07/22 11:44 MCH 32.5 pg (28.0-34.0) 02/07/22 11:44 MCHC 31.0 g/dL (30.0-36.0) 02/07/22 11:44 RDW 14.3 % (12.1-15.1) 02/07/22 11:44 Plt Count 361 10^3/cmm (130-400) 02/07/22 11:44 MPV 9.8 fL (7.4-10.4) 02/07/22 11:44 Neut % (Auto) 77.4 % 02/07/22 11:44 Lymph % (Auto) 12.0 % 02/07/22 11:44 Placer % (Auto) 6.6 % 02/07/22 11:44 Eos % (Auto) 1.3 % 02/07/22 11:44 Baso % (Auto) 0.3 % 02/07/22 11:44 Neut # (Auto) 11.14 10^3/uL (1.8-7.7) H 02/07/22 11:44 Lymph # (Auto) 1.7 10^3/uL (0.8-4.8) 02/07/22 11:44 Placer # (Auto) 1.0 10^3/uL (0.2-0.9) H 02/07/22 11:44 Eos # (Auto) 0.2 10^3/uL (0.0-0.8) 02/07/22 11:44 Baso # (Auto) 0.1 10^3/uL (0.0-0.1) 02/07/22 11:44 Nucleated RBC % (auto) 0 % 02/07/22 11:44 Nucleated RBCs # 0.0 /100WBC 02/07/22 11:44 Specimen Type Arterial 02/07/22 11:15 Sample Site Radial, left 02/07/22 11:15 ABG pH 7.46 (7.35-7.45) H 02/07/22 11:15 ABG pCO2 39.3 mmHg (35-45) 02/07/22 11:15 ABG pO2 65.3 mmHg (80.0-100.0) L 02/07/22 11:15 ABG HCO3 27.9 mmol/L (22-26) H 02/07/22 11:15 ABG O2 Saturation 94.2 02/07/22 11:15 ABG Base Excess 3.7 mmol/L (-2.0-2.0) H 02/07/22 11:15 Rayray Test Pos 02/07/22 11:15 A-a O2 Gradient 4.6 mmHg (5-10) L 02/07/22 11:15 Hematocrit 24.2 % (42-52) L 02/07/22 11:15 Hgb O2 Saturation 91.0 % (95-100) L 02/07/22 11:15 Carboxyhemoglobin 2.9 %THgb (0.4-20.1) 02/07/22 11:15 Methemoglobin 0.4 % (0.4-1.5) 02/07/22 11:15 Total Hemoglobin 7.9 g/dL (14-18) L 02/07/22 11:15 Sodium 135.0 mmol/L (131-143) 02/07/22 11:15 Potassium 3.6 mmol/L (3.5-5.0) 02/07/22 11:15 Glucose 102.0 mg/dL (70-115) 02/07/22 11:15 Ionized Calcium 1.3 mmol/L (1.1-1.4) 02/07/22 11:15 O2 Delivery Device Room air 02/07/22 11:15 FiO2 21.0 % 02/07/22 11:15 Medical Social Worker ID Ed 02/07/22 11:15 Sodium 134 mmol/L (136-145) L 02/07/22 11:44 Potassium 3.8 mmol/L (3.5-5.1) 02/07/22 11:44 Chloride 93 mmol/L (98-107) L 02/07/22 11:44 Carbon Dioxide 25 mmol/L (22-29) 02/07/22 11:44 Anion Gap 19.8 (5-19) H 02/07/22 11:44 BUN 15 mg/dL (8-23) 02/07/22 11:44 Creatinine 0.9 mg/dL (0.7-1.2) 02/07/22 11:44 GFR Calculation 83.7 mL/min (90-130) L 02/07/22 11:44 Glucose 92 mg/dL (65-115) 02/07/22 11:44 Calculated Osmolality 278 mOsm/kg (285-295) L 02/07/22 11:44 Calcium 9.8 mg/dL (8.5-10.5) 02/07/22 11:44 Total Bilirubin 0.2 mg/dL (0.15-1.2) 02/07/22 11:44 AST 15 U/L (0-40) 02/07/22 11:44 ALT 24 U/L (0-41) 02/07/22 11:44 Alkaline Phosphatase 159 U/L (40-130) H 02/07/22 11:44 Creatine Kinase 69 U/L (39-308) 02/07/22 11:44 Troponin T Baseline 7 ng/L (0-15) 02/07/22 11:44 NT-Pro-B Natriuret Pep 1185 pg/mL (0-125) H 02/07/22 11:44 Total Protein 7.0 g/dL (6.6-8.7) 02/07/22 11:44 Albumin 3.0 g/dL (3.5-5.2) L 02/07/22 11:44 Globulin 4.0 g/dL (1.3-4.6) 02/07/22 11:44 Procalcitonin 0.18 ng/mL (0-0.5) 02/07/22 11:44 Urine Color Dark yellow (Yellow) 02/07/22 12:09 Urine Appearance Clear (CLEAR) 02/07/22 12:09 Urine pH 5 (5-7) 02/07/22 12:09 Ur Specific Bivins 1.010 (1.005-1.030) 02/07/22 12:09 Urine Protein Neg (Negative) 02/07/22 12:09 Urine Glucose (UA) Norm (Normal) 02/07/22 12:09 Urine Ketones Negative (Negative) 02/07/22 12:09 Urine Blood 2+ (Negative) H 02/07/22 12:09 Urine Nitrate Negative (Negative) 02/07/22 12:09 Urine Bilirubin Neg (Negative) 02/07/22 12:09 Urine Urobilinogen Norm mg/dL (Negative) 02/07/22 12:09 Ur Leukocyte Esterase Trace (Negative) H 02/07/22 12:09 Urine RBC 0-4 /hpf (0-2) H 02/07/22 12:09 Urine WBC 5-10 /hpf (0-5) H 02/07/22 12:09 Ur Squamous Epith Cells None /hpf (0-5) 02/07/22 12:09 Amorphous Sediment Not Reportable 02/07/22 12:09 Urine Bacteria 1+ /hpf (NONE) H 02/07/22 12:09 Discharge Plan Discharge Patient Disposition: Admitted As Inpatient Admit Provider: Remedios Sanchez Clinical Impression: Pneumonia, Dementia, COPD (chronic obstructive pulmonary disease), Anemia, Cystitis Condition: Stable Coding Level of Care Code ED Parking Lot Attendant for Mary Marinelli
--- NOTE | 2022-02-07 11:24 | ECG_ITS ---
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 Measurements Intervals [place] Rate: 101 P: 49 MS: 130 QRS: 34 QRSD: 88 T: 36 QT: 331 QTc: 429 Interpretive Statements SINUS TACHYCARDIA WITH FREQUENT SUPRAVENTRICULAR PREMATURE COMPLEXES ABNORMAL RHYTHM ECG Compared to ECG 01/31/2022 06:14:17 Atrial fibrillation no longer present Electronically Signed On 02-07-2022 13:11:15 CDT by Edouard Tuttle M.D. [email or web address]
[2022-02-07 11:25] LABS: ABG PCO2 39.3 mmHg (35-45); ABG PH Result 7.46 (7.35-7.45); Alveolar-Arterial Oxygen Gradi 4.6 mmHg (5-10); Arterial Blood Gas Hematocrit 24.2 % (42-52); Base Excess ABG 3.7 mmol/L (-2.0-2.0); Blood Gas Allen Test Pos; Blood Gas Operator Identificat ED; Blood Gas Sample Site Radial, left; Blood Gas Sample Type Arterial; Carboxyhemoglobin 2.9 %THgb (0.4-20.1); HCO3 ABG 27.9 mmol/L (22-26); Ionized Calcium Level - ABG 1.3 mmol/L (1.1-1.4); Methemoglobin 0.4 % (0.4-1.5); Oxygen Device ROOM AIR; Oxygen Saturation ABG 94.2; PO2 ABG 65.3 mmHg (80.0-100.0); Potassium Level - ABG 3.6 mmol/L (3.5-5.0); Total Hemoglobin 7.9 g/dL (14-18)
--- NOTE | 2022-02-07 11:46 | PC.NURSE ---
pt is placed on continuous spo2, NIBP, and CM
[2022-02-07 11:54] LABS: Basophils # 0.1 10^3/uL (0.0-0.1); Basophils % 0.3 %; Eosinophils # 0.2 10^3/uL (0.0-0.8); Eosinophils % 1.3 %; Hematocrit 24.5 % (42.0-52.0); Hemoglobin 7.6 g/dL (11.7-16.6); Lymphocytes # 1.7 10^3/uL (0.8-4.8); Mean Corpuscular Hemoglobin 32.5 pg (28.0-34.0); Mean Corpuscular Volume 104.7 fl (80-94); Mean Platelet Volume 9.8 fL (7.4-10.4); Monocytes % 6.6 %; Neutrophils # 11.14 10^3/uL (1.8-7.7); Neutrophils % 77.4 %; Nucleated Red Blood Cells % 0 %; Platelet Count 361 10^3/cmm (130-400); Red Blood Count 2.34 10^6/uL (4.1-5.3); Red Cell Distribution Width 14.3 % (12.1-15.1); White Blood Count 14.4 10^3/uL (4.0-10.0)
[2022-02-07] MEDS: piperacillin-tazobactam 3.375 GM in sodium chloride 0.9% (plus) 50 ML IV ×2 (12:18→17:50)
[2022-02-07 12:21] LABS: Troponin(5th) Baseline 7 ng/L (0-15)
[2022-02-07 12:23] LABS: Alanine Aminotransferase 24 U/L (0-41); Alkaline Phosphatase 159 U/L (40-130); Anion Gap 19.8 (5-19); Aspartate Amino Transferase 15 U/L (0-40); Blood Urea Nitrogen 15 mg/dL (8-23); Calcium 9.8 mg/dL (8.5-10.5); Carbon Dioxide 25 mmol/L (22-29); Chloride 93 mmol/L (98-107); Glomerular Filtration Rate 83.7 mL/min (90-130); Glucose 92 mg/dL (65-115); Osmolality Calculated 278 mOsm/kg (285-295); Potassium 3.8 mmol/L (3.5-5.1); Sodium 134 mmol/L (136-145); Total Bilirubin 0.2 mg/dL (0.15-1.2)
--- NOTE | 2022-02-07 12:43 | PC.PHAR ---
pts verified pts medications-pts states she was unaware that the diclofenac dr 75mg bid filled 12/31/21 90d/s and the nuedexta 20-10mg daily filled 12/31/21 90d/s was dced when pt was discharged on 02/04/22-notes are made in the pharmacy comments
[2022-02-07 12:46] LABS: Add Urine Microscopic? YES; Bacteria Urine 1+ /hpf; Bilirubin Urine Neg (Negative); Blood Urine 2+ (Negative); Glucose Urine UA Norm (Normal); Ketones Urine Negative (Negative); Leukocyte Esterase Urine Trace (Negative); Nitrate Urine Negative (Negative); Protein Urine Neg (Negative); RBC Urine 0-4 /hpf (0-2); Urine Appearance Clear (CLEAR); Urine Color Dark Yellow (Yellow); Urobilinogen Urine Norm (Negative); pH Urine 5 (5-7)
[2022-02-07 12:47] LABS: Add Urine Culture? No
--- NOTE | 2022-02-07 13:14 | P.HP_ITS ---
Providers/Chief Complaint Admitting Physician: Remedios Sanchez MD Primary Care Provider: Yrn Hagen Chief Complaint: cough, SOB History of Present Illness Mik Raya is a 71 year old male who presented to the emergency room with chief complaint of increasing confusion and difficulty breathing again. He was just hospitalized here last week with similar presentation. During that hospital stay he was found to have a cavitary lung mass and evidence of postobstructive pneumonia. He was treated with vancomycin and Zosyn and transitioned to Augmentin and Levaquin orally at discharge. Sputum culture revealed haemophilus influenza. indicated to providers at the time that patient has had a lung mass identified for some time that had previously been followed at rheumatology clinic but it has been some years since there has been any follow-up imaging. He carries a diagnosis of rheumatoid arthritis but is not on any chronic specific treatment for it. According to Mr. Vargas he initially felt okay when he went home. He admits to smoking at least a pack of cigarettes a day. He does not use oxygen when he is smoking but with the constant smoking his breathing has gotten worse again. He has not felt as well for the last 24 to 48 hours. According to ER provider patient's indicated that Mr. Vargas was again more confused than his baseline. Mr. Vargas did not sleep last night and appeared to have increased work of breathing and at least one reported some chest discomfort. He continues to produce sputum, yellowish in color, no blood has been noted per him. Patient's was not at the bedside during my evaluation. Attempts to call her several times throughout the day have been unsuccessful. Mr. Vargas denies any fevers, vomiting or di arrhea. No difficulty with urination. He is alert, oriented to person, place and for the most part to situation although was not able to fill in details. He is cooperative with me. ABG in the emergency room showed PO2 of 65 on room air. White count is up to 14,000. He is being admitted for continued treatment and further evaluation as indicated. Again I am unable to contact to get gabino tional details. Review of Systems Const: Reports: chills, fatigue and malaise; Denies: fever(s) Eyes: Denies: change in vision ENMT: Reports: nasal congestion; Denies: throat pain Card: Reports: chest pain (Not currently) and dyspnea on exertion; Denies: palpitations, edema or orthopnea Resp: Reports: dyspnea, productive cough, non-productive cough, wheezing, change in phlegm color (yellow) and chest congestion; Denies: pain on inspiration or hemoptysis GI: Denies: abdominal pain, nausea, vomiting, diarrhea, constipation or hematochezia : Denies: flank pain, difficulty urinating, dysuria, change in urine stream or hematuria Musc: Reports: back pain and muscle weakness; Denies: neck pain or extremity swelling Skin/Breast: Denies: rash or pruritus Neuro: Reports: weakness in extremities (Generalized), difficulty walking (Some difficulty) and confusion (According to Per ED provider); Denies: headache(s), numbness in extremities or frequent falls Psych: Denies: visual hallucinations, auditory hallucinations, tactile hallucinations, suicidal ideation or homicidal ideation Boris/Lymph: Denies: easy bruising or easy bleeding Medications/Allergies Home Medications Medication Instructions Recorded Confirmed Last Taken Type albuterol sulfate 90 mcg/actuation 2 puff inhalation Q4H PRN 07/03/20 02/07/22 07/02/20 History aerosol inhaler Shortness Of Breath fluticasone propionate 50 2 spray intranasal DAILY PRN 09/19/20 02/07/22 05/01/21 History mcg/actuation nasal Allergy Symptoms spray,suspension quetiapine 100 mg tablet 200 mg PO BEDTIME 09/19/20 02/07/22 02/06/22 History fluticasone furoate 200 1 inh inhalation QAM 05/01/21 02/07/22 02/06/22 History mcg-vilanterol 25 mcg/dose inhalation powder (Breo Ellipta) gabapentin 300 mg capsule 300 mg PO TID 05/01/21 02/07/22 02/07/22 07:00 History quetiapine 50 mg tablet (Seroquel) 50 mg PO BID@05/01/21 02/07/22 02/07/22 History pantoprazole 40 mg tablet,delayed 40 mg PO QAM 07/10/21 02/07/22 02/07/22 History release (Protonix) divalproex 250 mg tablet,extended 250 mg PO BID@01/31/22 02/07/22 02/07/22 History release 24 hr divalproex 500 mg tablet,delayed 500 mg PO BEDTIME 01/31/22 02/07/22 02/06/22 History release naltrexone 50 mg tablet 50 mg PO DAILY@09 01/31/22 02/07/22 02/07/22 History tizanidine 4 mg tablet 4 mg PO Q8H PRN Muscle Spasm 01/31/22 02/07/22 Unknown History amoxicillin 875 mg-potassium 1 tab PO BID 5 days #10 tabs 02/04/22 02/07/22 02/07/22 Rx clavulanate 125 mg tablet levofloxacin 500 mg tablet 500 mg PO DAILY@0600 5 days #5 tabs 02/04/22 02/07/22 02/06/22 Rx metoprolol succinate 25 mg 50 mg PO BEDTIME 30 days #30 tabs 02/04/22 02/07/22 02/06/22 Rx tablet,extended release 24 hr dextromethorphan 20 mg-quinidine 1 cap PO DAILY 02/07/22 02/07/22 02/06/22 History 10 mg capsule (Nuedexta) see pharmacy comment diclofenac sodium 75 mg 75 mg PO BID 02/07/22 02/07/22 02/07/22 History tablet,delayed release Allergies Allergy/AdvReac Type Severity Reaction Status Date / Time Silk sutures AdvReac Intermediate Bad abd Uncoded 07/09/21 22:44 pains PFSH Acute PFSH: Medical History (Updated 02/07/22 @ 19:00 by Remedios Sanchez MD) 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 Previously treated with methotrexate, arava, sulfasalazine, plaquenil. 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 Multifocal atrial tachycardia Nicotine dependence, cigarettes, with other nicotine-induced disorders Suicidal ideation (~04/2021) Surgical History (Updated 02/07/22 @ 18:41 by Remedios Sanchez MD) History of cerebral aneurysm repair x2 History of exploratory laparotomy Hx of repair of rotator cuff right 2011 Family History Mother Diabetes Social History (Updated 02/07/22 @ 18:32 by Remedios Sanchez MD) Smoking and tobacco status: current every day smoker cigarettes Packs smoked per day: 1 Years cigarettes smoked: 61 Quit status (tobacco): not considering quitting Second hand smoke exposure: Yes Alcohol intake: former Former alcohol use details: Has not consumed alcohol since hospitalization in June 2021 Substance/Drug Use: never Lives independently: No Household members: spouse Marital status: Vitals/I&O/Wt Last Vital Signs Temp 97.9 F 02/07/22 09:57 Pulse 101 H 02/07/22 11:17 Resp 20 H 02/07/22 12:47 BP 132/80 02/07/22 12:47 Pulse Ox 94 02/07/22 12:47 O2 Del Method 02/07/22 12:47 Weight last 48 hrs Weight 86.183 kg Physical Exam Narrative: Constitutional: Awake and alert, both chronically and acutely ill-appearing, answers questions appropriately at the time of my evaluation but not able to provide detailed history HEENT: Normocephalic, extraocular movements are intact, mucous membranes moist Neck: Supple Respiratory: Scattered wheezes throughout both lungs, left is actually currently worse than right, crackles both bases, mild supraclavicular retractions with movement around the bed Cardiovascular: Regular rhythm, no murmurs or rubs noted Abdomen: Soft, mild tenderness right lower quadrant on initial palpation not re producible on subsequent palpation, positive bowel sounds Extremities: No pitting edema Skin: Dry, evidence of recent hospitalization with some scattered minor bruises at sites of blood draws/IVs and chronic skin changes, no acute rashes Neuro: Speech clear, oriented to person, place and for the most part to situation, face symmetric, no tremor noted, strength equal x4, gait not assessed Psych: Currently normal affect, pleasant and cooperative Data : 02/07/22 11:44 02/07/22 11:44 Other Labs: Radiology Impressions Chest X-Ray 02/07/22 11:10 IMPRESSION: 1. Right middle lobe pneumonia 2. Metallic pins proximal right humeral head Laboratory Results WBC 14.4 10^3/uL (4.0-10.0) H 02/07/22 11:44 RBC 2.34 10^6/uL (4.1-5.3) L 02/07/22 11:44 Hgb 7.6 g/dL (11.7-16.6) L 02/07/22 11:44 Hct 24.5 % (42.0-52.0) L 02/07/22 11:44 MCV 104.7 fl (80-94) H 02/07/22 11:44 MCH 32.5 pg (28.0-34.0) 02/07/22 11:44 MCHC 31.0 g/dL (30.0-36.0) 02/07/22 11:44 RDW 14.3 % (12.1-15.1) 02/07/22 11:44 Plt Count 361 10^3/cmm (130-400) 02/07/22 11:44 MPV 9.8 fL (7.4-10.4) 02/07/22 11:44 Neut % (Auto) 77.4 % 02/07/22 11:44 Lymph % (Auto) 12.0 % 02/07/22 11:44 Preston % (Auto) 6.6 % 02/07/22 11:44 Eos % (Auto) 1.3 % 02/07/22 11:44 Baso % (Auto) 0.3 % 02/07/22 11:44 Neut # (Auto) 11.14 10^3/uL (1.8-7.7) H 02/07/22 11:44 Lymph # (Auto) 1.7 10^3/uL (0.8-4.8) 02/07/22 11:44 Preston # (Auto) 1.0 10^3/uL (0.2-0.9) H 02/07/22 11:44 Eos # (Auto) 0.2 10^3/uL (0.0-0.8) 02/07/22 11:44 Baso # (Auto) 0.1 10^3/uL (0.0-0.1) 02/07/22 11:44 Nucleated RBC % (auto) 0 % 02/07/22 11:44 Nucleated RBCs # 0.0 /100WBC 02/07/22 11:44 Specimen Type Arterial 02/07/22 11:15 Sample Site Radial, left 02/07/22 11:15 ABG pH 7.46 (7.35-7.45) H 02/07/22 11:15 ABG pCO2 39.3 mmHg (35-45) 02/07/22 11:15 ABG pO2 65.3 mmHg (80.0-100.0) L 02/07/22 11:15 ABG HCO3 27.9 mmol/L (22-26) H 02/07/22 11:15 ABG O2 Saturation 94.2 02/07/22 11:15 ABG Base Excess 3.7 mmol/L (-2.0-2.0) H 02/07/22 11:15 Rayray Test Pos 02/07/22 11:15 A-a O2 Gradient 4.6 mmHg (5-10) L 02/07/22 11:15 Hematocrit 24.2 % (42-52) L 02/07/22 11:15 Hgb O2 Saturation 91.0 % (95-100) L 02/07/22 11:15 Carboxyhemoglobin 2.9 %THgb (0.4-20.1) 02/07/22 11:15 Methemoglobin 0.4 % (0.4-1.5) 02/07/22 11:15 Total Hemoglobin 7.9 g/dL (14-18) L 02/07/22 11:15 Sodium 135.0 mmol/L (131-143) 02/07/22 11:15 Potassium 3.6 mmol/L (3.5-5.0) 02/07/22 11:15 Glucose 102.0 mg/dL (70-115) 02/07/22 11:15 Ionized Calcium 1.3 mmol/L (1.1-1.4) 02/07/22 11:15 O2 Delivery Device Room air 02/07/22 11:15 FiO2 21.0 % 02/07/22 11:15 Efficiency Engineer ID Ed 02/07/22 11:15 Sodium 134 mmol/L (136-145) L 02/07/22 11:44 Potassium 3.8 mmol/L (3.5-5.1) 02/07/22 11:44 Chloride 93 mmol/L (98-107) L 02/07/22 11:44 Carbon Dioxide 25 mmol/L (22-29) 02/07/22 11:44 Anion Gap 19.8 (5-19) H 02/07/22 11:44 BUN 15 mg/dL (8-23) 02/07/22 11:44 Creatinine 0.9 mg/dL (0.7-1.2) 02/07/22 11:44 GFR Calculation 83.7 mL/min (90-130) L 02/07/22 11:44 Glucose 92 mg/dL (65-115) 02/07/22 11:44 Calculated Osmolality 278 mOsm/kg (285-295) L 02/07/22 11:44 Calcium 9.8 mg/dL (8.5-10.5) 02/07/22 11:44 Total Bilirubin 0.2 mg/dL (0.15-1.2) 02/07/22 11:44 AST 15 U/L (0-40) 02/07/22 11:44 ALT 24 U/L (0-41) 02/07/22 11:44 Alkaline Phosphatase 159 U/L (40-130) H 02/07/22 11:44 Troponin T Baseline 7 ng/L (0-15) 02/07/22 11:44 Total Protein 7.0 g/dL (6.6-8.7) 02/07/22 11:44 Albumin 3.0 g/dL (3.5-5.2) L 02/07/22 11:44 Globulin 4.0 g/dL (1.3-4.6) 02/07/22 11:44 Urine Color Dark yellow (Yellow) 02/07/22 12:09 Urine Appearance Clear (CLEAR) 02/07/22 12:09 Urine pH 5 (5-7) 02/07/22 12:09 Ur Specific Matthews 1.010 (1.005-1.030) 02/07/22 12:09 Urine Protein Neg (Negative) 02/07/22 12:09 Urine Glucose (UA) Norm (Normal) 02/07/22 12:09 Urine Ketones Negative (Negative) 02/07/22 12:09 Urine Blood 2+ (Negative) H 02/07/22 12:09 Urine Nitrate Negative (Negative) 02/07/22 12:09 Urine Bilirubin Neg (Negative) 02/07/22 12:09 Urine Urobilinogen Norm mg/dL (Negative) 02/07/22 12:09 Ur Leukocyte Esterase Trace (Negative) H 02/07/22 12:09 Urine RBC 0-4 /hpf (0-2) H 02/07/22 12:09 Urine WBC 5-10 /hpf (0-5) H 02/07/22 12:09 Ur Squamous Epith Cells None /hpf (0-5) 02/07/22 12:09 Amorphous Sediment Not Reportable 02/07/22 12:09 Urine Bacteria 1+ /hpf (NONE) H 02/07/22 12:09 A&P Assessment and plan (1) Pneumonia: Present from prior hospital stay, organism identified from sputum as haemophilus influenza but also potential postobstructive process, was discharged on Augmentin and Levaquin which patient indicates he was taking. Continue oral Levaquin IV Rocephin in place of Augmentin currently Breathing treatments Check proalcitonin Status: Acute Qualifiers: Pneumonia type: due to Haemophilus influenzae Laterality: right Lung location: middle lobe of lung Qualified Code(s): J14 - Pneumonia due to Hemophilus influenzae (2) Cavitary lesion of lung: When compared to CT imaging from February 2017, significant enlargement in size with a 5 mm nodule described on the right and a hazy opacity described in the right lung base back then along with a 3.6 mm pulmonary nodule in the left upper lobe. Suspicion for malignancy is high based on appearance and growth. Pulmonology consultation Potential biopsy tomorrow pending ability to get in touch with patient's , Mr. Vargas himself is agreeable to plan but given his history need consent from his Status: Chronic (3) Anemia: Acute on chronic iron deficiency anemia, acute most likely from iatrogenic source with blood draws last week, though cannot rule out a source of bleeding. Suspect chronically due to chronic inflammation related to pulmonary nodule plus or minus other comorbidities. No obvious or reported gross bleeding based on limited history. Patient is on chronic NSAID therapy however. Does have a component of macrocytosis and a known history of alcohol dependence. Clinically does not appear volume overloaded but also within the differential. Iron level was 13 checked earlier this month, start iron replacement Will empirically treat with B12 and folate Hemoccult of stool Type and screen Recheck hemoglobin in the morning Continue home PPI; diclofenac held. Status: Acute (4) COPD (chronic obstructive pulmonary disease): Secondary to #1 and 2 above, not currently requiring increased oxygen at rest Continue usual home medications Depending on clinical course can consider systemic steroid treatment, but with anemia and psychological/cognitive issues holding for now Status: Chronic Qualifiers: COPD type: COPD with acute exacerbation Qualified Code(s): J44.1 - Chronic obstructive pulmonary disease with (acute) exacerbation (5) Multifocal atrial tachycardia: Chronically on beta-blockade Continue home metoprolol Status: Chronic (6) Major neurocognitive disorder as late effect of traumatic brain injury with behavioral disturbance: Has history of agitation and confusion during hospital stay Also with history of anxiety and depression related to same issues from cerebral aneurysm and meningitis in the past Continue home Seroquel and Depakote dosing Continue home naltrexone One-to-one sitter if needed for safety Was treated with precedex during a prior hospital stay when did not have home medications on board Status: Chronic (7) Nicotine dependence, cigarettes, with other nicotine-induced disorders: Longstanding, not currently interested in quitting Nicotine replacement if needed Status: Chronic Plan Chronic back pain -continue home Zanaflex, gabapentin; holding home diclofenac secondary to worsening anemia, will give tylenol Observation admission for now Will continue efforts to try to get in touch with patient's to get a bit mo re history about reason for repeat admission Check BNP Continue serial cardiac enzymes and EKGs secondary to complaint of chest pain though no known history of coronary disease Check CK level secondary to 2+ blood noted on urinalysis without significant RBC count IVFs this evening Supportive care otherwise SCDs presently for DVT prophylaxis, no pharmacological prophylaxis secondary to tentatively planned endobronchial ultrasound with biopsy Disposition plans will depend on clinical course but currently anticipate discharge home Has oxygen which she primarily uses 2 L at night only, smokes too much during the day to continuously wear by his report Have not entered CODE STATUS as I am not sure that patient is able to fully make his own decisions based on review of chart. During prior hospital stay CODE STATUS is listed as allow natural which is consistent with what patient expresses but given that his has guardianship would like to confirm with her before entering any orders. Attempts to reach her at phone number listed in the chart have been unsuccessful on multiple attempts today. Phone goes to a voicemail that has not been set up. Attestations Medical Necessity Statement*: Currently anticipate a stay less than two midnights in a gentleman being readmitted a few days after prior admission in which he had pneumonia was also found to have a cavitary lung mass. Returning with increased shortness of breath, complaint of least 1 episode of chest pain and increased confusion. At rest oxygen saturations are maintaining on room air but has notable increase in white count and drop in hemoglobin. Plans are as noted above. Coding Level of Care Code Acute Security Systems Engineer for Chg Fwd Diagnoses Pneumonia J14 Pneumonia type: due to Haemophilus influenzae Laterality: right Lung location: middle lobe of lung Cavitary lesion of lung J98.4 Anemia D64.9 COPD (chronic obstructive pulmonary disease) J44.1 COPD type: COPD with acute exacerbation Multifocal atrial tachycardia I47.1 Major neurocognitive disorder as late effect of traumatic brain injury with behavioral disturbance S06.9X9S; F02.81 Nicotine dependence, cigarettes, with other nicotine-induced disorders F17.218
--- NOTE | 2022-02-07 13:24 | ECG_ITS ---
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 Measurements Intervals [place] Rate: 98 P: 86 [place]: 143 QRS: 50 QRSD: 89 T: 53 QT: 340 QTc: 434 Interpretive Statements SINUS RHYTHM Compared to ECG 02/07/2022 11:42:46 Sinus tachycardia no longer present Electronically Signed On 02-07-2022 17:42:58 CDT by Edouard Tuttle M.D. [email or web address] Investigationsst. mary's medical centerRant Network/store/OM/[id number]
[2022-02-07 14:15] LABS: Troponin 5 2HR 6.64 ng/L (0-15)
[2022-02-07 14:27] LABS: Troponin 5 2HR Delta -0.36 ABS# (0-10)
[2022-02-07] MEDS: divalproex ER 250 mg Tablet (24H) PO (15:28)
[2022-02-07] MEDS: nicotine 21 mg Patch 1 PATCH TRANSDERMA (15:28)
[2022-02-07 15:46] LABS: NT Pro B Type Natriuretic Pept 1185 pg/mL (0-125); Procalcitonin 0.18 ng/mL (0-0.5)
[2022-02-07 15:57] LABS: Creatine Phosphokinase 69 U/L (39-308)
--- NOTE | 2022-02-07 16:55 | ECG_ITS ---
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 Measurements Intervals [place] Rate: 106 P: 47 [place]: 134 QRS: 44 QRSD: 88 T: 40 QT: 327 QTc: 434 Interpretive Statements SINUS TACHYCARDIA WITH OCCASIONAL SUPRAVENTRICULAR PREMATURE COMPLEXES Compared to ECG 02/07/2022 14:03:13 Sinus rhythm no longer present Electronically Signed On 02-07-2022 17:42:39 CDT by Edouard Tuttle M.D. [email or web address] st[email or web address].[employer]/store/OM/[id number]
[2022-02-07] MEDS: docusate sodium 100 mg Capsule PO (17:51)
[2022-02-07] MEDS: gabapentin 300 mg Capsule PO ×2 (17:51→20:28)
[2022-02-07] MEDS: sodium chlor 0.45% +KCl 20 mEq 20 MEQ/1,000 ML BAG 75 MEQ IV (17:51)
[2022-02-07 18:54] LABS: Troponin 5 6HR 7.98 ng/L (0-15)
[2022-02-07 19:10] LABS: Troponin 5 6HR Delta 0.98 ng/L (0-12)
[2022-02-07] MEDS: cefTRIAXone 1,000 MG in sodium chloride 0.9% (plus) 50 ML 100 MG IV (19:31)
[2022-02-07] MEDS: acetaminophen 325 mg Tablet 650 MG PO (19:31)
[2022-02-07] MEDS: tizanidine 4 mg Tablet PO (19:32)
[2022-02-07] MEDS: ipratropium-albuterol 3 mL Neb INHALATION (19:58)
[2022-02-07] MEDS: quetiapine 100 mg Tablet 200 MG PO (20:27)
[2022-02-07] MEDS: quetiapine 25 mg Tablet 50 MG PO (20:27)
[2022-02-07] MEDS: metoprolol succinate ER (24 HR) 25 mg Tablet PO (20:28)
[2022-02-07] MEDS: divalproex DR 500 mg Tablet PO (20:28)
[2022-02-08] VITALS (15 sets, daily range): BP systolic 105–157; BP diastolic 67–82; PULSE 71–107; RESP 15–18; TEMP 36.2–36.7; O2SAT 90–97
[2022-02-08] MEDS: ipratropium-albuterol 3 mL Neb INHALATION ×3 (02:47→20:54)
[2022-02-08 05:02] LABS: Basophils # 0.1 10^3/uL (0.0-0.1); Basophils % 0.5 %; Eosinophils # 0.4 10^3/uL (0.0-0.8); Eosinophils % 3.4 %; Hematocrit 26.4 % (42.0-52.0); Hemoglobin 8.2 g/dL (11.7-16.6); Lymphocytes # 1.4 10^3/uL (0.8-4.8); Lymphocytes % 13.5 %; Mean Corpuscular HGB Conc 31.1 g/dL (30.0-36.0); Mean Corpuscular Hemoglobin 32.7 pg (28.0-34.0); Mean Corpuscular Volume 105.2 fl (80-94); Monocytes # 0.8 10^3/uL (0.2-0.9); Monocytes % 7.7 %; Neutrophils # 7.41 10^3/uL (1.8-7.7); Neutrophils % 72.5 %; Nucleated Red Blood Cells % 0 %; Platelet Count 361 10^3/cmm (130-400); Red Blood Count 2.51 10^6/uL (4.1-5.3); Red Cell Distribution Width 14.3 % (12.1-15.1); White Blood Count 10.2 10^3/uL (4.0-10.0)
[2022-02-08 05:34] LABS: Alanine Aminotransferase 19 U/L (0-41); Albumin Level 2.7 g/dL (3.5-5.2); Alkaline Phosphatase 138 U/L (40-130); Aspartate Amino Transferase 12 U/L (0-40); Blood Urea Nitrogen 12 mg/dL (8-23); Calcium 9.8 mg/dL (8.5-10.5); Carbon Dioxide 28 mmol/L (22-29); Chloride 100 mmol/L (98-107); Globulin 3.8 g/dL (1.3-4.6); Glomerular Filtration Rate 95.8 mL/min (90-130); Glucose 104 mg/dL (65-115); Magnesium 1.6 mg/dL (1.7-2.3); Osmolality Calculated 288 mOsm/kg (285-295); Phosphorus 3.3 mg/dL (2.5-4.5); Sodium 139 mmol/L (136-145); Total Bilirubin 0.2 mg/dL (0.15-1.2); Total Protein 6.5 g/dL (6.6-8.7)
[2022-02-08 05:42] LABS: Anion Gap 14.7 (5-19); Potassium 3.7 mmol/L (3.5-5.1)
[2022-02-08] MEDS: levoFLOXacin 500 mg Tablet PO (06:05)
[2022-02-08] MEDS: pantoprazole DR 40 mg Tablet PO (06:05)
--- NOTE | 2022-02-08 06:57 | P.CONIM_ITS ---
Providers/Reason For Consult Consulting Physician/Specialty*: Chiki Neal MD/Pulmonary Critical Care Reason for Consult*: Right lower lobe cavitary lesion Requesting Physician: Remedios Sanchez MD Attending Physician: Remedios Sanchez MD Primary Care Provider: Yrn Hagen History of Present Illness History of Present Illness Mik Raya is a 71 year old male with past medical history of COPD, dementia, alcohol dependence, chronic smoker, multifocal atrial tachycardia, chronic back pain, cerebral aneurysm with surgical intervention x2, comes to ER yesterday 02/07/2022 for increasing confusion and difficulty breathing. He was recently admitted on 01/31/2022 when discharged on 02/04/2022 for the same reason. During that hospitalization on 02/01/[address] chest which showed cavitary lung mass with evidence of postobstructive pneumonia. He was treated with vancomycin and Zosyn and transition to Augmentin and Levaquin orally at discharge. His sputum cultures grew mufflers influenza. During that hospitalization informed the patient had a lung mass identified previously and has been followed at rheumatology clinic for few years with imaging. Currently is not on any specific treatment for rheumatoid arthritis. Patient continues to smoke a pack of cigarettes a day. Does not use oxygen when he is smoking. Patient informed that he is more confused than his baseline. Continues to have productive sputum yellowish in color with no blood. Pulmonary consult requested for right lower lobe cavitary lesion. Upon review of patient previous records-he has a CT chest on 03/06/2017 which showed unchanged 5 mm nodule along the right major fissure compared to 01/07/2014 and 12/10/2012 CT chest. There was a new hazy pulmonary opacity in the right lung base measuring 1.7 cm and recommended 3-month follow-up. This particular lesion appeared cystic opacity and corresponds to the current 11.4 cm irregular thick-walled cavitary lesion in the right lower lobe mass on the latest CT chest on 02/01/2022. There were also advanced emphysematous changes in both lungs. Patient has been smoking at least 1 to 1.5 packs for over 50 years and still continues to smoke-given significant smoking history this current lesion is highly concerning for malignancy. At bedside, he appeared having dementia - forgetful at times. visibly seen coughing with some sputum, but denies shortness of breath and cough. Review of Systems General: Reports: 10 or more systems reviewed and unremarkable except in HPI and below Medications/Allergies Home Medications Medication Instructions Recorded Confirmed Last Taken Type albuterol sulfate 90 mcg/actuation 2 puff inhalation Q4H PRN 07/03/20 02/07/22 07/02/20 History aerosol inhaler Shortness Of Breath fluticasone propionate 50 2 spray intranasal DAILY PRN 09/19/20 02/07/22 05/01/21 History mcg/actuation nasal Allergy Symptoms spray,suspension quetiapine 100 mg tablet 200 mg PO BEDTIME 09/19/20 02/07/22 02/06/22 History fluticasone furoate 200 1 inh inhalation QAM 05/01/21 02/07/22 02/06/22 History mcg-vilanterol 25 mcg/dose inhalation powder (Breo Ellipta) gabapentin 300 mg capsule 300 mg PO TID 05/01/21 02/07/22 02/07/22 07:00 History quetiapine 50 mg tablet (Seroquel) 50 mg PO BID@05/01/21 02/07/22 02/07/22 History pantoprazole 40 mg tablet,delayed 40 mg PO QAM 07/10/21 02/07/22 02/07/22 History release (Protonix) divalproex 250 mg tablet,extended 250 mg PO BID@01/31/22 02/07/22 02/07/22 History release 24 hr divalproex 500 mg tablet,delayed 500 mg PO BEDTIME 01/31/22 02/07/22 02/06/22 History release naltrexone 50 mg tablet 50 mg PO DAILY@09 01/31/22 02/07/22 02/07/22 History tizanidine 4 mg tablet 4 mg PO Q8H PRN Muscle Spasm 01/31/22 02/07/22 Unknown History amoxicillin 875 mg-potassium 1 tab PO BID 5 days #10 tabs 02/04/22 02/07/22 02/07/22 Rx clavulanate 125 mg tablet levofloxacin 500 mg tablet 500 mg PO DAILY@0600 5 days #5 tabs 02/04/22 02/07/22 02/06/22 Rx metoprolol succinate 25 mg 50 mg PO BEDTIME 30 days #30 tabs 02/04/22 02/07/2222 Rx tablet,extended release 24 hr dextromethorphan 20 mg-quinidine 1 cap PO DAILY 02/07/22 02/07/22 02/06/22 History 10 mg capsule (Nuedexta) see pharmacy comment diclofenac sodium 75 mg 75 mg PO BID 02/07/22 02/07/22 02/07/22 History tablet,delayed release Allergies Allergy/AdvReac Type Severity Reaction Status Date / Time Silk sutures AdvReac Intermediate Bad abd Uncoded 07/09/21 22:44 pains Current Medications Generic Name Dose Route Start Last Admin Trade Name Freq PRN Reason Stop Dose Admin Acetaminophen 650 mg 02/07/22 16:27 02/07/22 19:31 Acetaminophen 325 Mg Tablet PO 650 mg Q6H PRN Administration Mild/Mod Pain Or Temp >/= 101 Albuterol/Ipratropium 3 ml 02/07/22 20:00 02/08/22 02:47 Ipratropium-Albuterol 3 Ml Neb INHALATION 3 ml Q6H.RESP JOSH Administration Divalproex Sodium 250 mg 02/07/22 15:00 02/07/22 15:28 Divalproex Er 250 Mg Tablet (24h) PO 250 mg BID@ JOSH Administration Divalproex Sodium 500 mg 02/07/22 21:00 02/07/22 20:[address] 500 Mg Tablet PO 500 mg BEDTIME JOSH Administration Docusate Sodium 100 mg 02/07/22 18:00 02/07/22 17:51 Docusate Sodium 100 Mg Capsule PO 100 mg BID JOSH Administration Gabapentin 300 mg 02/07/22 16:27 02/07/22 20:28 Gabapentin 300 Mg Capsule PO 300 mg TID JOSH Administration Ceftriaxone Sodium 1,000 mg/ 50 mls @ 100 mls/hr 02/07/22 19:30 02/07/22 20:49 Sodium Chloride IV Infused Q24H JOSH Infusion Protocol Levofloxacin 500 mg 02/08/22 06:00 02/08/22 06:05 Levofloxacin 500 Mg Tablet PO 500 mg DAILY@0600 JOSH Administration Protocol Metoprolol Succinate 25 mg 02/07/22 21:00 02/07/22 20:28 Metoprolol Succinate Er (24 Hr) 25 Mg Tablet PO 25 mg BEDTIME JOSH Administration Pantoprazole Sodium 40 mg 02/08/22 06:00 08/16/22 06:[address] 40 Mg Tablet PO 40 mg QAM JOSH Administration Quetiapine Fumarate 200 mg 02/07/22 21:00 02/07/22 20:27 Quetiapine 100 Mg Tablet PO 200 mg BEDTIME JOSH Administration Quetiapine Fumarate 50 mg 02/07/22 21:00 02/07/22 20:27 Quetiapine 25 Mg Tablet PO 50 mg BID@09,21 JOSH Administration Fluticasone/Salmeterol 1 puff 02/07/22 20:00 02/07/22 19:58 Fluticasone-Salmeterol 250-50 Diskus INHALATION 1 puff BID.RESPIRATORY JOSH Administration Tizanidine HCl 4 mg 02/07/22 16:27 02/07/22 19:32 Tizanidine 4 Mg Tablet PO 4 mg Q8H PRN Administration Muscle Spasm PFSH Acute PFSH: Medical History 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 Previously treated with methotrexate, arava, sulfasalazine, plaquenil. 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 Multifocal atrial tachycardia Nicotine dependence, cigarettes, with other nicotine-induced disorders Suicidal ideation (~04/2021) Surgical History History of cerebral aneurysm repair x2 History of exploratory laparotomy Hx of repair of rotator cuff right 2012 Family History Mother Diabetes Social History Smoking and tobacco status: current every day smoker cigarettes Packs smoked per day: 1 Years cigarettes smoked: 61 Quit status (tobacco): not considering quitting Second hand smoke exposure: Yes Alcohol intake: former Former alcohol use details: Has not consumed alcohol since hospitalization in June 2021 Substance/Drug Use: never Lives independently: No Household members: spouse Marital status: Vitals/I&O/Wt Last Vital Signs Temp 97.4 F L 02/08/22 04:00 Pulse 71 02/08/22 04:00 Resp 16 02/08/22 04:00 BP 157/81 02/08/22 04:00 Pulse Ox 94 02/08/22 04:00 O2 Del Method 02/08/22 02:48 02/07/22 02/07/22 02/08/22 14:59 22:59 06:59 Intake Total 410 / 410 Output Total 200 / 200 150 / 350 Balance 210 / 210 -150 / 60 Weight last 48 hrs Weight 190 lb Weight 190 lb Physical Exam Narrative: General: alert, NAD HEENT: conj clear, EOMI, PERRL, mmm, Neck: supple, no meningismus Heme: no cervical LAP Pulmonary: Diffuse expiratory wheeze bilaterally Cardiovascular: rrr, nl s1s2, no mrg Abdomen: soft, nt, nd, no r/g, bs+ Extremities: pulses +, no edema, no c/c : no CVA tenderness Skin: intact, no rash MSK: no back or neck pain Neurologic: grossly intact Data : 02/08/22 04:26 02/08/22 04:26 Other Labs: Radiology Impressions Chest X-Ray 02/07/22 11:10 IMPRESSION: 1. Right middle lobe pneumonia 2. Metallic pins proximal right humeral head Laboratory Results WBC 10.2 10^3/uL (4.0-10.0) H 02/08/22 04:26 RBC 2.51 10^6/uL (4.1-5.3) L 02/08/22 04:26 Hgb 8.2 g/dL (11.7-16.6) L 02/08/22 04:26 Hct 26.4 % (42.0-52.0) L 02/08/22 04:26 MCV 105.2 fl (80-94) H 02/08/22 04:26 MCH 32.7 pg (28.0-34.0) 02/08/22 04:26 MCHC 31.1 g/dL (30.0-36.0) 02/08/22 04:26 RDW 14.3 % (12.1-15.1) 02/08/22 04:26 Plt Count 361 10^3/cmm (130-400) 02/08/22 04:26 MPV 10.0 fL (7.4-10.4) 02/08/22 04:26 Neut % (Auto) 72.5 % 02/08/22 04: Lymph % (Auto) 13.5 % 02/08/22 04:26 [place] % (Auto) 7.7 % 02/08/22 04:26 Eos % (Auto) 3.4 % 02/08/22 04:26 Baso % (Auto) 0.5 % 02/08/22 04: Neut # (Auto) 7.41 10^3/uL (1.8-7.7) 02/08/22 04: Lymph # (Auto) 1.4 10^3/uL (0.8-4.8) 02/08/22 04: [place] # (Auto) 0.8 10^3/uL (0.2-0.9) 02/08/22 04: Eos # (Auto) 0.4 10^3/uL (0.0-0.8) 02/08/22 04: Baso # (Auto) 0.1 10^3/uL (0.0-0.1) 02/08/22 04: Nucleated RBC % (auto) 0 % 02/08/22 04: Nucleated RBCs # 0.0 /100WBC 02/08/22 04:26 Specimen Type Arterial 02/07/22 11:15 Sample Site Radial, left 02/07/22 11:15 ABG pH 7.46 (7.35-7.45) H 02/07/22 11:15 ABG pCO2 39.3 mmHg (35-45) 02/07/22 11:15 ABG pO2 65.3 mmHg (80.0-100.0) L 02/07/22 11:15 ABG HCO3 27.9 mmol/L (22-26) H 02/07/22 11:15 ABG O2 Saturation 94.2 02/07/22 11:15 ABG Base Excess 3.7 mmol/L (-2.0-2.0) H 02/07/22 11:15 Rayray Test Pos 02/07/22 11:15 A-a O2 Gradient 4.6 mmHg (5-10) L 02/07/22 11:15 Hematocrit 24.2 % (42-52) L 02/07/22 11:15 Hgb O2 Saturation 91.0 % (95-100) L 02/07/22 11:15 Carboxyhemoglobin 2.9 %THgb (0.4-20.1) 02/07/22 11:15 Methemoglobin 0.4 % (0.4-1.5) 02/07/22 11:15 Total Hemoglobin 7.9 g/dL (14-18) L 02/07/22 11:15 Sodium 135.0 mmol/L (131-143) 02/07/22 11:15 Potassium 3.6 mmol/L (3.5-5.0) 02/07/22 11:15 Glucose 102.0 mg/dL (70-115) 02/07/22 11:15 Ionized Calcium 1.3 mmol/L (1.1-1.4) 02/07/22 11:15 O2 Delivery Device Room air 02/07/22 11:15 FiO2 21.0 % 02/07/22 11:15 Software Installation Engineer ID Ed 02/07/22 11:15 Sodium 139 mmol/L (136-145) 02/08/22 04:26 Potassium 3.7 mmol/L (3.5-5.1) 02/08/22 04:26 Chloride 100 mmol/L (98-107) 02/08/22 04:26 Carbon Dioxide 28 mmol/L (22-29) 02/08/22 04:26 Anion Gap 14.7 (5-19) 02/08/22 04:26 BUN 12 mg/dL (8-23) 02/08/22 04:26 Creatinine 0.8 mg/dL (0.7-1.2) 02/08/22 04:26 GFR Calculation 95.8 mL/min (90-130) 02/08/22 04:26 Glucose 104 mg/dL (65-115) 02/08/22 04:26 Calculated Osmolality 288 mOsm/kg (285-295) 02/08/22 04:26 Calcium 9.8 mg/dL (8.5-10.5) 02/08/22 04:26 Phosphorus 3.3 mg/dL (2.5-4.5) 02/08/22 04:26 Magnesium 1.6 mg/dL (1.7-2.3) L 02/08/22 04:26 Total Bilirubin 0.2 mg/dL (0.15-1.2) 02/08/22 04:26 AST 12 U/L (0-40) 02/08/22 04:26 ALT 19 U/L (0-41) 02/08/22 04:26 Alkaline Phosphatase 138 U/L (40-130) H 02/08/22 04:26 Creatine Kinase 69 U/L (39-308) 02/07/22 11:44 Troponin T Baseline 7 ng/L (0-15) 02/07/22 11:44 Troponin T 120 Minute 6.64 ng/L (0-15) 02/07/22 13:26 Delta Troponin T -0.36 ABS# (0-10) L 02/07/22 13:26 Troponin T Hi Sens 6Hr 7.98 ng/L (0-15) 02/07/22 18:10 Troponin T Hi Sens 6Hr Delta 0.98 ng/L (0-12) 02/07/22 18:10 NT-Pro-B Natriuret Pep 1185 pg/mL (0-125) H 02/07/22 11:44 Total Protein 6.5 g/dL (6.6-8.7) L 02/08/22 04:26 Albumin 2.7 g/dL (3.5-5.2) L 02/08/22 04:26 Globulin 3.8 g/dL (1.3-4.6) 02/08/22 04:26 Procalcitonin 0.18 ng/mL (0-0.5) 02/07/22 11:44 Urine Color Dark yellow (Yellow) 02/07/22 12:09 Urine Appearance Clear (CLEAR) 02/07/22 12:09 Urine pH 5 (5-7) 02/07/22 12:09 Ur Specific [place] 1.010 (1.005-1.030) 02/07/22 12:09 Urine Protein Neg (Negative) 02/07/22 12:09 Urine Glucose (UA) Norm (Normal) 02/07/22 12:09 Urine Ketones Negative (Negative) 02/07/22 12:09 Urine Blood 2+ (Negative) H 02/07/22 12:09 Urine Nitrate Negative (Negative) 02/07/22 12:09 Urine Bilirubin Neg (Negative) 02/07/22 12:09 Urine Urobilinogen Norm mg/dL (Negative) 02/07/22 12:09 Ur Leukocyte Esterase Trace (Negative) H 02/07/22 12:09 Urine RBC 0-4 /hpf (0-2) H 02/07/22 12:09 Urine WBC 5-10 /hpf (0-5) H 02/07/22 12:09 Ur Squamous Epith Cells None /hpf (0-5) 02/07/22 12:09 Amorphous Sediment Not Reportable 02/07/22 12:09 Urine Bacteria 1+ /hpf (NONE) H 02/07/22 12:09 Micro: Microbiology 02/07/22 16:00 Blood Culture - Preliminary Blood SPECIMEN COLLECTED 02/07/22 16:04 Blood Culture - Preliminary Blood SPECIMEN COLLECTED A&P Assessment and plan (1) Cavitary lesion of lung: Status: Chronic (2) Pneumonia: Status: Acute Qualifiers: Laterality: right Lung location: middle lobe of lung Pneumonia type: due to Haemophilus influenzae Qualified Code(s): J14 - Pneumonia due to Hemophilus influenzae (3) COPD (chronic obstructive pulmonary disease): Status: Chronic Qualifiers: COPD type: COPD with acute exacerbation Qualified Code(s): J44.1 - Chronic obstructive pulmonary disease with (acute) exacerbation (4) Nicotine dependence, cigarettes, with other nicotine-induced disorders: Status: Chronic (5) Dementia: Status: Chronic Plan #11.4 cm irregular thick-walled cavitary lesion in the right lower lobe-on CT chest 02/01/2022-highly suspicious for malignancy -Corresponds to 1.7 cm cavitary opacity in the same region on 03/06/2017 CT chest -Given his significant smoking history-this is concerning lesion for malignancy -The mass is extending to the right hilum-I am planning to do bronchoscopy and endobronchial ultrasound to obtain biopsies -Procedure explained to the patient along with complications and alternatives-he verbalized understanding and agreed with the plan #Postobstructive pneumonia and recent cultures positive for haemophilus influenza -He was discharged with levofloxacin and Augmentin-got readmitted due to increasing confusion -Patient has baseline dementia -Patient saturating 92% on room air at, no signs of septic shock -Currently receiving ceftriaxone and levofloxacin -We can discontinue levofloxacin -Follow-up BAL cultures #Advanced severe emphysema on CT chest -Patient needs PFTs as outpatient -Currently is on DuoNeb every 6 over scheduled nebulization in hospital and using Advair 250-50 MCG 1 puff twice daily -We will discharge patient with LAMA/LABA/ICS as well as DuoNeb nebulization every 6 hours as needed -Encouraged to quit smoking -I will refer him to pulmonary rehabilitation as outpatient # Dementia - has h/o alcohol use and h/o cerebral aneursym with 2 x interventi ons - possible mets to brain - at least recent Head CT 01/31/22 any obsvious lesions but showed diffuse cerebral atrophy. microvascular disease. - I will send for Dementia Work up and will let hospitalist to follow up; Previous b12 and TSH in apr 2021 are normal. - he is on folic acid and give h/o alcohol abuse - i will start him on thiamine supplementation as well - denied that he is drinking currently Recommendations conveyed to hospitalist taking care of the patient Consult Attestations Medical Necessity Statement: Deferred to hospitalist Time Spent in Patient Care: Greater than 35 minutes (>than 50% of time spent in counselling and/or direct pt care on unit) . Coding Level of Care Code New Pt Acute Laboratory Mechanical Technician for Chg Fwd Patient Type New Medical Decision Making Moderate Complexity Diagnoses Cavitary lesion of lung J98.4 Pneumonia J14 Laterality: right Lung location: middle lobe of lung Pneumonia type: due to Haemophilus influenzae COPD (chronic obstructive pulmonary disease) J44.1 COPD type: COPD with acute exacerbation Nicotine dependence, cigarettes, with other nicotine-induced disorders F17.218 Dementia F03.90 Time Spent (min) 45
[2022-02-08] MEDS: sodium chloride 0.9% 1,000 ML 30 ML IV (08:00)
--- NOTE | 2022-02-08 09:26 | P.ANESASSM_ITS ---
Pre-Anesthetic Assessment Height/Weight: Height 1.73 m Weight 86.183 kg Temp Pulse Resp BP Pulse Ox O2 Del Method 97.4 F L 71 16 157/81 94 02/08/22 04:00 02/08/22 04:00 02/08/22 04:00 02/08/22 04:00 02/08/22 04:00 02/08/22 02:48 Operation Date: 02/08/22 09:30 Proposed Procedures p Bronchoscopy(Not Applicable) - Chiki Neal MD s Ebus(Not Applicable) - Chiki Neal MD Familial anesthetic complications: None Was Beta Hernando taken within 24 hours: Yes Was Clonidine taken within 24 hours: N/A Last intake: > 8 hrs Social Tobacco and No alcohol Exam alert, clear to auscultation bilaterally and regular rate & rhythm dementia Airway Mallampati: Class III Dentition: false Pulmonary Chronic Obstructive Pulmonary Disease CV/HEM Anemia Multifocal atrial tachycardia Musc/skel backpain Neuropsych Dementia Anesthetic Plan ASA status: 4 Anesthesia: General Risk of > 500 ml blood loss (7ml/kg in children): No Medications/Allergies Home Medications Medication Instructions Recorded Confirmed Last Taken Type albuterol sulfate 90 mcg/actuation 2 puff inhalation Q4H PRN 07/03/20 02/07/22 07/02/20 History aerosol inhaler Shortness Of Breath fluticasone propionate 50 2 spray intranasal DAILY PRN 09/19/20 02/07/22 05/01/21 History mcg/actuation nasal Allergy Symptoms spray,suspension quetiapine 100 mg tablet 200 mg PO BEDTIME 09/19/20 02/07/22 02/06/22 History fluticasone furoate 200 1 inh inhalation QAM 05/01/21 02/07/22 02/06/22 History mcg-vilanterol 25 mcg/dose inhalation powder (Breo Ellipta) gabapentin 300 mg capsule 300 mg PO TID 05/01/21 02/07/22 02/07/22 07:00 History quetiapine 50 mg tablet (Seroquel) 50 mg PO BID@05/01/21 02/07/22 02/07/22 History pantoprazole 40 mg tablet,delayed 40 mg PO QAM 07/10/21 02/07/22 02/07/22 History release (Protonix) divalproex 250 mg tablet,extended 250 mg PO BID@09,15 01/31/22 02/07/22 02/07/22 History release 24 hr divalproex 500 mg tablet,delayed 500 mg PO BEDTIME 01/31/22 02/07/22 02/06/22 History release naltrexone 50 mg tablet 50 mg PO DAILY@09 01/31/22 02/07/22 02/07/22 History tizanidine 4 mg tablet 4 mg PO Q8H PRN Muscle Spasm 01/31/22 02/07/22 Unknown History amoxicillin 875 mg-potassium 1 tab PO BID 5 days #10 tabs 02/04/22 02/07/22 02/07/22 Rx clavulanate 125 mg tablet levofloxacin 500 mg tablet 500 mg PO DAILY@0600 5 days #5 tabs 02/04/22 02/07/22 02/06/22 Rx metoprolol succinate 25 mg 50 mg PO BEDTIME 30 days #30 tabs 02/04/22 02/07/22 02/06/22 Rx tablet,extended release 24 hr dextromethorphan 20 mg-quinidine 1 cap PO DAILY 02/07/22 02/07/22 02/06/22 History 10 mg capsule (Nuedexta) see pharmacy comment diclofenac sodium 75 mg 75 mg PO BID 02/07/22 02/07/22 02/07/22 History tablet,delayed release Allergies Allergy/AdvReac Type Severity Reaction Status Date / Time Silk sutures AdvReac Intermediate Bad abd Uncoded 07/09/21 22:44 pains Current Medications Generic Name Dose Route Start Last Admin Trade Name Casandra PRN Reason Stop Dose Admin Acetaminophen 650 mg 02/07/22 16:27 02/07/22 19:31 Acetaminophen 325 Mg Tablet PO 650 mg Q6H PRN Administration Mild/Mod Pain Or Temp >/= 101 Albuterol/Ipratropium 3 ml 02/07/22 20:00 02/08/22 02:47 Ipratropium-Albuterol 3 Ml Neb INHALATION 3 ml Q6H.RESP JOSH Administration Divalproex Sodium 250 mg 02/07/22 15:00 02/07/22 15:28 Divalproex Er 250 Mg Tablet (24h) PO 250 mg BID@ JOSH Administration Divalproex Sodium 500 mg 02/07/22 21:00 02/07/22 20:[address] 500 Mg Tablet PO 500 mg BEDTIME JOSH Administration Docusate Sodium 100 mg 02/07/22 18:00 02/07/22 17:51 Docusate Sodium 100 Mg Capsule PO 100 mg BID JOSH Administration Gabapentin 300 mg 02/07/22 16:27 02/07/22 20:28 Gabapentin 300 Mg Capsule PO 300 mg TID JOSH Administration Ceftriaxone Sodium 1,000 mg/ 50 mls @ 100 mls/hr 02/07/22 19:30 02/07/22 20:49 Sodium Chloride IV Infused Q24H JOSH Infusion Protocol Sodium Chloride 1,000 mls @ 30 mls/hr 02/08/22 08:30 02/08/22 08:00 Sodium Chloride 0.9% IV 02/09/22 08:29 30 mls/hr .Q24H JOSH Administration Levofloxacin 500 mg 02/08/22 06:00 02/08/22 06:05 Levofloxacin 500 Mg Tablet PO 500 mg DAILY@0600 JOSH Administration Protocol Metoprolol Succinate 25 mg 02/07/22 21:00 02/07/22 20:28 Metoprolol Succinate Er (24 Hr) 25 Mg Tablet PO 25 mg BEDTIME JOSH Administration Pantoprazole Sodium 40 mg 02/08/22 06:00 02/08/22 06:[address] 40 Mg Tablet PO 40 mg QAM JOSH Administration Quetiapine Fumarate 200 mg 02/07/22 21:00 02/07/22 20:27 Quetiapine 100 Mg Tablet PO 200 mg BEDTIME JOSH Administration Quetiapine Fumarate 50 mg 02/07/22 21:00 02/07/22 20:27 Quetiapine 25 Mg Tablet PO 50 mg BID@,21 JOSH Administration Fluticasone/Salmeterol 1 puff 02/07/22 20:00 02/07/22 19:58 Fluticasone-Salmeterol 250-50 Diskus INHALATION 1 puff BID.RESPIRATORY JOSH Administration Tizanidine HCl 4 mg 02/07/22 16:27 02/07/22 19:32 Tizanidine 4 Mg Tablet PO 4 mg Q8H PRN Administration Muscle Spasm PFSH Anesthesia Medical History 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 Previously treated with methotrexate, arava, sulfasalazine, plaquenil. 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 Multifocal atrial tachycardia Nicotine dependence, cigarettes, with other nicotine-induced disorders Suicidal ideation (~04/2021) Surgical History History of cerebral aneurysm repair x2 History of exploratory laparotomy Hx of repair of rotator cuff right 2012 Family History Mother Diabetes Social History Smoking and tobacco status: current every day smoker cigarettes Packs smoked per day: 1 Years cigarettes smoked: 61 Quit status (tobacco): not considering quitting Second hand smoke exposure: Yes Alcohol intake: former Former alcohol use details: Has not consumed alcohol since hospitalization in June 2021 Substance/Drug Use: never Lives independently: No Household members: spouse Marital status: Data Anesthesia : 02/08/22 04:26 02/08/22 04:26 Short CBC 02/07/22 02/08/22 Range/Units 11:44 04:26 WBC 14.4 H 10.2 H (4.0-10.0) 10^3/uL Hgb 7.6 L 8.2 L (11.7-16.6) g/dL Hct 24.5 L 26.4 L (42.0-52.0) % MCV 104.7 H 105.2 H (80-94) fl Plt Count 361 361 (130-400) 10^3/cmm Neut % (Auto) 77.4 72.5 % Neut # (Auto) 11.14 H 7.41 (1.8-7.7) 10^3/uL BMP 02/07/22 02/08/22 11:44 04:26 Sodium 134 L 139 Potassium 3.8 3.7 Chloride 93 L 100 Carbon Dioxide 25 28 BUN 15 12 Creatinine 0.9 0.8 Glucose 92 104 Calcium 9.8 9.8 Cardiac Enzymes 0802/07/22 02/07/22 Range/Units 11:44 11:44 13:26 Creatine Kinase 69 (39-308) U/L Troponin T Baseline 7 (0-15) ng/L Troponin T 120 Minute 6.64 (0-15) ng/L Delta Troponin T -0.36 L (0-10) ABS# Troponin T Hi Sens 6Hr (0-15) ng/L Troponin T Hi Sens 6Hr Delta (0-12) ng/L NT-Pro-B Natriuret Pep 1185 H (0-125) pg/mL 02/07/22 Range/Units 18:10 Creatine Kinase (39-308) U/L Troponin T Baseline (0-15) ng/L Troponin T 120 Minute (0-15) ng/L Delta Troponin T (0-10) ABS# Troponin T Hi Sens 6Hr 7.98 (0-15) ng/L Troponin T Hi Sens 6Hr Delta 0.98 (0-12) ng/L NT-Pro-B Natriuret Pep (0-125) pg/mL Liver Function 02/07/22 02/08/22 Range/Units 11:44 04:26 Total Bilirubin 0.2 0.2 (0.15-1.2) mg/dL AST 15 12 (0-40) U/L ALT 24 19 (0-41) U/L Alkaline Phosphatase 159 H 138 H (40-130) U/L Albumin 3.0 L 2.7 L (3.5-5.2) g/dL Urine 02/07/22 Range/Units 12:09 Urine Color Dark yellow (Yellow) Urine Appearance Clear (CLEAR) Urine pH 5 (5-7) Ur Specific [place] 1.010 (1.005-1.030) Urine Protein Neg (Negative) Urine Glucose (UA) Norm (Normal) Urine Ketones Negative (Negative) Urine Nitrate Negative (Negative) Urine Bilirubin Neg (Negative) Ur Leukocyte Esterase Trace H (Negative) Urine RBC 0-4 H (0-2) /hpf Urine WBC 5-10 H (0-5) /hpf Blood Bank 02/08/22 07:15 Blood Type O Positive Rho(D) Type Positive Antibody Screen Negative ABG 02/07/22 11:15 Specimen Type Arterial Sample Site Radial, left ABG pH 7.46 H ABG pCO2 39.3 ABG pO2 65.3 L ABG HCO3 27.9 H ABG O2 Saturation 94.2 ABG Base Excess 3.7 H A-a O2 Gradient 4.6 L O2 Delivery Device Room air FiO2 21.0 Microbiology 02/07/22 16:00 Blood Culture - Preliminary Blood SPECIMEN COLLECTED 02/07/22 16:04 Blood Culture - Preliminary Blood SPECIMEN COLLECTED Cardiac Studies: Echocardiogram 05/04/21
[2022-02-08 09:35] LABS: Vitamin B12 969 pg/mL (232-1245)
[2022-02-08 10:08] LABS: Free T4 Free Thyroxine 0.93 ng/dL (0.82-1.77)
--- NOTE | 2022-02-08 10:35 | PC.NURSE ---
Patient left for a [facility] procedure at 07.
[2022-02-08] MEDS: thiamine 100 mg Tablet PO (11:14)
[2022-02-08] MEDS: divalproex DR 500 mg Tablet PO ×3 (11:50→20:40)
--- NOTE | 2022-02-08 11:59 | P.OP_ITS ---
Operative Report Date of procedure: February 08, 2022 Pre-op diagnosis: Right lower lobe cavitary lesion-suspected malignancy Post-op diagnosis: Suspicious for malignancy Procedure done: 51282:Dx Bronchoscope w/Washings or airway inspection 57588:Dx Bronchoscope w/BAL 96059:Bronchoscopy w/ therapeutic aspiration of the tracheobronchial tree (clearance of airway secretions, removal of mucus plugs) 96096:EBUS Sampling 1/2 nodes Surgeon: Chiki Neal MD Brief History: Mik Raya is a 71 year old male with past medical history of COPD, dementia, alcohol dependence, chronic smoker, multifocal atrial tachycardia, chronic back pain, cerebral aneurysm with surgical intervention x2, had a CT chest on 02/01/2022 11.4 cm irregular thick-walled cavitary lesion in the right lower lobe mass. Patient has been smoking at least 1 to 1.5 packs for over 50 years and still continues to smoke-given significant smoking history this current lesion is highly concerning for malignancy. ? Today scheduled for bronchoscopic inspection of airways as well as endobronchial ultrasound-guided fine-needle aspiration of right lower lobe mass encircling hilar area Procedure: Name of the procedure: Bronchoscopy with inspection of the airway, bronchoalveolar lavage, endobronchial ultrasound-guided transbronchial needle aspiration of right lower lobe mass from station 7 and control of bleeding. 50394:Dx Bronchoscope w/Washings or airway inspection 89987:Dx Bronchoscope w/BAL 76151:Bronchoscopy w/ therapeutic aspiration of the tracheobronchial tree (clearance of airway secretions, removal of mucus plugs) 33654:EBUS Sampling 1/2 nodes Indication: 11.4 cm irregular thick-walled cavitary lesion in the right lower lobe mass on the latest CT chest on 02/01/2022. Anesthesia: General anesthesia. Local anesthesia: The glottis, trachea, right and left mainstem bronchi were anesthetized with 1% lidocaine, 3 mL. Description of the procedure: The procedure was explained to the patient and his the consent was obtained. The patient has intermittent episodes of confusion and so consent was obtained patient's , who happens to be his legal guardian. Patient was brought to the OR and underwent laryngeal mask airway placement for general anesthesia. Following induction of general anesthesia, the bronchoscope was advanced through the LMA, mobile vocal cords were noted, the scope was advanced through the glottis, trachea appeared to be normal, no endotracheal lesion was seen. The julee was sharp and 1 mL 1% lidocaine was instilled. There were copious amounts of clear secretions feeling the entire right bronchial tree. After suctioning all the secretions, the right and left mainstem bronchi are anesthetized with 1% lidocaine. In a systematic manner bilateral bronchial tree were then examined. The bronchoscope was advanced into the left mainstem bronchus. The mucosa appeared normal. The left upper lobe, lingula and left lower lobe bronchi were examined up to the third subsegmental level and no abnormalities were identified. There are no endobronchial lesions, active bleeding or mucous plug. The bronchoscope was then introduced into the right mainstem bronchus. The right upper lobe, right m iddle lobe and right lower lobe bronchi were examined up to the third subsegmental level and endobronchial areas in right lower lobe subsegments appeared edematous. There were no endobronchial lesions, active bleeding, or mucous plugs. Diagnostic bronchoscope was removed and endobronchial ultrasound was introduced through the LMA and once the sono probe was advanced through right bronchus intermedius and facing station 7 area posteriorly-detected a 5 x 4 cm mass. Transbronchial needle aspiration was performed from that area labeled as station 7. Rapid onsite evaluation reported atypical clusters highly suspicious for malignancy with necrotic background. After 4 passes and making sure we have we have adequate tissue sample, There was some bleeding, 10 cc cold saline was instilled.EBUS was retracted. Diagnostic bronchoscopy was reintroduced-there were some clots from the biopsy site in the right bronchus intermedius-which were suctioned right away. There was no active bleeding noted. Bronchoalveolar lavage was performed from the right lower lobe. 60 mL of saline was instilled, fluid return was 15 mL. The fluid was clear with some specks of blood. Samples: 1. Bronchoalveolar lavage specimen was sent for Gram stain and culture, fungal stain and culture, AFB stain and culture, 2. The transbronchial biopsies from station 7 are sent for histopathology. Complications: There was no immediate complications. Chest x-ray: Pending Disposition: Patient will be go back to to medical floor was updated about preliminary diagnosis suspicious for malignancy. I am going to call patient's with final pathology results as soon as they are available. Recommendations conveyed to hospitalist taking care of the patient and informed to discharge patient to [facility] 1 puff daily as well as pulmonary clinic appointment as outpatient
[2022-02-08 12:04] LABS: Glucose Point of Care 140 mg/dL (70-110)
--- NOTE | 2022-02-08 12:26 | XR_ITS ---
WS: [id number] Exam: XR chest 1V portable [id number] Date/Time of Exam: 02/08/2022 12:26 PM Reason For Exam: Post bronchoscopy Comparison 02/07/2022. Again noted is infiltrate in the right middle lobe. There also may be enlargement of the right pulmon jonnie hilum. An underlying mass is not excluded. Chronic interstitial changes and honeycombing noted th roughout both lungs. Heart size is normal. The mediastinal silhouette is unremarkable. Right apical p leural thickening. Hardware in the right humerus. Bony structures are otherwise intact. Probable smal l right pleural effusion. XR/XR chest 1V portable [id number] IMPRESSION: 1. Right middle lobe infiltrate and/or atelectasis. There may be enlargement of the right pulmonary hilum. Underlying mass is not excluded. 2. Chronic changes of interstitial fibrosis and honeycombing. Blunted right cos tophrenic angle that may represent small pleural effusion.
--- NOTE | 2022-02-08 13:19 | ANE.PACU2 ---
Inpatient post-anesthesia follow up: Airway intact: Yes Vital signs: Temperature 98.1 F Pulse Rate 101 Respiratory Rate 18 Blood Pressure 105/70 Pulse Oximetry 96 Oxygen Delivery Me thod Nasal Cannula Oxygen Flow Rate 2 Fraction of Inspir ed Oxygen Hydration adequate: Yes Nausea and vomiting: No Pain level: 1 Mental status: Baseline
[2022-02-08] MEDS: magnesium sulfate premix 4 GM/100 ML PREMIX IV (13:50)
[2022-02-08] MEDS: ferrous sulfate EC 325 mg Tablet PO ×2 (14:04→18:26)
--- NOTE | 2022-02-08 15:03 | ECG_ITS ---
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 Measurements Intervals [place] Rate: 94 P: 77 [place]: 144 QRS: 20 QRSD: 88 T: 19 QT: 345 QTc: 433 Interpretive Statements SINUS RHYTHM SEPTAL MYOCARDIAL INFARCTION , PROBABLY OLD [40+ ms Q WAVE IN V1/V2] Compared to ECG 02/07/2022 16:55:45 Myocardial infarct finding now present Sinus tachycardia no longer present Electronically Signed On 02-08-2022 18:17:43 CDT by Malorie Barajas M.D. [id number]
[2022-02-08] MEDS: quetiapine 25 mg Tablet 50 MG PO (16:10)
[2022-02-08] MEDS: nicotine 21 mg Patch 1 PATCH TRANSDERMA (16:11)
[2022-02-08 17:02] LABS: Folate Level 7.9 ng/mL (4.5-32.2)
[2022-02-08] MEDS: cefTRIAXone 1,000 MG in sodium chloride 0.9% (plus) 50 ML 100 MG IV (18:26)
[2022-02-08] MEDS: lactobacillus 1 Tablet 1 TAB PO (18:26)
[2022-02-08] MEDS: docusate sodium 100 mg Capsule PO (18:26)
[2022-02-08] MEDS: metoprolol succinate ER (24 HR) 25 mg Tablet PO (20:16)
[2022-02-08] MEDS: quetiapine 100 mg Tablet 200 MG PO (20:16)
[2022-02-08 23:00] LABS: Cyto Order Verification Order Verified
[2022-02-08] MEDS: morphine 4 mg/mL SDV 1 mL 2 MG IVP (23:06)
[2022-02-09] VITALS (10 sets, daily range): BP systolic 85–122; BP diastolic 48–74; PULSE 67–97; RESP 17–18; TEMP 36.6; O2SAT 93–99
[2022-02-09] MEDS: ipratropium-albuterol 3 mL Neb INHALATION ×2 (02:32→07:43)
[2022-02-09] MEDS: tizanidine 4 mg Tablet PO ×2 (02:33→11:28)
[2022-02-09] MEDS: acetaminophen 325 mg Tablet 650 MG PO ×2 (02:34→11:32)
--- NOTE | 2022-02-09 05:35 | PC.NURSE ---
Pt was hypotensive. drank 240 of fluids right away. will continue to encourage fluid intake.
[2022-02-09] MEDS: levoFLOXacin 500 mg Tablet PO (06:21)
[2022-02-09] MEDS: pantoprazole DR 40 mg Tablet PO (06:22)
[2022-02-09] MEDS: lactobacillus 1 Tablet 1 TAB PO (09:07)
[2022-02-09] MEDS: folic acid 1 mg Tablet PO (09:07)
[2022-02-09] MEDS: naltrexone hcl 50 mg Tablet PO (09:08)
[2022-02-09] MEDS: thiamine 100 mg Tablet PO (09:08)
[2022-02-09] MEDS: divalproex DR 500 mg Tablet PO (09:08)
[2022-02-09] MEDS: docusate sodium 100 mg Capsule PO (09:08)
[2022-02-09] MEDS: cyanocobalamin 1,000 mcg Tablet 1000 MCG PO (09:08)
[2022-02-09] MEDS: ferrous sulfate EC 325 mg Tablet PO ×2 (09:13→11:28)
[2022-02-09] MEDS: quetiapine 25 mg Tablet 50 MG PO (09:13)
[2022-02-09] MEDS: fluticasone nasal spray 16gm Btl 2 SPRAY INTRANASAL (09:14)
--- NOTE | 2022-02-09 10:05 | P.DS_ITS ---
Discharge Providers Date of Admission: 02/08/22 16:50 Date of Discharge: February 09, 2022 Attending Provider at Admission: Remedios Sanchez MD Attending Provider at Discharge: Michoacano Calderon DO Consults: Dr. Dixon - pulmonary Primary Care Provider: Yrn Hagen Diagnoses at Discharge Discharge Diagnosis (1) Cavitary lesion of lung: Status: Chronic Permanent problem details: Noted on CT imaging 02/01/2022 6 x 10 x 11.4 cm RLL; history of right lung nodule dating back to at least 2011, measured approximately 5 mm in 2017 (2) Pneumonia: Status: Acute Qualifiers: Laterality: right Lung location: middle lobe of lung Pneumonia type: due to Haemophilus influenzae Qualified Code(s): J14 - Pneumonia due to Hemophilus influenzae (3) COPD (chronic obstructive pulmonary disease): Status: Chronic Qualifiers: COPD type: COPD with acute exacerbation Qualified Code(s): J44.1 - Chronic obstructive pulmonary disease with (acute) exacerbation (4) Nicotine dependence, cigarettes, with other nicotine-induced disorders: Status: Chronic (5) Dementia: Status: Chronic Reason for Visit Reason for Visit: cough, SOB Brief History: This 71-year-old white male who was just hospitalized here last week presented to the emergency room with increasing confusion and more difficulty breathing. Last hospital stay he was found to have a Cavitary lung mass and evidence of postobstructive pneumonia he was treated with IV antibiotics and treated transition to Augmentin and Levaquin. Sputum culture revealed haemophilus influenza. Due to this confusion and 's inability to care for patient at home patient was readmitted. Hospital Course Hospital Course Patient was admitted placed on antibiotics. So was placed with Dr. Neal from pulmonology. Appreciate his assistance. He performed a lung biopsy. 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 While biopsy results are pending discussion with ensued. She knows that the patient would not want to pursue nor would be able to pursue any chemo or radiation. He would not be a surgical candidate. 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 He is subject to much confusion and altered mental status. I took the liberty of adjusting his Depakote and Seroquel doses. This had good results. Since the patient will not be pursuing aggressive treatment we will fill out and add a house DNR. I will talk to the about hospice referral. Patient can be discharged in stable condition. Physical Exam Narrative: Patient is alert to self and place. He states he does not know why he is here or the results of the biopsy. Neurologic. As above. No focal deficit. Patient is calm and cooperative. Report from sitter is at patient's behavior has been in the normal range. Heart regular normal S1-S2 no murmurs clicks gallops or rubs Lungs: Severely diminished breath sounds no wheezes rales or rhonchi auscultated Abdomen soft nontender nondistended positive bowel sounds Extremities no clubbing cyanosis or edema Discharge Data Studies Completed and Pending Completed Studies During Hospitalization Category Date Time Status XR chest 1V portable [id number] Routine Exams 02/08/22 12:26 Completed XR chest 1V portable [id number] Stat Exams 02/07/22 11:10 Completed Pending at discharge Category Date Time Status Blood Culture Routine Lab 02/07/22 16:00 Results Bronch Washing Culture & GS Routine Lab 02/08/22 10:22 Results Fungal Culture not HR/SK/BL Routine Lab 02/08/22 10:18 Uncollected Immunochemical Fecal OCB Routine Lab 02/07/22 19:17 Uncollected Methylmalonic Acid Routine Lab 02/08/22 15:53 Received Mycobacteria, Culture w/Fluor Routine Lab 02/08/22 10:22 Received Cytology [PTH] Routine Pth 02/08/22 10:18 Received Pathology: Surgical [PTH] Routine Pth 02/08/22 10:26 Received Radiology Impressions Chest X-Ray 02/08/22 12:26 IMPRESSION: 1. Right middle lobe infiltrate and/or atelectasis. There may be enlargement of the right pulmonary hilum. Underlying mass is not excluded. 2. Chronic changes of interstitial fibrosis and honeycombing. Blunted right costophrenic angle that may represent small pleural effusion. Laboratory Results WBC 10.2 10^3/uL (4.0-10.0) H 02/08/22 04:26 RBC 2.51 10^6/uL (4.1-5.3) L 02/08/22 04:26 Hgb 8.2 g/dL (11.7-16.6) L 02/08/22 04:26 Hct 26.4 % (42.0-52.0) L 02/08/22 04:26 MCV 105.2 fl (80-94) H 02/08/22 04:26 MCH 32.7 pg (28.0-34.0) 02/08/22 04: MCHC 31.1 g/dL (30.0-36.0) 02/08/22 04: RDW 14.3 % (12.1-15.1) 02/08/22 04:26 Plt Count 361 10^3/cmm (130-400) 02/08/22 04: MPV 10.0 fL (7.4-10.4) 02/08/22 04:26 Neut % (Auto) 72.5 % 02/08/22 04: Lymph % (Auto) 13.5 % 02/08/22 04: [place] % (Auto) 7.7 % 02/08/22 04: Eos % (Auto) 3.4 % 02/08/22 04: Baso % (Auto) 0.5 % 02/08/22 04: Neut # (Auto) 7.41 10^3/uL (1.8-7.7) 02/08/22 04:26 Lymph # (Auto) 1.4 10^3/uL (0.8-4.8) 02/08/22 04: [place] # (Auto) 0.8 10^3/uL (0.2-0.9) 02/08/22 04: Eos # (Auto) 0.4 10^3/uL (0.0-0.8) 02/08/22 04: Baso # (Auto) 0.1 10^3/uL (0.0-0.1) 02/08/22 04:26 Nucleated RBC % (auto) 0 % 02/08/22 04: Nucleated RBCs # 0.0 /100WBC 02/08/22 04:26 Specimen Type Arterial 02/07/22 11:15 Sample Site Radial, left 02/07/22 11:15 ABG pH 7.46 (7.35-7.45) H 02/07/22 11:15 ABG pCO2 39.3 mmHg (35-45) 02/07/22 11:15 ABG pO2 65.3 mmHg (80.0-100.0) L 02/07/22 11:15 ABG HCO3 27.9 mmol/L (22-26) H 02/07/22 11:15 ABG O2 Saturation 94.2 02/07/22 11:15 ABG Base Excess 3.7 mmol/L (-2.0-2.0) H 02/07/22 11:15 Rayray Test Pos 02/07/22 11:15 A-a O2 Gradient 4.6 mmHg (5-10) L 02/07/22 11:15 Hematocrit 24.2 % (42-52) L 02/07/22 11:15 Hgb O2 Saturation 91.0 % (95-100) L 02/07/22 11:15 Carboxyhemoglobin 2.9 %THgb (0.4-20.1) 02/07/22 11:15 Methemoglobin 0.4 % (0.4-1.5) 02/07/22 11:15 Total Hemoglobin 7.9 g/dL (14-18) L 02/07/22 11:15 Sodium 135.0 mmol/L (131-143) 02/07/22 11:15 Potassium 3.6 mmol/L (3.5-5.0) 02/07/22 11:15 Glucose 102.0 mg/dL (70-115) 02/07/22 11:15 Ionized Calcium 1.3 mmol/L (1.1-1.4) 02/07/22 11:15 O2 Delivery Device Room air 02/07/22 11:15 FiO2 21.0 % 02/07/22 11:15 Equipment Validation Specialist ID Ed 02/07/22 11:15 Sodium 139 mmol/L (136-145) 02/08/22 04:26 Potassium 3.7 mmol/L (3.5-5.1) 02/08/22 04:26 Chloride 100 mmol/L (98-107) 02/08/22 04:26 Carbon Dioxide 28 mmol/L (22-29) 02/08/22 04:26 Anion Gap 14.7 (5-19) 02/08/22 04:26 BUN 12 mg/dL (8-23) 02/08/22 04:26 Creatinine 0.8 mg/dL (0.7-1.2) 02/08/22 04:26 GFR Calculation 95.8 mL/min (90-130) 02/08/22 04:26 Glucose 104 mg/dL (65-115) 02/08/22 04:26 POC Glucose 140 mg/dL (70-110) H 02/08/22 11:47 Calculated Osmolality 288 mOsm/kg (285-295) 02/08/22 04:26 Calcium 9.8 mg/dL (8.5-10.5) 02/08/22 04:26 Phosphorus 3.3 mg/dL (2.5-4.5) 02/08/22 04:26 Magnesium 1.6 mg/dL (1.7-2.3) L 02/08/22 04:26 Total Bilirubin 0.2 mg/dL (0.15-1.2) 02/08/22 04:26 AST 12 U/L (0-40) 02/08/22 04:26 ALT 19 U/L (0-41) 02/08/22 04:26 Alkaline Phosphatase 138 U/L (40-130) H 02/08/22 04:26 Creatine Kinase 69 U/L (39-308) 02/07/22 11:44 Troponin T Baseline 7 ng/L (0-15) 02/07/22 11:44 Troponin T 120 Minute 6.64 ng/L (0-15) 02/07/22 13:26 Delta Troponin T -0.36 ABS# (0-10) L 02/07/22 13:26 Troponin T Hi Sens 6Hr 7.98 ng/L (0-15) 02/07/22 18:10 Troponin T Hi Sens 6Hr Delta 0.98 ng/L (0-12) 02/07/22 18:10 NT-Pro-B Natriuret Pep 1185 pg/mL (0-125) H 02/07/22 11:44 Total Protein 6.5 g/dL (6.6-8.7) L 02/08/22 04:26 Albumin 2.7 g/dL (3.5-5.2) L 02/08/22 04:26 Globulin 3.8 g/dL (1.3-4.6) 02/08/22 04:26 Vitamin B12 969 pg/mL (232-1245) 02/08/22 04:26 Folate 7.9 ng/mL (4.5-32.2) 02/08/22 15:53 Procalcitonin 0.18 ng/mL (0-0.5) 02/07/22 11:44 TSH 1.40 uIU/mL (0.27-4.20) 02/08/22 04:26 Free T4 0.93 ng/dL (0.82-1.77) 02/08/22 04:26 Urine Color Dark yellow (Yellow) 02/07/22 12:09 Urine Appearance Clear (CLEAR) 02/07/22 12:09 Urine pH 5 (5-7) 02/07/22 12:09 Ur Specific [place] 1.010 (1.005-1.030) 02/07/22 12:09 Urine Protein Neg (Negative) 02/07/22 12:09 Urine Glucose (UA) Norm (Normal) 02/07/22 12:09 Urine Ketones Negative (Negative) 02/07/22 12:09 Urine Blood 2+ (Negative) H 02/07/22 12:09 Urine Nitrate Negative (Negative) 02/07/22 12:09 Urine Bilirubin Neg (Negative) 02/07/22 12:09 Urine Urobilinogen Norm mg/dL (Negative) 02/07/22 12:09 Ur Leukocyte Esterase Trace (Negative) H 02/07/22 12:09 Urine RBC 0-4 /hpf (0-2) H 02/07/22 12:09 Urine WBC 5-10 /hpf (0-5) H 02/07/22 12:09 Ur Squamous Epith Cells None /hpf (0-5) 02/07/22 12:09 Amorphous Sediment Not Reportable 02/07/22 12:09 Urine Bacteria 1+ /hpf (NONE) H 02/07/22 12:09 Blood Type O Positive 02/08/22 07:15 Rho(D) Type Positive 02/08/22 07:15 Antibody Screen Negative 02/08/22 07:15 Procedures Performed Bronchoscopy with lung biopsy Vitals Last Vital Signs Temp 97.9 F 02/09/22 08:17 Pulse 86 02/09/22 08:17 Resp 17 02/09/22 08:17 BP 111/73 02/09/22 08:17 Pulse Ox 94 02/09/22 08:17 O2 Del Method 02/09/22 07:44 O2 Flow Rate 2 02/09/22 07:44 Discharge Plan Discharge Patient Disposition: Home Condition: Stable Prescriptions: New quetiapine 25 mg Tablet 50 mg PO BID@0800,1500 Qty: 60 0RF divalproex 500 mg Tablet,Delayed Release (Dr/Ec) 500 mg PO TID Qty: 90 0RF docusate sodium 100 mg Capsule 100 mg PO BID Qty: 60 0RF Continued quetiapine 100 mg tablet 200 mg PO BEDTIME Rx Instructions: TAKE WITH 50MG QUETIAPINE AT BEDTIME TO EQUAL 250 MG fluticasone propionate 50 mcg/actuation spray,suspension 2 spray INTRANASAL DAILY PRN (Reason: Allergy Symptoms) fluticasone furoate-vilanterol [Breo Ellipta] 200-25 mcg/dose blister with device 1 inh INHALATION QAM albuterol sulfate 90 mcg/actuation HFA aerosol inhaler 2 puff INHALATION Q4H PRN (Reason: Shortness Of Breath) pantoprazole [Protonix] 40 mg Tablet,Delayed Release (Dr/Ec) 40 mg PO QAM naltrexone 50 mg tablet 50 mg PO DAILY@09 amoxicillin-pot clavulanate 875-125 mg Tablet 1 tab PO BID 5 Days Qty: 10 0RF metoprolol succinate 25 mg Tablet Extended Release 24 Hr 50 mg PO BEDTIME 30 Days Qty: 30 0RF diclofenac sodium 75 mg tablet,delayed release (DR/EC) 75 mg PO BID Discontinued gabapentin 300 mg capsule 300 mg PO TID quetiapine [Seroquel] 50 mg Tablet 50 mg PO BID@09,21 Rx Instructions: TAKE 50 mg ORALLY IN THE MORNING AND 50MG SECOND DOSE WITH 200 MG QUETIAPINE TO EQUAL 250MG AT BEDTIME divalproex 500 mg tablet,delayed release (DR/EC) 500 mg PO BEDTIME divalproex 250 mg tablet extended release 24 hr 250 mg PO BID@09,15 tizanidine 4 mg tablet 4 mg PO Q8H PRN (Reason: Muscle Spasm) levofloxacin 500 mg Tablet 500 mg PO DAILY@0600 5 Days Qty: 5 0RF Nuedexta 20-10 mg capsule 1 cap PO DAILY Discharge Orders: Discharge Order (Routine); Ordered 02/09/22 Ordered By: Michoacano Calderon Referrals: Yrn Hagen [Primary Care Provider] - Discharge Diet: Advance as tolerated Discharge Activity: Increase activity as tolerated Activity Restrictions/Additional Instructions: Recommend hospice care. Discharge Attestations Time Spent in Discharge Care*: greater than 30 min Quality Metrics Clinical Quality Measures [ No reported AMI, CVA or VTE this stay] Coding Level of Care Code Acute Chg FW DC note Diagnoses Cavitary lesion of lung J98.4 Pneumonia J14 Laterality: right Lung location: middle lobe of lung Pneumonia type: due to Haemophilus influenzae COPD (chronic obstructive pulmonary disease) J44.1 COPD type: COPD with acute exacerbation Nicotine dependence, cigarettes, with other nicotine-induced disorders F17.218 Dementia F03.90
--- NOTE | 2022-02-09 11:45 | PC.CHAP ---
Pastoral Care Encounter/Spiritual Assessment Type of Contact [] Declined furniture stainer visit [] Patient/Family/Request visit [] Outpatient visit [] Follow-up visit [] Physician referral [] Code/Alert [x] Routine visit [] Staff referral [] Actively dying [] Patient sleeping [] Family support [] [] Out of room [] Palliative care [] [x] Receiving care in room [] Pre-surgical visit [] Trauma [] Long length of stay [] ICU visit [] Other: Relational/Emotional Strength [] Patient feels connected with others/family/visitors/staff [] Distress [] Loneliness/isolation [] Abandonment Spirituality of Patient [] Person of [place] [] Attends Jewish of their [place] [] Believes in Prayer [] Reads Bible or Sikhism materials [] There are Spiritual issues to be addressed Industrial Mechanic Interventions [] Prayer [] Active listening [] Non-anxious presence [] Spiritual/emotional support [] Crisis/trauma care [] Spiritual counseling [] Bereavement support [] Provided bereavement packet [] Provided Bible/devotional materials [] Provided toy/stuffed animal, coloring book to patient or family member [] Provided Communion [] Anointing/[place] [] Salvation [] Completed spiritual assessment [] Other: Impact on Illness or Injury [] Angry [] Fearful [] Anxious [] Often cries [] Exhaustion [] Unable to work [] Unable to attend adventism [] Unable to walk/stand [] Unable to read [] Unable to drive [] Unable to eat/drink [] Unable to sleep [] Unable to be with family [] Patient intubated [] Other: Summary Time spent with patient
--- NOTE | 2022-02-09 13:14 | PC.NURSE ---
Dr. Calderon and this nurse went over discharge paperwork, new medications, and follow up appointments. Verbalized understanding
[2022-02-12 10:03] LABS: Methylmalonic Acid 130 nmol/L (87-318)
== END 2022-02-09 13:18 | disposition hospice, home (50) | DRG 194 ==
LOC: ER 12:43 → MEDSURG 16:01
PROVIDERS: Internal Medicine Pulmonary Disease; Admitting Provider Hospitalist; Emergency Provider Family Medicine; PCP Family Medicine; Visit Provider Internal Medicine
PROC: 0BJ08ZZ Inspection of Tracheobronchial Tree, Via Natural or Artificial Opening Endoscopic (ICD-10-PCS; CPT 31622; principal; 2022-02-08 09:15)
PROC: BB4BZZZ Ultrasonography of Pleura (ICD-10-PCS; 2022-02-08 09:15)
DX: J14 Pneumonia due to Hemophilus influenzae (principal); F02.81 Dementia in other diseases classified elsewhere, unspecified severity, with behavioral disturbance; I47.1 Supraventricular tachycardia; J98.4 Other disorders of lung; F17.218 Nicotine dependence, cigarettes, with other nicotine-induced disorders; J43.9 Emphysema, unspecified; F03.90 Unspecified dementia, unspecified severity, without behavioral disturbance, psychotic disturbance, mood disturbance, and anxiety; D50.9 Iron deficiency anemia, unspecified; N30.90 Cystitis, unspecified without hematuria; R41.0 Disorientation, unspecified; S06.890S Other specified intracranial injury without loss of consciousness, sequela; X58.XXXS Exposure to other specified factors, sequela; M06.9 Rheumatoid arthritis, unspecified; G89.29 Other chronic pain; Z86.79 Personal history of other diseases of the circulatory system; Z86.16 Personal history of COVID-19; Z86.59 Personal history of other mental and behavioral disorders; Z66 Do not resuscitate; Z99.81 Dependence on supplemental oxygen
CPT/HCPCS: 31624; 31652; 36415; 36416; 36600; 71045; 80051; 80053; 80503; 81001; 82330; 82550; 82607; 82746; 82805; 82962; 83735; 83880; 83921; 84100; 84145; 84439; 84443; 84484; 85025; 86850; 86900; 87015; 87040; 87070; 87116; 87205; 87206; 87801; 88108; 88305; 93005; 94640; 96365; 99285; G0378; J0696; J2270; J2405; J2543; J3475; J7030